=== PATIENT | male | born 1940 | race Caucasian/White ===

== ENCOUNTER 2023-10-31 11:15 | Outpatient (CLI) | payer MEDICARE, SELFPAY ==
[2023-10-31 11:36] LABS: Basophils Percent Auto 0.3 % (0.2-1.2); Eosinophils Absolute Auto 0.1 K/mm3 (0-0.3); Eosinophils Percent Auto 1.5 % (0-4.4); Hemoglobin 12.3 g/dL (14.0-18.0); Immature Granulocyte Absolute 0.06 K/mm3 (0.00-0.031); Lymphocytes Absolute Auto 0.48 K/mm3 (0.9-3.2); Lymphocytes Percent Auto 8.2 % (18.3-44.2); Mean Corpuscular HGB Conc 33.2 g/dl (32-36); Mean Corpuscular Hemoglobin 33.7 pg (26-34); Mean Corpuscular Volume 101.4 fl (80-100); Mean Platelet Volume 10.3 fl (7.4-10.4); Monocytes Absolute Auto 0.6 K/mm3 (0.1-0.6); Monocytes Percent Auto 9.5 % (2.6-8.5); Neutrophils Absolute Auto 4.7 K/mm3 (1.3-6.7); Neutrophils Percent Auto 79.5 % (45.5-73.1); Platelet Count Result 167 k/mm3 (150-375); Red Blood Count 3.65 M/mm3 (4.6-6.20); Red Cell Distribution Width 13.3 % (11.5-14.5); White Blood Count 5.9 K/mm3 (4.5-10.0)
[2023-10-31 12:14] LABS: Anion Gap 6 mmol/L (8-16); Blood Urea Nitrogen 29 mg/dL (9-20); Carbon Dioxide 31 mmol/L (22-30); Chloride 101 mmol/L (98-107); Potassium 4.2 mmol/L (3.4-5.0); Sodium 138 mmol/L (137-145)
[2023-10-31 12:15] LABS: Alanine Aminotransferase 19 U/L (6-50); Albumin Level 4.2 g/dL (3.5-5.1); Alkaline Phosphatase 83 U/L (38-126); Aspartate Amino Transferase 26 U/L (17-59); Bilirubin,Total 0.9 mg/dL (0.2-1.3); Estimated Glomerular Filt Rate 49
[2023-10-31 12:42] LABS: Prostate Specific Antigen < 0.1 ng/mL (< OR = 4.0)
[2023-10-31 13:06] LABS: Glucose 148 mg/dL (65-110)
== END 2023-10-31 11:16 | disposition home or self-care (01) ==
LOC: ANHLAB 11:18
PROVIDERS: PCP Internal Medicine; Visit Provider Internal Medicine Hematology & Oncology
DX: C61 Malignant neoplasm of prostate (principal)
CPT/HCPCS: 36415; 80053; 84153; 85025

== ENCOUNTER 2024-01-11 13:45 | Outpatient (CLI) | payer MEDICARE, SELFPAY ==
[2024-01-11 14:19] LABS: Albumin Level 4.3 g/dL (3.5-5.1); Anion Gap 11 mmol/L (4-12); Blood Urea Nitrogen 29 mg/dL (9-20); Calcium 9.6 mg/dL (8.4-10.2); Carbon Dioxide 25 mmol/L (22-30); Chloride 101 mmol/L (98-107); Estimated Glomerular Filt Rate 53; Glucose 198 mg/dL (65-110); Phosphorus 3.5 mg/dL (2.5-4.5); Sodium 137 mmol/L (137-145)
[2024-01-11 15:19] LABS: Parathyroid Intact 61.9 pg/mL (7.5-53.5)
[2024-01-11 16:35] LABS: Creatinine Urine 96.9 mg/dL; Total Protein Urine Random 13 mg/dL; Ur Ttl Prot Creatinine Ratio 0.13 mg/mg (0-0.20)
[2024-01-11 18:32] LABS: Vitamin D 25 Hydroxy 48.5 ng/mL
== END 2024-01-11 13:46 | disposition home or self-care (01) ==
PROVIDERS: PCP Internal Medicine; Visit Provider Internal Medicine Nephrology
DX: E55.9 Vitamin D deficiency, unspecified (principal); I12.9 Hypertensive chronic kidney disease with stage 1 through stage 4 chronic kidney disease, or unspecified chronic kidney disease; N18.32 Chronic kidney disease, stage 3b; N25.81 Secondary hyperparathyroidism of renal origin
CPT/HCPCS: 36415; 80069; 82306; 82570; 83970; 84156

== ENCOUNTER 2024-02-21 08:30 | Outpatient (CLI) | payer MEDICARE, SELFPAY ==
[2024-02-21 09:23] LABS: Hemoglobin A1C 6.7 % (<5.7)
[2024-02-21 09:50] LABS: Anion Gap 6 mmol/L (4-12); Blood Urea Nitrogen 48 mg/dL (9-20); Calcium 9.4 mg/dL (8.4-10.2); Carbon Dioxide 34 mmol/L (22-30); Chloride 96 mmol/L (98-107); Cholesterol 165 mg/dL (0-200); Estimated Glomerular Filt Rate 39; Glucose 135 mg/dL (65-110); HDL Direct 63 mg/dL; Potassium 3.8 mmol/L (3.4-5.0); Sodium 136 mmol/L (137-145); Triglycerides 104 mg/dL (<150)
[2024-02-21 10:00] LABS: LDL Cholesterol Direct 82 mg/dL
== END 2024-02-21 08:31 | disposition home or self-care (01) ==
LOC: ANHLAB 08:32
PROVIDERS: PCP Internal Medicine; Visit Provider Clinical Nurse Specialist
DX: R73.9 Hyperglycemia, unspecified (principal); I10 Essential (primary) hypertension; N18.32 Chronic kidney disease, stage 3b; C61 Malignant neoplasm of prostate; I12.9 Hypertensive chronic kidney disease with stage 1 through stage 4 chronic kidney disease, or unspecified chronic kidney disease
CPT/HCPCS: 36415; 80048; 80061; 83036

== ENCOUNTER 2024-04-04 10:41 | Outpatient (CLI) | payer MEDICARE, SELFPAY ==
[2024-04-04 11:16] LABS: Basophils Percent Auto 0.4 % (0.2-1.2); Eosinophils Percent Auto 0.4 % (0-4.4); Hematocrit 34.4 % (42.0-52.0); Immature Granulocyte Absolute 0.07 K/mm3 (0.00-0.031); Lymphocytes Absolute Auto 0.26 K/mm3 (0.9-3.2); Lymphocytes Percent Auto 3.9 % (18.3-44.2); Mean Corpuscular HGB Conc 34.9 g/dl (32-36); Mean Corpuscular Hemoglobin 34.6 pg (26-34); Mean Corpuscular Volume 99.1 fl (80-100); Mean Platelet Volume 10.6 fl (7.4-10.4); Monocytes Absolute Auto 0.4 K/mm3 (0.1-0.6); Monocytes Percent Auto 6.1 % (2.6-8.5); Neutrophils Absolute Auto 5.9 K/mm3 (1.3-6.7); Neutrophils Percent Auto 88.2 % (45.5-73.1); Platelet Count Result 168 k/mm3 (150-375); Red Blood Count 3.47 M/mm3 (4.6-6.20); Red Cell Distribution Width 13.1 % (11.5-14.5); White Blood Count 6.7 K/mm3 (4.5-10.0)
[2024-04-04 11:31] LABS: Alanine Aminotransferase 18 U/L (6-50); Albumin Level 4.1 g/dL (3.5-5.1); Alkaline Phosphatase 88 U/L (38-126); Anion Gap 12 mmol/L (4-12); Aspartate Amino Transferase 26 U/L (17-59); Blood Urea Nitrogen 34 mg/dL (9-20); Calcium 9.6 mg/dL (8.4-10.2); Carbon Dioxide 31 mmol/L (22-30); Chloride 91 mmol/L (98-107); Estimated Glomerular Filt Rate 45; Glucose 160 mg/dL (65-110); Potassium 3.2 mmol/L (3.4-5.0); Sodium 134 mmol/L (137-145)
[2024-04-04 11:59] LABS: Prostate Specific Antigen < 0.1 ng/mL (< OR = 4.0)
== END 2024-04-04 10:42 | disposition home or self-care (01) ==
LOC: ANHLAB 10:47
PROVIDERS: PCP Internal Medicine; Visit Provider Internal Medicine Hematology & Oncology
DX: C61 Malignant neoplasm of prostate (principal)
CPT/HCPCS: 36415; 80053; 84153; 85025

== ENCOUNTER 2024-04-18 13:54 | Outpatient (CLI) | payer MEDICARE, SELFPAY ==
--- NOTE | ~2024-04-18 | DEXA_ITS ---
Bone Density Report Name: DARRON GONZALEZ Age: 84 Sex: Male Ethnicity: White Date of : 1940 Indication: screening for osteoporosis; height loss; inflammatory bowel disease; history of glucocorticoids; cancer; Referring Provider: JOSE PHAM Study: Bone densitometry was performed. Exam Date: April 18, 2024 Accession number: [id number] Bone Density: Region BMD T-score Z-score Classification AP Spine(L1-L4) 1.222 1.2 2.4 Normal Femoral Neck (Left) 1.023 0.7 2.3 Normal Total Hip (Left) 1.223 1.3 2.4 Normal Femoral Neck (Right) 1.087 1.2 2.8 Normal Total Hip (Right) 1.257 1.5 2.7 Normal Total Hip Mean 1.240 1.4 2.6 Normal World Health Organization criteria for BMD impression classify patients as: Normal (T-score at or above -1.0), Osteopenia (T-score between -1.0 and -2.5), or Osteoporosis (T-score at or below -2.5). 10-year Fracture Risk: FRAX not reported because: All T-scores for Spine Total, Hip Total, Femoral Neck at or above -1.0 Clinical Information Provided by Patient: Has taken Glucocorticoids Has 3 or more alcoholic drinks per day Has the following medical conditions: Cancer, Inflammatory bowel diseases Patient maximum height was 67.5 No regular weight bearing exercise Does not regularly consume dairy products Drinks caffeinated beverages Impression: The patient has normal bone mass. The patient has risk factors, including: excessive alcohol use, history of glucocorticoid therapy. Discussion: LOW RISK OF FRACTURE; BONE DENSITY IS WELL ABOVE THE MINIMUM DESIRABLE LEVEL AND ABOVE AVERAGE FOR AGE AND SEX AT ALL SKELETAL SITES TESTED. This person's bone density is above expected limits for age and sex. This is rarely clinically significant, but should be pursued if there are significant musculoskeletal complaints. The patient should follow a healthful lifestyle (good nutrition with adequate calcium and vitamin D, and appropriate weight-bearing exercise). Follow-Up: Consider repeating this study in 5 years or sooner if there is some new clinical indication. Reported by: JOSE on 04/18/2024 2:37:00 PM. Reviewed, dictated and finalized at location [facility]
== END 2024-04-18 13:55 | disposition home or self-care (01) ==
PROVIDERS: PCP Internal Medicine; Visit Provider Internal Medicine Hematology & Oncology
DX: M85.89 Other specified disorders of bone density and structure, multiple sites (principal); C61 Malignant neoplasm of prostate
CPT/HCPCS: 77080

== ENCOUNTER 2024-05-06 11:00 | Outpatient (RCR) | payer MEDICARE, SELFPAY ==
--- NOTE | 2024-03-15 14:39 | OPREHPOC ---
Outpatient Therapy Plan of Care This is a Multidisciplinary Plan of Care that may contain components documented by all disciplines (PT, OT, and ST.) PT Problem 1 PT Problem #1 Knowledge Deficit PT Goal 1 Goal *indep with HEP Target Visit 10 PT Problem 2 PT Problem #2 Impaired Strength PT Goal 1 Goal increase R and L LE strength, to improve transfer and mobility skills: 1* perform 20 reps of mat and standing R and L LE exercises with good control Target Visit 10 PT Problem 3 PT Problem #3 Impaired Functional Mobility PT Goal 1 Goal improve standing balance and mobility skills, to decrease risk for falls and improve functional mobility: 1* 2 minute walking test distance, with assistive device, 300' 2* 5 reps sit/stand without UE use 18 seconds 3* Tinetti balance/gait score of 25/28 4* up/down 12 steps with bilateral hand rails- modified indep-to be able to go into his basement 5* supine to sit transfer indep 6* pt report NO falls Target Visit 10
--- NOTE | 2024-03-15 14:39 | PTOPEVAL1 ---
Assessment and note entered by Cyndee Stuart PT Evaluation Information Assessment Status Evaluation ICD-10 Condition Codes (PT) R26.9,Weakness R53.1 Onset May 2023 Subjective Information gradual increase in weakness with falls; in the past 6 months- have fallen 2x-walking and turning; tends to do things without thinking and have troubles doing them; started using the wheeled walker about 6 months ago; before that- did not use any device; live alone and recently moved to [place] to be closer to family; have upcoming appointments with patcher wood welder and sleep study test; Activity: live alone, have 2 steps to enter home; have basement and 12 steps from deck to yard--not go down there; daughter does laundry-- on main floor; have resident surgeon 2x/month for heavier cleaning; have sitting- chair pedal machine; GOAL: walk without anything; no more falls; Reported Pain Level Pain Score 0: Self Report Assessment PT Clinical Summary Dave has the diagnosis of gait abnormality, weakness with falls. He reports gradual increase in mobility and using a wheeled walker all of the time now. He lives alone with local daughter assist with laundry and resident surgeon. He does not do any regular fitness exercises. And reports a fear of falling again. With the evaluation: 5 reps sit/stand time of 24 seconds without use of UE's; 2 minute walking with wheeled walker, distance of 180' with reports of fatigue; Tinetti balance score of 20/28= risk for falls; 4 steps with single step pattern and both hands on one hand railing; supine to sit, requires assist with transfer/ sit to supine labored with moving legs onto mat; weakness of both legs. Skilled PT services are indicated to increase LE strength, bed mobility, transfer and gait/balance skills, with education for HEP and safety with mobility. Plan of Care Interventions G
--- NOTE | 2024-04-15 11:23 | PCPTNOTE ---
Stoll an cancelled , pulled muscle. MONSERRATS
--- NOTE | 2024-05-01 11:35 | PCPTNOTE ---
Called and canceled, ill. AKS
--- NOTE | 2024-05-06 11:38 | PTOPDC ---
Assessment and note entered by Cyndee Stuart, PT Discharge Report Assessment Status Discharge ICD-10 Condition Codes (PT) R26.9,Weakness R53.1 Onset May 2023 Subjective Information have not had any falls since coming for therapy; in the house, do not always use the walker, but when go out, use the walker; have been working on the exercises at home; wish he could walk better and be further along; have not gone down into his basement- not comfortable doing it-- have done 1x with someone there with him; frustrated he is not better; saw the dr a few weeks ago and nothing was wrong or changes; wants to stop therapy and do the exercises on his own at home. Reported Pain Level Pain Score 0: Self Report Assessment PT Clinical Summary Dave has received 7 PT sessions. He called/ canceled 2 appointments. Compared to the initial evaluation: 5 reps sit/ stand time is the same at 24 seconds, but using 1 UE support/ at eval did not use UE's; 2 minute walking time with wheeled walker from 180' to 150' - had to stop and sit at end of 2 minutes walking; Tinetti balance score decreased from 20 to 17/28 LE strength with mat exercises - less reps today; education completed for safety with mobility and HEP. He has increased safety awareness- has not had any falls since starting therapy. The goals were partially met. Discharge PT services. He is to continue with his HEP and walking as tolerated. Plan of Care PT Services Indicated No
== END 2024-05-07 08:41 | disposition home or self-care (01) ==
LOC: ANHPT 11:00
PROVIDERS: PCP Internal Medicine; Visit Provider Internal Medicine
DX: R26.9 Unspecified abnormalities of gait and mobility (principal)
CPT/HCPCS: 97110; 97116; 97161; 97530

== ENCOUNTER 2024-05-16 09:10 | Outpatient (CLI) | payer MEDICARE, SELFPAY ==
--- NOTE | 2024-06-10 10:52 | WPDSLEEPSTUD ---
Sleep Study Date of Study: 05/16/24 Ordering Provider: Cipriano Lord DO Interpreting Physician: Hanna Leyva MD Sleep Study Type: Split Polysomnogram Height: 1.7 m Weight: 97.749 kg Body Mass Index: 33.7 Neck Circumference (inches): 17.5 [place]: 1 Reason for Sleep Study Chronic heart failure, history of sleep apnea and use of CPAP Sleep History Brent Lewis is an 84-year-old man with a history of sleep apnea, he has used a CPAP previously, but not recently. He now has an enlarged heart, right heat failure, hypertension, mild type 2 diabetes, GERD and edema. He arrived using a walker. which he reported to the engineering technical specialist. He does not awaken from sleep feeling short of breath. He does not awaken at night with heartburn, belching or coughing. He occasionally snores but never loudly enough that others complain about it. He does not have difficulty sleeping when he has a cold. He does not wake up gasping for breath during the night. He does not have breathing problems at night observed by others. He does not sweat excessively at night or notice his heart pounding or beating irregularly at night. He occasionally falls asleep during the day, rarely falls asleep involuntarily, never falls asleep while driving. He does not have loss of muscle tone with strong emotion. He is retired, does not report daytime difficulties due to excessive sleepiness. He does not feel paralyzed on waking or falling asleep. He does not have vivid dreamlike scenes upon awakening or falling asleep. He does not feel afraid to go to sleep. He denies having nightmares. He rarely remembers his dreams. He does not have racing thoughts. He does not feel sad, depressed, or anxious. He occasionally has muscular tension. He does not notice parts of his body jerking. He does not kick at night. He rarely has crawling and aching feelings in his legs. He occasionally has leg pain at night. He denies morning jaw pain, grinding his teeth at night, experiencing pain during the day or awakening with pain during the night. He denies waking up feeling stiff in the morning, does not have sore achy muscles on waking and does not wake up with pain in the neck or spine. He has memory problems. His normal bedtime is 8:30 p.m. falling asleep within 5-10 minutes waking typically 3-4 times at night long enough to use the bathroom and then return to sleep easily. His normal wake time is 7:30 a.m.. He keeps the same schedule on weekends. He estimates getting between 8 and 9 hours of sleep during the night. He does not mention whether or not he takes naps. He feels better in the morning compared to other times of day. Habits: Tobacco: never smoker Caffeine: 2 per day Alcohol: 3-4 per day Recreational substances: none [facility] Past Medical History Medical History Chronic kidney disease, stage 3 CPAP (continuous positive airway pressure) dependence Diverticulitis DM renal manif type II DM w/o complication type II GERD (gastroesophageal reflux disease) Hyperlipidemia LDL goal <100 Hypertension YAMILKA (obstructive sleep apnea) Prostate cancer Family History Family History Father Asthma Mother Leukemia Social History Social History Smoking status: Former smoker Tobacco type: cigarettes Second hand tobacco smoke exposure: No Alcohol intake: current Drinks per week: 7 Alcohol use details: 2 alcohol drinks per night Substance use: never Do You Feel Safe in your Home?: Yes Lack of Transportation: No Lack of Food: Never True Current Housing: I Have Housing Concerned About Future Housing: No Difficulty Paying Gas/Electric Bills: No Difficulty Paying for Meds: No Currently Unemployed: No Education: Master's Degree o
[2024-06-10 10:56] VITALS: BMI 33.7
== END 2024-05-17 07:20 | disposition home or self-care (01) ==
PROVIDERS: PCP Internal Medicine; Visit Provider Internal Medicine
DX: G47.33 Obstructive sleep apnea (adult) (pediatric) (principal); I50.810 Right heart failure, unspecified
CPT/HCPCS: 95811

== ENCOUNTER 2024-05-24 19:32 | Inpatient (IN) | payer MEDICARE, SELFPAY ==
--- NOTE | ~2024-05-24 | XR_ITS ---
EXAMINATION: XR chest 2V DATE: 05/24/2024 20:27 INDICATION: Weakness. TECHNIQUE: Frontal and lateral views of the chest were obtained. COMPARISON: CT abdomen and pelvis 08/21/2014 FINDINGS: There are airspace opacities in left mid and lower lung zones. No pleural effusion or pneum othorax. The heart size is normal. There are prominent pericardial fat pads. IMPRESSION: 1. Airspace opacities in left mid and lower lung zones, consistent with atelectasis versus pneumonia. Reviewed, dictated and finalized at location A. IMPRESSION: 1. Airspace opacities in left mid and lower lung zones, consistent with atelect asis versus pneumonia.
[2024-05-24 19:56] VITALS: BP 166/63; PULSE 96; RESP 16; TEMP 36.3; O2SAT 100
--- NOTE | 2024-05-24 19:58 | ECG_ITS ---
Test Date: 2024-05-24 20:02:47 Measurements Intervals Sunset Rate: 114 P: 251 FL: 116 QRS: -2 QRSD: 81 T: 9 QT: 266 QTc: 366 Interpretive Statements JUNCTIONAL TACHYCARDIA LOW QRS VOLTAGE IN PRECORDIAL LEADS [QRS DEFLECTION < 1.0 mV IN CHEST LEADS] NONSPECIFIC ST & T-WAVE ABNORMALITY Baseline artifact ABNORMAL RHYTHM ECG No previous ECG available for comparison Electronically Signed On 05-25-2024 16:17:28 CDT by Yuki Chapa M.D.
[2024-05-24 20:19] LABS: Basophils Percent Auto 0.5 % (0.2-1.2); Eosinophils Absolute Auto 0.2 K/mm3 (0-0.3); Hematocrit 34.4 % (42.0-52.0); Hemoglobin 11.7 g/dL (14.0-18.0); Immature Granulocyte Absolute 0.07 K/mm3 (0.00-0.031); Immature Granulocyte Percent A 0.9 % (0-0.5); Lymphocytes Percent Auto 6.1 % (18.3-44.2); Mean Corpuscular Hemoglobin 33.9 pg (26-34); Mean Corpuscular Volume 99.7 fl (80-100); Mean Platelet Volume 10.4 fl (7.4-10.4); Monocytes Absolute Auto 0.7 K/mm3 (0.1-0.6); Monocytes Percent Auto 8.8 % (2.6-8.5); Neutrophils Absolute Auto 6.7 K/mm3 (1.3-6.7); Neutrophils Percent Auto 81.7 % (45.5-73.1); Platelet Count Result 181 k/mm3 (150-375); Red Blood Count 3.45 M/mm3 (4.6-6.20); Red Cell Distribution Width 13.4 % (11.5-14.5); White Blood Count 8.2 K/mm3 (4.5-10.0)
[2024-05-24 20:28] LABS: Alanine Aminotransferase 18 U/L (6-50); Alkaline Phosphatase 84 U/L (38-126); Anion Gap 7 mmol/L (4-12); Aspartate Amino Transferase 32 U/L (17-59); Bilirubin,Total 1.1 mg/dL (0.2-1.3); Blood Urea Nitrogen 19 mg/dL (9-20); Calcium 9.3 mg/dL (8.4-10.2); Carbon Dioxide 30 mmol/L (22-30); Chloride 94 mmol/L (98-107); Estimated Glomerular Filt Rate 48; Glucose 173 mg/dL (65-110); Potassium 3.6 mmol/L (3.4-5.0); Sodium 131 mmol/L (137-145)
[2024-05-24 21:50] LABS: NT Pro B Type Natriuretic Pept 422 pg/mL (19.9-100); Troponin I 0.023 ng/mL (0.000-0.034)
--- NOTE | 2024-05-24 22:19 | ED_ITS ---
HPI - General Adult General Chief complaint: Weakness Stated complaint: weakness Time Seen by Provider: 05/24/24 21:06 History of Present Illness HPI narrative: Patient is a 84-year-old gentleman presents emergency department with chief complaint of generalized weakness. The family noticed for the last day he has been having increasing weakness in this evening was unable to get up off the toilet seat the patient denies chest pain denies fever denies vomiting denies diarrhea states that he does get short of breath whenever he is getting up and walking around. Related Data Home Medications Medication Instructions Recorded Confirmed Melatonin 5mg Gummy 1 tab-cap PO HS 09/01/23 05/25/24 leuprolide acetate (6 month) 45 mg 45 mg subcut [id number] 09/01/23 05/25/24 (6 month) subcutaneous syringe ([email or web address]) multivitamin 1 tablet PO DAILY 09/01/23 05/25/24 omega 9-jhb-dnm-fish oil 100 1 cap PO DAILY 09/01/23 05/25/24 mg-160 mg-1,000 mg capsule (Fish Oil) vitamin E (dl, acetate) 450 mg 450 mg PO DAILY 09/01/23 05/25/24 (1,000 unit) capsule aspirin 81 mg tablet,delayed 81 mg PO DAILY 02/26/24 05/25/24 release (Adult Aspirin Regimen) cholecalciferol (vitamin D3) 25 25 mcg PO DAILY 02/26/24 05/25/24 mcg (1,000 unit) capsule metformin 500 mg tablet,extended 500 mg PO HS 05/25/24 05/25/24 release 24 hr mirtazapine 15 mg tablet 15 mg PO HS 05/25/24 05/25/24 simvastatin 40 mg tablet 40 mg PO HS 05/25/24 05/25/24 Allergies Allergy/AdvReac Type Severity Reaction Status Date / Time No Known Allergies Allergy Verified 05/24/24 19:57 Review of Systems Review of Systems: A 10 system review of systems was completed on the patient and is negative except for what is stated in the HPI. Nursing and ancillary documentation was reviewed. [facility] Past Medical History Medical History (Updated 05/25/24 @ 00:11 by Hal Underwood MD) Chronic kidney disease, stage 3 CPAP (continuous positive airway pressure) dependence Diverticulitis DM renal manif type II DM w/o complication type II GERD (gastroesophageal reflux disease) Hyperlipidemia LDL goal <100 Hypertension YAMILKA (obstructive sleep apnea) Prostate cancer Family History Family History Father Asthma Mother Leukemia Social History Social History Smoking status: Former smoker Tobacco type: cigarettes Second hand tobacco smoke exposure: No Alcohol intake: current Drinks per week: 7 Alcohol use details: 2 alcohol drinks per night Substance use: never Do You Feel Safe in your Home?: Yes Lack of Transportation: No Lack of Food: Never True Current Housing: I Have Housing Concerned About Future Housing: No Difficulty Paying Gas/Electric Bills: No Difficulty Paying for Meds: No Currently Unemployed: No Education: Master's Degree or Higher Difficulty w/ Childcare or Family Care: No Living arrangements: alone Occupation/Education: retired Gender identity (if verbalized by the patient): Male Sexual Orientation (if Verbalized by the Patient): Straight or Heterosexual Spiritual care concerns: No Agree to blood products: Yes Exam Narrative: GENERAL: Well-appearing, well-nourished, and in no acute distress. HEAD: Normocephalic, atraumatic. EYES: PERRLA and EOMI. ENT: Nares clear, no rhinorrhea or epistaxis. Mucous membranes moist. NECK: Supple. CHEST: Clear to auscultation. No respiratory distress. HEART: Regular rate and rhythm. No murmur heard. Normal peripheral pulses. ABDOMEN: Soft, nontender, nondistended, normal active bowel sounds. EXTREMITIES: Normal range of motion. No edema. SKIN: Warm, dry, no rash. NEURO: No focal deficits. Alert and oriented x3. PSYCH: Normal mood and affect. Course Vital Signs Vital signs: Vital Signs Temperature 36.3 C L 05/24/24 19:56 Pulse Rate 96 05/24/24 19:56 Respiratory Rate 16 05/24/24 19:56 Blood Pressure 166/63 H 05/24/24 19:56 Pulse Oximetry 100 05/24/24 19:56 Temperature 36.9 C 05/25/24 02:20 Pulse Rate 95 05/25/24 02:20 Respiratory Rate 18 05/25/24 02:20 Blood Pressure 135/53 L 05/25/24 02:20 Pulse Oximetry 96 05/25/24 02:20 Oxygen Delivery Room Air 05/25/24 02:12 Medical Decision Making MDM Narrative Medical decision making narrative: Differential diagnosis includes pneumonia, COVID, electrolyte abnormality, dehydration, UTI Laboratory studies were obtained on the patient showed a white count 8.2 electrolytes showed a BUN of 19 and creatinine 1.4 lactic acid was 1.1 troponin was 0.023 BNP was 422 urinalysis showed 1+ ketones but otherwise no infection Chest x-ray showed possible pneumonia The patient received IV fluids and was started on Rocephin and Zithromax the case was discussed with hospitalist for admission Vital Signs Vital Signs: Vital Signs Temperature 36.3 C L 05/24/24 19:56 Pulse Rate 96 05/24/24 19:56 Respiratory Rate 16 05/24/24 19:56 Blood Pressure 166/63 H 05/24/24 19:56 Pulse Oximetry 100 05/24/24 19:56 Temperature 36.9 C 05/25/24 02:20 Pulse Rate 95 05/25/24 02:20 Respiratory Rate 18 05/25/24 02:20 Blood Pressure 135/53 L 05/25/24 02:20 Pulse Oximetry 96 05/25/24 02:20 Oxygen Delivery Room Air 05/25/24 02:12 Lab Data 05/24/24 20:11 05/24/24 20:11 Labs: Lab Results 05/24/24 05/24/24 05/24/24 Range/Units 20:11 22:20 23:32 WBC 8.2 (4.5-10.0) K/mm3 RBC 3.45 L (4.6-6.20) M/mm3 Hgb 11.7 L (14.0-18.0) g/dL Hct 34.4 L (42.0-52.0) % MCV 99.7 (80-100) fl MCH 33.9 (26-34) pg MCHC 34.0 (32-36) g/dl RDW 13.4 (11.5-14.5) % Plt Count 181 (150-375) k/mm3 MPV 10.4 (7.4-10.4) fl Immature Gran % (Auto) 0.9 H (0-0.5) % Neut % (Auto) 81.7 H (45.5-73.1) % Lymph % (Auto) 6.1 L (18.3-44.2) % Yell % (Auto) 8.8 H (2.6-8.5) % Eos % (Auto) 2.0 (0-4.4) % Baso % (Auto) 0.5 (0.2-1.2) % Lymph # (Auto) 0.50 L (0.9-3.2) K/mm3 Yell # (Auto) 0.7 H (0.1-0.6) K/mm3 Eos # (Auto) 0.2 (0-0.3) K/mm3 Baso # (Auto) 0.0 (0.0-0.1) K/mm3 Abs Immat Gran (auto) 0.07 H (0.00-0.031) K/mm3 Absolute Neuts (auto) 6.7 (1.3-6.7) K/mm3 Absolute Nucleated RBC 0.000 (0.0-0.012) K/mm3 Nucleated RBC % 0.0 (0.0-0.2) % Sodium 131 L (137-145) mmol/L Potassium 3.6 (3.4-5.0) mmol/L Chloride 94 L (98-107) mmol/L Carbon Dioxide 30 (22-30) mmol/L Anion Gap 7 (4-12) mmol/L BUN 19 (9-20) mg/dL Creatinine 1.40 H (0.7-1.3) mg/dL Estim Creat Clear Calc Not Reportable Estimated GFR 48 L (59 - ) Glucose 173 H (65-110) mg/dL Lactic Acid 1.1 (0.7-2.0) mmol/L Calcium 9.3 (8.4-10.2) mg/dL Total Bilirubin 1.1 (0.2-1.3) mg/dL AST 32 (17-59) U/L ALT 18 (6-50) U/L Alkaline Phosphatase 84 (38-126) U/L Troponin I 0.023 (0.000-0.034) ng/mL NT-Pro-B Natriuret Pep 422 H (19.9-100) pg/mL Total Protein 7.0 (6.3-8.2) g/dL Albumin 4.0 (3.5-5.1) g/dL Urine Color Yellow (Yellow) Urine Appearance Clear (Clear) Urine pH 6.5 (5.0-9.0) Ur Specific [place] 1.020 (1.001-1.035) Urine Protein 1+ H (Negative) mg/dL Urine Glucose (UA) Negative (Negative) mg/dL Urine Ketones 1+ H (Negative) mg/dL Ur Blood (Man) Negative (Negative) Urine Nitrate Negative (Negative) Urine Bilirubin Negative (Negative) Urine Urobilinogen 1.0 (<2.0) mg/dL Add Ur Microanalysis Reviewed Leukocyte Esterase Rfl Negative (Negative) SHANIQUA/UL Urine RBC 0-2 (0-2) /hpf Urine WBC 0-5 (0-3) /hpf Ur Squamous Epith Cells None seen (Few) /hpf Urine Bacteria None seen /hpf Urine Casts 11-20 Influenza A (RT-PCR) Negative (Negative) Influenza B (RT-PCR) Negative (Negative) RSV (RT-PCR) Negative (Negative) SARS-CoV-2 RNA (RT-PCR) Negative (Negative) Discharge Plan Discharge Clinical Impression: Pneumonia, Generalized weakness Patient Disposition: Still a Patient Condition: Stable
[2024-05-24 22:38] LABS: Lactic Acid Reflex 1.1 mmol/L (0.7-2.0)
[2024-05-24 23:06] LABS: Influenza A QL RT-PCR Negative (Negative); Influenza B QL RT-PCR Negative (Negative); RSV RNA, RT-PCR Negative (Negative); SARS-CoV-2 RNA PCR Negative (Negative)
[2024-05-24 23:58] LABS: Add Urine Microscopic? YES; Appearance Urine Clear (Clear); Bacteria Urine None Seen /hpf; Bilirubin Urine Negative (Negative); Blood Urine Negative (Negative); Color Urine Yellow (Yellow); Glucose Urine UA Negative (Negative); Ketones Urine 1+ mg/dL (Negative); Leukocyte Esterase Ur Negative LEU/UL (Negative); Need Manual Microscopic Reviewed; Nitrate Urine Negative (Negative); Protein Urine 1+ mg/dL (Negative); RBC Urine 0-2 /hpf (0-2); Squamous Epithelial Cell Urine None Seen /hpf (Few); WBC Urine 0-5 /hpf (0-3); pH Urine 6.5 (5.0-9.0)
[2024-05-25 00:06] VITALS: BP 116/64; PULSE 92; RESP 16; O2SAT 98
--- NOTE | 2024-05-25 00:09 | P.HP_ITS ---
H&P: HPI History of Present Illness Date/Time: 05/25/24 00:09 Chief Complaint: generalized weakness Narrative: This is an 84-year-old male with past medical history significant for COPD/emphysema, prostate CA, type diabetes mellitus, hypertension, chronic kidney disease, dyslipidemia, benign prostatic hyperplasia, obstructive sleep apnea on CPAP at nighttime. patient was brought to the emergency room due to ge neralized weakness x1 day duration has been in his usual state of health up until this point. Patient denies fevers rigors chills night sweats has had poor per orally intake poor appetite denies any nausea vomiting diarrhea denies cough sputum production or shortness of breath denies generalized muscle aches and pains. Preliminary workup was significant for chest x-ray with lung infiltrates. EXAMINATION: XR chest 2V DATE: 05/24/2024 20:27 INDICATION: Weakness. TECHNIQUE: Frontal and lateral views of the chest were obtained. COMPARISON: CT abdomen and pelvis 08/21/2014 FINDINGS: There are airspace opacities in left mid and lower lung zones. No pleural effusion or pneumothorax. The heart size is normal. There are prominent pericardial fat pads. IMPRESSION: 1. Airspace opacities in left mid and lower lung zones, consistent with atelectasis versus pneumonia. Review of Systems Review of Systems: generalized weakness, poor per orally intake, poor appetite Constitutional: Constitutional: Denies chills, Denies fever(s), Reports lethargy, Reports malaise, Denies night sweats, Reports poor appetite and Reports weakness Eyes: Eyes: Denies change in vision ENT: Denies dysphagia and Denies odynophagia Cardiovascular: Cardiovascular: Denies chest pain and Reports leg edema Respiratory: Respiratory: Denies chest congestion, Denies cough and Denies dyspnea Gastrointestinal: Gastrointestinal: Denies abdominal pain, Denies diarrhea, Denies nausea and Denies vomiting Genitourinary: Genitourinary: Denies dysuria Musculoskeletal: Musculoskeletal: Reports muscle weakness Integumentary/Breasts: Skin/Breast: Denies rash Neurologic: Denies focal weakness and Denies Sensory deficit (Neuro) Psychiatric: Psychiatric: Reports no additional psychiatric complaints and Reports as per HPI Endocrine: Endocrine: Denies polyphagia, Denies polydipsia and Denies polyuria Hematologic/Lymphatic: Hematologic/Lymphatic: Reports no additional hematologic/lymphatic complaints and Reports as per HPI Allergic/Immunologic: Allergic/Immunologic: Reports no additional allergic/immunologic complaints and Reports as per [facility] Past Medical History Medical History (Updated 05/25/24 @ 00:11 by Hal Underwood MD) Chronic kidney disease, stage 3 CPAP (continuous positive airway pressure) dependence Diverticulitis DM renal manif type II DM w/o complication type II GERD (gastroesophageal reflux disease) Hyperlipidemia LDL goal <100 Hypertension YAMILKA (obstructive sleep apnea) Prostate cancer Family History Family History Father Asthma Mother Leukemia Social History Social History Smoking status: Former smoker Tobacco type: cigarettes Second hand tobacco smoke exposure: No Alcohol intake: current Alcohol use details: 2 alcohol drinks per night Substance use: never Do You Feel Safe in your Home?: Yes Lack of Transportation: No Lack of Food: Never True Current Housing: I Have Housing Concerned About Future Housing: No Difficulty Paying Gas/Electric Bills: No Difficulty Paying for Meds: No Currently Unemployed: No Education: Master's Degree or Higher Difficulty w/ Childcare or Family Care: No Living arrangements: alone Occupation/Education: retired Gender identity (if verbalized by the patient): Male Sexual Orientation (if Verbalized by the Patient): Straight or Heterosexual Spiritual care concerns: No Agree to blood products: Yes Meds Home Medications and Allergies Home Medications Medication Instructions Recorded Confirmed Type Melatonin 5mg Gummy 1 tab-cap PO HS 09/01/23 04/08/24 History denosumab 60 mg/mL subcutaneous 60 mg subcut [id number] 09/01/23 04/08/24 History syringe (Prolia) fluticasone propionate 115 2 puff inhalation BID 09/01/23 04/08/24 History mcg-salmeterol 21 mcg/actuation HFA inhaler (Advair HFA) leuprolide acetate (6 month) 45 mg 45 mg subcut [id number] 09/01/23 04/08/24 History (6 month) subcutaneous syringe (Eligard) multivitamin 1 tablet PO DAILY 09/01/23 04/08/24 History omega 0-jqs-mzu-fish oil 100 1 cap PO DAILY 09/01/23 04/08/24 History mg-160 mg-1,000 mg capsule (Fish Oil) vitamin E (dl, acetate) 450 mg 450 mg PO DAILY 09/01/23 04/08/24 History (1,000 unit) capsule prednisone 5 mg tablet 5 mg PO BID #60 tabs 01/23/24 04/08/24 Rx abiraterone 500 mg tablet 500 mg PO DAILY #1 tablet 02/26/24 04/08/24 Rx aspirin 81 mg tablet,delayed 81 mg PO DAILY 02/26/24 04/08/24 History release (Adult Aspirin Regimen) cholecalciferol (vitamin D3) 25 25 mcg PO DAILY 02/26/24 04/08/24 History mcg (1,000 unit) capsule furosemide 20 mg tablet 20 mg PO QAM PRN edema #90 tabs 02/26/24 04/08/24 Rx famotidine 20 mg tablet (Pepcid AC) 20 mg PO BID #180 tabs 03/12/24 04/08/24 Rx metformin 500 mg tablet,extended 500 mg PO DAILY #90 tabs 03/12/24 04/08/24 Rx release 24 hr metolazone 2.5 mg tablet 2.5 mg PO .COMPLEX #36 tabs 03/12/24 04/08/24 Rx mirtazapine 15 mg tablet 15 mg PO DAILY #90 tabs 03/12/24 04/08/24 Rx simvastatin 40 mg tablet 40 mg PO DAILY #90 tabs 03/12/24 04/08/24 Rx tamsulosin 0.4 mg capsule 0.4 mg PO BID #180 caps 03/12/24 04/08/24 Rx potassium chloride 10 mEq 10 meq PO BID #180 caps 04/08/24 04/08/24 Rx capsule,extended release donepezil 5 mg tablet 5 mg PO QHS #90 tabs 05/08/24 Rx eszopiclone 2 mg tablet (Lunesta) 2 mg PO ONCE #1 tablet 05/13/24 Rx Allergies Allergy/AdvReac Type Severity Reaction Status Date / Time No Known Allergies Allergy Verified 05/24/24 19:57 Vital Signs Vital Signs - 24 hr 05/24/24 19:56 05/25/24 00:06 Temperature 97.3 F L Pulse Rate 96 92 Respiratory Rate 16 16 Blood Pressure 166/63 H 116/64 Pulse Oximetry 100 98 Exam Narrative: laying in a stretcher Const: General: cooperative, comfortable, no acute distress, well developed, alert, awake and obese Nutritional Appearance: obese Orientation/c onsciousness: patient oriented x3 HENMT: Head: normal to inspection, normocephalic and atraumatic Ears: hea ring grossly normal bilaterally Face/Nose/Sinus: normal facial exam Face and sinus: normal facial exam Eyes: General: appearance normal, both eyes and all related structures Pupils: Equal, round and reactive pupils present EOM: EOMs intact bilaterally Neck: Neck: full ROM, no lymphadenopathy and no JVD Thyroid: thyroid normal Lymphatic: no lymphadenopathy noted Resp: Effort & Inspection: normal respiratory effort and able to speak in complete sentences Auscultation: clear to auscultation bilaterally Cardio: Jugular venous distension: no JVD Rate: regular rate Rhythm: regular rhythm Heart sounds: S1 normal heart sound present and S2 normal heart sound present GI: Inspection: obesity GI Palp: Yes Soft to palpation and Yes No hepatosplenomegaly present : General: Yes deferred Skin: Rashes: no rashes Wounds: no wounds Neuro: General: patient oriented x3 and CN's II-XI intact bilaterally Cranial nerves: Yes CN's II-XII intact bilaterally and Yes Equal, round and reactive pupils present Cognition (Neuro): normal cognition Speech: normal speech Gait exam (Neuro): Unable to assess gait Motor exam (neuro): 5/5 motor strength present throughout Extrem: General: edema bilateral (3+) H&P: Results Labs Labs: Short CBC 05/24/24 Range/Units 20:11 WBC 8.2 (4.5-10.0) K/mm3 Hgb 11.7 L (14.0-18.0) g/dL Hct 34.4 L (42.0-52.0) % Plt Count 181 (150-375) k/mm3 BMP 05/24/24 20:11 Sodium 131 L Potassium 3.6 Chloride 94 L Carbon Dioxide 30 BUN 19 Creatinine 1.40 H Glucose 173 H Calcium 9.3 Cardiac Enzymes 05/24/24 Range/Units 20:11 Troponin I 0.023 (0.000-0.034) ng/mL Liver Function 05/24/24 Range/Units 20:11 Total Bilirubin 1.1 (0.2-1.3) mg/dL AST 32 (17-59) U/L ALT 18 (6-50) U/L Alkaline Phosphatase 84 (38-126) U/L Albumin 4.0 (3.5-5.1) g/dL Urine 05/24/24 Range/Units 23:32 Urine Color Yellow (Yellow) Urine Appearance Clear (Clear) Urine pH 6.5 (5.0-9.0) Ur Specific [place] 1.020 (1.001-1.035) Urine Protein 1+ H (Negative) mg/dL Urine Glucose (UA) Negative (Negative) mg/dL Assessment and Plan Assessment and plan (1) Pneumonia: Code(s): J18.9 - Pneumonia, unspecified organism Status: Acute Assessment and Plan: admit to regular medical floor started on Rocephin and Zithromax blood cultures pending (2) YAMILKA (obstructive sleep apnea): Code(s): G47.33 - Obstructive sleep apnea (adult) (pediatric) Status: Acute Assessment and Plan: CPAP at nighttime (3) GERD (gastroesophageal reflux disease): Code(s): K21.9 - Gastro-esophageal reflux disease without esophagitis Status: Acute Assessment and Plan: PPI (4) Chronic kidney disease, stage 3: Code(s): N18.30 - Chronic kidney disease, stage 3 unspecified Status: Acute Assessment and Plan: continue to monitor BUN and creatinine patient received 1 L of NS in emergency room (5) CPAP (continuous positive airway pressure) dependence: Code(s): Z99.89 - Dependence on other enabling machines and devices Status: Acute Assessment and Plan: continue CPAP Hospitalist MIPS Advance Care Plan I have confirmed that the patient's Advanced Care Plan is present, code status is documented, or surrogate decision maker is listed in patient medical record.: Yes Medication Reconciliation I have utilized all available resources to obtain, update and review the patients current medications (includes all prescriptions, OTC, herbals, cannabis, and nutritional supplements).: Yes
--- NOTE | 2024-05-25 00:14 | ECG_ITS ---
Test Date: 2024-05-25 00:23:15 Measurements Intervals [place] Rate: 99 P: -9 TX: 184 QRS: 6 QRSD: 84 T: -17 QT: 285 QTc: 367 Interpretive Statements SINUS RHYTHM WITH FREQUENT SUPRAVENTRICULAR PREMATURE COMPLEXES LOW QRS VOLTAGE IN PRECORDIAL LEADS [QRS DEFLECTION < 1.0 mV IN CHEST LEADS] MINIMAL ST DEPRESSION [0.025+ mV ST DEPRESSION] ABNORMAL RHYTHM ECG Compared to ECG 05/24/2024 20:02:47 Junctional tachycardia no longer present Electronically Signed On 05-25-2024 16:19:50 CDT by Yuki Chapa M.D.
[2024-05-25] MEDS: SODIUM CHLORIDE 0.9% IV 1,000 ML 999 ML IV CONT (00:18)
[2024-05-25 00:39] LABS: Troponin I 0.022 ng/mL (0.000-0.034)
[2024-05-25] MEDS: AZITHROMYCIN 500 MG/NS 250 ML 500 MG/250 ML BAG 250 MG IVPB ×2 (01:03→23:15)
[2024-05-25 01:25] VITALS: BMI 34.5
[2024-05-25 01:33] VITALS: BMI 34.9
--- NOTE | 2024-05-25 01:39 | ADMGEN ---
This patient, Brent Lewis, was admitted to Medical Room 348-01. Patient/family oriented to hospital policies and general routines including ID bracelet, bed and alarms, visiting hours, pain management, procedures, bathroom and other care routines, personal items, smoking policy, room service/diet, and visiting hours. Information on how to activate the Rapid Response Team has been discussed. Patient/Family are encouraged to report perceived risks to care and to ask questions if they do not understand what they are told or what they should do.
[2024-05-25 02:20] VITALS: BP 135/53; PULSE 95; RESP 18; TEMP 36.9; O2SAT 96
[2024-05-25 06:00] VITALS: BP 138/78; PULSE 77; RESP 18; TEMP 36.7; O2SAT 97
[2024-05-25 09:12] VITALS: O2SAT 93
--- NOTE | 2024-05-25 09:19 | PM.IMPN ---
Progress Note: A&P Assessment and Plan (1) Pneumonia: Code(s): J18.9 - Pneumonia, unspecified organism Status: Acute Assessment and Plan: admit to regular medical floor started on Rocephin and Zithromax-continue blood cultures pending (2) YAMILKA (obstructive sleep apnea): Code(s): G47.33 - Obstructive sleep apnea (adult) (pediatric) Status: Acute Assessment and Plan: CPAP at nighttime (3) GERD (gastroesophageal reflux disease): Code(s): K21.9 - Gastro-esophageal reflux disease without esophagitis Status: Acute Assessment and Plan: PPI (4) Chronic kidney disease, stage 3: Code(s): N18.30 - Chronic kidney disease, stage 3 unspecified Status: Acute Assessment and Plan: continue to monitor BUN and creatinine patient received 1 L of NS in emergency room (5) CPAP (continuous positive airway pressure) dependence: Code(s): Z99.89 - Dependence on other enabling machines and devices Status: Acute Assessment and Plan: continue CPAP (6) DM renal manif type II: Qualifiers: Chronic kidney disease stage: stage 3 (moderate) Chronic kidney disease stage 3 subtype: stage 3b (GFR 30-44) Diabetes mellitus complication detail: with chronic kidney disease Diabetes mellitus superintendent terminal insulin use: without long-term use Qualified Code(s): E11.22 - Type 2 diabetes mellitus with diabetic chronic kidney disease; N18.32 - Chronic kidney disease, stage 3b Code(s): E11.29 - Type 2 diabetes mellitus with other diabetic kidney complication Status: Acute Assessment and Plan: - hold home metfromin - SS, accucheck ac/hs, hypoglycemia protocol Time Spent With Patient Time with patient: Greater than 35 minutes Subjective Date/time seen: 05/25/24 09:19 Interval history: generalized weakness Narrative retrieved from H/P: This is an 84-year-old male with past medical history significant for COPD/emphysema, prostate CA, type diabetes mellitus, hypertension, chronic kidney disease, dyslipidemia, benign prostatic hyperplasia, obstructive sleep apnea on CPAP at nighttime. patient was brought to the emergency room due to generalized weakness x1 day duration has been in his usual state of health up until this point. Patient denies fevers rigors chills night sweats has had poor per orally intake poor appetite denies any nausea vomiting diarrhea denies cough sputum production or shortness of breath denies generalized muscle aches and pains. Preliminary workup was significant for chest x-ray with lung infiltrates. 10/5- pt is seen and examined, on Rocephin and Zithromax. doing well otherwise- reports no acute events overnight. Review of Systems Constitutional: Constitutional: Denies chills, Denies fever(s), Reports lethargy, Denies night sweats and Reports poor appetite Eyes: Eyes: Denies change in vision ENT: Denies dysphagia and Denies odynophagia Cardiovascular: Cardiovascular: Denies chest pain, Reports leg edema and Denies dyspnea Respiratory: Respiratory: Denies chest congestion, Denies cough and Denies dyspnea Gastrointestinal: Gastrointestinal: Denies abdominal pain, Denies dysphagia, Denies diarrhea, Denies nausea, Denies odynophagia and Denies vomiting Genitourinary: Genitourinary: Denies dysuria Integumentary/Breasts: Skin/Breast: Denies rash Neurologic: Denies focal weakness, Denies Sensory deficit (Neuro) and Reports weakness Endocrine: Endocrine: Denies polyphagia, Denies polydipsia and Denies polyuria Exam Narrative: pleasant, alert, in no rest distress Const: General: cooperative, comfortable, no acute distress, well developed, alert, awake and obese Nutritional Appearance: obese Orientation/consciousness: patient oriented x3 HENMT: Head: normal to inspection, normocephalic and atraumatic Ears: hearing grossly normal bilaterally Face/Nose/Sinus: normal facial exam Face and sinus: normal facial exam Eyes: General: appearance normal, both eyes and all related structures Pupils: Equal, round and reactive pupils present EOM: EOMs intact bilaterally Neck: Neck: full ROM, no lymphadenopathy and no JVD Thyroid: thyroid normal Lymphatic: no lymphadenopathy noted Resp: Effort & Inspection: normal respiratory effort and able to speak in complete sentences Auscultation: clear to auscultation bilaterally Cardio: Jugular venous distension: no JVD Rate: regular rate Rhythm: regular rhythm Heart sounds: S1 normal heart sound present and S2 normal heart sound present GI: Inspection: obesity : General: Yes deferred Skin: Rashes: no rashes Wounds: no wounds Neuro: General: patient oriented x3, CN's II-XI intact bilaterally and Unable to assess gait Cranial nerves: Yes CN's II-XII intact bilaterally and Yes Equal, round and reactive pupils present Cognition (Neuro): normal cognition Speech: normal speech Gait exam (Neuro): Unable to assess gait Motor exam (neuro): 5/5 motor strength present throughout Sensory Exam: No Sensory deficit (Neuro) Extrem: General: edema bilateral (3+) Objective Data Vital Signs Vital Signs: Vital Signs - 24 hr 05/24/24 19:56 05/25/24 00:06 05/25/24 02:12 Temperature 97.3 F L Pulse Rate 96 92 Respiratory Rate 16 16 Blood Pressure 166/63 H 116/64 Pulse Oximetry 100 98 Oxygen Delivery Room Air 05/25/24 02:20 05/25/24 06:00 Temperature 98.5 F 98.0 F Pulse Rate 95 77 Respiratory Rate 18 18 Blood Pressure 135/53 L 138/78 Pulse Oximetry 96 97 Oxygen Delivery Intake/Output Intake/Output: Intake & Output 05/22/24 05/23/24 05/24/24 05/25/24 23:59 23:59 23:59 23:59 Intake Total 1600 Output Total 1400 Balance 200 Meds/Results Medications: Active Medications Generic Name Dose Route Start Last Admin Trade Name Freq PRN Reason Stop Dose Admin Acetaminophen 650 mg 05/25/24 00:11 Acetaminophen 325 Mg Tablet PO Q4H PRN Mild Pain (1-3) or Fever Ceftriaxone Sodium 1 gm in 50 mls @ 100 mls/hr 05/25/24 22:00 Rocephin 1 Gm/Ns 50 Ml IVPB Q24H [facility] Azithromycin 500 mg in 250 mls @ 250 mls/hr 05/25/24 22:00 Zithromax IVPB Q24H [facility] Radiology Results: ITS Impressions Chest X-Ray 05/24/24 20:27 IMPRESSION: 1. Airspace opacities in left mid and lower lung zones, consistent with atelectasis versus pneumonia. Labs Labs: Laboratory Results - last 24 hr 05/24/24 05/24/24 05/24/24 20:11 22:20 23:32 WBC 8.2 RBC 3.45 L Hgb 11.7 L Hct 34.4 L MCV 99.7 MCH 33.9 MCHC 34.0 RDW 13.4 Plt Count 181 MPV 10.4 Immature Gran % (Auto) 0.9 H Neut % (Auto) 81.7 H Lymph % (Auto) 6.1 L [place] % (Auto) 8.8 H Eos % (Auto) 2.0 Baso % (Auto) 0.5 Lymph # (Auto) 0.50 L [place] # (Auto) 0.7 H Eos # (Auto) 0.2 Baso # (Auto) 0.0 Abs Immat Gran (auto) 0.07 H Absolute Neuts (auto) 6.7 Absolute Nucleated RBC 0.000 Nucleated RBC % 0.0 Sodium 131 L Potassium 3.6 Chloride 94 L Carbon Dioxide 30 Anion Gap 7 BUN 19 Creatinine 1.40 H Estim Creat Clear Calc Not Reportable Estimated GFR 48 L Glucose 173 H Lactic Acid 1.1 Calcium 9.3 Total Bilirubin 1.1 AST 32 ALT 18 Alkaline Phosphatase 84 Troponin I 0.023 NT-Pro-B Natriuret Pep 422 H Total Protein 7.0 Albumin 4.0 Urine Color Yellow Urine Appearance Clear Urine pH 6.5 Ur Specific [place] 1.020 Urine Protein 1+ H Urine Glucose (UA) Negative Urine Ketones 1+ H Ur Blood (Man) Negative Urine Nitrate Negative Urine Bilirubin Negative Urine Urobilinogen 1.0 Add Ur Microanalysis Reviewed Leukocyte Esterase Rfl Negative Urine RBC 0-2 Urine WBC 0-5 Ur Squamous Epith Cells None seen Urine Bacteria None seen Urine Casts 11-20 Influenza A (RT-PCR) Negative Influenza B (RT-PCR) Negative RSV (RT-PCR) Negative SARS-CoV-2 RNA (RT-PCR) Negative 05/25/24 00:13 WBC RBC Hgb Hct MCV MCH MCHC RDW Plt Count MPV Immature Gran % (Auto) Neut % (Auto) Lymph % (Auto) [place] % (Auto) Eos % (Auto) Baso % (Auto) Lymph # (Auto) [place] # (Auto) Eos # (Auto) Baso # (Auto) Abs Immat Gran (auto) Absolute Neuts (auto) Absolute Nucleated RBC Nucleated RBC % Sodium Potassium Chloride Carbon Dioxide Anion Gap BUN Creatinine Estim Creat Clear Calc Estimated GFR Glucose Lactic Acid Calcium Total Bilirubin AST ALT Alkaline Phosphatase Troponin I 0.022 NT-Pro-B Natriuret Pep Total Protein Albumin Urine Color Urine Appearance Urine pH Ur Specific [place] Urine Protein Urine Glucose (UA) Urine Ketones Ur Blood (Man) Urine Nitrate Urine Bilirubin Urine Urobilinogen Add Ur Microanalysis Leukocyte Esterase Rfl Urine RBC Urine WBC Ur Squamous Epith Cells Urine Bacteria Urine Casts Influenza A (RT-PCR) Influenza B (RT-PCR) RSV (RT-PCR) SARS-CoV-2 RNA (RT-PCR)
[2024-05-25] MEDS: CHOLECALCIFEROL 1,000 UNITS TABLET 1000 UNITS PO (10:55)
--- NOTE | 2024-05-25 12:48 | PHAR ---
HOME MED ABIRATERONE ACETATE 250 MG TAB; TAKE 4 TABLETS (1000MG) BY MOUTH ONCE DAILY ON AN EMPTY STOMACH. DO NOT EAT FOR 2 HOURS BEFORE OR 1 HOUR AFTER. DO NOT CRUSH
[2024-05-25 13:58] VITALS: BP 132/55; PULSE 91; RESP 24; TEMP 36.9; O2SAT 96
[2024-05-25 17:11] LABS: Glucose Point of Care 207 mg/dl (65-105)
[2024-05-25] MEDS: TAMSULOSIN HCL 0.4 MG CAPSULE PO (17:54)
[2024-05-25] MEDS: predniSONE 5 MG TABLET PO (17:54)
[2024-05-25] MEDS: FAMOTIDINE 20 MG TABLET PO (17:54)
[2024-05-25] MEDS: POTASSIUM CHLORIDE 10 MEQ ER TABLET PO (17:55)
[2024-05-25] MEDS: INSULIN ASPART (*BKC) 100 UNITS/ML SUB-Q (17:55)
[2024-05-25] MEDS: VANCOMYCIN 1,250 MG/NS 250 ML 1,250 MG/250 ML BAG 166.67 MG IVPB ×2 (20:35→21:59)
[2024-05-25] MEDS: SIMVASTATIN 20 MG TABLET 40 MG PO (20:39)
[2024-05-25] MEDS: MIRTAZAPINE 15 MG TABLET PO (20:39)
[2024-05-25] MEDS: MELATONIN 5 MG TABLET PO (20:39)
[2024-05-25] MEDS: DONEPEZIL HCL 5 MG TABLET PO (20:39)
[2024-05-25 21:53] VITALS: BP 145/77; PULSE 92; RESP 18; TEMP 36.3; O2SAT 97
[2024-05-26 04:49] LABS: Glucose Point of Care 205 mg/dl (65-105)
[2024-05-26 04:56] LABS: Hematocrit 30.9 % (42.0-52.0); Hemoglobin 10.3 g/dL (14.0-18.0); Mean Corpuscular HGB Conc 33.3 g/dl (32-36); Mean Corpuscular Hemoglobin 33.7 pg (26-34); Mean Platelet Volume 10.3 fl (7.4-10.4); Platelet Count Result 148 k/mm3 (150-375); Red Blood Count 3.06 M/mm3 (4.6-6.20); Red Cell Distribution Width 13.6 % (11.5-14.5); White Blood Count 4.7 K/mm3 (4.5-10.0)
[2024-05-26 05:09] LABS: Anion Gap 4 mmol/L (4-12); Blood Urea Nitrogen 15 mg/dL (9-20); Calcium 8.7 mg/dL (8.4-10.2); Carbon Dioxide 31 mmol/L (22-30); Chloride 100 mmol/L (98-107); Estimated CRCL calculation 51 ml/min; Estimated Glomerular Filt Rate > 60; Glucose 175 mg/dL (65-110); Potassium 3.7 mmol/L (3.4-5.0); Sodium 135 mmol/L (137-145)
[2024-05-26 06:00] VITALS: BP 131/70; PULSE 88; RESP 18; TEMP 37.2; O2SAT 96
[2024-05-26] MEDS: ABIRATERONE 500 MG PO (06:20)
[2024-05-26] MEDS: [UNRECOGNIZED DRUG - OTHER] PO (06:20)
[2024-05-26] MEDS: ACETAMINOPHEN 325 MG TABLET 650 MG PO (06:34)
--- NOTE | 2024-05-26 08:26 | P.PNIM_ITS ---
Progress Note: A&P Assessment and Plan (1) Pneumonia: Code(s): J18.9 - Pneumonia, unspecified organism Status: Acute Assessment and Plan: admit to regular medical floor started on Rocephin and Zithromax-continue blood cultures - one vial is growing gram positive cocci cluster- another one no growth so far - given pt is clinically stable, very likely contaminant - will continue IV antibiotics though and repeat blood cultures (2) YAMILKA (obstructive sleep apnea): Code(s): G47.33 - Obstructive sleep apnea (adult) (pediatric) Status: Acute Assessment and Plan: CPAP at nighttime (3) GERD (gastroesophageal reflux disease): Code(s): K21.9 - Gastro-esophageal reflux disease without esophagitis Status: Acute Assessment and Plan: PPI (4) Chronic kidney disease, stage 3: Code(s): N18.30 - Chronic kidney disease, stage 3 unspecified Status: Acute Assessment and Plan: continue to monitor BUN and creatinine patient received 1 L of NS in emergency room (5) CPAP (continuous positive airway pressure) dependence: Code(s): Z99.89 - Dependence on other enabling machines and devices Status: Acute Assessment and Plan: continue CPAP (6) DM renal manif type II: Qualifiers: Chronic kidney disease stage: stage 3 (moderate) Chronic kidney disease stage 3 subtype: stage 3b (GFR 30-44) Diabetes mellitus complication detail: with chronic kidney disease Diabetes mellitus penitentiary insulin use: without penitentiary use Qualified Code(s): E11.22 - Type 2 diabetes mellitus with diabetic chronic kidney disease; N18.32 - Chronic kidney disease, stage 3b Code(s): E11.29 - Type 2 diabetes mellitus with other diabetic kidney complication Status: Acute Assessment and Plan: - hold home metfromin - SS, accucheck ac/hs, hypoglycemia protocol Time Spent With Patient Time with patient: Greater than 35 minutes Subjective Date/time seen: 05/26/24 08:26 Interval history: generalized weakness Narrative retrieved from H/P: This is an 84-year-old male with past medical history significant for COPD/emphysema, prostate CA, type diabetes mellitus, hypertension, chronic kidney disease, dyslipidemia, benign prostatic hyperplasia, obstructive sleep apnea on CPAP at nighttime. patient was brought to the emergency room due to generalized weakness x1 day duration has been in his usual state of health up until this point. Patient denies fevers rigors chills night sweats has had poor per orally intake poor appetite denies any nausea vomiting diarrhea denies cough sputum production or shortness of breath denies generalized muscle aches and pains. Preliminary workup was significant for chest x-ray with lung infiltrates. 05/25- pt is seen and examined, on Rocephin and Zithromax. doing well otherwise- reports no acute events overnight. 05/26 seen and examined. reports some generalized weakness- will add PT/OT eval. Doing well otherwise-remains on RA, vitals are stable, afebrile. He wants to go home, but aware that once bc are negative that we repeated today- he may go. Review of Systems Review of Systems: generalized weakness Constitutional: Constitutional: Denies chills, Denies fever(s), Reports lethargy, Reports malaise, Denies night sweats, Reports poor appetite and Reports weakness Eyes: Eyes: Denies change in vision ENT: Denies dysphagia and Denies odynophagia Cardiovascular: Cardiovascular: Denies chest pain, Reports leg edema and Denies dyspnea Respiratory: Respiratory: Denies chest congestion, Denies cough and Denies dyspnea Gastrointestinal: Gastrointestinal: Denies abdominal pain, Denies dysphagia, Denies diarrhea, Denies nausea, Denies odynophagia and Denies vomiting Genitourinary: Genitourinary: Denies dysuria Musculoskeletal: Musculoskeletal: Reports muscle weakness Integumentary/Breasts: Skin/Breast: Denies rash Neurologic: Denies focal weakness, Denies Sensory deficit (Neuro) and Reports weakness Psychiatric: Psychiatric: Reports no additional psychiatric complaints and Reports as per HPI Endocrine: Endocrine: Denies polyphagia, Denies polydipsia and Denies polyuria Hematologic/Lymphatic: Hematologic/Lymphatic: Reports no additional hematologic/lymphatic complaints and Reports as per HPI Allergic/Immunologic: Allergic/Immunologic: Reports no additional allergic/immunologic complaints and Reports as per HPI Exam Narrative: pleasant, alert, in no rest distress Const: General: cooperative, comfortable, no acute distress, well developed, alert, awake and obese Nutritional Appearance: obese Orientation/consciousness: patient oriented x3 HENMT: Head: normal to inspection, normocephalic and atraumatic Ears: hearing grossly normal bilaterally Face/Nose/Sinus: normal facial exam Face and sinus: normal facial exam Eyes: General: appearance normal, both eyes and all related structures Pupils: Equal, round and reactive pupils present EOM: EOMs intact bilaterally Neck: Neck: full ROM, no lymphadenopathy and no JVD Thyroid: thyroid normal Lymphatic: no lymphadenopathy noted Resp: Effort & Inspection: normal respiratory effort and able to speak in complete sentences Auscultation: clear to auscultation bilaterally Cardio: Jugular venous distension: no JVD Rate: regular rate Rhythm: regular rhythm Heart sounds: S1 normal heart sound present and S2 normal heart sound present GI: Inspection: obesity : General: Yes deferred Skin: Rashes: no rashes Wounds: no wounds Neuro: General: patient oriented x3, CN's II-XI intact bilaterally and Unable to assess gait Cranial nerves: Yes CN's II-XII intact bilaterally and Yes Equal, round and reactive pupils present Cognition (Neuro): normal cognition Speech: normal speech Gait exam (Neuro): Unable to assess gait Motor exam (neuro): 5/5 motor strength present throughout Sensory Exam: No Sensory deficit (Neuro) Extrem: General: edema bilateral (3+) Objective Data Vital Signs Vital Signs: Vital Signs - 24 hr 05/25/24 09:12 05/25/24 13:58 05/25/24 20:00 Temperature 98.5 F Pulse Rate 91 Respiratory Rate 24 H Blood Pressure 132/55 L Pulse Oximetry 93 96 Oxygen Delivery Room Air Room Air 05/25/24 21:53 05/26/24 06:00 Temperature 97.3 F L 99.0 F Pulse Rate 92 88 Respiratory Rate 18 18 Blood Pressure 145/77 H 131/70 Pulse Oximetry 97 96 Oxygen Delivery Intake/Output Intake/Output: Intake & Output 05/23/24 05/24/24 05/25/24 05/26/24 23:59 23:59 23:59 23:59 Intake Total 2750 650 Output Total 2100 800 Balance 650 -150 Meds/Results Medications: Active Medications Generic Name Dose Route Start Last Admin Trade Name Freq PRN Reason Stop Dose Admin Acetaminophen 650 mg 05/25/24 00:11 05/26/24 06:34 Acetaminophen 325 Mg Tablet PO 650 mg Q4H PRN Administration Mild Pain (1-3) or Fever Aspirin 81 mg 05/26/24 09:00 Aspirin 81 Mg Enteric Tablet PO DAILY SOPHIE Dextrose 12.5 gm 05/25/24 09:24 Dextrose 50% 25 Gm/50 Ml Syringe IV PUSH PRN PRN Hypoglycemia Protocol Donepezil HCl 5 mg 05/25/24 21:00 05/25/24 20:39 Donepezil Hcl 5 Mg Tablet PO 5 mg QHS SOPHIE Administration Famotidine 20 mg 05/25/24 17:00 05/25/24 17:54 Famotidine 20 Mg Tablet PO 20 mg BID SOPHIE Administration Fish Oil 1 gm 05/26/24 09:00 [place] 3 Polyunsat Fatty Acids 1 Gm Cap PO DAILY SOPHIE Glucagon 1 mg 05/25/24 09:24 Glucagon For Inj 1 Mg Vial IM PRN PRN Hypoglycemia Protocol Glucose 15 gm 05/25/24 09:24 Glucose Oral Gel 15 Gm Of Glucse In 37.5 Gm Tube PO PRN PRN Hypoglycemia Protocol Ceftriaxone Sodium 1 gm in 50 mls @ 100 mls/hr 05/25/24 22:00 05/25/24 23:45 Rocephin 1 Gm/Ns 50 Ml IVPB Infused Q24H SOPHIE Infusion Azithromycin 500 mg in 250 mls @ 250 mls/hr 05/25/24 22:00 05/26/24 00:15 Zithromax IVPB Infused Q24H SOPHIE Infusion Dextrose 1,000 mls @ 100 mls/hr 05/25/24 09:24 Dextrose 5% 1,000 Ml IVPB PRN PRN Hypoglycemia Protocol Vancomycin HCl 1,500 mg in 500 mls @ 250 mls/hr 05/26/24 21:00 Vancomycin 1,500 Mg/Ns 500 Ml IVPB Q24H SOPHIE Insulin Aspart 2 - 5 units 05/25/24 12:00 05/25/24 17:55 Insulin Aspart (*Bkc) 100 Units/Ml SUB-Q 2 units TIDWM SOPHIE Administration Protocol Melatonin 5 mg 05/25/24 21:00 05/25/24 20:39 Melatonin 5 Mg Tablet PO 5 mg HS SOPHIE Administration Metolazone 2.5 mg 05/27/24 09:00 Metolazone 2.5 Mg Tablet PO [id number]@[id number] SOPHIE Mirtazapine 15 mg 05/25/24 21:00 05/25/24 20:39 Mirtazapine 15 Mg Tablet PO 15 mg HS SOPHIE Administration Multivitamins Therapeutic 1 tablet 05/26/24 09:00 Multivitamins Therapeutic Tab (*Bkc) PO DAILY SOPHIE Non-Formulary Medication 500 mg 05/26/24 06:09 05/26/24 06:20 Abiraterone PO 06/25/24 06:08 500 mg DAILY@0600 SOPHIE Administration Potassium Chloride 10 meq 05/25/24 17:00 05/25/24 17:55 Potassium Chloride 10 Meq Er Tablet PO 10 meq BID SOPHIE Administration Prednisone 5 mg 05/25/24 17:00 05/25/24 17:54 Prednisone 5 Mg Tablet PO 5 mg BID SOPHIE Administration Simvastatin 40 mg 05/25/24 21:00 05/25/24 20:39 Simvastatin 20 Mg Tablet PO 40 mg HS SOPHIE Administration Tamsulosin HCl 0.4 mg 05/25/24 17:00 05/25/24 17:54 Tamsulosin Hcl 0.4 Mg Capsule PO 0.4 mg BID [facility] Administration Vitamin D 1,000 units 05/25/24 10:00 05/25/24 10:55 Cholecalciferol 1,000 Units Tablet PO 1,000 units DAILY SOPHIE Administration Vitamin E 1,000 unit 05/26/24 09:00 Vitamin E 1,000 Unit Capsule PO DAILY [facility] Radiology Results: ITS Impressions Chest X-Ray 05/24/24 20:27 IMPRESSION: 1. Airspace opacities in left mid and lower lung zones, consistent with atelectasis versus pneumonia. Labs Labs: Laboratory Results - last 24 hr 05/25/24 05/25/24 05/26/24 17:08 20:15 04:49 WBC 4.7 RBC 3.06 L Hgb 10.3 L Hct 30.9 L MCV 101.0 H MCH 33.7 MCHC 33.3 RDW 13.6 Plt Count 148 L MPV 10.3 Sodium 135 L Potassium 3.7 Chloride 100 Carbon Dioxide 31 H Anion Gap 4 BUN 15 Creatinine 1.10 Estim Creat Clear Calc 51 Estimated GFR > 60 Glucose 175 H POC Capillary Glucose 207 H 205 H Calcium 8.7
[2024-05-26 08:40] LABS: Glucose Point of Care 132 mg/dl (65-105)
[2024-05-26] MEDS: predniSONE 5 MG TABLET PO ×2 (08:58→16:32)
[2024-05-26] MEDS: MULTIVITAMINS THERAPEUTIC TAB (*BKC) 1 TABLET PO (08:58)
[2024-05-26] MEDS: ASPIRIN 81 MG ENTERIC TABLET PO (08:58)
[2024-05-26] MEDS: VITAMIN E 1,000 UNIT CAPSULE 1000 UNIT PO (08:58)
[2024-05-26] MEDS: FAMOTIDINE 20 MG TABLET PO ×2 (08:58→16:31)
[2024-05-26] MEDS: OMEGA 3 POLYUNSAT FATTY ACIDS 1 GM CAP PO (08:58)
[2024-05-26] MEDS: POTASSIUM CHLORIDE 10 MEQ ER TABLET PO ×2 (08:58→16:32)
[2024-05-26] MEDS: CHOLECALCIFEROL 1,000 UNITS TABLET 1000 UNITS PO (08:58)
[2024-05-26] MEDS: TAMSULOSIN HCL 0.4 MG CAPSULE PO ×2 (08:58→16:31)
[2024-05-26 12:18] LABS: Glucose Point of Care 232 mg/dl (65-105)
[2024-05-26] MEDS: INSULIN ASPART (*BKC) 100 UNITS/ML SUB-Q (12:45)
[2024-05-26 13:51] VITALS: BP 101/59; PULSE 83; RESP 16; TEMP 37; O2SAT 97
[2024-05-26 17:08] LABS: Glucose Point of Care 197 mg/dl (65-105)
[2024-05-26 19:33] VITALS: BP 148/76; PULSE 85; RESP 18; TEMP 36.6; O2SAT 98
[2024-05-26] MEDS: VANCOMYCIN 1,500 MG/NS 500 ML 1,500 MG/500 ML BAG 250 MG IVPB (20:18)
[2024-05-26] MEDS: SIMVASTATIN 20 MG TABLET 40 MG PO (20:20)
[2024-05-26] MEDS: DONEPEZIL HCL 5 MG TABLET PO (20:20)
[2024-05-26] MEDS: MIRTAZAPINE 15 MG TABLET PO (20:21)
[2024-05-26] MEDS: MELATONIN 5 MG TABLET PO (20:21)
[2024-05-26 21:10] LABS: Glucose Point of Care 244 mg/dl (65-105)
[2024-05-26] MEDS: cefTRIAXone 2 GM/NS 100 ML 2 GM/100 ML BAG IVPB (22:16)
[2024-05-26] MEDS: AZITHROMYCIN 500 MG/NS 250 ML 500 MG/250 ML BAG 250 MG IVPB (22:16)
[2024-05-27 05:41] VITALS: BP 151/81; PULSE 87; RESP 18; TEMP 36.8; O2SAT 99
[2024-05-27] MEDS: ABIRATERONE 500 MG PO (06:00)
[2024-05-27] MEDS: [UNRECOGNIZED DRUG - OTHER] PO (06:00)
[2024-05-27 06:10] LABS: Hematocrit 31.2 % (42.0-52.0); Hemoglobin 10.4 g/dL (14.0-18.0); Mean Corpuscular HGB Conc 33.3 g/dl (32-36); Mean Corpuscular Hemoglobin 34.1 pg (26-34); Mean Corpuscular Volume 102.3 fl (80-100); Mean Platelet Volume 10.7 fl (7.4-10.4); Platelet Count Result 163 k/mm3 (150-375); Red Blood Count 3.05 M/mm3 (4.6-6.20); Red Cell Distribution Width 13.5 % (11.5-14.5); White Blood Count 4.9 K/mm3 (4.5-10.0)
[2024-05-27 06:18] LABS: Anion Gap 5 mmol/L (4-12); Blood Urea Nitrogen 15 mg/dL (9-20); Carbon Dioxide 31 mmol/L (22-30); Chloride 101 mmol/L (98-107); Estimated CRCL calculation 47 ml/min; Estimated Glomerular Filt Rate 58; Glucose 154 mg/dL (65-110); Potassium 3.6 mmol/L (3.4-5.0); Sodium 137 mmol/L (137-145)
[2024-05-27 08:19] LABS: Glucose Point of Care 133 mg/dl (65-105)
[2024-05-27] MEDS: MULTIVITAMINS THERAPEUTIC TAB (*BKC) 1 TABLET PO (09:11)
[2024-05-27] MEDS: FAMOTIDINE 20 MG TABLET PO (09:11)
[2024-05-27] MEDS: predniSONE 5 MG TABLET PO (09:11)
[2024-05-27] MEDS: VITAMIN E 1,000 UNIT CAPSULE 1000 UNIT PO (09:11)
[2024-05-27] MEDS: OMEGA 3 POLYUNSAT FATTY ACIDS 1 GM CAP PO (09:11)
[2024-05-27] MEDS: ASPIRIN 81 MG ENTERIC TABLET PO (09:11)
[2024-05-27] MEDS: TAMSULOSIN HCL 0.4 MG CAPSULE PO (09:11)
[2024-05-27] MEDS: CHOLECALCIFEROL 1,000 UNITS TABLET 1000 UNITS PO (09:11)
[2024-05-27] MEDS: POTASSIUM CHLORIDE 10 MEQ ER TABLET PO (09:11)
[2024-05-27] MEDS: ACETAMINOPHEN 325 MG TABLET 650 MG PO (09:12)
[2024-05-27] MEDS: metOLazone 2.5 MG TABLET PO (09:17)
--- NOTE | 2024-05-27 10:07 | PM.IMPN ---
Subjective Date/time seen: 05/27/24 10:07 Objective Data Vital Signs Vital Signs: Vital Signs - 24 hr 05/26/24 13:51 05/26/24 19:33 05/26/24 20:00 Temperature 98.6 F 97.8 F Pulse Rate 83 85 Respiratory Rate 16 18 Blood Pressure 101/59 L 148/76 H Pulse Oximetry 97 98 Oxygen Delivery Room Air 05/27/24 05:41 05/27/24 09:14 Temperature 98.3 F Pulse Rate 87 Respiratory Rate 18 Blood Pressure 151/81 H Pulse Oximetry 99 Oxygen Delivery Room Air Intake/Output Intake/Output: Intake & Output 05/24/24 05/25/24 05/26/24 05/27/24 23:59 23:59 23:59 23:59 Intake Total 2750 2450 300 Output Total 2100 1400 700 Balance 650 1050 -400 Meds/Results Medications: Active Medications Generic Name Dose Route Start Last Admin Trade Name Freq PRN Reason Stop Dose Admin Acetaminophen 650 mg 05/25/24 00:11 05/27/24 09:12 Acetaminophen 325 Mg Tablet PO 650 mg Q4H PRN Administration Mild Pain (1-3) or Fever Aspirin 81 mg 05/26/24 09:00 05/27/24 09:11 Aspirin 81 Mg Enteric Tablet PO 81 mg DAILY SOPHIE Administration Dextrose 12.5 gm 05/25/24 09:24 Dextrose 50% 25 Gm/50 Ml Syringe IV PUSH PRN PRN Hypoglycemia Protocol Donepezil HCl 5 mg 05/25/24 21:00 05/26/24 20:20 Donepezil Hcl 5 Mg Tablet PO 5 mg QHS SOPHIE Administration Famotidine 20 mg 05/25/24 17:00 05/27/24 09:11 Famotidine 20 Mg Tablet PO 20 mg BID SOPHIE Administration Fish Oil 1 gm 05/26/24 09:00 05/27/24 09:11 [employer] 3 Polyunsat Fatty Acids 1 Gm Cap PO 1 gm DAILY SOPHIE Administration Glucagon 1 mg 05/25/24 09:24 Glucagon For Inj 1 Mg Vial IM PRN PRN Hypoglycemia Protocol Glucose 15 gm 05/25/24 09:24 Glucose Oral Gel 15 Gm Of Glucse In 37.5 Gm Tube PO PRN PRN Hypoglycemia Protocol Azithromycin 500 mg in 250 mls @ 250 mls/hr 05/25/24 22:00 05/26/24 23:16 Zithromax IVPB Infused Q24H SOPHIE Infusion Dextrose 1,000 mls @ 100 mls/hr 05/25/24 09:24 Dextrose 5% 1,000 Ml IVPB PRN PRN Hypoglycemia Protocol Ceftriaxone Sodium 2 gm in 100 mls @ 200 mls/hr 05/26/24 21:00 05/26/24 22:46 Rocephin 2 Gm/Ns 100 Ml IVPB Infused Q24H SOPHIE Infusion Insulin Aspart 2 - 5 units 05/25/24 12:00 05/27/24 09:09 Insulin Aspart (*Bkc) 100 Units/Ml SUB-Q Not Given TIDWM SOPHIE Protocol Insulin Aspart 2 units 05/27/24 12:00 Insulin Aspart (*Bkc) 100 Units/Ml SUB-Q TIDWM [facility] Melatonin 5 mg 05/25/24 21:00 05/26/24 20:21 Melatonin 5 Mg Tablet PO 5 mg HS SOPHIE Administration Metolazone 2.5 mg 05/27/24 09:00 05/27/24 09:17 Metolazone 2.5 Mg Tablet PO 2.5 mg MoWeFr@0900 SOPHIE Administration Mirtazapine 15 mg 05/25/24 21:00 05/26/24 20:21 Mirtazapine 15 Mg Tablet PO 15 mg HS SOPHIE Administration Multivitamins Therapeutic 1 tablet 05/26/24 09:00 05/27/24 09:11 Multivitamins Therapeutic Tab (*Bkc) PO 1 tablet DAILY SOPHIE Administration Non-Formulary Medication 500 mg 05/26/24 06:09 05/27/24 06:00 Abiraterone PO 06/25/24 06:08 500 mg DAILY@0600 SOPHIE Administration Potassium Chloride 10 meq 05/25/24 17:00 05/27/24 09:11 Potassium Chloride 10 Meq Er Tablet PO 10 meq BID SOPHIE Administration Prednisone 5 mg 05/25/24 17:00 05/27/24 09:11 Prednisone 5 Mg Tablet PO 5 mg BID SOPHIE Administration Simvastatin 40 mg 05/25/24 21:00 05/26/24 20:20 Simvastatin 20 Mg Tablet PO 40 mg HS SOPHIE Administration Tamsulosin HCl 0.4 mg 05/25/24 17:00 05/27/24 09:11 Tamsulosin Hcl 0.4 Mg Capsule PO 0.4 mg BID SOPHIE Administration Vitamin D 1,000 units 05/25/24 10:00 05/27/24 09:11 Cholecalciferol 1,000 Units Tablet PO 1,000 units DAILY SOPHIE Administration Vitamin E 1,000 unit 05/26/24 09:00 05/27/24 09:11 Vitamin E 1,000 Unit Capsule PO 1,000 unit DAILY SOPHIE Administration Radiology Results: ITS Impressions Chest X-Ray 05/24/24 20:27 IMPRESSION: 1. Airspace opacities in left mid and lower lung zones, consistent with atelectasis versus pneumonia. Labs Labs: Laboratory Results - last 24 hr 05/26/24 05/26/24 05/26/24 12:14 17:02 19:39 WBC RBC Hgb Hct MCV MCH MCHC RDW Plt Count MPV Sodium Potassium Chloride Carbon Dioxide Anion Gap BUN Creatinine Estim Creat Clear Calc Estimated GFR Glucose POC Capillary Glucose 232 H 197 H 244 H Calcium 05/27/24 05/27/24 05:55 08:15 WBC 4.9 RBC 3.05 L Hgb 10.4 L Hct 31.2 L MCV 102.3 H MCH 34.1 H MCHC 33.3 RDW 13.5 Plt Count 163 MPV 10.7 H Sodium 137 Potassium 3.6 Chloride 101 Carbon Dioxide 31 H Anion Gap 5 BUN 15 Creatinine 1.20 Estim Creat Clear Calc 47 Estimated GFR 58 L Glucose 154 H POC Capillary Glucose 133 H Calcium 9.0
--- NOTE | 2024-05-27 11:10 | PM.DS ---
DS: Admitting Diagnosis Discharge Date 05/27/24 Admitting Diagnosis Weakness, pneumonia, Yamilka, GERD, CKD3, DS: Discharge Diagnosis Discharge Diagnosis Plan Weakness: Improved, PT/OT clears patient states at baseline. Pneumonia: Breathing easily on room air, lungs clear - completed azithromycin course, has been on ceftriaxone, will complete course with amoxicillin-clav. Positive blood cx 1 of 4 (Staph epidermis, hominis): 1 of 4 and likely a contaminant. New cx are day 1 no growth x 2. YAMILKA: Cont. home cpap. GERD: Cont. as per home. CKD3: Stable renal function. DM2: Cont. per home. DS: Summary Hospital Course Reason for hospitalization: Acute weakness, Pneumonia Hospital Course: Brent Lewis is an 84 year old male presenting for evaluation secondary to acute generalized weakness and found to have pneumonia of the left lower/mid zones. He was treated with rocephin and azithromycin, having completed the azithromycin course will finish out with augmentin to a total of 7 days. He is breathing easily on day of discharge. He is ambulatory. There was 1 of 4 blood cultures positive on presentation, now an additional set drawn yesterday is no growth day 1. This likely represents a contaminant. I have discussed with Brent at length at the bedside today that the safest course of action would be to ensure no growth day 2 prior to discharge. He declines this option and verbalizes acceptance of any risks of discharging at this time. He states he has family, a daughter who comes over daily, and lives less than one mile from his home. He states he has a thermometer and will check his temperature to ensure no fevers. He additionally offers that he will present for care and be reachable by phone in the event of further cultures coming back positive. In light of his desire to return to home today, and no growth at day one on recent cultures and no fever, this is not an unreasonable plan. The patient appears reliable, has a local PCP, and we will proceed with this plan as created through shared decision making. Status at Discharge Functional status at discharge: independent ambulation Overall status at discharge: patient is back to baseline Time Spent with Patient Time attestation: Total time spent providing and/or coordinating discharge services: Time spent: Greater than 30 minutes Specific discharge activities: Counseling and discussing f/u. Exam Narrative: GENERAL APPEARANCE: Appears to be in no acute distress. HEAD: normocephalic atraumatic EYES: PERRL, EOMI. Vision grossly intact. ENT: Hearing grossly intact, no nasal discharge NECK: Neck supple, trachea midline. CARDIAC: Normal S1/S2. Rhythm is regular. No murmurs, rubs, or gallops. No cyanosis or pallor. Extremities are warm and well perfused. LUNGS: Clear to auscultation without rales, rhonchi, wheezing or diminished breath sounds. Respirations even and unlabored. ABDOMEN: BS positive x 4 quadrants. Soft, nondistended, nontender. No guarding or rebound. MSK: No joint tenderness/swelling, fair strength in all extremities. PERIPHERAL VASCULAR: Peripheral pulses palpable. Normal perfusion, cap refill <2 seconds. blle with brawny edema. NEURO: Follows commands. No focal deficits. SKIN: [place] without lesions or eruptions. PSYCH: Stable, no paranoia or delusional thinking. DS: Data Data Completed and Pending Labs on day of discharge: Labs from last 24 hours 05/27/24 05/27/24 05/26/24 08:15 05:55 19:39 WBC 4.9 RBC 3.05 L Hgb 10.4 L Hct 31.2 L MCV 102.3 H MCH 34.1 H MCHC 33.3 RDW 13.5 Plt Count 163 MPV 10.7 H Sodium 137 Potassium 3.6 Chloride 101 Carbon Dioxide 31 H Anion Gap 5 BUN 15 Creatinine 1.20 Estim Creat Clear Calc 47 Estimated GFR 58 L Glucose 154 H POC Capillary Glucose 133 H 244 H Calcium 9.0 05/26/24 05/26/24 17:02 12:14 WBC RBC Hgb Hct MCV MCH MCHC RDW Plt Count MPV Sodium Potassium Chloride Carbon Dioxide Anion Gap BUN Creatinine Estim Creat Clear Calc Estimated GFR Glucose POC Capillary Glucose 197 H 232 H Calcium Preliminary micro results at discharge 05/24/24 22:20 Blood Culture - Preliminary Blood Staphylococcus epidermidis Staphylococcus hominis 05/26/24 08:47 Blood Culture - Preliminary Blood 05/26/24 08:44 Blood Culture - Preliminary Blood 05/24/24 22:20 Blood Culture - Preliminary Blood Imaging Radiologist's impression: EXAMINATION: XR chest 2V DATE: 05/24/2024 20:27 INDICATION: Weakness. TECHNIQUE: Frontal and lateral views of the chest were obtained. COMPARISON: CT abdomen and pelvis 08/21/2014 FINDINGS: There are airspace opacities in left mid and lower lung zones. No pleural effusion or pneumothorax. The heart size is normal. There are prominent pericardial fat pads. IMPRESSION: 1. Airspace opacities in left mid and lower lung zones, consistent with atelectasis versus pneumonia. Discharge Plan Discharge Attending physician on discharge: Clemente Huston Discharging Clinician: Yasir Tesfaye Anticipated Discharge Date/Time: 05/27/24 00:50 Patient Disposition: Home, Self-Care Activity: as tolerated Diet: as tolerated Discharge Instructions: Take medications as prescribed. Return to the emergency department if any new/concerning symptoms such as shortness of breath. Return to the emergency department if you develop fever greater than 101.5 Follow-up with the primary care physician within 1-2 weeks Thank you for [facility] for your healthcare needs Patient Instructions: Antibiotic Form, Aspirin (By mouth) Patient Language: Ghanaian Stand Alone Forms: General Discharge Information Follow-up/Referrals: Cipriano Lord, [Primary Care Provider] - 2 Weeks Discharge Medications: New amoxicillin-pot clavulanate 875-125 mg tablet 1 tablet PO Q12H Qty: 8 0RF Rx Instructions: Take one tablet twice daily preferably with food. Continued cholecalciferol (vitamin D3) 25 mcg (1,000 unit) capsule 25 mcg PO DAILY aspirin [Adult Aspirin Regimen] 81 mg tablet,delayed release (DR/EC) 81 mg PO DAILY abiraterone 500 mg tablet 500 mg PO DAILY Qty: 1 0RF Rx Instructions: must be taken on empty stomach, at least 1 hr before or 2 hrs after a meal/food multivitamin Tablet 1 tablet PO DAILY Fish Oil 100-160-1,000 mg capsule 1 cap PO DAILY vitamin E (dl, acetate) 450 mg (1,000 unit) capsule 450 mg PO DAILY Melatonin 5mg Gummy 10 mg 1 tab-cap PO HS Patient Comments: Take 2 gummies before bed QHS Eligard (6 month) 45 mg syringe 45 mg subcut [id number] potassium chloride 10 mEq capsule, extended release 10 meq PO BID Qty: 180 1RF mirtazapine 15 mg tablet 15 mg PO HS metformin 500 mg tablet extended release 24 hr 500 mg PO HS prednisone 5 mg tablet 5 mg PO BID Qty: 60 0RF metolazone 2.5 mg tablet 2.5 mg PO .COMPLEX Qty: 36 0RF Rx Instructions: 2.5 mg orally On Monday, Monday and Monday; famotidine [Pepcid AC] 20 mg tablet 20 mg PO BID Qty: 180 1RF tamsulosin 0.4 mg capsule 0.4 mg PO BID Qty: 180 1RF donepezil 5 mg tablet 5 mg PO QHS Qty: 90 1RF No Action simvastatin 40 mg tablet 40 mg PO HS Date of admission: 05/26/24 12:14 Primary Care Provider: Cipriano Lord Admitting Provider: Hal Underwood V. Attending physician on admission: Hal Underwood V. Condition: Stable
[2024-05-27 12:00] LABS: Glucose Point of Care 170 mg/dl (65-105)
[2024-05-27] MEDS: INFLUENZA TRIVALENT VACCINE 45 MCG/0.5 ML SYRINGE IM (13:16)
--- NOTE | 2024-05-27 13:35 | PC.NURSE ---
flu shot administered, IV removed, and discharge instructions given and printed for patient. Patient leaving floor 1331
== END 2024-05-27 13:35 | disposition home or self-care (01) | DRG 194 ==
LOC: ANHED 21:41 → ANH3MED 05-25 00:30
PROVIDERS: Emergency Medicine; Nurse Practitioner; Admitting Provider Internal Medicine; Emergency Provider Emergency Medicine; PCP Internal Medicine; Visit Provider Nurse Practitioner Family
DX: J18.9 Pneumonia, unspecified organism (principal); J44.0 Chronic obstructive pulmonary disease with (acute) lower respiratory infection; I12.9 Hypertensive chronic kidney disease with stage 1 through stage 4 chronic kidney disease, or unspecified chronic kidney disease; N18.32 Chronic kidney disease, stage 3b; C61 Malignant neoplasm of prostate; E11.21 Type 2 diabetes mellitus with diabetic nephropathy; E78.5 Hyperlipidemia, unspecified; E11.22 Type 2 diabetes mellitus with diabetic chronic kidney disease; K21.9 Gastro-esophageal reflux disease without esophagitis; K57.30 Diverticulosis of large intestine without perforation or abscess without bleeding; N40.0 Benign prostatic hyperplasia without lower urinary tract symptoms; Z20.822 Contact with and (suspected) exposure to COVID-19; G47.33 Obstructive sleep apnea (adult) (pediatric); Z87.891 Personal history of nicotine dependence; Z79.82 Long term (current) use of aspirin; Z23 Encounter for immunization
CPT/HCPCS: 36415; 71046; 80048; 80053; 81001; 82948; 83605; 83880; 84484; 85025; 85027; 87040; 87181; 87637; 90471; 90656; 93005; 96361; 96365; 96366; 96367; 97161; 97165; 99285; A9270; G0008; G0378; J0456; J0696; J1815; J3370; J7030; J7512

== ENCOUNTER 2024-06-10 19:22 | Inpatient (IN) | payer MEDICARE, SELFPAY ==
--- NOTE | ~2024-06-10 | CT_ITS ---
EXAMINATION: CT chest abdomen pelvis wo con DATE: 06/20/2024 11:53 INDICATION: Fever. TECHNIQUE: Computed tomography (CT) of the chest, abdomen, and pelvis was performed without intraveno us contrast. Automated exposure control and iterative reconstruction technique were employed. The dos e-length product was 1819.03 mGy-cm. COMPARISON: CT chest, abdomen, and pelvis 06/17/2024 FINDINGS: CHEST CT: There is mild atelectasis in the lungs. There is peripheral septal thickening in the lungs. There are airspace opacities in left lower lobe with volume loss. Calcified pulmonary nodules and calcified ri ght hilar lymph nodes are consistent with old granulomatous disease. No pleural effusion. The heart s ize is normal. There are coronary artery calcifications. No pericardial effusion. A left upper extrem ity peripherally inserted central venous catheter (PICC) is seen with tip in the superior vena cava. There is bilateral gynecomastia. There are bridging endplate osteophytes at multiple levels in the sp ine, consistent with diffuse idiopathic skeletal hyperostosis (DISH). ABDOMEN/PELVIS CT: There is a 1.2 m cyst in the liver. The gallbladder is normal in size contains contrast. The spleen i s normal. There are approximately 6 cystic lesions in the pancreas measuring up to 3.1 cm. The adrena l glands and kidneys are normal. There is no urolithiasis. There are scattered diverticula in the col on. There is liquid stool in the colon suggesting diarrhea. The appendix is normal. There are no dila shahnaz loops of bowel. There is calcified atherosclerosis of the aorta and many of the other arteries. T he bladder is distended. There is punctate gas in the bladder, likely from recent instrumentation. Th ere are subcutaneous injection sites in anterior abdominal wall. Body wall edema is noted. There is e ayaka of the extraperitoneal pelvic fat. There are no pathologically enlarged lymph nodes. There is no free intraperitoneal fluid. There are sclerotic lesions in the iliac bones. There is mild lumbar spo ndylosis. IMPRESSION: 1. Worsened airspace opacities in left lung lower lobe, consistent with atelectasis versus pneumonia. 2. Septal thickening again seen in the lungs, consistent with mild pulmonary edema versus chronic sandro g disease. 3. Cystic lesions of the pancreas with worsening from 08/21/2014. The differential diagnosis includes p seudocyst, intraductal papillary mucinous neoplasm (IPMN), mucinous cystic neoplasm (MCN), serous cys tadenoma, and neuroendocrine tumor. Consider abdomen MRI without and with contrast. 4. Sclerotic lesions in the iliac bones, new from 08/21/2014. The differential diagnosis includes metas tatic disease and Paget's disease. Reviewed, dictated and finalized at location B. IMPRESSION: 1. Worsened airspace opacities in left lung lower lobe, consistent with atelect asis versus pneumonia. 2. Septal thickening again seen in the lungs, consistent with mild pulmonary ed dian versus chronic lung disease. 3. Cystic lesions of the pancreas with worsening from 08/21/2014. The differentia l diagnosis includes pseudocyst, intraductal papillary mucinous neoplasm (IPMN) , mucinous cystic neoplasm (MCN), serous cystadenoma, and neuroendocrine tumor. Consider abdomen MRI without and with contrast. 4. Sclerotic lesions in the iliac bones, new from 08/21/2014. The differential di agnosis includes metastatic disease and Paget's disease.
--- NOTE | ~2024-06-10 | XR_ITS ---
EXAMINATION: XR lumbar puncture diagnostic DATE: 06/20/2024 16:22 INDICATION: Febrile. Altered mental status. TECHNIQUE: The procedure including the risks and benefits was discussed with the patient. Risks discu ssed included spinal headache, cerebrospinal fluid leak, bleeding, and infection. The patient underst ood the risks and agreed to proceed. A timeout was performed to verify the patient's name, date of , and procedure to be performed. The skin overlying the L3-L4 level was prepped and draped in usual sterile fashion. Subcutaneous 1% lidocaine was used for local anesthesia. A 22 gauge spinal n eedle was advanced under fluoroscopic guidance. The needle was removed and the entry site was cleaned and dressed. There were no immediate complications. A total of 2 fluoroscopic image(s) and 2 ( were obtained. The amount of fluoroscopy time used during this procedure was 0.2 minutes. The patient was taken to the nursing area for observation. FINDINGS: Real-time fluoroscopy demonstrates the needle at the L3-L4 level. Opening pressure was 22 c m water. (Normal range is variably defined as 6-20 cm water and up to 25 cm water in obese patients. Pressure >25 cm water is one of the modified Dandy criteria for idiopathic intracranial hypertension) . 13 mL of clear, colorless fluid was collected in 4 tubes. IMPRESSION: 1. Successful fluoro-guided lumbar puncture with opening pressure of 22 cm water. Reviewed, dictated and finalized at location A. IMPRESSION: 1. Successful fluoro-guided lumbar puncture with opening pressure of 22 cm juan davide todd
--- NOTE | ~2024-06-10 | XR_ITS ---
EXAMINATION: XR chest ET placement DATE: 06/20/2024 13:39 INDICATION: Intubation. TECHNIQUE: A single frontal view of the chest was obtained. COMPARISON: Chest single view 06/19/2024, chest CT 06/20/2024 FINDINGS: There are airspace opacities at left lung base. A calcified right lung nodule is consistent with old granulomatous disease. There is a diffuse interstitial pattern in the lungs. No pleural eff usion or pneumothorax. The heart size is normal. There is a prominent fat pad in left costophrenic an gle. The endotracheal tube tip is 5.4 cm is above the yina. A left upper extremity peripherally ins erted central venous catheter (PICC) is seen with tip in the superior vena cava. The nasogastric tube tip is beyond the inferior margin of the radiograph, but at least to the stomach. IMPRESSION: 1. Stable airspace opacities at left lung base, consistent with atelectasis versus pneumonia. 2. Interstitial pattern in the lungs, consistent with mild pulmonary edema versus chronic interstitia l lung disease. Reviewed, dictated and finalized at location B. IMPRESSION: 1. Stable airspace opacities at left lung base, consistent with atelectasis caesar waldo pneumonia. 2. Interstitial pattern in the lungs, consistent with mild pulmonary edema vers us chronic interstitial lung disease.
--- NOTE | ~2024-06-10 | XR_ITS ---
EXAMINATION: XR chest PICC line DATE: 06/19/2024 09:42 INDICATION: Central line placement. TECHNIQUE: A single frontal view of the chest was obtained. COMPARISON: Chest single view 06/16/2024, chest CT 06/17/2024 FINDINGS: There are airspace opacities at left lung base. A calcified right lung nodule is consistent with old oedematous disease. There is a prominent fat pad in left costophrenic angle. No pleural eff usion or pneumothorax. The heart size is normal. A left upper extremity peripherally inserted central venous catheter (PICC) is seen with tip in the superior vena cava. IMPRESSION: 1. PICC tip in the superior vena cava. 2. Stable airspace opacities at left lung base, consistent with atelectasis versus pneumonia. Reviewed, dictated and finalized at location B. IMPRESSION: 1. PICC tip in the superior vena cava. 2. Stable airspace opacities at left lung base, consistent with atelectasis caesar waldo pneumonia.
--- NOTE | ~2024-06-10 | XR_ITS ---
EXAMINATION: XR chest 1V portable DATE: 06/10/2024 19:44 INDICATION: Weakness TECHNIQUE: frontal view of the chest was obtained. COMPARISON: Chest radiograph dated 05/24/2024 FINDINGS: Decreasing opacities in the left lower lung zone with improvement when compared with the prior study which could represent improving atelectasis or pneumonia. Obscuration of portions of the left heart b order and left hemidiaphragm likely related to a prominent left paracardial fat pad. Calcified nodule s in the right lower lung zone consistent with old granulomatous disease. No pulmonary edema, pleural effusion or pneumothorax. Heart size within normal limits for AP technique. Mild thoracic dextrocurv ature with mild spondylosis. IMPRESSION: 1. Decreased opacities in the left lower lung zone with residual mild opacities likely related to a p rominent paracardial fat pad potentially with small amount of residual improving atelectasis or pneum onia. Reviewed, dictated and finalized at location A. IMPRESSION: 1. Decreased opacities in the left lower lung zone with residual mild opacities likely related to a prominent paracardial fat pad potentially with small amoun t of residual improving atelectasis or pneumonia.
--- NOTE | ~2024-06-10 | US_ITS ---
EXAMINATION: US abdomen complete DATE: 06/14/2024 09:40 INDICATION: Pancytopenia. TECHNIQUE: Multiple grayscale and Doppler ultrasound images of the abdomen were obtained. COMPARISON: CT abdomen and pelvis 08/21/2014 FINDINGS: The visualized portions of the head, body, and tail of the pancreas are normal. There is a 2.2 cm cyst in left hepatic lobe. There is normal flow in main portal vein. The gallbladder is normal in size. No gallstones or gallbladder wall thickening. The common duct is normal and measures 7 mm. The kidneys are normal in size. The spleen is normal in size. Abdominal aorta is normal in caliber. I nferior vena cava is normal. IMPRESSION: 1. Normal sizes of the liver and spleen. Reviewed, dictated and finalized at location A.
--- NOTE | ~2024-06-10 | CT_ITS ---
EXAMINATION: CT brain wo con DATE: 06/20/2024 11:53 INDICATION: Altered mental status TECHNIQUE: Computed tomography (CT) of the head was performed without intravenous contrast. Sagittal and coronal reconstructions were performed. The mA was adjusted according to patient size. Iterative reconstruction technique was employed. The dose-length product was 681.00 mGy-cm. COMPARISON: head CT dated 06/17/2024 FINDINGS: No acute intracranial hemorrhage, acute infarction or abnormal extra axial fluid collection. There is moderate scattered white matter hypoattenuation consistent with chronic small vessel ischemic diseas e. Symmetric prominence of the sulci and ventricles consistent with moderate age-appropriate diffuse cerebral volume loss. No mass/mass effect. Mild mucosal thickening at the floor of the right maxillar y sinus. The orbits and mastoid air cells are normal. IMPRESSION: 1. Stable age-related changes including moderate diffuse volume loss and moderate scattered white mat ter hypoattenuation consistent with chronic small vessel ischemic disease. No acute intracranial proc ess. Reviewed, dictated and finalized at location A. IMPRESSION: 1. Stable age-related changes including moderate diffuse volume loss and modera te scattered white matter hypoattenuation consistent with chronic small vessel ischemic disease. No acute intracranial process.
--- NOTE | ~2024-06-10 | CT_ITS ---
EXAMINATION: CT brain wo con DATE: 06/17/2024 09:20 INDICATION: Altered mental status TECHNIQUE: Computed tomography (CT) of the head was performed without intravenous contrast. Sagittal and coronal reconstructions were performed. The mA was adjusted according to patient size. Iterative reconstruction technique was employed. The dose-length product was 605.33 mGy-cm. COMPARISON: head CT dated 06/14/2024 FINDINGS: No acute intracranial hemorrhage, acute infarction or abnormal extra axial fluid collection. There is moderate scattered white matter hypoattenuation consistent with chronic small vessel ischemic diseas e. Symmetric prominence of the sulci and ventricles consistent with moderate age-appropriate diffuse cerebral volume loss. No mass/mass effect. Increasing mucosal thickening in the paranasal sinuses. Th e orbits and mastoid air cells are normal. IMPRESSION: 1. Stable age-related changes including moderate diffuse volume loss and moderate scattered nonspecif ic white matter T2 hyperintensity consistent with chronic small vessel ischemic disease. 2. Increasing mucosal thickening in the paranasal sinuses. Reviewed, dictated and finalized at location A. IMPRESSION: 1. Stable age-related changes including moderate diffuse volume loss and modera te scattered nonspecific white matter T2 hyperintensity consistent with chronic small vessel ischemic disease. 2. Increasing mucosal thickening in the paranasal sinuses.
--- NOTE | ~2024-06-10 | US_ITS ---
EXAMINATION: US venous doppler [facility] DATE: 06/11/2024 15:41 INDICATION: Bilateral lower limb swelling TECHNIQUE: Grayscale ultrasound images without and with compression and Doppler ultrasound images of the bilateral lower extremity veins were obtained. COMPARISON: None. FINDINGS: The visualized portions of right common femoral vein, profunda (deep) femoral vein, femoral vein, pop liteal vein, posterior tibial veins, peroneal veins, gastrocnemius vein and greater saphenous vein ou tflow are patent. The visualized portions of left common femoral vein, profunda femoral vein, femoral vein, popliteal v ein, posterior tibial veins, peroneal veins, gastrocnemius vein and greater saphenous vein outflow ar e patent. IMPRESSION: 1. No deep venous thrombosis in either lower limb. Reviewed, dictated and finalized at location A.
--- NOTE | ~2024-06-10 | CT_ITS ---
EXAMINATION: CT brain wo con DATE: 06/14/2024 06:27 INDICATION: Confusion. TECHNIQUE: Computed tomography (CT) of the head was performed without intravenous contrast. The mA wa s adjusted according to patient size. Iterative reconstruction technique was employed. The dose-lengt h product was 681.00 mGy-cm. COMPARISON: Head CT 06/13/2024 FINDINGS: There are scattered areas of low attenuation in the cerebral white matter. There is no intr acranial hemorrhage, acute infarction, or abnormal intracranial mass lesion. The ventricles are karson l in size. The orbits are normal. There is mild mucosal thickening in the paranasal sinuses. There is a small right mastoid effusion. IMPRESSION: 1. Stable moderate nonspecific cerebral white matter disease, which likely represents chronic small v essel ischemic disease. Reviewed, dictated and finalized at location A. IMPRESSION: 1. Stable moderate nonspecific cerebral white matter disease, which likely repr esents chronic small vessel ischemic disease.
--- NOTE | ~2024-06-10 | XR_ITS ---
Portable chest x-ray Comparison: 06/20/2024 Clinical History: Pneumonia Findings: Endotracheal tube, NG tube, and left PICC line are in place. There is small left pleural e ffusion with left basilar consolidation. Right lung clear. Cardiomediastinal silhouette is stable. B ones and soft tissues are unremarkable. Impression: Small left pleural effusion with left basilar atelectasis versus pneumonia. Support tubes, as above. Reviewed, dictated and finalized at location M. Impression: Small left pleural effusion with left basilar atelectasis versus pneumonia. Support tubes, as above.
--- NOTE | ~2024-06-10 | US_ITS ---
EXAMINATION: US venous doppler UE RT DATE: 06/17/2024 13:13 INDICATION: Right upper limb swelling and erythema. TECHNIQUE: Grayscale ultrasound images without and with compression and Doppler ultrasound images of the right upper extremity veins were obtained. COMPARISON: None. FINDINGS: The visualized portions of the right internal jugular vein, subclavian vein, axillary vein, brachial veins, basilic vein, cephalic vein, radial vein, and ulnar vein are patent. IMPRESSION: 1. No deep venous thrombosis. Reviewed, dictated and finalized at location B.
--- NOTE | ~2024-06-10 | CT_ITS ---
EXAMINATION: CTA chest abdomen pelvis DATE: 06/17/2024 09:20 INDICATION: Altered mental status with tachypnea TECHNIQUE: Computed tomography (CT) angiogram of the chest, abdomen and pelvis was performed with 100 mL Omnipaque-350 intravenous contrast. Additional 3D reconstructions utilizing coronal maximum inten sity projection (MIP) were performed. Automated exposure control and iterative reconstruction [place] ue were employed. The dose-length product was 1713.50 mGy-cm. COMPARISON: CT abdomen pelvis dated 08/21/2014 FINDINGS: Chest: No pulmonary embolism in the central through the first order segmental pulmonary arteries with more p eripheral assessment along with assessment of fine pulmonary parenchymal detail limited by moderate a mount of respiratory motion. Tiny right pleural effusion. There is some septal line thickening and gr oundglass opacities in the left lower lobe but also with significant associated volume loss suggestin g atelectasis although superimposed mild pulmonary edema or pneumonia not excludable. This mild depen dent atelectasis in the right lower lobe. There are few small calcified pulmonary nodules in the bila teral lower lobes consistent with old granulomatous disease. Heart size is normal with prominent bila teral pericardial fat pads. Thoracic aorta is normal in caliber with no dissection. No pathologically enlarged thoracic lymphadenopathy. Mild thoracic dextrocurvature with moderate spondylosis and bridg ing osteophytes at multiple levels consistent with diffuse idiopathic skeletal hyperostosis (DISH). Abdomen/pelvis: 1.8 cm cyst in the left hepatic lobe. Gallbladder, spleen, bilateral adrenal glands and kidneys are n ormal. Prominent sigmoid and descending colon predominant diverticulosis. There is some inflammatory stranding along the distal descending colon suspicious for diverticulitis. Small bowel and appendix a re normal bladder is normal. No abscess or free intraperitoneal gas or fluid. There is mild scattered calcified atherosclerosis of the normal caliber aorta and many of the other arteries. Incidentally n oted accessory left hepatic artery which arises directly from the aorta. No pathologically enlarged a bdominal or pelvic lymphadenopathy. There are new small sclerotic lesions at the bilateral iliac wing s. 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 IMPRESSION: 1. Mild interstitial and groundglass opacities in the left lower lobe with associated volume loss to at least in part to atelectasis although could not exclude superimposed mild pulmonary edema or pneum onia. 2. Diverticulosis with mild stranding along the distal descending colon suspicious for radiographical ly uncomplicated diverticulitis. 3. A couple new region of sclerosis along the iliac wings which raises concern for metastatic disease with appearance on the right suggesting possible early localized Paget's disease. Correlate with cli nical history and could consider bone scan to assess for any additional lesions which would elevate c oncern for metastatic disease. Reviewed, dictated and finalized at location A. IMPRESSION: 1. Mild interstitial and groundglass opacities in the left lower lobe with asso ciated volume loss to at least in part to atelectasis although could not exclud e superimposed mild pulmonary edema or pneumonia. 2. Diverticulosis with mild stranding along the distal descending colon suspici ous for radiographically uncomplicated diverticulitis. 3. A couple new region of sclerosis along the iliac wings which raises concern for metastatic disease with appearance on the right suggesting possible early l ocalized Paget's disease. Correlate with clinical history and could consider prosper ne scan to assess for any additional lesions which would elevate concern for me tastatic disease.
--- NOTE | ~2024-06-10 | XR_ITS ---
EXAMINATION: XR chest 1V portable DATE: 06/16/2024 09:47 INDICATION: Shortness of breath. TECHNIQUE: A single frontal view of the chest was obtained. COMPARISON: Chest single view 06/14/2024 FINDINGS: The patient is rotated to his left. There are airspace opacities at left lung base. There i s a small pleural effusion. No pneumothorax. The heart size is normal. IMPRESSION: 1. Airspace opacities at left lung base, consistent with atelectasis versus pneumonia. 2. Small left pleural effusion. Reviewed, dictated and finalized at location A. IMPRESSION: 1. Airspace opacities at left lung base, consistent with atelectasis versus pne umonia. 2. Small left pleural effusion.
--- NOTE | ~2024-06-10 | XR_ITS ---
EXAMINATION: XR abdomen gastric tube insert DATE: 06/20/2024 13:39 INDICATION: Orogastric tube placement. TECHNIQUE: A supine view of the abdomen was obtained. COMPARISON: CT abdomen and pelvis 06/20/2024 FINDINGS: The lower abdomen and right lateral aspect of the abdomen are excluded. The orogastric tube tip is in the stomach. There are airspace opacities at left lung base. There is a prominent left per icardial fat pad. A left upper extremity peripherally inserted central venous catheter (PICC) is seen with tip in the superior vena cava. IMPRESSION: 1. Orogastric tube tip in the stomach. 2. Airspace opacities at left lung base, consistent with atelectasis versus pneumonia. Reviewed, dictated and finalized at location B. IMPRESSION: 1. Orogastric tube tip in the stomach. 2. Airspace opacities at left lung base, consistent with atelectasis versus pne umonia.
--- NOTE | ~2024-06-10 | XR_ITS ---
EXAMINATION: XR chest 1V portable DATE: 06/14/2024 06:31 INDICATION: Confusion. TECHNIQUE: A single frontal view of the chest was obtained. COMPARISON: Chest single view 06/10/2024, CT abdomen and pelvis 08/21/2014 FINDINGS: There is a small left pleural effusion. There are interstitial opacities in the lungs bilat erally. There are airspace opacities at left lung base. No pneumothorax. The heart size is normal. Th ere are prominent pericardial fat pads. IMPRESSION: 1. Diffuse lung disease, likely mild pulmonary edema and left basilar atelectasis versus pneumonia. 2. Stable small left pleural effusion. Reviewed, dictated and finalized at location A. IMPRESSION: 1. Diffuse lung disease, likely mild pulmonary edema and left basilar atelectas is versus pneumonia. 2. Stable small left pleural effusion.
--- NOTE | ~2024-06-10 | US_ITS ---
EXAMINATION: US renal BI DATE: 06/19/2024 11:21 INDICATION: Acute renal failure. TECHNIQUE: Multiple ultrasound grayscale images of the kidneys were obtained. COMPARISON: CT abdomen and pelvis 06/17/2024 FINDINGS: The right kidney measures 10.4 x 4.2 x 4.6 cm. The left kidney measures 9.7 x 4.2 x 3.9 cm. The kidne ys demonstrate normal parenchymal echogenicity. There is no hydronephrosis. The bladder is normal. IMPRESSION: 1. Normal kidneys. No hydronephrosis. Reviewed, dictated and finalized at location B.
--- NOTE | ~2024-06-10 | CT_ITS ---
CT brain wo con Ordering provider: CAT Rangel History: 84 years Male with . Persistent headache . Comparison: None. Technique: CT of the head without contrast. Radiation reduction technique utilized.The dose-length product was 681 mGy-cm. FINDINGS: BRAIN PARENCHYMA AND CSF SPACES: Mild leukoaraiosis and diffuse cortical atrophy. Mild atheromatous d isease. No midline shift, mass effect or hemorrhage. The brain parenchyma and CSF spaces are otherwi se normal. VISUALIZED PARANASAL SINUSES: Well aerated. MASTOIDS: Well aerated. BONES: The bones appear intact. SOFT TISSUES: Visualized nasopharynx is normal. Superficial soft tissues are normal. IMPRESSION: No acute intracranial findings. Reviewed, dictated and finalized at location A.
[2024-06-10 19:21] VITALS: BP 117/61; PULSE 102; RESP 18; TEMP 36.8; O2SAT 99
[2024-06-10 19:32] VITALS: PULSE 108
--- NOTE | 2024-06-10 19:36 | ED.GENADULT ---
HPI - General Adult General Chief complaint: Weakness Stated complaint: generalized weakness Time Seen by Provider: 06/10/24 19:28 History of Present Illness HPI narrative: Patient is an 84-year-old male who presents to the emergency department this evening complaining of generalized weakness. Patient was seen earlier this month in our facility for the same symptoms and diagnosed with a pneumonia and admitted for a few days and discharged back home. Daughter states that patient yesterday was too tired and weak to visit her and today the generalized weakness persists so he decided to come to the emergency department for further evaluation. Patient denies any specific symptoms including any chest pain, shortness of breath, nausea, vomiting, abdominal pain, dysuria or hematuria, constipation, diarrhea, melena, hematochezia, fevers or chills. He also denies any headaches, dizziness, blurry vision, focal weakness, numbness and tingling. There are no other modifying, alleviating, or precipitating factors at this time. Related Data Home Medications Medication Instructions Recorded Confirmed Melatonin 5mg Gummy 1 tab-cap PO HS 09/01/23 06/07/24 leuprolide acetate (6 month) 45 mg 45 mg subcut [id number] 09/01/23 06/07/24 (6 month) subcutaneous syringe (appening) multivitamin 1 tablet PO DAILY 09/01/23 06/07/24 omega 8-vns-ypi-fish oil 100 1 cap PO DAILY 09/01/23 06/07/24 mg-160 mg-1,000 mg capsule (Fish Oil) vitamin E (dl, acetate) 450 mg 450 mg PO DAILY 09/01/23 06/07/24 (1,000 unit) capsule aspirin 81 mg tablet,delayed 81 mg PO DAILY 02/26/24 06/07/24 release (Adult Aspirin Regimen) cholecalciferol (vitamin D3) 25 25 mcg PO DAILY 02/26/24 06/07/24 mcg (1,000 unit) capsule mirtazapine 15 mg tablet 15 mg PO HS 05/25/24 06/07/24 simvastatin 40 mg tablet 40 mg PO HS 05/25/24 06/07/24 metformin 500 mg tablet,extended 500 mg PO TID 06/03/24 06/07/24 release 24 hr Allergies Allergy/AdvReac Type Severity Reaction Status Date / Time No Known Allergies Allergy Verified 06/10/24 19:34 Review of Systems Review of Systems: All systems are reviewed and are negative unless stated otherwise in the HPI. [facility] Past Medical History Medical History Chronic kidney disease, stage 3 CPAP (continuous positive airway pressure) dependence Diverticulitis DM renal manif type II DM w/o complication type II GERD (gastroesophageal reflux disease) Hyperlipidemia LDL goal <100 Hypertension YAMILKA (obstructive sleep apnea) Prostate cancer Family History Family History Father Asthma Mother Leukemia Social History Social History Smoking status: Former smoker Tobacco type: cigarettes Second hand tobacco smoke exposure: No Alcohol intake: current Drinks per week: 7 Alcohol use details: 2 alcohol drinks per night Substance use: never Do You Feel Safe in your Home?: Yes Lack of Transportation: No Lack of Food: Never True Current Housing: I Have Housing Concerned About Future Housing: No Difficulty Paying Gas/Electric Bills: No Difficulty Paying for Meds: No Currently Unemployed: No Education: Master's Degree or Higher Difficulty w/ Childcare or Family Care: No Living arrangements: alone Occupation/Education: retired Gender identity (if verbalized by the patient): Male Sexual Orientation (if Verbalized by the Patient): Straight or Heterosexual Spiritual care concerns: No Agree to blood products: Yes Exam Narrative: General: Alert, awake, afebrile, in no acute distress, obese. HEENT: PERRL, no rhinorrhea, no post nasal drip, oropharynx clear. Neck: Trachea midline, no JVD, no lymphadenopathy. Cardiovascular: Regular rate and rhythm, no murmurs, rubs or gallops, bilateral 3+ lower extremity pitting edema. Respiratory: Clear to auscultation bilaterally, no tachypnea, no wheezing, no rhonchi, no rubs, no respiratory distress. Abdomen: Soft, nontender, nondistended, no rebound, no guarding, no peritoneal signs. Musculoskeletal: No joint swelling or deformity, normal muscle tone. Skin: No rashes or petechia, no signs of infection. Neurological: Alert and oriented to person, place, and time. Follows all commands. No focal deficits, speech is clear and fluent. Course Vital Signs Vital signs: Vital Signs Temperature 98.3 F 06/10/24 19:21 Pulse Rate 102 H 06/10/24 19:21 Respiratory Rate 18 06/10/24 19:21 Blood Pressure 117/61 06/10/24 19:21 Pulse Oximetry 99 06/10/24 19:21 Oxygen Delivery Room Air 06/10/24 19:21 Temperature 98.3 F 06/10/24 19:21 Pulse Rate 103 H 06/10/24 21:59 Respiratory Rate 18 06/10/24 21:59 Blood Pressure 119/58 L 06/10/24 21:59 Pulse Oximetry 94 06/10/24 21:59 Oxygen Delivery Room Air 06/10/24 19:21 Medical Decision Making MDM Narrative Medical decision making narrative: The patient was evaluated by myself in the emergency department. History is obtained from patient who is an independent historian and physical exam was performed. External medical records were reviewed at this time. IV was established and pertinent tests were ordered. EKG was obtained which revealed sinus rhythm rate of 99 beats per minute, no evidence of acute ischemia. EKG was independently interpreted by me and is currently pending official cardiology read. Laboratory results obtained revealing no acute process. Urinalysis revealed no evidence of urinary tract infection. Imaging studies obtained included CXR which was independently interpreted by me revealing no acute cardiopulmonary process, which is pending final radiology interpretation. Differential diagnosis considerations include acute viral syndrome, infectious process such as pneumonia/ UTI, dehydration, electrolyte derangements. Comorbidities impacting this visit include history of recent pneumonia, hypertension and CHF. I have evaluated and discussed social determinants of health with the patient that could potentially impact subsequent diagnosis and treatment plans. At this time I did have an extended discussion with the patient and his daughter regarding their expectations and if they have thought about possible assisted living facility/senior care placement. Daughter were informed me that they have not discuss this topic yet. Daughter did inform me at this time that patient's primary care physician set him up with outpatient physical therapy but patient only attended half of the sessions as patient does not want to leave the house and wants his physical therapy to be performed at home but the primary care physician thought it would be a better idea for him to get out of the house and move around. We did attempt to ambulate the patient using a walker and this attempt was unsuccessful, patient was not able to even sit up. I did inform patient and daughter that patient will be admitted for physical therapy/rehab and possible assisted living facility placement as he is no longer able to care for himself at home. On repeat assessment of the patient, reevaluation revealed that the patient is doing well and is in no acute distress. Patient symptoms have improved since he arrived to our emergency department. Repeat vital signs were all reviewed and noted to be stable. Differential diagnosis and treatment plan were discussed with the patient at bedside. Patient agrees with discussion and after shared medical decision making agrees with discharge. All questions were answered to the patient's satisfaction. Vital Signs Vital Signs: Vital Signs Temperature 98.3 F 06/10/24 19:21 Pulse Rate 102 H 06/10/24 19:21 Respiratory Rate 18 06/10/24 19:21 Blood Pressure 117/61 06/10/24 19:21 Pulse Oximetry 99 06/10/24 19:21 Oxygen Delivery Room Air 06/10/24 19:21 Temperature 98.3 F 06/10/24 19:21 Pulse Rate 103 H 06/10/24 21:59 Respiratory Rate 18 06/10/24 21:59 Blood Pressure 119/58 L 06/10/24 21:59 Pulse Oximetry 94 06/10/24 21:59 Oxygen Delivery Room Air 06/10/24 19:21 Lab Data 06/10/24 19:55 06/10/24 19:55 Labs: Lab Results 06/10/24 06/10/24 Range/Units 19:55 21:58 WBC 5.1 (4.5-10.0) K/mm3 RBC 3.51 L (4.6-6.20) M/mm3 Hgb 11.8 L (14.0-18.0) g/dL Hct 35.2 L (42.0-52.0) % MCV 100.3 H (80-100) fl MCH 33.6 (26-34) pg MCHC 33.5 (32-36) g/dl RDW 14.3 (11.5-14.5) % Plt Count 181 (150-375) k/mm3 MPV 10.2 (7.4-10.4) fl Immature Gran % (Auto) 0.8 H (0-0.5) % Neut % (Auto) 77.6 H (45.5-73.1) % Lymph % (Auto) 7.0 L (18.3-44.2) % [place] % (Auto) 10.9 H (2.6-8.5) % Eos % (Auto) 2.9 (0-4.4) % Baso % (Auto) 0.8 (0.2-1.2) % Lymph # (Auto) 0.36 L (0.9-3.2) K/mm3 [place] # (Auto) 0.6 (0.1-0.6) K/mm3 Eos # (Auto) 0.2 (0-0.3) K/mm3 Baso # (Auto) 0.0 (0.0-0.1) K/mm3 Abs Immat Gran (auto) 0.04 H (0.00-0.031) K/mm3 Absolute Neuts (auto) 4.0 (1.3-6.7) K/mm3 Absolute Nucleated RBC 0.000 (0.0-0.012) K/mm3 Nucleated RBC % 0.0 (0.0-0.2) % Sodium 134 L (137-145) mmol/L Potassium 3.5 (3.4-5.0) mmol/L Chloride 93 L (98-107) mmol/L Carbon Dioxide 31 H (22-30) mmol/L Anion Gap 10 (4-12) mmol/L BUN 27 H D (9-20) mg/dL Creatinine 1.60 H (0.7-1.3) mg/dL Estim Creat Clear Calc 36 ml/min Estimated GFR 41 L (59 - ) Glucose 148 H (65-110) mg/dL Calcium 9.8 (8.4-10.2) mg/dL Magnesium 1.4 L (1.6-2.3) mg/dL Total Bilirubin 0.9 (0.2-1.3) mg/dL AST 24 (17-59) U/L ALT 15 (6-50) U/L Alkaline Phosphatase 69 (38-126) U/L NT-Pro-B Natriuret Pep 374 H (19.9-100) pg/mL Total Protein 8.0 (6.3-8.2) g/dL Albumin 4.1 (3.5-5.1) g/dL Urine Color Yellow (Yellow) Urine Appearance Clear (Clear) Urine pH 6.5 (5.0-9.0) Ur Specific [place] 1.019 (1.001-1.035) Urine Protein Trace (Negative) mg/dL Urine Glucose (UA) Negative (Negative) mg/dL Urine Ketones Trace H (Negative) mg/dL Ur Blood (Man) Negative (Negative) Urine Nitrate Negative (Negative) Urine Bilirubin Negative (Negative) Urine Urobilinogen 1.0 (<2.0) mg/dL Leukocyte Esterase Rfl Negative (Negative) SHANIQUA/UL Urine RBC 0-2 (0-2) /hpf Urine WBC 0-5 (0-3) /hpf Ur Squamous Epith Cells None seen (Few) /hpf Urine Bacteria None seen /hpf Urine Casts 3-5 Influenza A (RT-PCR) Negative (Negative) Influenza B (RT-PCR) Negative (Negative) SARS-CoV-2 RNA (RT-PCR) Negative (Negative) Discharge Plan Discharge Clinical Impression: Generalized weakness, Adult failure to thrive Patient Disposition: Still a Patient Condition: Stable Prescriptions: No Action cholecalciferol (vitamin D3) 25 mcg (1,000 unit) capsule 25 mcg PO DAILY aspirin [Adult Aspirin Regimen] 81 mg tablet,delayed release (DR/EC) 81 mg PO DAILY abiraterone 500 mg tablet 500 mg PO DAILY Qty: 1 0RF Rx Instructions: must be taken on empty stomach, at least 1 hr before or 2 hrs after a meal/food multivitamin Tablet 1 tablet PO DAILY Fish Oil 100-160-1,000 mg capsule 1 cap PO DAILY vitamin E (dl, acetate) 450 mg (1,000 unit) capsule 450 mg PO DAILY Melatonin 5mg Gummy 10 mg 1 tab-cap PO HS Patient Comments: Take 2 gummies before bed QHS Eligard (6 month) 45 mg syringe 45 mg subcut [id number] potassium chloride 10 mEq capsule, extended release 10 meq PO BID Qty: 180 1RF simvastatin 40 mg tablet 40 mg PO HS mirtazapine 15 mg tablet 15 mg PO HS metformin 500 mg tablet extended release 24 hr 500 mg PO TID famotidine [Pepcid AC] 20 mg tablet 20 mg PO BID Qty: 180 1RF tamsulosin 0.4 mg capsule 0.4 mg PO BID Qty: 180 1RF donepezil 5 mg tablet 5 mg PO QHS Qty: 90 1RF prednisone 5 mg tablet 5 mg PO BID Qty: 60 0RF metolazone 2.5 mg tablet 2.5 mg PO .COMPLEX Qty: 38 0RF Rx Instructions: 2.5 mg orally On Monday, Monday and Monday; Follow-up/Referrals: Cipriano Lord DO [Primary Care Provider] - 3 Days Time of Disposition: 22:48
--- NOTE | 2024-06-10 19:40 | ECG_ITS ---
Test Date: 2024-06-10 19:57:01 Measurements Intervals [place] Rate: 99 P: 33 CT: 180 QRS: 1 QRSD: 87 T: 11 QT: 331 QTc: 425 Interpretive Statements SINUS RHYTHM LOW QRS VOLTAGE IN PRECORDIAL LEADS [QRS DEFLECTION < 1.0 mV IN CHEST LEADS] Compared to ECG 05/25/2024 00:23:15 NO SIGNIFICANT CHANGES Electronically Signed On 06-11-2024 09:40:32 CDT by Kristen Montalvo M.D.
[2024-06-10 20:02] LABS: Basophils Percent Auto 0.8 % (0.2-1.2); Eosinophils Absolute Auto 0.2 K/mm3 (0-0.3); Eosinophils Percent Auto 2.9 % (0-4.4); Hematocrit 35.2 % (42.0-52.0); Hemoglobin 11.8 g/dL (14.0-18.0); Immature Granulocyte Absolute 0.04 K/mm3 (0.00-0.031); Immature Granulocyte Percent A 0.8 % (0-0.5); Lymphocytes Absolute Auto 0.36 K/mm3 (0.9-3.2); Mean Corpuscular HGB Conc 33.5 g/dl (32-36); Mean Corpuscular Hemoglobin 33.6 pg (26-34); Mean Corpuscular Volume 100.3 fl (80-100); Mean Platelet Volume 10.2 fl (7.4-10.4); Monocytes Absolute Auto 0.6 K/mm3 (0.1-0.6); Monocytes Percent Auto 10.9 % (2.6-8.5); Neutrophils Percent Auto 77.6 % (45.5-73.1); Platelet Count Result 181 k/mm3 (150-375); Red Blood Count 3.51 M/mm3 (4.6-6.20); Red Cell Distribution Width 14.3 % (11.5-14.5); White Blood Count 5.1 K/mm3 (4.5-10.0)
--- NOTE | 2024-06-10 20:10 | PC.NURSE ---
Yifan and RN attempted to get pee from pt at this time. Pt states he is not able to make urine well due to kidney disease. RN and yifan mentioned a cath and pt is refusing a cath at this time.
[2024-06-10 20:38] LABS: Influenza A QL RT-PCR Negative (Negative); Influenza B QL RT-PCR Negative (Negative); SARS-CoV-2 RNA PCR Negative (Negative)
[2024-06-10 20:48] LABS: Alanine Aminotransferase 15 U/L (6-50); Albumin Level 4.1 g/dL (3.5-5.1); Alkaline Phosphatase 69 U/L (38-126); Anion Gap 10 mmol/L (4-12); Aspartate Amino Transferase 24 U/L (17-59); Bilirubin,Total 0.9 mg/dL (0.2-1.3); Blood Urea Nitrogen 27 mg/dL (9-20); Calcium 9.8 mg/dL (8.4-10.2); Carbon Dioxide 31 mmol/L (22-30); Chloride 93 mmol/L (98-107); Estimated CRCL calculation 36 ml/min; Estimated Glomerular Filt Rate 41; Glucose 148 mg/dL (65-110); Magnesium 1.4 mg/dL (1.6-2.3); Potassium 3.5 mmol/L (3.4-5.0); Sodium 134 mmol/L (137-145)
[2024-06-10 21:29] LABS: NT Pro B Type Natriuretic Pept 374 pg/mL (19.9-100)
[2024-06-10 21:59] VITALS: BP 119/58; PULSE 103; RESP 18; O2SAT 94
[2024-06-10] MEDS: SODIUM CHLORIDE 0.9% IV 1,000 ML 999 ML IV CONT (22:03)
[2024-06-10 22:11] LABS: Add Urine Microscopic? YES; Appearance Urine Clear (Clear); Bacteria Urine None Seen /hpf; Bilirubin Urine Negative (Negative); Blood Urine Negative (Negative); Color Urine Yellow (Yellow); Glucose Urine UA Negative (Negative); Ketones Urine Trace mg/dL (Negative); Leukocyte Esterase Ur Negative LEU/UL (Negative); Nitrate Urine Negative (Negative); Protein Urine Trace mg/dL (Negative); RBC Urine 0-2 /hpf (0-2); Specific Grav Ur 1.019 (1.001-1.035); Squamous Epithelial Cell Urine None Seen /hpf (Few); WBC Urine 0-5 /hpf (0-3); pH Urine 6.5 (5.0-9.0)
--- NOTE | 2024-06-10 22:54 | PM.IMHP ---
H&P: HPI History of Present Illness Date/Time: 06/10/24 22:54 Chief Complaint: Generalized weakness. Narrative: This is an 84-year-old male with past medical history significant for prostate CA, type diabetes mellitus obstructive sleep apnea on CPAP at nighttime chronic kidney disease GERD, obesity. Patient recently discharged from [facility] after he was treated for pneumonia. Patient was brought to the emergency room due to generalized weakness, has been sitting most of the day not ambulating much feeling weak and tired. Denies any fevers, rigors, chills, night sweats, no cough, no sputum production has had good appetite has bilateral lower extremity leg swelling. Preliminary workup was significant for creatinine of 1.6, BUN 27, sodium 134, bicarb 31. Patient has been admitted for further evaluation management and treatment. EXAMINATION: XR chest 1V portable DATE: 06/10/2024 19:44 INDICATION: Weakness TECHNIQUE: frontal view of the chest was obtained. COMPARISON: Chest radiograph dated 05/24/2024 FINDINGS: Decreasing opacities in the left lower lung zone with improvement when compared with the prior study which could represent improving atelectasis or pneumonia. Obscuration of portions of the left heart border and left hemidiaphragm likely related to a prominent left paracardial fat pad. Calcified nodules in the right lower lung zone consistent with old granulomatous disease. No pulmonary edema, pleural effusion or pneumothorax. Heart size within normal limits for AP technique. Mild thoracic dextrocurvature with mild spondylosis. IMPRESSION: 1. Decreased opacities in the left lower lung zone with residual mild opacities likely related to a prominent paracardial fat pad potentially with small amount of residual improving atelectasis or pneumonia. Review of Systems Review of Systems: Generalized weakness, bilateral lower extremity worsening edema. [facility] Past Medical History Medical History Chronic kidney disease, stage 3 CPAP (continuous positive airway pressure) dependence Diverticulitis DM renal manif type II DM w/o complication type II GERD (gastroesophageal reflux disease) Hyperlipidemia LDL goal <100 Hypertension YAMILKA (obstructive sleep apnea) Prostate cancer Family History Family History Father Asthma Mother Leukemia Social History Social History Smoking status: Former smoker Tobacco type: cigarettes Second hand tobacco smoke exposure: No Alcohol intake: current Drinks per week: 14 Alcohol use details: 2 alcohol drinks per night Substance use: never Do You Feel Safe in your Home?: Yes Lack of Transportation: No Lack of Food: Never True Current Housing: I Have Housing Concerned About Future Housing: No Difficulty Paying Gas/Electric Bills: No Difficulty Paying for Meds: No Currently Unemployed: No Education: Master's Degree or Higher Difficulty w/ Childcare or Family Care: No Living arrangements: alone Occupation/Education: retired Gender identity (if verbalized by the patient): Male Sexual Orientation (if Verbalized by the Patient): Straight or Heterosexual Spiritual care concerns: No Agree to blood products: Yes Meds Home Medications and Allergies Home Medications Medication Instructions Recorded Confirmed Type Melatonin 5mg Gummy 1 tab-cap PO HS 09/01/23 06/11/24 History leuprolide acetate (6 month) 45 mg 45 mg subcut [id number] 09/01/23 06/11/24 History (6 month) subcutaneous syringe ([employer]) multivitamin 1 tablet PO DAILY 09/01/23 06/11/24 History omega 9-[id number]-zez-fish oil 100 1 cap PO DAILY 09/01/23 06/11/24 History mg-160 mg-1,000 mg capsule (Fish Oil) abiraterone 500 mg tablet 500 mg PO DAILY #1 tablet 02/26/24 06/11/24 Rx aspirin 81 mg tablet,delayed 81 mg PO DAILY 02/26/24 06/11/24 History release (Adult Aspirin Regimen) cholecalciferol (vitamin D3) 25 25 mcg PO DAILY 02/26/24 06/11/24 History mcg (1,000 unit) capsule famotidine 20 mg tablet (Pepcid AC) 20 mg PO BID #180 tabs 03/12/24 06/11/24 Rx tamsulosin 0.4 mg capsule 0.4 mg PO BID #180 caps 03/12/24 06/11/24 Rx potassium chloride 10 mEq 10 meq PO BID #180 caps 04/08/24 06/11/24 Rx capsule,extended release donepezil 5 mg tablet 5 mg PO QHS #90 tabs 05/08/24 06/11/24 Rx mirtazapine 15 mg tablet 15 mg PO HS 05/25/24 06/11/24 History simvastatin 40 mg tablet 40 mg PO HS 05/25/24 06/11/24 History metformin 500 mg tablet,extended 500 mg PO TID 06/03/24 06/11/24 History release 24 hr metolazone 2.5 mg tablet 2.5 mg PO .COMPLEX #38 tabs 06/04/24 06/11/24 Rx furosemide 20 mg tablet 20 mg PO DAILY PRN Edema 06/11/24 06/11/24 History tamsulosin 0.4 mg capsule 0.4 mg PO HS 06/11/24 06/11/24 History Allergies Allergy/AdvReac Type Severity Reaction Status Date / Time No Known Allergies Allergy Verified 06/10/24 19:34 Vital Signs Vital Signs - 24 hr 06/10/24 19:21 06/10/24 19:32 06/10/24 21:59 Temperature 98.3 F Pulse Rate 102 H 108 H 103 H Respiratory Rate 18 18 Blood Pressure 117/61 119/58 L Pulse Oximetry 99 94 Oxygen Delivery Room Air Exam Const: General: comfortable, no acute distress, well developed, alert, awake and average body habitus Nutritional Appearance: obese Orientation/consciousness: patient oriented x3 HENMT: Head: normal to inspection, normocephalic and atraumatic Ears: hearing grossly normal bilaterally Face/Nose/Sinus: normal facial exam Face and sinus: normal facial exam Eyes: General: appearance normal, both eyes and all related structures Pupils: Equal, round and reactive pupils present EOM: EOMs intact bilaterally Neck: Neck: full ROM, no lymphadenopathy and no JVD Thyroid: thyroid normal Lymphatic: no lymphadenopathy noted Resp: Effort & Inspection: normal respiratory effort and able to speak in complete sentences Auscultation: clear to auscultation bilaterally Cardio: Jugular venous distension: no JVD Rate: regular rate Rhythm: regular rhythm Heart sounds: S1 normal heart sound present and S2 normal heart sound present GI: GI Palp: Yes Soft to palpation and Yes No hepatosplenomegaly present : General: Yes deferred Skin: Rashes: no rashes Wounds: no wounds Neuro: General: patient oriented x3 and CN's II-XI intact bilaterally Cranial nerves: Yes CN's II-XII intact bilaterally and Yes Equal, round and reactive pupils present Cognition (Neuro): normal cognition Speech: normal speech Gait exam (Neuro): Unable to assess gait Motor exam (neuro): 5/5 motor strength present throughout Extrem: General: edema bilateral (3+) H&P: Results Labs Labs: Short CBC 06/10/24 Range/Units 19:55 WBC 5.1 (4.5-10.0) K/mm3 Hgb 11.8 L (14.0-18.0) g/dL Hct 35.2 L (42.0-52.0) % Plt Count 181 (150-375) k/mm3 BMP 06/10/24 19:55 Sodium 134 L Potassium 3.5 Chloride 93 L Carbon Dioxide 31 H BUN 27 H D Creatinine 1.60 H Glucose 148 H Calcium 9.8 Liver Function 06/10/24 Range/Units 19:55 Total Bilirubin 0.9 (0.2-1.3) mg/dL AST 24 (17-59) U/L ALT 15 (6-50) U/L Alkaline Phosphatase 69 (38-126) U/L Albumin 4.1 (3.5-5.1) g/dL Urine 06/10/24 Range/Units 21:58 Urine Color Yellow (Yellow) Urine Appearance Clear (Clear) Urine pH 6.5 (5.0-9.0) Ur Specific [place] 1.019 (1.001-1.035) Urine Protein Trace (Negative) mg/dL Urine Glucose (UA) Negative (Negative) mg/dL Assessment and Plan Assessment and plan (1) Generalized weakness: Code(s): R53.1 - Weakness Status: Acute Assessment and Plan: Admit to regular medical floor physical therapy occupational therapy consult supportive care (2) Adult failure to thrive: Code(s): R62.7 - Adult failure to thrive Status: Acute Assessment and Plan: will likely need rehabilitation or penitentiary (3) Prostate cancer: Code(s): C61 - Malignant neoplasm of prostate Status: Acute Assessment and Plan: continue present management on hormonal treatment (4) GERD (gastroesophageal reflux disease): Code(s): K21.9 - Gastro-esophageal reflux disease without esophagitis Status: Acute Assessment and Plan: on Pepcid (5) Hypertension: Qualifiers: Hypertension type: primary hypertension Qualified Code(s): I10 - Essential (primary) hypertension Code(s): I10 - Essential (primary) hypertension Status: Acute Assessment and Plan: holding metolazone holding Lasix continue to monitor (6) Chronic kidney disease, stage 3: Code(s): N18.30 - Chronic kidney disease, stage 3 unspecified Status: Acute Assessment and Plan: continue to monitor BUN and creatinine creatinine today is 1.6 BUN 26 (7) YAMILKA (obstructive sleep apnea): Code(s): G47.33 - Obstructive sleep apnea (adult) (pediatric) Status: Acute Assessment and Plan: CPAP at nighttime (8) CPAP (continuous positive airway pressure) dependence: Code(s): Z99.89 - Dependence on other enabling machines and devices Status: Acute Assessment and Plan: continue CPAP Hospitalist [facility] Advance Care Plan I have confirmed that the patient's Advanced Care Plan is present, code status is documented, or surrogate decision maker is listed in patient medical record.: Yes Medication Reconciliation I have utilized all available resources to obtain, update and review the patients current medications (includes all prescriptions, OTC, herbals, cannabis, and nutritional supplements).: Yes
--- NOTE | 2024-06-10 23:50 | ADMGEN ---
This patient, Brent Lewis, was admitted to Medical Room 246-01. Patient/family oriented to hospital policies and general routines including ID bracelet, bed and alarms, visiting hours, pain management, procedures, bathroom and other care routines, personal items, smoking policy, room service/diet, and visiting hours. Information on how to activate the Rapid Response Team has been discussed. Patient/Family are encouraged to report perceived risks to care and to ask questions if they do not understand what they are told or what they should do.
[2024-06-10 23:58] VITALS: BP 139/55; PULSE 100; RESP 18; TEMP 36.6; O2SAT 96
[2024-06-11] VITALS (7 sets, daily range): BP systolic 119–138; BP diastolic 60–98; PULSE 86–110; RESP 16–20; TEMP 36.1–37.3; O2SAT 93–96; BMI 33.7
[2024-06-11] MEDS: IPRATROPIUM 0.5 MG/ALBUTEROL SULFATE 2.5 MG AMPUL.NEB 3 ML INHALATION (02:37)
--- NOTE | 2024-06-11 08:02 | P.PNIM_ITS ---
Progress Note: A&P Assessment and Plan (1) Generalized weakness: Code(s): R53.1 - Weakness Status: Acute Assessment and Plan: Patient reports to the hospital with complaints of generalized weakness. He was recently admitted for similar complaints earlier this month and was treated for pneumonia. PT/OT evaluated him at that time and recommended home health therapy. His PCP had previously ordered outpatient PT/OT. * No focal neuro deficit * WBC normal, afebrile, no oxygen requirements * Chest x-ray shows atelectasis and a resolving pneumonia * He does have lower extremity swelling +2 with erythema and tenderness. He is not on anticoagulation and he has been relatively immobile as of late. Wells score of 6 given physical findings, presence of malignancy, and immobility. Will obtain venous duplex today. * PT/OT consulted, recs appreciated * Fall precautions (2) Chronic kidney disease, stage 3: Code(s): N18.30 - Chronic kidney disease, stage 3 unspecified Status: Acute Assessment and Plan: Creatinine values fluctuating anywhere from 1.4 to 2.1 mg per dL. Established with Dr Tipton. * Cr 1.6, BUN 27 on admission. Received 1 L NS in the ED * BMP daily * Replete lytes to maintain K+ >3.5, Mg > 1.6 (3) Lower extremity edema: Code(s): R60.0 - Localized edema Status: Acute Assessment and Plan: Chronic lower extremity edema likely from CKD, CHF, and venous insufficiency. Takes prn Lasix as needed for swelling. Metolazone 2.5 mg Monday, Monday, Monday. * BRIGIDA hose, elevate lower extremities * Venous duplex ordered * BNP 374, no pulmonary edema on imaging, lungs are clear (4) Anemia: Qualifiers: Anemia type: unspecified type Qualified Code(s): D64.9 - Anemia, unspecified Code(s): D64.9 - Anemia, unspecified Status: Acute Assessment and Plan: Chronic anemia per chart review. Likely multifactorial given underlying ma lignancy and CKD. * Hgb stable at 10.9 g/dL * Iron panel shows anemia. Will treat with ferrous sulfate. * B12 and folate normal * No obvious signs of blood per patient reports (5) Prostate cancer: Code(s): C61 - Malignant neoplasm of prostate Status: Acute Assessment and Plan: History of prostate cancer diagnosed in 2018 s/p radiation. Now follows with Dr Pak and is on Lupron every 3 months with Zytiga and prednisone. * Patient will need to bring in home Abiraterone as this is non-formulary Subjective Date/time seen: 06/11/24 08:02 Interval history: Patient is seen resting in bed with no acute distress. He reports he is here for generalized weakness and lower extremity swelling. He denies headache, dizziness, chest pain, shortness of breath, fever, chills, sore throat, abdominal pain, nausea, vomiting, constipation, diarrhea, and no new or chronic wounds. He does have some tenderness with erythema, and warmth to bilateral lower extremities. The patient says he came to the hospital to further evaluate his weakness to make sure he does not have an infection and otherwise is planning to return home at discharge. Review of Systems Review of Systems: Generalized weakness, bilateral lower extremity worsening edema. Exam Narrative: General: appears comfortable, in no acute distress Respiratory: breathing is unlabored with even chest rise/fall, lungs are clear without wheezing, rhonchi, and crackles Cardiovascular: Rate and rhythm regular, normal s1s2, no murmur Abdomen: Soft, round, non-tender, active bowel sounds Extremities: No cyanosis. + 2 pitting edema to bilateral lower extremities with erythema, warmth. Neuro: A&O x 3 Skin: Warm, dry, intact Objective Data Vital Signs Vital Signs: Vital Signs - 24 hr 06/10/24 19:21 06/10/24 19:32 06/10/24 21:59 Temperature 98.3 F Pulse Rate 102 H 108 H 103 H Respiratory Rate 18 18 Blood Pressure 117/61 119/58 L Pulse Oximetry 99 94 Oxygen Delivery Room Air Fraction of Inspired Oxygen 06/11/24 00:02 06/10/24 23:58 06/11/24 02:37 Temperature 97.9 F Pulse Rate 100 95 Respiratory Rate 18 18 Blood Pressure 139/55 L Pulse Oximetry 96 Oxygen Delivery Room Air Fraction of Inspired Oxygen 06/11/24 02:43 06/11/24 06:23 06/11/24 07:30 Temperature 97.9 F Pulse Rate 100 86 Respiratory Rate 18 16 Blood Pressure 120/60 Pulse Oximetry 95 95 Oxygen Delivery Room Air Fraction of Inspired Oxygen 21 Intake/Output Intake/Output: Intake & Output 10/1906/09/24 06/10/24 06/11/24 23:59 23:59 23:59 23:59 Intake Total 1000 200 Output Total 300 Balance 1000 -100 Meds/Results Medications: Active Medications Generic Name Dose Route Start Last Admin Trade Name Freq PRN Reason Stop Dose Admin Al Hydrox/Mg Hydrox/Simethicone 30 ml 06/11/24 01:09 Mag Hydrox/Al Hydrox/Simeth 30 Ml Udc PO Q6H PRN Indigestion Albuterol/Ipratropium 3 ml 06/11/24 02:00 06/11/24 07:30 Ipratropium 0.5 Mg/Albuterol Sulfate 2.5 Mg Ampul.Neb 3 Ml INHALATION Not Given Q6HRT [facility] Aspirin 81 mg 06/11/24 09:00 Aspirin 81 Mg Enteric Tablet PO DAILY SOPHIE Donepezil HCl 5 mg 06/11/24 21:00 Donepezil Hcl 5 [address] Table[address]HS [facility] Famotidine 20 mg 06/11/24 09:00 Famotidine 20 Mg Tablet PO Q12HR [facility] Melatonin 10 mg 06/11/24 21:00 Melatonin 5 Mg Tablet PO 07/11/24 20:[address] [facility] Metolazone 2.5 mg 06/12/24 09:00 Metolazone 2.5 Mg Tablet PO MoWeFr [facility] Mirtazapine 15 mg 06/11/24 21:00 Mirtazapine 15 Mg Tablet PO HS [facility] Miscellaneous Information 0 each 06/11/24 00:01 Abiraterone 500mg Nonform Can Pt Bring From Home? XX 07/11/24 00:[address] [facility] Non-Formulary Medication 500 mg 06/11/24 09:00 Abiraterone PO 07/11/24 08:[address] [facility] Ondansetron HCl 4 mg 06/11/24 01:09 Ondansetron Inj 4 Mg/2 Ml Vial IV PUSH Q6H PRN Nausea And Vomiting Polyethylene Glycol 17 gm 06/11/24 01:09 Polyethylene Glycol 3350 17 Gm Powd.Pack PO QAM PRN Constipation Tamsulosin HCl 0.4 mg 06/11/24 09:00 Tamsulosin Hcl 0.4 Mg Capsule PO Q12HR [facility] Radiology Results: ITS Impressions Chest X-Ray 06/10/24 20:28 IMPRESSION: 1. Decreased opacities in the left lower lung zone with residual mild opacities likely related to a prominent paracardial fat pad potentially with small amount of residual improving atelectasis or pneumonia. Labs Labs: Laboratory Results - last 24 hr 06/10/24 06/10/24 19:55 21:58 WBC 5.1 RBC 3.51 L Hgb 11.8 L Hct 35.2 L MCV 100.3 H MCH 33.6 MCHC 33.5 RDW 14.3 Plt Count 181 MPV 10.2 Immature Gran % (Auto) 0.8 H Neut % (Auto) 77.6 H Lymph % (Auto) 7.0 L Pepin % (Auto) 10.9 H Eos % (Auto) 2.9 Baso % (Auto) 0.8 Lymph # (Auto) 0.36 L Pepin # (Auto) 0.6 Eos # (Auto) 0.2 Baso # (Auto) 0.0 Abs Immat Gran (auto) 0.04 H Absolute Neuts (auto) 4.0 Absolute Nucleated RBC 0.000 Nucleated RBC % 0.0 Sodium 134 L Potassium 3.5 Chloride 93 L Carbon Dioxide 31 H Anion Gap 10 BUN 27 H D Creatinine 1.60 H Estim Creat Clear Calc 36 Estimated GFR 41 L Glucose 148 H Calcium 9.8 Magnesium 1.4 L Total Bilirubin 0.9 AST 24 ALT 15 Alkaline Phosphatase 69 NT-Pro-B Natriuret Pep 374 H Total Protein 8.0 Albumin 4.1 Urine Color Yellow Urine Appearance Clear Urine pH 6.5 Ur Specific Arabi 1.019 Urine Protein Trace Urine Glucose (UA) Negative Urine Ketones Trace H Ur Blood (Man) Negative Urine Nitrate Negative Urine Bilirubin Negative Urine Urobilinogen 1.0 Leukocyte Esterase Rfl Negative Urine RBC 0-2 Urine WBC 0-5 Ur Squamous Epith Cells None seen Urine Bacteria None seen Urine Casts 3-5 Influenza A (RT-PCR) Negative Influenza B (RT-PCR) Negative SARS-CoV-2 RNA (RT-PCR) Negative Quality VTE Prophylaxis VTE prophylaxis: pharmacologic ordered
[2024-06-11] MEDS: FAMOTIDINE 20 MG TABLET PO ×2 (08:33→21:10)
[2024-06-11] MEDS: TAMSULOSIN HCL 0.4 MG CAPSULE PO ×2 (08:33→21:10)
[2024-06-11] MEDS: ASPIRIN 81 MG ENTERIC TABLET PO (08:33)
[2024-06-11 09:07] LABS: Hematocrit 32.5 % (42.0-52.0); Hemoglobin 10.9 g/dL (14.0-18.0); Mean Corpuscular HGB Conc 33.5 g/dl (32-36); Mean Corpuscular Hemoglobin 33.6 pg (26-34); Mean Corpuscular Volume 100.3 fl (80-100); Mean Platelet Volume 10.3 fl (7.4-10.4); Platelet Count Result 164 k/mm3 (150-375); Red Blood Count 3.24 M/mm3 (4.6-6.20); Red Cell Distribution Width 14.3 % (11.5-14.5); White Blood Count 3.6 K/mm3 (4.5-10.0)
[2024-06-11 09:38] LABS: Alanine Aminotransferase 14 U/L (6-50); Albumin Level 3.6 g/dL (3.5-5.1); Alkaline Phosphatase 66 U/L (38-126); Anion Gap 7 mmol/L (4-12); Aspartate Amino Transferase 24 U/L (17-59); Blood Urea Nitrogen 19 mg/dL (9-20); Calcium 9.3 mg/dL (8.4-10.2); Carbon Dioxide 30 mmol/L (22-30); Chloride 98 mmol/L (98-107); Estimated CRCL calculation 46 ml/min; Estimated Glomerular Filt Rate 58; Glucose 122 mg/dL (65-110); Sodium 135 mmol/L (137-145)
[2024-06-11 09:46] LABS: Iron 34 ug/dL (49-181)
[2024-06-11 09:55] LABS: Percent Iron Saturation 13 % (20-50)
[2024-06-11 10:50] LABS: Folic Acid > 20.0 ng/mL (2.76->20)
[2024-06-11 11:39] LABS: Alanine Aminotransferase 13 U/L (6-50); Albumin Level 3.5 g/dL (3.5-5.1); Alkaline Phosphatase 58 U/L (38-126); Anion Gap 7 mmol/L (4-12); Aspartate Amino Transferase 23 U/L (17-59); Bilirubin,Total 0.8 mg/dL (0.2-1.3); Blood Urea Nitrogen 20 mg/dL (9-20); Calcium 9.2 mg/dL (8.4-10.2); Carbon Dioxide 31 mmol/L (22-30); Chloride 96 mmol/L (98-107); Estimated CRCL calculation 43 ml/min; Estimated Glomerular Filt Rate 53; Glucose 165 mg/dL (65-110); Magnesium 1.4 mg/dL (1.6-2.3); Potassium 3.2 mmol/L (3.4-5.0); Sodium 134 mmol/L (137-145)
[2024-06-11] MEDS: ENOXAPARIN 40 MG/0.4 ML SYRINGE SUB-Q (13:07)
[2024-06-11] MEDS: POTASSIUM CHLORIDE 20 MEQ PACKET (FOR LIQUID) 40 MEQ PO (13:08)
[2024-06-11] MEDS: MAGNESIUM SULF 2 GM/WATER 50ML 2 GM/50 ML BAG IVPB (13:09)
--- NOTE | 2024-06-11 16:57 | PHAR ---
HOME MEDICATION: ABIRATERONE ACETATE 250 MG TABLETS, TAKE 4 TABLETS (1000 MG) BY MOUTH ONCE DAILY ON AN EMPTY STOMACH (DO NOT EAT FOR 2 HOURS BEFORE OR 1 HOUR AFTER), VERIFIED IN PHARMACY 06/11/24 @ 1700.
--- NOTE | 2024-06-11 17:07 | PHAR ---
HOME MEDICATION: ABIRATERONE ACETATE 250 MG TABLETS, TAKE 2 TABLETS (500 MG) BY MOUTH ONCE DAILY ON AN EMPTY STOMACH (DO NOT EAT FOR 2 HOURS BEFORE OR 1 HOUR AFTER), VERIFIED IN PHARMACY 06/11/24 @ 6353
[2024-06-11] MEDS: DONEPEZIL HCL 5 MG TABLET PO (21:10)
[2024-06-11] MEDS: MELATONIN 5 MG TABLET 10 MG PO (21:10)
[2024-06-11] MEDS: MIRTAZAPINE 15 MG TABLET PO (21:10)
--- NOTE | 2024-06-12 02:16 | PCRCNOTE ---
pt refused use of hospital cpap/bipap unit and stated that he does not use one at home.
[2024-06-12 05:32] LABS: Basophils Absolute Auto 0.1 K/mm3 (0.0-0.1); Basophils Percent Auto 1.9 % (0.2-1.2); Eosinophils Absolute Auto 0.1 K/mm3 (0-0.3); Eosinophils Percent Auto 4.4 % (0-4.4); Hematocrit 31.3 % (42.0-52.0); Hemoglobin 10.1 g/dL (14.0-18.0); Immature Granulocyte Absolute 0.02 K/mm3 (0.00-0.031); Immature Granulocyte Percent A 0.7 % (0-0.5); Lymphocytes Absolute Auto 0.33 K/mm3 (0.9-3.2); Lymphocytes Percent Auto 12.2 % (18.3-44.2); Mean Corpuscular HGB Conc 32.3 g/dl (32-36); Mean Corpuscular Hemoglobin 33.1 pg (26-34); Mean Corpuscular Volume 102.6 fl (80-100); Mean Platelet Volume 10.9 fl (7.4-10.4); Monocytes Absolute Auto 0.5 K/mm3 (0.1-0.6); Monocytes Percent Auto 17.8 % (2.6-8.5); Neutrophils Absolute Auto 1.7 K/mm3 (1.3-6.7); Platelet Count Result 154 k/mm3 (150-375); Red Blood Count 3.05 M/mm3 (4.6-6.20); Red Cell Distribution Width 14.3 % (11.5-14.5); White Blood Count 2.7 K/mm3 (4.5-10.0)
[2024-06-12 05:44] LABS: Alanine Aminotransferase 13 U/L (6-50); Albumin Level 3.3 g/dL (3.5-5.1); Alkaline Phosphatase 61 U/L (38-126); Anion Gap 6 mmol/L (4-12); Aspartate Amino Transferase 29 U/L (17-59); Bilirubin,Total 0.9 mg/dL (0.2-1.3); Blood Urea Nitrogen 15 mg/dL (9-20); Carbon Dioxide 29 mmol/L (22-30); Chloride 99 mmol/L (98-107); Estimated CRCL calculation 46 ml/min; Estimated Glomerular Filt Rate 58; Glucose 146 mg/dL (65-110); Magnesium 1.8 mg/dL (1.6-2.3); Potassium 2.9 mmol/L (3.4-5.0); Sodium 134 mmol/L (137-145)
[2024-06-12] MEDS: ABIRATERONE 250 MG PO (06:15)
[2024-06-12 06:18] VITALS: BP 100/77; PULSE 96; RESP 18; TEMP 37.1; O2SAT 94
--- NOTE | 2024-06-12 07:58 | P.PNIM_ITS ---
Progress Note: A&P Assessment and Plan (1) Generalized weakness: Code(s): R53.1 - Weakness Status: Acute Assessment and Plan: Patient reports to the hospital with complaints of generalized weakness. He was recently admitted for similar complaints earlier this month and was treated for pneumonia. PT/OT evaluated him at that time and recommended home health therapy. His PCP had previously ordered outpatient PT/OT. * No focal neuro deficit * WBC normal, afebrile, no oxygen requirements * Chest x-ray shows atelectasis and a resolving pneumonia * He does have lower extremity swelling +2 with erythema and tenderness. He is not on anticoagulation and he has been relatively immobile as of late. Wells score of 6 given physical findings, presence of malignancy, and immobility. Will obtain venous duplex today. * PT/OT consulted, recs appreciated * Fall precautions 06/12/24 * Dopplers negative (2) Chronic kidney disease, stage 3: Code(s): N18.30 - Chronic kidney disease, stage 3 unspecified Status: Acute Assessment and Plan: Creatinine values fluctuating anywhere from 1.4 to 2.1 mg per dL. Established with Dr Tipton. * Cr 1.6, BUN 27 on admission. Received 1 L NS in the ED * BMP daily * Replete lytes to maintain K+ >3.5, Mg > 1.6 (3) Lower extremity edema: Code(s): R60.0 - Localized edema Status: Acute Assessment and Plan: Chronic lower extremity edema likely from CKD, CHF, and venous insufficiency. Takes prn Lasix as needed for swelling. Metolazone 2.5 mg Monday, Monday, Monday. * BRIGIDA perez, elevate lower extremities * Venous duplex ordered * BNP 374, no pulmonary edema on imaging, lungs are clear (4) Anemia: Qualifiers: Anemia type: unspecified type Qualified Code(s): D64.9 - Anemia, unspecified Code(s): D64.9 - Anemia, unspecified Status: Acute Assessment and Plan: Chronic anemia per chart review. Likely multifactorial given underlying malignancy and CKD. * Hgb stable at 10.9 g/dL * Iron panel shows anemia. Will treat with ferrous sulfate. * B12 and folate normal * No obvious signs of blood per patient reports (5) Prostate cancer: Code(s): C61 - Malignant neoplasm of prostate Status: Acute Assessment and Plan: History of prostate cancer diagnosed in 2018 s/p radiation. Now follows with Dr Pak and is on Lupron every 3 months with Zytiga and prednisone. * Patient will need to bring in home Abiraterone as this is non-formulary (6) Hypokalemia: Code(s): E87.6 - Hypokalemia Status: Acute Assessment and Plan: * K 3.0 POA * 06/12: 2.9 * Replenished with 80 meq Plan Code status: Full code per patient DVT prophylaxis: Lovenox Stress ulcer prophylaxis: NA PT/OT notes: SNF Disposition: Patient continues admission to the medical unit for further evaluation and treatment generalized weakness PT/OT is recommending assisted facility for continued rehabilitation will discuss with case coordination and patient. he currently lives at alone with his dog Time Spent With Patient Time with patient: 15 - 25 minutes Subjective Date/time seen: 06/12/24 07:58 Interval history: Patient is an 84-year-old male who was admitted for further evaluation of generalized weakness and hypokalemia. 06/12/24: Assumed Care Patient with complaints of headache but improving with acetaminophen, still feeling weak PT recommended for discharge patient agreeable. Review of Systems Review of Systems: Generalized weakness, bilateral lower extremity worsening edema. All systems reviewed & are unremarkable except as noted in HPI and below Exam Narrative: General: appears comfortable, in no acute distress Respiratory: breathing is unlabored with even chest rise/fall, lungs are clear without wheezing, rhonchi, and crackles Cardiovascular: Rate and rhythm regular, normal s1s2, no murmur Abdomen: Soft, round, non-tender, active bowel sounds Extremities: No cyanosis. + 2 pitting edema to bilateral lower extremities with erythema, warmth. Neuro: A&O x 3 Skin: Warm, dry, intact Objective Data Vital Signs Vital Signs: Vital Signs - 24 hr 06/11/24 08:30 06/11/24 13:48 06/11/24 14:46 Temperature 97.0 F L Pulse Rate 94 Respiratory Rate 20 Blood Pressure 119/98 H Pulse Oximetry 96 Oxygen Delivery Room Air Room Air 06/11/24 21:53 06/11/24 21:10 06/11/24 21:15 Temperature 99.1 F Pulse Rate 110 H Respiratory Rate 16 Blood Pressure 138/68 Pulse Oximetry 93 93 Oxygen Delivery Room Air Room Air 06/12/24 06:18 Temperature 98.7 F Pulse Rate 96 Respiratory Rate 18 Blood Pressure 100/77 Pulse Oximetry 94 Oxygen Delivery Intake/Output Intake/Output: Intake & Output 06/09/24 06/10/24 06/11/24 06/12/24 23:59 23:59 23:59 23:59 Intake Total 1000 560 250 Output Total 425 350 Balance 1000 135 -100 Meds/Results Medications: Active Medications Generic Name Dose Route Start Last Admin Trade Name Freq PRN Reason Stop Dose Admin Al Hydrox/Mg Hydrox/Simethicone 30 ml 06/11/24 01:09 Mag Hydrox/Al Hydrox/Simeth 30 Ml Udc PO Q6H PRN Indigestion Albuterol/Ipratropium 3 ml 06/11/24 11:34 Ipratropium 0.5 Mg/Albuterol Sulfate 2.5 Mg Ampul.Neb 3 Ml NEBULIZE Q6HRT PRN Wheezing Aspirin 81 mg 06/11/24 09:00 06/11/24 08:33 Aspirin 81 Mg Enteric Tablet PO 81 mg DAILY SOPHIE Administration Donepezil HCl 5 mg 06/11/24 21:00 06/11/24 21:10 Donepezil Hcl 5 Mg Tablet PO 5 mg QHS SOPHIE Administration Enoxaparin Sodium 40 mg 06/11/24 12:20 06/11/24 13:07 Enoxaparin 40 Mg/0.4 Ml Syringe SUB-Q 40 mg DAILY SOPHIE Administration Famotidine 20 mg 06/11/24 09:00 06/11/24 21:10 Famotidine 20 Mg Tablet PO 20 mg Q12HR SOPHIE Administration Ferrous Sulfate 325 mg 06/12/24 09:00 Ferrous Sulfate [address] PO DAILY SOPHIE Potassium Chloride 40 meq/ 520 mls @ 130 mls/hr 06/12/24 07:56 Sodium Chloride IVPB 06/12/24 11:55 ONCE ONE Melatonin 10 mg 06/11/24 21:00 06/11/24 21:10 Melatonin 5 Mg Tablet PO 07/11/24 20:59 10 mg HS SOPHIE Administration Metolazone 2.5 mg 06/12/24 09:00 Metolazone 2.5 Mg Tablet PO MoWeFr SOPHIE Mirtazapine 15 mg 06/11/24 21:00 06/11/24 21:10 Mirtazapine 15 Mg Tablet PO 15 mg HS SOPHIE Administration Home Med ( 0 mg 06/12/24 06:30 06/12/24 06:15 Abiraterone 250 Mg PO 07/12/24 06:29 500 mg Tablet) DAILY@0630 SOPHIE Administration Ondansetron HCl 4 mg 06/11/24 01:09 Ondansetron Inj 4 Mg/2 Ml Vial IV PUSH Q6H PRN Nausea And Vomiting Polyethylene Glycol 17 gm 06/11/24 01:09 Polyethylene Glycol 3350 17 Gm Powd.Pack PO QAM PRN Constipation Potassium Chloride 40 meq 06/12/24 07:56 Potassium Chloride 20 Meq Er Tablet PO 06/12/24 07:57 ONCE ONE Tamsulosin HCl 0.4 mg 06/11/24 09:00 06/11/24 21:10 Tamsulosin Hcl 0.4 Mg Capsule PO 0.4 mg Q12HR SOPHIE Administration Radiology Results: ITS Impressions Chest X-Ray 06/10/24 20:28 IMPRESSION: 1. Decreased opacities in the left lower lung zone with residual mild opacities likely related to a prominent paracardial fat pad potentially with small amount of residual improving atelectasis or pneumonia. Venous Doppler Study 06/11/24 15:49 IMPRESSION: 1. No deep venous thrombosis in either lower limb. Labs Labs: Laboratory Results - last 24 hr 06/11/24 06/11/24 06/12/24 08:47 11:21 04:47 WBC 3.6 L 2.7 L RBC 3.24 L 3.05 L Hgb 10.9 L 10.1 L Hct 32.5 L 31.3 L MCV 100.3 H 102.6 H MCH 33.6 33.1 MCHC 33.5 32.3 RDW 14.3 14.3 Plt Count 164 154 MPV 10.3 10.9 H Immature Gran % (Auto) 0.7 H Neut % (Auto) 63.0 Lymph % (Auto) 12.2 L Walker % (Auto) 17.8 H Eos % (Auto) 4.4 Baso % (Auto) 1.9 H Lymph # (Auto) 0.33 L Walker # (Auto) 0.5 Eos # (Auto) 0.1 Baso # (Auto) 0.1 Abs Immat Gran (auto) 0.02 Absolute Neuts (auto) 1.7 Absolute Nucleated RBC 0.000 Nucleated RBC % 0.0 Sodium 135 L 134 L 134 L Potassium 3.0 L 3.2 L 2.9 L Chloride 98 96 L 99 Carbon Dioxide 30 31 H 29 Anion Gap 7 7 6 BUN 19 20 15 D Creatinine 1.20 1.30 1.20 Estim Creat Clear Calc 46 43 46 Estimated GFR 58 L 53 L 58 L Glucose 122 H 165 H 146 H Calcium 9.3 9.2 9.0 Magnesium 1.4 L 1.8 Iron 34 L TIBC 262 L % Saturation 13 L Total Bilirubin 1.0 0.8 0.9 AST 24 23 29 ALT 14 13 13 Alkaline Phosphatase 66 58 61 Total Protein 7.0 7.0 7.0 Albumin 3.6 3.5 3.3 L Vitamin B12 572.0 Folate > 20.0 H Quality VTE Prophylaxis VTE prophylaxis: pharmacologic ordered -Patient's previous records reviewed on admission -ER notes reviewed in detail on admission -discussed all findings and current treatment plan with patient/Family/POA -Consultations reviewed for recommendations -Patient's disposition for safe discharge discussed with ed case manager Dictation performed by [email or web address] direct speech recognition software, therefore character actress variants and typographical errors may occur. Hospitalist [facility] Advance Care Plan I have confirmed that the patient's Advanced Care Plan is present, code status is documented, or surrogate decision maker is listed in patient medical record.: Yes Medication Reconciliation I have utilized all available resources to obtain, update and review the patients current medications (includes all prescriptions, OTC, herbals, cannabis, and nutritional supplements).: Yes The patient is not eligible for med reconciliation; the patient is in a emergent medical situation where delaying treatment would jeopardize the patients health.: No
[2024-06-12] MEDS: metOLazone 2.5 MG TABLET PO (08:58)
[2024-06-12] MEDS: POTASSIUM CHLORIDE 20 MEQ ER TABLET 40 MEQ PO (08:59)
[2024-06-12] MEDS: TAMSULOSIN HCL 0.4 MG CAPSULE PO ×2 (08:59→20:41)
[2024-06-12] MEDS: FAMOTIDINE 20 MG TABLET PO ×2 (08:59→20:41)
[2024-06-12] MEDS: FERROUS SULFATE 325 MG TABLET DR PO (08:59)
[2024-06-12] MEDS: ASPIRIN 81 MG ENTERIC TABLET PO (08:59)
[2024-06-12] MEDS: ENOXAPARIN 40 MG/0.4 ML SYRINGE SUB-Q (09:00)
[2024-06-12] MEDS: POTASSIUM CHLORIDE INJ 40 MEQ in SODIUM CHLORIDE 0.9% IV 500 ML 130 MEQ IVPB (09:39)
[2024-06-12] MEDS: ACETAMINOPHEN 325 MG TABLET 650 MG PO ×2 (10:59→17:36)
[2024-06-12 14:00] VITALS: BP 121/60; PULSE 82; RESP 12; TEMP 36.8; O2SAT 96
[2024-06-12 19:43] VITALS: BP 104/51; PULSE 93; RESP 16; TEMP 36.4; O2SAT 97
[2024-06-12] MEDS: DONEPEZIL HCL 5 MG TABLET PO (20:41)
[2024-06-12] MEDS: MIRTAZAPINE 15 MG TABLET PO (20:41)
[2024-06-12] MEDS: MELATONIN 5 MG TABLET 10 MG PO (20:41)
[2024-06-13 05:30] LABS: Basophils Percent Auto 1.7 % (0.2-1.2); Eosinophils Absolute Auto 0.2 K/mm3 (0-0.3); Eosinophils Percent Auto 8.6 % (0-4.4); Hematocrit 31.2 % (42.0-52.0); Hemoglobin 10.5 g/dL (14.0-18.0); Immature Granulocyte Absolute 0.02 K/mm3 (0.00-0.031); Immature Granulocyte Percent A 0.9 % (0-0.5); Lymphocytes Absolute Auto 0.34 K/mm3 (0.9-3.2); Lymphocytes Percent Auto 14.7 % (18.3-44.2); Mean Corpuscular HGB Conc 33.7 g/dl (32-36); Mean Corpuscular Hemoglobin 34.2 pg (26-34); Mean Corpuscular Volume 101.6 fl (80-100); Mean Platelet Volume 10.5 fl (7.4-10.4); Monocytes Absolute Auto 0.4 K/mm3 (0.1-0.6); Monocytes Percent Auto 16.4 % (2.6-8.5); Neutrophils Absolute Auto 1.3 K/mm3 (1.3-6.7); Neutrophils Percent Auto 57.7 % (45.5-73.1); Platelet Count Result 136 k/mm3 (150-375); Red Blood Count 3.07 M/mm3 (4.6-6.20); Red Cell Distribution Width 14.3 % (11.5-14.5); White Blood Count 2.3 K/mm3 (4.5-10.0)
[2024-06-13 05:45] LABS: Alanine Aminotransferase 16 U/L (6-50); Alkaline Phosphatase 56 U/L (38-126); Anion Gap 3 mmol/L (4-12); Aspartate Amino Transferase 31 U/L (17-59); Bilirubin,Total 0.6 mg/dL (0.2-1.3); Blood Urea Nitrogen 13 mg/dL (9-20); Calcium 8.8 mg/dL (8.4-10.2); Carbon Dioxide 29 mmol/L (22-30); Chloride 101 mmol/L (98-107); Estimated CRCL calculation 43 ml/min; Estimated Glomerular Filt Rate 53; Glucose 132 mg/dL (65-110); Magnesium 1.6 mg/dL (1.6-2.3); Potassium 3.1 mmol/L (3.4-5.0); Sodium 133 mmol/L (137-145)
[2024-06-13] MEDS: ABIRATERONE 250 MG PO (06:17)
[2024-06-13 06:32] VITALS: BP 127/62; PULSE 97; RESP 16; TEMP 36.6; O2SAT 94
[2024-06-13] MEDS: TAMSULOSIN HCL 0.4 MG CAPSULE PO ×2 (07:44→21:48)
[2024-06-13] MEDS: ACETAMINOPHEN 325 MG TABLET 650 MG PO (07:45)
[2024-06-13] MEDS: FERROUS SULFATE 325 MG TABLET DR PO (07:45)
[2024-06-13] MEDS: ASPIRIN 81 MG ENTERIC TABLET PO (07:45)
[2024-06-13] MEDS: FAMOTIDINE 20 MG TABLET PO ×2 (07:45→21:47)
[2024-06-13] MEDS: POTASSIUM CHLORIDE 20 MEQ PACKET (FOR LIQUID) 60 MEQ PO (07:46)
[2024-06-13] MEDS: ENOXAPARIN 40 MG/0.4 ML SYRINGE SUB-Q (07:46)
[2024-06-13] MEDS: ONDANSETRON INJ 4 MG/2 ML VIAL IV PUSH (08:16)
--- NOTE | 2024-06-13 10:51 | P.PNIM_ITS ---
Progress Note: A&P Assessment and Plan (1) Generalized weakness: Code(s): R53.1 - Weakness Status: Acute Assessment and Plan: Patient reports to the hospital with complaints of generalized weakness. He was recently admitted for similar complaints earlier this month and was treated for pneumonia. PT/OT evaluated him at that time and recommended home health therapy. His PCP had previously ordered outpatient PT/OT. * No focal neuro deficit * WBC normal, afebrile, no oxygen requirements * Chest x-ray shows atelectasis and a resolving pneumonia * He does have lower extremity swelling +2 with erythema and tenderness. He is not on anticoagulation and he has been relatively immobile as of late. Wells score of 6 given physical findings, presence of malignancy, and immobility. Will obtain venous duplex today. * PT/OT consulted, recs appreciated * Fall precautions 06/12/24 * Dopplers negative 06/13/24: * Pancytopenia noted on today's labs. Consult Oncology. * Pt appears very weak. * Continue fall precautions. (2) Chronic kidney disease, stage 3: Code(s): N18.30 - Chronic kidney disease, stage 3 unspecified Status: Acute Assessment and Plan: Creatinine values fluctuating anywhere from 1.4 to 2.1 mg per dL. Established with Dr Tipton. * Cr 1.6, BUN 27 on admission. Received 1 L NS in the ED * BMP daily * Replete lytes to maintain K+ >3.5, Mg > 1.6 06/13/24: * Renal function is stable today at Cr 1.3 and BUN of 13. His Potassium remains low at 3.1. Another 60 mEq po ordered. (3) Pancytopenia: Code(s): D61.818 - Other pancytopenia Status: Acute Assessment and Plan: * New finding today of persistently declining WBC's. * In setting of Prostate CA, Oncology consulted for any additional recommendations. (4) Lower extremity edema: Code(s): R60.0 - Localized edema Status: Acute Assessment and Plan: Chronic lower extremity edema likely from CKD, CHF, and venous insufficiency. Takes prn Lasix as needed for swelling. Metolazone 2.5 mg Monday, Monday, Monday. * BRIGIDA perez, elevate lower extremities * Venous duplex ordered * BNP 374, no pulmonary edema on imaging, lungs are clear (5) Anemia: Qualifiers: Anemia type: unspecified type Qualified Code(s): D64.9 - Anemia, unspecified Code(s): D64.9 - Anemia, unspecified Status: Acute Assessment and Plan: Chronic anemia per chart review. Likely multifactorial given underlying malignancy and CKD. * Hgb stable at 10.9 g/dL * Iron panel shows anemia. Will treat with ferrous sulfate. * B12 and folate normal * No obvious signs of blood per patient reports 06/13/24: * Now with Pancytopenia. New finding with down trending WBCs for the past three days. * Consult Oncology. * Continue Iron supplementation. L (6) Prostate cancer: Code(s): C61 - Malignant neoplasm of prostate Status: Acute Assessment and Plan: History of prostate cancer diagnosed in 2018 s/p radiation. Now follows with Dr Pak and is on Lupron every 3 months with Zytiga and prednisone. * Patient will need to bring in home Abiraterone as this is non-formulary (7) Hypokalemia: Code(s): E87.6 - Hypokalemia Status: Acute Assessment and Plan: * K 3.0 POA * 06/12: 2.9 * Replenished with 80 meq 06/13/24: * 3.1. 60 mEq po given. (8) Headache: Code(s): R51.9 - Headache, unspecified Status: Acute Assessment and Plan: * Present since yesterday. * [place] added Q6 hrs for worsening pain. * If no relief, or worsening, consider CT head. Plan Code status: Full code per patient DVT prophylaxis: Lovenox Stress ulcer prophylaxis: NA PT/OT notes: SNF Disposition: Patient continues admission to the medical unit for further evaluation and treatment generalized weakness PT/OT is recommending residential facility for continued rehabilitation will discuss with case coordination and patient. he currently lives at alone with his dog Time Spent With Patient Time with patient: 25 - 35 minutes Subjective Date/time seen: 06/13/24 0830 Interval history: This very pleasant elderly male pt was examined at the bedside today in interval assessment. He complains of a headache today that started yesterday and has rem ained. He is currently awaiting SNF placement for his continued weakness. His potassium remains low today at 3.1. he is supplemented with another 60 mEq. His CBC today shows trending downward of WBC's to 2.3, now with lower platelets of 136 and Hgb of 10.5. Oncology will be consulted as precaution for Pancytopenia prior to discharge for any recommendations. He was ordered [place] for his headache in an attempt to get it to lessen. If it does not, would consider CT head. No hx of migraines, and no recent trauma. Review of Systems Review of Systems: All systems reviewed & are unremarkable except as noted in HPI and below Exam Narrative: General: appears that he does not feel well and appears weak. Respiratory: breathing is unlabored with even chest rise/fall, lungs are clear without wheezing, rhonchi, and crackles Cardiovascular: Rate and rhythm regular, normal s1s2, no murmur Abdomen: Soft, round, non-tender, active bowel sounds Extremities: No cyanosis. + 2 pitting edema to bilateral lower extremities with erythema, warmth. Neuro: A&O x 3 Skin: Warm, dry, intact Objective Data Vital Signs Vital Signs: Vital Signs - 24 hr 06/12/24 15:58 06/12/24 14:00 06/12/24 19:43 Temperature 98.3 F 97.6 F Pulse Rate 82 93 Respiratory Rate 12 16 Blood Pressure 121/60 104/51 L Pulse Oximetry 96 97 Oxygen Delivery Room Air 06/13/24 06:32 06/13/24 07:45 Temperature 97.9 F Pulse Rate 97 Respiratory Rate 16 Blood Pressure 127/62 Pulse Oximetry 94 Oxygen Delivery Room Air Intake/Output Intake/Output: Intake & Output 06/10/24 06/11/24 06/12/24 06/13/24 23:59 23:59 23:59 23:59 Intake Total 7536 042 6451 300 Output Total 425 850 500 Balance 1000 135 620 -200 Meds/Results Medications: Active Medications Generic Name Dose Route Start Last Admin Trade Name Freq PRN Reason Stop Dose Admin Acetaminophen 650 mg 06/12/24 10:51 06/13/24 07:45 Acetaminophen 325 Mg Tablet PO 650 mg Q4H PRN Administration Headache Hydrocodone Bitart/Acetaminophen 1 tab 06/13/24 08:42 Hydrocodone/Acetaminophen (*Crx) 5-325 Mg Tablet PO Q4H PRN Pain Rated 4-6 Al Hydrox/Mg Hydrox/Simethicone 30 ml 06/11/24 01:09 Mag Hydrox/Al Hydrox/Simeth 30 Ml Udc PO Q6H PRN Indigestion Albuterol/Ipratropium 3 ml 06/11/24 11:34 Ipratropium 0.5 Mg/Albuterol Sulfate 2.5 Mg Ampul.Neb 3 Ml NEBULIZE Q6HRT PRN Wheezing Aspirin 81 mg 06/11/24 09:00 06/13/24 07:45 Aspirin 81 Mg Enteric Tablet PO 81 mg DAILY SOPHIE Administration Donepezil HCl 5 mg 10/22/24 21:00 06/12/24 20:41 Donepezil Hcl 5 Mg Tablet PO 5 mg QHS SOPHIE Administration Enoxaparin Sodium 40 mg 06/11/24 12:20 06/13/24 07:46 Enoxaparin 40 Mg/0.4 Ml Syringe SUB-Q 40 mg DAILY SOPHIE Administration Famotidine 20 mg 06/11/24 09:00 06/13/24 07:45 Famotidine 20 Mg Tablet PO 20 mg Q12HR SOPHIE Administration Ferrous Sulfate 325 mg 06/12/24 09:00 06/13/24 07:45 Ferrous Sulfate [address] PO 325 mg DAILY SOPHIE Administration Melatonin 10 mg 06/11/24 21:00 06/12/24 20:41 Melatonin 5 Mg Tablet PO 07/11/24 20:59 10 mg HS SOPHIE Administration Metolazone 2.5 mg 06/12/24 09:00 06/12/24 08:58 Metolazone 2.5 Mg Tablet PO 2.5 mg MoWeFr SOPHIE Administration Mirtazapine 15 mg 06/11/24 21:00 06/12/24 20:41 Mirtazapine 15 Mg Tablet PO 15 mg HS SOPHIE Administration Home Med ( 0 mg 06/12/24 06:30 06/13/24 06:17 Abiraterone 250 Mg PO 07/12/24 06:29 500 mg Tablet) DAILY@0630 SOPHIE Administration Ondansetron HCl 4 mg 06/11/24 01:09 06/13/24 08:16 Ondansetron Inj 4 Mg/2 Ml Vial IV PUSH 4 mg Q6H PRN Administration Nausea And Vomiting Polyethylene Glycol 17 gm 06/11/24 01:09 Polyethylene Glycol 3350 17 Gm Powd.Pack PO QAM PRN Constipation Tamsulosin HCl 0.4 mg 06/11/24 09:00 06/13/24 07:44 Tamsulosin Hcl 0.4 Mg Capsule PO 0.4 mg Q12HR SOPHIE Administration Radiology Results: ITS Impressions Chest X-Ray 06/10/24 20:28 IMPRESSION: 1. Decreased opacities in the left lower lung zone with residual mild opacities likely related to a prominent paracardial fat pad potentially with small amount of residual improving atelectasis or pneumonia. Venous Doppler Study 06/11/24 15:49 IMPRESSION: 1. No deep venous thrombosis in either lower limb. Labs Labs: Laboratory Results - last 24 hr 06/13/24 05:08 WBC 2.3 L RBC 3.07 L Hgb 10.5 L Hct 31.2 L MCV 101.6 H MCH 34.2 H MCHC 33.7 RDW 14.3 Plt Count 136 L MPV 10.5 H Immature Gran % (Auto) 0.9 H Neut % (Auto) 57.7 Lymph % (Auto) 14.7 L Logan % (Auto) 16.4 H Eos % (Auto) 8.6 H Baso % (Auto) 1.7 H Lymph # (Auto) 0.34 L Logan # (Auto) 0.4 Eos # (Auto) 0.2 Baso # (Auto) 0.0 Abs Immat Gran (auto) 0.02 Absolute Neuts (auto) 1.3 Absolute Nucleated RBC 0.000 Nucleated RBC % 0.0 Sodium 133 L Potassium 3.1 L Chloride 101 Carbon Dioxide 29 Anion Gap 3 L BUN 13 Creatinine 1.30 Estim Creat Clear Calc 43 Estimated GFR 53 L Glucose 132 H Calcium 8.8 Magnesium 1.6 Total Bilirubin 0.6 AST 31 ALT 16 Alkaline Phosphatase 56 Total Protein 6.0 L Albumin 3.0 L Quality VTE Prophylaxis VTE prophylaxis: pharmacologic ordered
[2024-06-13] MEDS: HYDROcodone/acetaminophen (*CRX) 5-325 MG TABLET 1 TAB PO ×2 (13:36→17:44)
[2024-06-13 14:00] VITALS: BP 131/55; PULSE 94; RESP 14; TEMP 36.6; O2SAT 94
--- NOTE | 2024-06-13 18:44 | P.CONONC_ITS ---
HPI - Date of Consult Date/Time: 06/13/24 18:44 Requesting Physician: CAT Rangel Primary Care Provider: Cipriano Lord, DO - Consult Narrative Reason for consult: Pancytopenia Narrative: Brent Lewis is a 84 year old male E prostate cancer status post radiation therapy and ADT in September seen in the office in April 2024 found to have PSA of less than 0.1. Patient also has history of anemia of chronic kidney disease and type 2 diabetes. He came into the hospital with generalize weakness. He denies any bleeding easier. Denies any fevers and chills. Patient has been complaining of headache. Labs showed and 0.5 and platelet of 136,000. Iron level came back low. He denies any bleeding. Head CT showed no acute intracranial. Review of Systems - Review of Systems All systems reviewed & are unremarkable except as noted in [facility] and [facility] Medical History: Medical History (Last Updated 06/13/24 @ 10:58 by CAT Rangel) Chronic kidney disease, stage 3 CPAP (continuous positive airway pressure) dependence Diverticulitis DM renal manif type II DM w/o complication type II GERD (gastroesophageal reflux disease) Headache Hyperlipidemia LDL goal <100 Hypertension YAMILKA (obstructive sleep apnea) Pancytopenia Prostate cancer Family History: Family History (Last Reviewed 06/10/24 @ 23:12 by Nicolle Rodriguez RN) Father Asthma Mother Leukemia - Social History Social History: Social History (Last Reviewed 06/10/24 @ 19:38 by Romario Livingston MD) Gender Identity: Gender identity (if verbalized by the patient): Male Sexual Orientation: Sexual Orientation (if Verbalized by the Patient): Straight or Heterosexual Alcohol Use: Alcohol intake: current Drinks per week: 14 Alcohol use details: 2 alcohol drinks per night Substance Use: Substance use: never Others: Spiritual care concerns: No Agree to blood products: Yes Living Arrangements: Living arrangements: alone Oppucation/Education: Occupation/Education: retired Smoking Status: Smoking status: Former smoker Tobacco type: cigarettes Second hand tobacco smoke exposure: No Approximate Smoking End Date: 1969 Social Determinants of Health: Do You Feel Safe in your Home?: Yes Has the Lack of Transportation Kept You From Medical Appointments or From Getting Medications?: No Within the Past 12 Months, Were You Worried Whether Your Food Would Run Out Before You Got Money to Buy More?: Never True What is Your Housing Situation Today?: I Have Housing Are You Worried That in the Next 2 Months, You May Not Have Your Own Housing to Live In?: No Do You Have Trouble Paying Your Heating Or Electricity Bill?: No Do You Have Trouble Paying For Medicines?: No Are You Currently Unemployed and Looking for Work?: No Highest Level of Education Completed: Master's Degree or Higher Do You Have Trouble With Childcare or the Care of a Family Member?: No Exam - Vital Signs Vital Signs - 24 hr 06/12/24 19:43 06/13/24 06:32 06/13/24 07:45 Temperature 36.4 C 36.6 C Pulse Rate 93 97 Respiratory Rate 16 16 Blood Pressure 104/51 L 127/62 Pulse Oximetry 97 94 Oxygen Delivery Room Air 06/13/24 14:00 Temperature 36.6 C Pulse Rate 94 Respiratory Rate 14 Blood Pressure 131/55 L Pulse Oximetry 94 Oxygen Delivery - Exam HEENT: EOMI, PERRLA Neck: supple Lungs: clear to auscultation, normal air movement Heart: no murmurs, gallops, or rubs, regular rhythm, regular rate Abdomen: abdomen soft, non-distended, normal bowel sounds Extremities: normal pulses Integumentary: no abnormalities Neurological: normal speech Psychological: mental status NL, mood NL - Lab Results Laboratory Last Values WBC 2.3 K/mm3 (4.5-10.0) L 06/13/24 05:08 RBC 3.07 M/mm3 (4.6-6.20) L 06/13/24 05:08 Hgb 10.5 g/dL (14.0-18.0) L 06/13/24 05:08 Hct 31.2 % (42.0-52.0) L 06/13/24 05:08 MCV 101.6 fl (80-100) H 06/13/24 05:08 MCH 34.2 pg (26-34) H 06/13/24 05:08 MCHC 33.7 g/dl (32-36) 06/13/24 05:08 RDW 14.3 % (11.5-14.5) 06/13/24 05:08 Plt Count 136 k/mm3 (150-375) L 06/13/24 05:08 MPV 10.5 fl (7.4-10.4) H 06/13/24 05:08 Immature Gran % (Auto) 0.9 % (0-0.5) H 06/13/24 05:08 Neut % (Auto) 57.7 % (45.5-73.1) 06/13/24 05:08 Lymph % (Auto) 14.7 % (18.3-44.2) L 06/13/24 05:08 [place] % (Auto) 16.4 % (2.6-8.5) H 06/13/24 05:08 Eos % (Auto) 8.6 % (0-4.4) H 06/13/24 05:08 Baso % (Auto) 1.7 % (0.2-1.2) H 06/13/24 05:08 Lymph # (Auto) 0.34 K/mm3 (0.9-3.2) L 06/13/24 05:08 [place] # (Auto) 0.4 K/mm3 (0.1-0.6) 06/13/24 05:08 Eos # (Auto) 0.2 K/mm3 (0-0.3) 06/13/24 05:08 Baso # (Auto) 0.0 K/mm3 (0.0-0.1) 06/13/24 05:08 Abs Immat Gran (auto) 0.02 K/mm3 (0.00-0.031) 06/13/24 05:08 Absolute Neuts (auto) 1.3 K/mm3 (1.3-6.7) 06/13/24 05:08 Absolute Nucleated RBC 0.000 K/mm3 (0.0-0.012) 06/13/24 05:08 Nucleated RBC % 0.0 % (0.0-0.2) 06/13/24 05:08 Sodium 133 mmol/L (137-145) L 06/13/24 05:08 Potassium 3.1 mmol/L (3.4-5.0) L 06/13/24 05:08 Chloride 101 mmol/L (98-107) 06/13/24 05:08 Carbon Dioxide 29 mmol/L (22-30) 06/13/24 05:08 Anion Gap 3 mmol/L (4-12) L 06/13/24 05:08 BUN 13 mg/dL (9-20) 06/13/24 05:08 Creatinine 1.30 mg/dL (0.7-1.3) 06/13/24 05:08 Estim Creat Clear Calc 43 ml/min 06/13/24 05:08 Estimated GFR 53 (59-) L 06/13/24 05:08 Glucose 132 mg/dL (65-110) H 06/13/24 05:08 Calcium 8.8 mg/dL (8.4-10.2) 06/13/24 05:08 Magnesium 1.6 mg/dL (1.6-2.3) 06/13/24 05:08 Iron 34 ug/dL (49-181) L 06/11/24 08:47 TIBC 262 ug/dL (265-497) L 06/11/24 08:47 % Saturation 13 % (20-50) L 06/11/24 08:47 Total Bilirubin 0.6 mg/dL (0.2-1.3) 06/13/24 05:08 AST 31 U/L (17-59) 06/13/24 05:08 ALT 16 U/L (6-50) 06/13/24 05:08 Alkaline Phosphatase 56 U/L (38-126) 06/13/24 05:08 NT-Pro-B Natriuret Pep 374 pg/mL (19.9-100) H 06/10/24 19:55 Total Protein 6.0 g/dL (6.3-8.2) L 06/13/24 05:08 Albumin 3.0 g/dL (3.5-5.1) L 06/13/24 05:08 Vitamin B12 572.0 pg/mL (239-931) 06/11/24 08:47 Folate > 20.0 ng/mL (2.76->20) H 06/11/24 08:47 Urine Color Yellow (Yellow) 06/10/24 21:58 Urine Appearance Clear (Clear) 06/10/24 21:58 Urine pH 6.5 (5.0-9.0) 06/10/24 21:58 Ur Specific [place] 1.019 (1.001-1.035) 06/10/24 21:58 Urine Protein Trace mg/dL (Negative) 06/10/24 21:58 Urine Glucose (UA) Negative mg/dL (Negative) 06/10/24 21:58 Urine Ketones Trace mg/dL (Negative) H 06/10/24 21:58 Ur Blood (Man) Negative (Negative) 06/10/24 21:58 Urine Nitrate Negative (Negative) 06/10/24 21:58 Urine Bilirubin Negative (Negative) 06/10/24 21:58 Urine Urobilinogen 1.0 mg/dL (<2.0) 06/10/24 21:58 Leukocyte Esterase Rfl Negative SHANIQUA/UL (Negative) 06/10/24 21:58 Urine RBC 0-2 /hpf (0-2) 06/10/24 21:58 Urine WBC 0-5 /hpf (0-3) 06/10/24 21:58 Ur Squamous Epith Cells None seen /hpf (Few) 06/10/24 21:58 Urine Bacteria None seen /hpf 06/10/24 21:58 Urine Casts 3-5 06/10/24 21:58 Influenza A (RT-PCR) Negative (Negative) 06/10/24 19:55 Influenza B (RT-PCR) Negative (Negative) 06/10/24 19:55 SARS-CoV-2 RNA (RT-PCR) Negative (Negative) 06/10/24 19:55 Meds Home Medications Medication Instructions Recorded Confirmed Type Melatonin 5mg Gummy 1 tab-cap PO HS 09/01/23 06/11/24 History leuprolide acetate (6 month) 45 mg 45 mg subcut [id number] 09/01/23 06/11/24 History (6 month) subcutaneous syringe (Tae) multivitamin 1 tablet PO DAILY 09/01/23 06/11/24 History omega 1-voo-xae-fish oil 100 1 cap PO DAILY 09/01/23 06/11/24 History mg-160 mg-1,000 mg capsule (Fish Oil) abiraterone 500 mg tablet 500 mg PO DAILY #1 tablet 02/26/24 06/11/24 Rx aspirin 81 mg tablet,delayed 81 mg PO DAILY 02/26/24 06/11/24 History release (Adult Aspirin Regimen) cholecalciferol (vitamin D3) 25 25 mcg PO DAILY 02/26/24 06/11/24 History mcg (1,000 unit) capsule famotidine 20 mg tablet (Pepcid AC) 20 mg PO BID #180 tabs 03/12/24 06/11/24 Rx tamsulosin 0.4 mg capsule 0.4 mg PO BID #180 caps 03/12/24 06/11/24 Rx potassium chloride 10 mEq 10 meq PO BID #180 caps 04/08/24 06/11/24 Rx capsule,extended release donepezil 5 mg tablet 5 mg PO QHS #90 tabs 05/08/24 06/11/24 Rx mirtazapine 15 mg tablet 15 mg PO HS 05/25/24 06/11/24 History simvastatin 40 mg tablet 40 mg PO HS 05/25/24 06/11/24 History metformin 500 mg tablet,extended 500 mg PO TID 06/03/24 06/11/24 History release 24 hr metolazone 2.5 mg tablet 2.5 mg PO .COMPLEX #38 tabs 06/04/24 06/11/24 Rx furosemide 20 mg tablet 20 mg PO DAILY PRN Edema 06/11/24 06/11/24 History tamsulosin 0.4 mg capsule 0.4 mg PO HS 06/11/24 06/11/24 History Allergies Allergy/AdvReac Type Severity Reaction Status Date / Time No Known Allergies Allergy Verified 06/10/24 19:34 Results - Labs CBC & Chem 7: 06/13/24 05:08 06/13/24 05:08 Labs: Short CBC 06/13/24 Range/Units 05:08 WBC 2.3 L (4.5-10.0) K/mm3 Hgb 10.5 L (14.0-18.0) g/dL Hct 31.2 L (42.0-52.0) % Plt Count 136 L (150-375) k/mm3 BMP 06/13/24 05:08 Sodium 133 L Potassium 3.1 L Chloride 101 Carbon Dioxide 29 BUN 13 Creatinine 1.30 Glucose 132 H Calcium 8.8 Liver Function 06/13/24 Range/Units 05:08 Total Bilirubin 0.6 (0.2-1.3) mg/dL AST 31 (17-59) U/L ALT 16 (6-50) U/L Alkaline Phosphatase 56 (38-126) U/L Albumin 3.0 L (3.5-5.1) g/dL Assessment and Plan - Additional Plan Pancytopenia. Patient is a pleasant 84 male known to me for early stage prostate cancer status post radiation therapy and androgen deprivation t herapy seen in the office in April 2024. His prostate cancer was in remission. Patient also has a history of anemia of chronic kidney disease. He came into the hospital with generalized weakness and headache. CT scan head came back negative for any intracranial process. Labs showed iron deficiency as well as anemia of chronic kidney disease. I will order abdominal ultrasound to check for liver and spleen as well as bone marrow aspiration and biopsy to rule out any bone marrow disorder like MDS. I will start iron infusion. Patient will follow-up in the office.
[2024-06-13] MEDS: IRON SUCROSE COMPLEX 400 MG, IRON SUCROSE COMPLEX 100 MG in SODIUM CHLORIDE 0.9% IV 250 ML 78.57 MG IVPB (19:53)
[2024-06-13 20:00] VITALS: O2SAT 94
[2024-06-13] MEDS: oxyCODONE/ACETAMINOPHEN (*CRX) 5-325 MG TABLET PO (20:16)
[2024-06-13] MEDS: DONEPEZIL HCL 5 MG TABLET PO (21:47)
[2024-06-13] MEDS: MELATONIN 5 MG TABLET 10 MG PO (21:47)
[2024-06-13] MEDS: MIRTAZAPINE 15 MG TABLET PO (21:48)
[2024-06-13 22:00] VITALS: BP 136/62; PULSE 101; RESP 18; TEMP 36.7; O2SAT 94
[2024-06-14 06:00] VITALS: BP 149/86; PULSE 103; RESP 20; TEMP 37.4; O2SAT 96
[2024-06-14 06:02] LABS: Alveolar/Arterial O2 Gradient 72.5 mmHg; Base Excess ABG 3.2 mEq/l (+/-2.0); Fractional Inspired Oxygen 28 %; HCO3 ABG 26.9 mEq/l (22.0-26.0); Oxygen Content ABG 15.4 %vol (16.0-22.0); Oxygen Saturation ABG 96.8 % (95.0-100.0); Oxyhemoglobin 95.6 % THb (90.0-100.0); PCO2 ABG 37.5 mmHg (35.0-45.0); PO2 ABG 82.9 mmHg (80.0-100.0); PO2 FiO2 Ratio Arterial Blood 2.96 %; Total Hemoglobin 11.4 g/dL (12.0-18.0); pH ABG 7.473 (7.350-7.450)
[2024-06-14 06:03] LABS: Device NASAL CANNULA; Modified Allen's Test Pass; Site Drawn LEFT RADIAL
[2024-06-14 06:23] LABS: Basophils Percent Auto 1.2 % (0.2-1.2); Eosinophils Absolute Auto 0.2 K/mm3 (0-0.3); Eosinophils Percent Auto 6.1 % (0-4.4); Hematocrit 33.1 % (42.0-52.0); Hemoglobin 10.7 g/dL (14.0-18.0); Immature Granulocyte Absolute 0.02 K/mm3 (0.00-0.031); Immature Granulocyte Percent A 0.6 % (0-0.5); Lymphocytes Absolute Auto 0.42 K/mm3 (0.9-3.2); Lymphocytes Percent Auto 12.1 % (18.3-44.2); Mean Corpuscular HGB Conc 32.3 g/dl (32-36); Mean Corpuscular Hemoglobin 33.5 pg (26-34); Mean Corpuscular Volume 103.8 fl (80-100); Mean Platelet Volume 10.1 fl (7.4-10.4); Monocytes Absolute Auto 0.4 K/mm3 (0.1-0.6); Monocytes Percent Auto 11.6 % (2.6-8.5); Neutrophils Absolute Auto 2.4 K/mm3 (1.3-6.7); Neutrophils Percent Auto 68.4 % (45.5-73.1); Platelet Count Result 164 k/mm3 (150-375); Red Blood Count 3.19 M/mm3 (4.6-6.20); Red Cell Distribution Width 14.1 % (11.5-14.5); White Blood Count 3.5 K/mm3 (4.5-10.0)
[2024-06-14 06:31] LABS: Acetaminophen < 10 ug/mL (10-30); Ammonia < 9 umol/L (9-30); Salicylate < 1.0 mg/dL (2-20)
[2024-06-14 06:34] LABS: Alanine Aminotransferase 17 U/L (6-50); Albumin Level 3.4 g/dL (3.5-5.1); Alkaline Phosphatase 63 U/L (38-126); Anion Gap 6 mmol/L (4-12); Aspartate Amino Transferase 34 U/L (17-59); Bilirubin,Total 0.6 mg/dL (0.2-1.3); Blood Urea Nitrogen 13 mg/dL (9-20); Carbon Dioxide 29 mmol/L (22-30); Chloride 98 mmol/L (98-107); Estimated CRCL calculation 43 ml/min; Estimated Glomerular Filt Rate 53; Glucose 140 mg/dL (65-110); Magnesium 1.5 mg/dL (1.6-2.3); Sodium 133 mmol/L (137-145)
--- NOTE | 2024-06-14 06:35 | P.PNCROSS_ITS ---
Event Note Event Note Event Note: Notified approximately 6:00 a.m. by RN reporting the patient is altered and not following commands. Last known well time was sometime overnight. Reportedly the patient typically can be sluggish but usually A&O x3. Reported O2 saturation 86% on room air. Placed on 3 L and wean down to 2. No known lung disease. Reportedly patient has YAMILKA and does not wear CPAP. Patient examined: General: A&O x1, incoherent, does not follow commands. Reports no complaints Neuro: Unable to participate with exam. Weak in the bilateral lower extremities equally although does not participate much. Bilateral upper extremities 5/5 strength. No facial droop. No tongue deviation. Cranial nerves 2-12 grossly intact Cardiovascular: Regular rate and rhythm Lungs: Clear to auscultation bilaterally although there is limited participation Abdomen: Nontender nondistended, bowel sounds present Extremities: No edema or cyanosis ABG performed. No hypercapnia. The patient received [place] last evening around 5:00 p.m. and then oxycodone around 8:00 p.m.. His altered mental status could be due to toxic effects of narcotics. Patient placed on bedrest with fall precaution. [place] has already been discontinue. Placed oxycodone on hold. Additional workup is ongoing including urinalysis, chest x-ray, CT head stat, laboratory evaluations.
[2024-06-14 06:44] LABS: Glucose 140 mg/dL (65-110); Phosphorus 3.3 mg/dL (2.5-4.5)
[2024-06-14 06:51] LABS: Alanine Aminotransferase 18 U/L (6-50); Albumin Level 3.4 g/dL (3.5-5.1); Alkaline Phosphatase 59 U/L (38-126); Anion Gap 6 mmol/L (4-12); Aspartate Amino Transferase 34 U/L (17-59); Bilirubin,Total 0.5 mg/dL (0.2-1.3); Blood Urea Nitrogen 13 mg/dL (9-20); Calcium 9.2 mg/dL (8.4-10.2); Carbon Dioxide 29 mmol/L (22-30); Chloride 100 mmol/L (98-107); Estimated CRCL calculation 43 ml/min; Estimated Glomerular Filt Rate 53; Glucose 141 mg/dL (65-110); Sodium 135 mmol/L (137-145)
[2024-06-14] MEDS: ABIRATERONE 250 MG PO (07:02)
[2024-06-14 07:34] LABS: Vitamin B12 > 1000.0 pg/mL (239-931)
[2024-06-14] MEDS: ASPIRIN 81 MG ENTERIC TABLET PO (08:33)
[2024-06-14] MEDS: FERROUS SULFATE 325 MG TABLET DR PO (08:34)
[2024-06-14] MEDS: ENOXAPARIN 40 MG/0.4 ML SYRINGE SUB-Q (08:34)
[2024-06-14] MEDS: TAMSULOSIN HCL 0.4 MG CAPSULE PO ×2 (08:34→22:09)
[2024-06-14] MEDS: FAMOTIDINE 20 MG TABLET PO ×2 (08:34→22:09)
[2024-06-14] MEDS: metOLazone 2.5 MG TABLET PO (08:38)
[2024-06-14 09:27] LABS: Glucose Point of Care 128 mg/dl (65-105)
[2024-06-14 11:10] LABS: Influenza A QL RT-PCR Negative (Negative); Influenza B QL RT-PCR Negative (Negative); RSV RNA, RT-PCR Negative (Negative); SARS-CoV-2 RNA PCR Negative (Negative)
[2024-06-14 11:23] LABS: Add Urine Microscopic? YES; Appearance Urine Cloudy (Clear); Bacteria Urine None Seen /hpf; Bilirubin Urine Negative (Negative); Blood Urine Negative (Negative); Color Urine Dark Yellow (Yellow); Glucose Urine UA Negative (Negative); Ketones Urine Trace mg/dL (Negative); Leukocyte Esterase Ur Trace LEU/UL (Negative); Nitrate Urine Negative (Negative); Protein Urine Trace mg/dL (Negative); Specific Grav Ur 1.028 (1.001-1.035); Squamous Epithelial Cell Urine None Seen /hpf (Few); WBC Urine 0-5 /hpf (0-3)
[2024-06-14 11:44] LABS: Amphetamine Screen Urine Negative (Negative); Barbiturate Screen Urine Negative (Negative); Benzodiazepines Screen Urine Negative (Negative); Cannabinoid Screen Urine Negative (Negative); Cocaine Screen Urine Negative (Negative); Methadone Screen Urine Negative (Negative); Opiate Screen Urine Positive (Negative); Phencyclidine Screen Urine Negative (Negative)
[2024-06-14] MEDS: AZITHROMYCIN 500 MG/NS 250 ML 500 MG/250 ML BAG 250 MG IVPB (13:03)
[2024-06-14 14:00] VITALS: BP 111/55; PULSE 107; RESP 18; TEMP 36.7; O2SAT 95
[2024-06-14] MEDS: polyethylene glycoL 3350 17 GM POWD.PACK PO (18:21)
--- NOTE | 2024-06-14 19:07 | P.PNIM_ITS ---
Progress Note: A&P Assessment and Plan (1) Generalized weakness: Code(s): R53.1 - Weakness Status: Acute Assessment and Plan: Patient reports to the hospital with complaints of generalized weakness. He was recently admitted for similar complaints earlier this month and was treated for pneumonia. PT/OT evaluated him at that time and recommended home health therapy. His PCP had previously ordered outpatient PT/OT. * No focal neuro deficit * WBC normal, afebrile, no oxygen requirements * Chest x-ray shows atelectasis and a resolving pneumonia * He does have lower extremity swelling +1 with erythema and tenderness. He is not on anticoagulation and he has been relatively immobile as of late. Venous duplex negative. * Continue PT/OT treatment. * Fall precautions 06/12/24 * Dopplers negative 06/13/24: * Pancytopenia noted on today's labs. Consult Oncology. * Pt appears very weak. * Continue fall precautions. (2) Chronic kidney disease, stage 3: Code(s): N18.30 - Chronic kidney disease, stage 3 unspecified Status: Acute Assessment and Plan: Creatinine values fluctuating anywhere from 1.4 to 2.1 mg per dL. Established with Dr Tipton. * Cr 1.6, BUN 27 on admission. Received 1 L NS in the ED * BMP daily * Replete lytes to maintain K+ >3.5, Mg > 1.6 06/13/24: * Renal function is stable today at Cr 1.3 and BUN of 13. His Potassium remains low at 3.1. Another 60 mEq po ordered. (3) Pancytopenia: Code(s): D61.818 - Other pancytopenia Status: Acute Assessment and Plan: * Improving with platelet count currently normalized. * Prostate CA in remission per Oncology post radiation therapy and androgen deprivation treatment. * US abdomen showing normal liver and spleen. * Continue to trend labs. * Oncologist continues to follow. (4) Lower extremity edema: Code(s): R60.0 - Localized edema Status: Acute Assessment and Plan: Chronic lower extremity edema likely from CKD, CHF, and venous insufficiency. Takes prn Lasix as needed for swelling. Metolazone 2.5 mg Monday, Monday, Monday. * BRIGIDA hose, elevate lower extremities * Venous duplex negative. * BNP 374, no pulmonary edema on imaging, lungs are clear (5) Anemia: Qualifiers: Anemia type: unspecified type Qualified Code(s): D64.9 - Anemia, u nspecified Code(s): D64.9 - Anemia, unspecified Status: Acute Assessment and Plan: 06/14/24: Chronic anemia per chart review. Likely multifactorial given underlying malignancy and CKD. * Hgb stable at and trending up 10.5>>110.7 today. * Iron panel shows anemia. Will treat with ferrous sulfate. * B12 and folate normal. * No obvious signs of blood per patient reports. * Platelet count currently wnl. 06/13/24: * Now with Pancytopenia. New finding with down trending WBCs for the past three days. * Oncology following. * Continue Iron supplementation. * (6) Prostate cancer: Code(s): C61 - Malignant neoplasm of prostate Status: Acute Assessment and Plan: History of prostate cancer diagnosed in 2018 s/p radiation and Androgen deprivation therapy. Now follows with Dr Pak and is on Lupron every 3 months with Zytiga and prednisone. * Patient will need to bring in home Abiraterone as this is non-formulary. (7) Hypokalemia: Code(s): E87.6 - Hypokalemia Status: Acute Assessment and Plan: * K 3.0 POA * 06/12: 2.9 * Replenished with 80 meq 06/13/24: * 3.1. 60 mEq po given. * Currently wnl. (8) Headache: Code(s): R51.9 - Headache, unspecified Status: Acute Assessment and Plan: * Denies symptoms today. * Pain meds PRN. Plan Code status: Full code per patient DVT prophylaxis: Lovenox Stress ulcer prophylaxis: NA PT/OT notes: SNF Disposition: Patient continues admission to the medical unit for further evaluation and treatment generalized weakness PT/OT is recommending residential facility for continued rehabilitation will discuss with case coordination and patient. he currently lives at home alone with his dog Time Spent With Patient Time with patient: 25 - 35 minutes Subjective Date/time seen: 06/14/24 19:07 Interval history: This very pleasant elderly male pt was examined at the bedside today in interval assessment. He denies headache today or other distressful symptoms. He is currently awaiting SNF placement for his continued weakness. Patient being followed by Oncology for Pancytopenia. Review of Systems Review of Systems: Generalized weakness, bilateral lower extremity worsening edema. All systems reviewed & are unremarkable except as noted in HPI and below Exam Narrative: General: appears that he does not feel well and appears weak. Respiratory: breathing is unlabored with even chest rise/fall, lungs are clear without wheezing, rhonchi, and crackles Cardiovascular: Rate and rhythm regular, normal s1s2, no murmur Abdomen: Soft, round, non-tender, active bowel sounds Extremities: No cyanosis. + 1 pitting edema to bilateral lower extremities. Neuro: A&O x 3 Skin: Warm, dry, intact Const: General: comfortable, no acute distress, well developed, alert, awake, average body habitus and obese Nutritional Appearance: average body habitus and obese Orientation/consciousness: patient oriented x3 HENMT: Head: normal to inspection, normocephalic and atraumatic Ears: hearing grossly normal bilaterally Face/Nose/Sinus: normal facial exam Face and sinus: normal facial exam Eyes: General: appearance normal, both eyes and all related structures Pupils: Equal, round and reactive pupils present EOM: EOMs intact bilaterally Neck: Neck: full ROM, no lymphadenopathy and no JVD Thyroid: thyroid normal Lymphatic: no lymphadenopathy noted Resp: Effort & Inspection: normal respiratory effort and able to speak in complete sentences Auscultation: clear to auscultation bilaterally Cardio: Jugular venous distension: no JVD Rate: regular rate Rhythm: regular rhythm Heart sounds: S1 normal heart sound present and S2 normal heart sound present : General: Yes deferred Skin: Rashes: no rashes Wounds: no wounds Neuro: General: patient oriented x3, CN's II-XI intact bilaterally and Unable to assess gait Cranial nerves: Yes CN's II-XII intact bilaterally and Yes Equal, round and reactive pupils present Cognition (Neuro): normal cognition Speech: normal speech Gait exam (Neuro): Unable to assess gait Other: Generalized muscle weakness. Extrem: General: edema bilateral (1+) and pedal edema Psych: Mental Status: mental status grossly normal Other: Flat affect Objective Data Vital Signs Vital Signs: Vital Signs - 24 hr 06/13/24 20:00 06/13/24 22:00 06/14/24 06:00 Temperature 98.1 F 99.3 F Pulse Rate 101 H 103 H Respiratory Rate 18 20 Blood Pressure 136/62 149/86 H Pulse Oximetry 94 94 96 Oxygen Delivery Room Air 06/14/24 08:35 06/14/24 14:00 Temperature 98.1 F Pulse Rate 107 H Respiratory Rate 18 Blood Pressure 111/55 L Pulse Oximetry 95 Oxygen Delivery Room Air Intake/Output Intake/Output: Intake & Output 06/11/24 06/12/24 06/13/24 06/14/24 23:59 23:59 23:59 23:59 Intake Total 560 1470 1365 680 Output Total 241 487 5913 550 Balance 135 620 265 130 Meds/Results Medications: Active Medications Generic Name Dose Route Start Last Admin Trade Name Freq PRN Reason Stop Dose Admin Acetaminophen 650 mg 06/12/24 10:51 06/13/24 07:45 Acetaminophen 325 Mg Tablet PO 650 mg Q4H PRN Administration Headache Al Hydrox/Mg Hydrox/Simethicone 30 ml 06/11/24 01:09 Mag Hydrox/Al Hydrox/Simeth 30 Ml Udc PO Q6H PRN Indigestion Albuterol/Ipratropium 3 ml 06/11/24 11:34 Ipratropium 0.5 Mg/Albuterol Sulfate 2.5 Mg Ampul.Neb 3 Ml NEBULIZE Q6HRT PRN Wheezing Aspirin 81 mg 06/11/24 09:00 06/14/24 08:33 Aspirin 81 Mg Enteric Tablet PO 81 mg DAILY SOPHIE Administration Donepezil HCl 5 mg 06/11/24 21:00 06/13/24 21:47 Donepezil Hcl 5 Mg Tablet PO 5 mg QHS SOPHIE Administration Enoxaparin Sodium 40 mg 06/11/24 12:20 06/14/24 08:34 Enoxaparin 40 Mg/0.4 Ml Syringe SUB-Q 40 mg DAILY SOPHIE Administration Famotidine 20 mg 06/11/24 09:00 06/14/24 08:34 Famotidine 20 Mg Tablet PO 20 mg Q12HR SOPHIE Administration Ferrous Sulfate 325 mg 06/12/24 09:00 06/14/24 08:34 Ferrous Sulfate [address] PO 325 mg DAILY SOPHIE Administration Ceftriaxone Sodium 1 gm in 50 mls @ 100 mls/hr 06/14/24 11:55 06/14/24 12:26 Rocephin 1 Gm/Ns 50 Ml IVPB 06/18/24 09:29 100 mls/hr DAILY SOPHIE Administration Azithromycin 500 mg in 250 mls @ 250 mls/hr 06/14/24 11:55 06/14/24 13:03 Zithromax IVPB 06/18/24 09:59 250 mls/hr DAILY SOPHIE Administration Sodium Chloride 1,000 mls @ 60 mls/hr 06/14/24 19:10 Normal Saline Iv IV CONT .[id number] SOPHIE Melatonin 10 mg 06/11/24 21:00 06/13/24 21:47 Melatonin 5 Mg Tablet PO 07/11/24 20:59 10 mg HS SOPHIE Administration Metolazone 2.5 mg 06/12/24 09:00 06/14/24 08:38 Metolazone 2.5 Mg Tablet PO 2.5 mg MoWeFr SOPHIE Administration Mirtazapine 15 mg 06/11/24 21:00 06/13/24 21:48 Mirtazapine 15 Mg Tablet PO 15 mg HS SOPHIE Administration Neomycin/Polymyxin/Bacitracin 1 applic 06/13/24 18:50 Neomycin/Polymyxin/Bacitracin Ointment 15 Gm Tube TOPICAL PRN PRN with dressing changes Home Med ( 0 mg 06/12/24 06:30 06/14/24 07:02 Abiraterone 250 Mg PO 07/12/24 06:29 500 mg Tablet) DAILY@0630 SOPHIE Administration Ondansetron HCl 4 mg 06/11/24 01:09 06/13/24 08:16 Ondansetron Inj 4 Mg/2 Ml Vial IV PUSH 4 mg Q6H PRN Administration Nausea And Vomiting Oxycodone/Acetaminophen 1 - 2 tablet 06/13/24 20:10 06/13/24 20:16 Oxycodone/Acetaminophen (*Crx) 5-325 Mg Tablet PO 1 tablet Q4H PRN Administration Pain Rated 7-10 Polyethylene Glycol 17 gm 06/11/24 01:09 06/14/24 18:21 Polyethylene Glycol 3350 17 Gm Powd.Pack PO 17 gm QAM PRN Administration Constipation Tamsulosin HCl 0.4 mg 06/11/24 09:00 06/14/24 08:34 Tamsulosin Hcl 0.4 Mg Capsule PO 0.4 mg Q12HR SOPHIE Administration Radiology Results: ITS Impressions Venous Doppler Study 06/11/24 15:49 IMPRESSION: 1. No deep venous thrombosis in either lower limb. Chest X-Ray 06/14/24 06:33 IMPRESSION: 1. Diffuse lung disease, likely mild pulmonary edema and left basilar atelectasi s versus pneumonia. 2. Stable small left pleural effusion. Head CT 06/14/24 06:35 IMPRESSION: 1. Stable moderate nonspecific cerebral white matter disease, which likely represents chronic small vessel ischemic disease. Abdomen Ultrasound 06/14/24 09:44 IMPRESSION: 1. Normal sizes of the liver and spleen. Labs Labs: Laboratory Results - last 24 hr 06/14/24 06/14/24 06/14/24 05:46 06:12 06:14 WBC RBC Hgb Hct MCV MCH MCHC RDW Plt Count MPV Immature Gran % (Auto) Neut % (Auto) Lymph % (Auto) [place] % (Auto) Eos % (Auto) Baso % (Auto) Lymph # (Auto) [place] # (Auto) Eos # (Auto) Baso # (Auto) Abs Immat Gran (auto) Absolute Neuts (auto) Absolute Nucleated RBC Nucleated RBC % % Immature Plt Fraction Puncture Site Left radial ABG pH 7.473 H ABG pCO2 37.5 ABG pO2 82.9 ABG PO2/FiO2 Ratio 2.96 ABG HCO3 26.9 H ABG O2 Saturation 96.8 ABG O2 Content 15.4 L ABG Base Excess 3.2 A-a Gradient 72.5 Oxyhemoglobin 95.6 Total Hemoglobin 11.4 L O2 Delivery Device Nasal cannula O2 Liters/Min 2.0 FiO2 28 Sodium Potassium Chloride Carbon Dioxide Anion Gap BUN Creatinine Estim Creat Clear Calc Estimated GFR Glucose POC Capillary Glucose Calcium Phosphorus Magnesium Total Bilirubin AST ALT Alkaline Phosphatase Ammonia < 9 L Total Protein Albumin Vitamin B12 TSH (Reflex) 3.820 Urine Color Urine Appearance Urine pH Ur Specific [place] Urine Protein Urine Glucose (UA) Urine Ketones Ur Blood (Man) Urine Nitrate Urine Bilirubin Urine Urobilinogen Ur Leukocyte Esterase Urine RBC Urine WBC Ur Squamous Epith Cells Urine Bacteria Urine Casts Salicylates < 1.0 L Urine Opiates Screen Urine Methadone Screen Acetaminophen < 10 L Ur Barbiturates Screen Ur Phencyclidine Scrn Ur Amphetamine Screen U Benzodiazepines Scrn Urine Cocaine Screen U Cannabinoids Screen Influenza A (RT-PCR) Influenza B (RT-PCR) RSV (RT-PCR) SARS-CoV-2 RNA (RT-PCR) 06/14/24 06/14/24 06/14/24 06:15 06:15 06:15 WBC 3.5 L Cancelled RBC 3.19 L Cancelled Hgb 10.7 L Hct MCV MCH MCHC RDW Plt Count MPV Immature Gran % (Auto) Neut % (Auto) Lymph % (Auto) [place] % (Auto) Eos % (Auto) Baso % (Auto) Lymph # (Auto) [place] # (Auto) Eos # (Auto) Baso # (Auto) Abs Immat Gran (auto) Absolute Neuts (auto) Absolute Nucleated RBC Nucleated RBC % % Immature Plt Fraction Puncture Site ABG pH ABG pCO2 ABG pO2 ABG PO2/FiO2 Ratio ABG HCO3 ABG O2 Saturation ABG O2 Content ABG Base Excess A-a Gradient Oxyhemoglobin Total Hemoglobin O2 Delivery Device O2 Liters/Min FiO2 Sodium Potassium Chloride Carbon Dioxide Anion Gap BUN Creatinine Estim Creat Clear Calc Estimated GFR Glucose POC Capillary Glucose Calcium Phosphorus Magnesium Total Bilirubin AST ALT Alkaline Phosphatase Ammonia Total Protein Albumin Vitamin B12 TSH (Reflex) Urine Color Urine Appearance Urine pH Ur Specific [place] Urine Protein Urine Glucose (UA) Urine Ketones Ur Blood (Man) Urine Nitrate Urine Bilirubin Urine Urobilinogen Ur Leukocyte Esterase Urine RBC Urine WBC Ur Squamous Epith Cells Urine Bacteria Urine Casts Salicylates Urine Opiates Screen Urine Methadone Screen Acetaminophen Ur Barbiturates Screen Ur Phencyclidine Scrn Ur Amphetamine Screen U Benzodiazepines Scrn Urine Cocaine Screen U Cannabinoids Screen Influenza A (RT-PCR) Influenza B (RT-PCR) RSV (RT-PCR) SARS-CoV-2 RNA (RT-PCR) 06/14/24 06/14/24 06/14/24 06:15 06:15 06:15 WBC RBC Hgb Cancelled Hct 33.1 L Cancelled MCV 103.8 H Cancelled MCH 33.5 MCHC RDW Plt Count MPV Immature Gran % (Auto) Neut % (Auto) Lymph % (Auto) [place] % (Auto) Eos % (Auto) Baso % (Auto) Lymph # (Auto) [place] # (Auto) Eos # (Auto) Baso # (Auto) Abs Immat Gran (auto) Absolute Neuts (auto) Absolute Nucleated RBC Nucleated RBC % % Immature Plt Fraction Puncture Site ABG pH ABG pCO2 ABG pO2 ABG PO2/FiO2 Ratio ABG HCO3 ABG O2 Saturation ABG O2 Content ABG Base Excess A-a Gradient Oxyhemoglobin Total Hemoglobin O2 Delivery Device O2 Liters/Min FiO2 Sodium Potassium Chloride Carbon Dioxide Anion Gap BUN Creatinine Estim Creat Clear Calc Estimated GFR Glucose POC Capillary Glucose Calcium Phosphorus Magnesium Total Bilirubin AST ALT Alkaline Phosphatase Ammonia Total Protein Albumin Vitamin B12 TSH (Reflex) Urine Color Urine Appearance Urine pH Ur Specific [place] Urine Protein Urine Glucose (UA) Urine Ketones Ur Blood (Man) Urine Nitrate Urine Bilirubin Urine Urobilinogen Ur Leukocyte Esterase Urine RBC Urine WBC Ur Squamous Epith Cells Urine Bacteria Urine Casts Salicylates Urine Opiates Screen Urine Methadone Screen Acetaminophen Ur Barbiturates Screen Ur Phencyclidine Scrn Ur Amphetamine Screen U Benzodiazepines Scrn Urine Cocaine Screen U Cannabinoids Screen Influenza A (RT-PCR) Influenza B (RT-PCR) RSV (RT-PCR) SARS-CoV-2 RNA (RT-PCR) 06/14/24 06/14/24 06/14/24 06:15 06:15 06:15 WBC RBC Hgb Hct MCV MCH Cancelled MCHC 32.3 Cancelled RDW 14.1 Cancelled Plt Count 164 MPV Immature Gran % (Auto) Neut % (Auto) Lymph % (Auto) [place] % (Auto) Eos % (Auto) Baso % (Auto) Lymph # (Auto) [place] # (Auto) Eos # (Auto) Baso # (Auto) Abs Immat Gran (auto) Absolute Neuts (auto) Absolute Nucleated RBC Nucleated RBC % % Immature Plt Fraction Puncture Site ABG pH ABG pCO2 ABG pO2 ABG PO2/FiO2 Ratio ABG HCO3 ABG O2 Saturation ABG O2 Content ABG Base Excess A-a Gradient Oxyhemoglobin Total Hemoglobin O2 Delivery Device O2 Liters/Min FiO2 Sodium Potassium Chloride Carbon Dioxide Anion Gap BUN Creatinine Estim Creat Clear Calc Estimated GFR Glucose POC Capillary Glucose Calcium Phosphorus Magnesium Total Bilirubin AST ALT Alkaline Phosphatase Ammonia Total Protein Albumin Vitamin B12 TSH (Reflex) Urine Color Urine Appearance Urine pH Ur Specific [place] Urine Protein Urine Glucose (UA) Urine Ketones Ur Blood (Man) Urine Nitrate Urine Bilirubin Urine Urobilinogen Ur Leukocyte Esterase Urine RBC Urine WBC Ur Squamous Epith Cells Urine Bacteria Urine Casts Salicylates Urine Opiates Screen Urine Methadone Screen Acetaminophen Ur Barbiturates Screen Ur Phencyclidine Scrn Ur Amphetamine Screen U Benzodiazepines Scrn Urine Cocaine Screen U Cannabinoids Screen Influenza A (RT-PCR) Influenza B (RT-PCR) RSV (RT-PCR) SARS-CoV-2 RNA (RT-PCR) 06/14/24 06/14/24 06/14/24 06:15 06:15 06:15 WBC RBC Hgb Hct MCV MCH MCHC RDW Plt Count Cancelled MPV 10.1 Cancelled Immature Gran % (Auto) 0.6 H Cancelled Neut % (Auto) 68.4 Lymph % (Auto) [place] % (Auto) Eos % (Auto) Baso % (Auto) Lymph # (Auto) [place] # (Auto) Eos # (Auto) Baso # (Auto) Abs Immat Gran (auto) Absolute Neuts (auto) Absolute Nucleated RBC Nucleated RBC % % Immature Plt Fraction Puncture Site ABG pH ABG pCO2 ABG pO2 ABG PO2/FiO2 Ratio ABG HCO3 ABG O2 Saturation ABG O2 Content ABG Base Excess A-a Gradient Oxyhemoglobin Total Hemoglobin O2 Delivery Device O2 Liters/Min FiO2 Sodium Potassium Chloride Carbon Dioxide Anion Gap BUN Creatinine Estim Creat Clear Calc Estimated GFR Glucose POC Capillary Glucose Calcium Phosphorus Magnesium Total Bilirubin AST ALT Alkaline Phosphatase Ammonia Total Protein Albumin Vitamin B12 TSH (Reflex) Urine Color Urine Appearance Urine pH Ur Specific [place] Urine Protein Urine Glucose (UA) Urine Ketones Ur Blood (Man) Urine Nitrate Urine Bilirubin Urine Urobilinogen Ur Leukocyte Esterase Urine RBC Urine WBC Ur Squamous Epith Cells Urine Bacteria Urine Casts Salicylates Urine Opiates Screen Urine Methadone Screen Acetaminophen Ur Barbiturates Screen Ur Phencyclidine Scrn Ur Amphetamine Screen U Benzodiazepines Scrn Urine Cocaine Screen U Cannabinoids Screen Influenza A (RT-PCR) Influenza B (RT-PCR) RSV (RT-PCR) SARS-CoV-2 RNA (RT-PCR) 06/14/24 06/14/24 06/14/24 06:15 06:15 06:15 WBC RBC Hgb Hct MCV MCH MCHC RDW Plt Count MPV Immature Gran % (Auto) Neut % (Auto) Cancelled Lymph % (Auto) 12.1 L Cancelled [place] % (Auto) 11.6 H Cancelled Eos % (Auto) 6.1 H Baso % (Auto) Lymph # (Auto) [place] # (Auto) Eos # (Auto) Baso # (Auto) Abs Immat Gran (auto) Absolute Neuts (auto) Absolute Nucleated RBC Nucleated RBC % % Immature Plt Fraction Puncture Site ABG pH ABG pCO2 ABG pO2 ABG PO2/FiO2 Ratio ABG HCO3 ABG O2 Saturation ABG O2 Content ABG Base Excess A-a Gradient Oxyhemoglobin Total Hemoglobin O2 Delivery Device O2 Liters/Min FiO2 Sodium Potassium Chloride Carbon Dioxide Anion Gap BUN Creatinine Estim Creat Clear Calc Estimated GFR Glucose POC Capillary Glucose Calcium Phosphorus Magnesium Total Bilirubin AST ALT Alkaline Phosphatase Ammonia Total Protein Albumin Vitamin B12 TSH (Reflex) Urine Color Urine Appearance Urine pH Ur Specific [place] Urine Protein Urine Glucose (UA) Urine Ketones Ur Blood (Man) Urine Nitrate Urine Bilirubin Urine Urobilinogen Ur Leukocyte Esterase Urine RBC Urine WBC Ur Squamous Epith Cells Urine Bacteria Urine Casts Salicylates Urine Opiates Screen Urine Methadone Screen Acetaminophen Ur Barbiturates Screen Ur Phencyclidine Scrn Ur Amphetamine Screen U Benzodiazepines Scrn Urine Cocaine Screen U Cannabinoids Screen Influenza A (RT-PCR) Influenza B (RT-PCR) RSV (RT-PCR) SARS-CoV-2 RNA (RT-PCR) 06/14/24 06/14/24 06/14/24 06:15 06:15 06:15 WBC RBC Hgb Hct MCV MCH MCHC RDW Plt Count MPV Immature Gran % (Auto) Neut % (Auto) Lymph % (Auto) [place] % (Auto) Eos % (Auto) Cancelled Baso % (Auto) 1.2 Cancelled Lymph # (Auto) 0.42 L Cancelled [place] # (Auto) 0.4 Eos # (Auto) Baso # (Auto) Abs Immat Gran (auto) Absolute Neuts (auto) Absolute Nucleated RBC Nucleated RBC % % Immature Plt Fraction Puncture Site ABG pH ABG pCO2 ABG pO2 ABG PO2/FiO2 Ratio ABG HCO3 ABG O2 Saturation ABG O2 Content ABG Base Excess A-a Gradient Oxyhemoglobin Total Hemoglobin O2 Delivery Device O2 Liters/Min FiO2 Sodium Potassium Chloride Carbon Dioxide Anion Gap BUN Creatinine Estim Creat Clear Calc Estimated GFR Glucose POC Capillary Glucose Calcium Phosphorus Magnesium Total Bilirubin AST ALT Alkaline Phosphatase Ammonia Total Protein Albumin Vitamin B12 TSH (Reflex) Urine Color Urine Appearance Urine pH Ur Specific [place] Urine Protein Urine Glucose (UA) Urine Ketones Ur Blood (Man) Urine Nitrate Urine Bilirubin Urine Urobilinogen Ur Leukocyte Esterase Urine RBC Urine WBC Ur Squamous Epith Cells Urine Bacteria Urine Casts Salicylates Urine Opiates Screen Urine Methadone Screen Acetaminophen Ur Barbiturates Screen Ur Phencyclidine Scrn Ur Amphetamine Screen U Benzodiazepines Scrn Urine Cocaine Screen U Cannabinoids Screen Influenza A (RT-PCR) Influenza B (RT-PCR) RSV (RT-PCR) SARS-CoV-2 RNA (RT-PCR) 06/14/24 06/14/24 06/14/24 06:15 06:15 06:15 WBC RBC Hgb Hct MCV MCH MCHC RDW Plt Count MPV Immature Gran % (Auto) Neut % (Auto) Lymph % (Auto) [place] % (Auto) Eos % (Auto) Baso % (Auto) Lymph # (Auto) [place] # (Auto) Cancelled Eos # (Auto) 0.2 Cancelled Baso # (Auto) 0.0 Cancelled Abs Immat Gran (auto) 0.02 Absolute Neuts (auto) Absolute Nucleated RBC Nucleated RBC % % Immature Plt Fraction Puncture Site ABG pH ABG pCO2 ABG pO2 ABG PO2/FiO2 Ratio ABG HCO3 ABG O2 Saturation ABG O2 Content ABG Base Excess A-a Gradient Oxyhemoglobin Total Hemoglobin O2 Delivery Device O2 Liters/Min FiO2 Sodium Potassium Chloride Carbon Dioxide Anion Gap BUN Creatinine Estim Creat Clear Calc Estimated GFR Glucose POC Capillary Glucose Calcium Phosphorus Magnesium Total Bilirubin AST ALT Alkaline Phosphatase Ammonia Total Protein Albumin Vitamin B12 TSH (Reflex) Urine Color Urine Appearance Urine pH Ur Specific [place] Urine Protein Urine Glucose (UA) Urine Ketones Ur Blood (Man) Urine Nitrate Urine Bilirubin Urine Urobilinogen Ur Leukocyte Esterase Urine RBC Urine WBC Ur Squamous Epith Cells Urine Bacteria Urine Casts Salicylates Urine Opiates Screen Urine Methadone Screen Acetaminophen Ur Barbiturates Screen Ur Phencyclidine Scrn Ur Amphetamine Screen U Benzodiazepines Scrn Urine Cocaine Screen U Cannabinoids Screen Influenza A (RT-PCR) Influenza B (RT-PCR) RSV (RT-PCR) SARS-CoV-2 RNA (RT-PCR) 06/14/24 06/14/24 06/14/24 06:15 06:15 06:15 WBC RBC Hgb Hct MCV MCH MCHC RDW Plt Count MPV Immature Gran % (Auto) Neut % (Auto) Lymph % (Auto) [place] % (Auto) Eos % (Auto) Baso % (Auto) Lymph # (Auto) [place] # (Auto) Eos # (Auto) Baso # (Auto) Abs Immat Gran (auto) Cancelled Absolute Neuts (auto) 2.4 Cancelled Absolute Nucleated RBC 0.000 Cancelled Nucleated RBC % 0.0 % Immature Plt Fraction Puncture Site ABG pH ABG pCO2 ABG pO2 ABG PO2/FiO2 Ratio ABG HCO3 ABG O2 Saturation ABG O2 Content ABG Base Excess A-a Gradient Oxyhemoglobin Total Hemoglobin O2 Delivery Device O2 Liters/Min FiO2 Sodium Potassium Chloride Carbon Dioxide Anion Gap BUN Creatinine Estim Creat Clear Calc Estimated GFR Glucose POC Capillary Glucose Calcium Phosphorus Magnesium Total Bilirubin AST ALT Alkaline Phosphatase Ammonia Total Protein Albumin Vitamin B12 TSH (Reflex) Urine Color Urine Appearance Urine pH Ur Specific [place] Urine Protein Urine Glucose (UA) Urine Ketones Ur Blood (Man) Urine Nitrate Urine Bilirubin Urine Urobilinogen Ur Leukocyte Esterase Urine RBC Urine WBC Ur Squamous Epith Cells Urine Bacteria Urine Casts Salicylates Urine Opiates Screen Urine Methadone Screen Acetaminophen Ur Barbiturates Screen Ur Phencyclidine Scrn Ur Amphetamine Screen U Benzodiazepines Scrn Urine Cocaine Screen U Cannabinoids Screen Influenza A (RT-PCR) Influenza B (RT-PCR) RSV (RT-PCR) SARS-CoV-2 RNA (RT-PCR) 06/14/24 06/14/24 06/14/24 06:15 06:15 06:16 WBC RBC Hgb Hct MCV MCH MCHC RDW Plt Count MPV Immature Gran % (Auto) Neut % (Auto) Lymph % (Auto) [place] % (Auto) Eos % (Auto) Baso % (Auto) Lymph # (Auto) [place] # (Auto) Eos # (Auto) Baso # (Auto) Abs Immat Gran (auto) Absolute Neuts (auto) Absolute Nucleated RBC Nucleated RBC % Cancelled % Immature Plt Fraction Cancelled Puncture Site ABG pH ABG pCO2 ABG pO2 ABG PO2/FiO2 Ratio ABG HCO3 ABG O2 Saturation ABG O2 Content ABG Base Excess A-a Gradient Oxyhemoglobin Total Hemoglobin O2 Delivery Device O2 Liters/Min FiO2 Sodium 135 L 133 L Potassium 4.0 4.0 Chloride 100 98 Carbon Dioxide 29 29 Anion Gap 6 6 BUN 13 13 Creatinine 1.30 1.30 Estim Creat Clear Calc 43 43 Estimated GFR 53 L 53 L Glucose 141 H 140 H 140 H POC Capillary Glucose Calcium 9.2 9.0 Phosphorus 3.3 Magnesium 1.5 L Total Bilirubin 0.5 0.6 AST 34 34 ALT 18 17 Alkaline Phosphatase 59 63 Ammonia Total Protein 7.0 7.0 Albumin 3.4 L 3.4 L Vitamin B12 > 1000.0 H TSH (Reflex) Urine Color Urine Appearance Urine pH Ur Specific [place] Urine Protein Urine Glucose (UA) Urine Ketones Ur Blood (Man) Urine Nitrate Urine Bilirubin Urine Urobilinogen Ur Leukocyte Esterase Urine RBC Urine WBC Ur Squamous Epith Cells Urine Bacteria Urine Casts Salicylates Urine Opiates Screen Urine Methadone Screen Acetaminophen Ur Barbiturates Screen Ur Phencyclidine Scrn Ur Amphetamine Screen U Benzodiazepines Scrn Urine Cocaine Screen U Cannabinoids Screen Influenza A (RT-PCR) Influenza B (RT-PCR) RSV (RT-PCR) SARS-CoV-2 RNA (RT-PCR) 06/14/24 06/14/24 06/14/24 09:23 10:29 11:13 WBC RBC Hgb Hct MCV MCH MCHC RDW Plt Count MPV Immature Gran % (Auto) Neut % (Auto) Lymph % (Auto) [place] % (Auto) Eos % (Auto) Baso % (Auto) Lymph # (Auto) [place] # (Auto) Eos # (Auto) Baso # (Auto) Abs Immat Gran (auto) Absolute Neuts (auto) Absolute Nucleated RBC Nucleated RBC % % Immature Plt Fraction Puncture Site ABG pH ABG pCO2 ABG pO2 ABG PO2/FiO2 Ratio ABG HCO3 ABG O2 Saturation ABG O2 Content ABG Base Excess A-a Gradient Oxyhemoglobin Total Hemoglobin O2 Delivery Device O2 Liters/Min FiO2 Sodium Potassium Chloride Carbon Dioxide Anion Gap BUN Creatinine Estim Creat Clear Calc Estimated GFR Glucose POC Capillary Glucose 128 H Calcium Phosphorus Magnesium Total Bilirubin AST ALT Alkaline Phosphatase Ammonia Total Protein Albumin Vitamin B12 TSH (Reflex) Urine Color Dark yellow Urine Appearance Cloudy H Urine pH 5.0 Ur Specific [place] 1.028 Urine Protein Trace Urine Glucose (UA) Negative Urine Ketones Trace H Ur Blood (Man) Negative Urine Nitrate Negative Urine Bilirubin Negative Urine Urobilinogen 1.0 Ur Leukocyte Esterase Trace H Urine RBC 3-5 H Urine WBC 0-5 Ur Squamous Epith Cells None seen Urine Bacteria None seen Urine Casts 3-5 Salicylates Urine Opiates Screen Positive A Urine Methadone Screen Negative Acetaminophen Ur Barbiturates Screen Negative Ur Phencyclidine Scrn Negative Ur Amphetamine Screen Negative U Benzodiazepines Scrn Negative Urine Cocaine Screen Negative U Cannabinoids Screen Negative Influenza A (RT-PCR) Negative Influenza B (RT-PCR) Negative RSV (RT-PCR) Negative SARS-CoV-2 RNA (RT-PCR) Negative Quality VTE Prophylaxis VTE prophylaxis: pharmacologic ordered Hospitalist [facility] Advance Care Plan I have confirmed that the patient's Advanced Care Plan is present, code status is documented, or surrogate decision maker is listed in patient medical record.: Yes Medication Reconciliation I have utilized all available resources to obtain, update and review the patients current medications (includes all prescriptions, OTC, herbals, cannabis, and nutritional supplements).: Yes
[2024-06-14 21:56] VITALS: BP 125/58; PULSE 89; RESP 20; TEMP 37.6; O2SAT 93
[2024-06-14] MEDS: SODIUM CHLORIDE 0.9% IV 1,000 ML 60 ML IV CONT (22:08)
[2024-06-14] MEDS: MELATONIN 5 MG TABLET 10 MG PO (22:09)
[2024-06-14] MEDS: MIRTAZAPINE 15 MG TABLET PO (22:09)
[2024-06-14 22:16] VITALS: TEMP 36.5
[2024-06-15 05:56] VITALS: BP 109/65; PULSE 79; RESP 20; TEMP 36.6; O2SAT 97
[2024-06-15] MEDS: ABIRATERONE 250 MG PO (07:32)
[2024-06-15 08:30] LABS: Hematocrit 29.3 % (42.0-52.0); Hemoglobin 9.8 g/dL (14.0-18.0); Mean Corpuscular HGB Conc 33.4 g/dl (32-36); Mean Corpuscular Hemoglobin 33.9 pg (26-34); Mean Corpuscular Volume 101.4 fl (80-100); Platelet Count Result 133 k/mm3 (150-375); Red Blood Count 2.89 M/mm3 (4.6-6.20); Red Cell Distribution Width 13.8 % (11.5-14.5); White Blood Count 3.7 K/mm3 (4.5-10.0)
[2024-06-15 08:40] LABS: Anion Gap 7 mmol/L (4-12); Blood Urea Nitrogen 14 mg/dL (9-20); Calcium 8.7 mg/dL (8.4-10.2); Carbon Dioxide 27 mmol/L (22-30); Chloride 99 mmol/L (98-107); Estimated CRCL calculation 50 ml/min; Estimated Glomerular Filt Rate > 60; Glucose 116 mg/dL (65-110); Potassium 3.1 mmol/L (3.4-5.0); Sodium 133 mmol/L (137-145)
[2024-06-15] MEDS: ASPIRIN 81 MG ENTERIC TABLET PO (08:45)
[2024-06-15] MEDS: FERROUS SULFATE 325 MG TABLET DR PO (08:45)
[2024-06-15] MEDS: AZITHROMYCIN 500 MG/NS 250 ML 500 MG/250 ML BAG 250 MG IVPB (08:46)
[2024-06-15] MEDS: FAMOTIDINE 20 MG TABLET PO ×2 (08:46→20:37)
[2024-06-15] MEDS: TAMSULOSIN HCL 0.4 MG CAPSULE PO ×2 (08:46→20:37)
[2024-06-15] MEDS: ENOXAPARIN 40 MG/0.4 ML SYRINGE SUB-Q (08:51)
[2024-06-15] MEDS: ACETAMINOPHEN 325 MG TABLET 650 MG PO ×3 (09:03→20:38)
--- NOTE | 2024-06-15 13:16 | P.PNIM_ITS ---
Progress Note: A&P Assessment and Plan (1) Generalized weakness: Code(s): R53.1 - Weakness Status: Acute Assessment and Plan: Patient reports to the hospital with complaints of generalized weakness. He was recently admitted for similar complaints earlier this month and was treated for pneumonia. PT/OT evaluated him at that time and recommended home health therapy. His PCP had previously ordered outpatient PT/OT. 06/15/24 * No focal neuro deficit. * WBC normal, afebrile, no oxygen requirements * Chest x-ray shows atelectasis and a resolving pneumonia. * Venous duplex negative. * Continue PT/OT treatment. * Fall precautions. * Placement to SNF or Rehab when medically stable. * Continue empiric antibiotics currently for possible PNA. * 06/12/24 * Dopplers negative 06/13/24: * Pancytopenia noted on today's labs. Consult Oncology. * Pt appears very weak. * Continue fall precautions. (2) Chronic kidney disease, stage 3: Code(s): N18.30 - Chronic kidney disease, stage 3 unspecified Status: Acute Assessment and Plan: 06/15/24 Creatinine values fluctuating anywhere from 1.4 to 2.1 mg per dL. Established with Dr Tipton. * Cr 1.6 >> now 1.1. * Continue to monitor renal function closely. * Gentle IVF hydration. * Avoid nephrotoxins. * Replete lytes to maintain K+ >3.5, Mg > 1.6 06/13/24: * Renal function is stable today at Cr 1.3 and BUN of 13. His Potassium remains low at 3.1. Another 60 mEq po ordered. (3) Pancytopenia: Code(s): D61.818 - Other pancytopenia Status: Acute Assessment and Plan: * Slowly improving but trended down today. Possibly hemodilution from IVF hydration. * We'll d/c IVF with improved renal function currently. * Continue to trend CBC. * Prostate CA in remission per Oncology post radiation therapy and androgen deprivation treatment. * US abdomen showing normal liver and spleen. * Scheduled for bone-marrow biopsy. * Oncologist continues to follow. (4) Lower extremity edema: Code(s): R60.0 - Localized edema Status: Acute Assessment and Plan: Chronic lower extremity edema likely from CKD, CHF, and venous insufficiency. Takes prn Lasix as needed for swelling. Metolazone 2.5 mg Monday, Monday, Monday. * BRIGIDA hose applied and encouraged to elevate lower extremities * Venous duplex negative. * BNP 374, no pulmonary edema on imaging, lungs are clear (5) Anemia: Qualifiers: Anemia type: unspecified type Qualified Code(s): D64.9 - Anemia, unspecified Code(s): D64.9 - Anemia, unspecified Status: Acute Assessment and Plan: 06/15/24: Chronic anemia per chart review. Likely multifactorial given underlying malignancy and CKD. * Hgb stable, slightly trended down today 10.7>>9.8. * Iron panel shows anemia. Continue ferrous sulfate. * B12 and folate normal. * No obvious signs of blood per patient reports. 06/13/24: * Now with Pancytopenia. New finding with down trending WBCs for the past three days. * Oncology following. * Continue Iron supplementation. * (6) Prostate cancer: Code(s): C61 - Malignant neoplasm of prostate Status: Acute Assessment and Plan: History of prostate cancer diagnosed in 2018 s/p radiation and Androgen deprivation therapy. Now follows with Dr Pak and is on Lupron every 3 months with Zytiga and prednisone. * Patient will need to bring in home Abiraterone as this is non-formulary. (7) Hypokalemia: Code(s): E87.6 - Hypokalemia Status: Acute Assessment and Plan: * K 3.1 today. * Continue to replete as needed. 06/13/24: * 3.1. 60 mEq po given. * Currently wnl. (8) Headache: Code(s): R51.9 - Headache, unspecified Status: Acute Assessment and Plan: * Denies symptoms today. * Pain meds PRN. Plan Code status: Full code per patient DVT prophylaxis: Lovenox Stress ulcer prophylaxis: NA PT/OT notes: SNF Disposition: Patient continues admission to the medical unit for further evaluation and treatment generalized weakness PT/OT is recommending senior living facility for continued rehabilitation will discuss with case coordination and patient. he currently lives at home alone with his dog Time Spent With Patient Time with patient: 25 - 35 minutes Subjective Date/time seen: 06/15/24 10:15 Interval history: This very pleasant elderly male pt was examined at the bedside today in interval assessment. Family bedside and report patient appearing better and is more talkative and eating more today. He is currently awaiting SNF placement for his continued weakness. Patient being followed by Oncology for Pancytopenia and is scheduled for bone-marrow Biopsy in the next few days. Review of Systems Review of Systems: Generalized weakness, bilateral lower extremity worsening edema. All systems reviewed & are unremarkable except as noted in HPI and below Exam Narrative: General: Weak appearing but in no acute distress. HEENT: Atraumatic, HERMELINDA, Moist mucosa, EOM. Respiratory: breathing is unlabored with even chest rise/fall, lungs are clear, Cardiovascular: Rate and rhythm regular, normal s1s2, no murmur Abdomen: Soft, round, non-tender, active bowel sounds Extremities: No cyanosis. + 1 pitting edema to bilateral lower extremities. Neuro: A&O x 3 Skin: Warm, dry, intact Const: General: comfortable, no acute distress, well developed, alert, awake, average body habitus and obese Nutritional Appearance: average body habitus and obese Orientation/consciousness: patient oriented x3 HENMT: Head: normal to inspection, normocephalic and atraumatic Ears: hearing grossly normal bilaterally Face/Nose/Sinus: normal facial exam Face and sinus: normal facial exam Eyes: General: appearance normal, both eyes and all related structures Pupils: Equal, round and reactive pupils present EOM: EOMs intact bilaterally Neck: Neck: full ROM, no lymphadenopathy and no JVD Thyroid: thyroid normal Lymphatic: no lymphadenopathy noted Resp: Effort & Inspection: normal respiratory effort and able to speak in complete sentences Auscultation: clear to auscultation bilaterally Cardio: Jugular venous distension: no JVD Rate: regular rate Rhythm: regular rhythm Heart sounds: S1 normal heart sound present and S2 normal heart sound present : General: Yes deferred Skin: Rashes: no rashes Wounds: no wounds Neuro: General: patient oriented x3, CN's II-XI intact bilaterally and Unable to assess gait Cranial nerves: Yes CN's II-XII intact bilaterally and Yes Equal, round and reactive pupils present Cognition (Neuro): normal cognition Speech: normal speech Gait exam (Neuro): Unable to assess gait Motor exam (neuro): 5/5 motor strength present throughout Other: Generalized muscle weakness. Extrem: General: edema bilateral (1+) and pedal edema Psych: Mental Status: mental status grossly normal Other: Flat affect Objective Data Vital Signs Vital Signs: Vital Signs - 24 hr 06/14/24 14:00 06/14/24 21:56 06/14/24 22:16 Temperature 98.1 F 99.7 F H 97.7 F Pulse Rate 107 H 89 Respiratory Rate 18 20 Blood Pressure 111/55 L 125/58 L Pulse Oximetry 95 93 Oxygen Delivery 06/14/24 20:00 06/15/24 05:56 06/15/24 08:50 Temperature 98 F Pulse Rate 79 Respiratory Rate 20 Blood Pressure 109/65 Pulse Oximetry 97 Oxygen Delivery Room Air Room Air Intake/Output Intake/Output: Intake & Output 06/12/24 06/13/24 06/14/24 06/15/24 23:59 23:59 23:59 23:59 Intake Total 1470 1365 980 320 Output Total 850 1100 550 450 Balance 620 265 430 -130 Meds/Results Medications: Active Medications Generic Name Dose Route Start Last Admin Trade Name Freq PRN Reason Stop Dose Admin Acetaminophen 650 mg 06/12/24 10:51 06/15/24 09:03 Acetaminophen 325 Mg Tablet PO 650 mg Q4H PRN Administration Headache Al Hydrox/Mg Hydrox/Simethicone 30 ml 06/11/24 01:09 Mag Hydrox/Al Hydrox/Simeth 30 Ml Udc PO Q6H PRN Indigestion Albuterol/Ipratropium 3 ml 06/11/24 11:34 Ipratropium 0.5 Mg/Albuterol Sulfate 2.5 Mg Ampul.Neb 3 Ml NEBULIZE Q6HRT PRN Wheezing Aspirin 81 mg 06/11/24 09:00 06/15/24 08:45 Aspirin 81 Mg Enteric Tablet PO 81 mg DAILY SOPHIE Administration Donepezil HCl 5 mg 06/11/24 21:00 06/13/24 21:47 Donepezil Hcl 5 Mg Tablet PO 5 mg QHS SOPHIE Administration Enoxaparin Sodium 40 mg 06/11/24 12:20 06/15/24 08:51 Enoxaparin 40 Mg/0.4 Ml Syringe SUB-Q 40 mg DAILY SOPHIE Administration Famotidine 20 mg 06/11/24 09:00 06/15/24 08:46 Famotidine 20 Mg Tablet PO 20 mg Q12HR SOPHIE Administration Ferrous Sulfate 325 mg 06/12/24 09:00 06/15/24 08:45 Ferrous Sulfate [address] PO 325 mg DAILY SOPHIE Administration Ceftriaxone Sodium 1 gm in 50 mls @ 100 mls/hr 06/14/24 11:55 06/15/24 10:10 Rocephin 1 Gm/Ns 50 Ml IVPB 06/18/24 09:29 100 mls/hr DAILY SOPHIE Administration Azithromycin 500 mg in 250 mls @ 250 mls/hr 06/14/24 11:55 06/15/24 08:46 Zithromax IVPB 06/18/24 09:59 250 mls/hr DAILY SOPHIE Administration Sodium Chloride 1,000 mls @ 60 mls/hr 06/14/24 19:10 06/14/24 22:08 Normal Saline Iv IV CONT 60 mls/hr .[id number] SOPHIE Administration Melatonin 10 mg 06/11/24 21:00 06/14/24 22:09 Melatonin 5 Mg Tablet PO 07/11/24 20:59 10 mg HS SOPHIE Administration Metolazone 2.5 mg 06/12/24 09:00 06/14/24 08:38 Metolazone 2.5 Mg Tablet PO 2.5 mg MoWeFr SOPHIE Administration Mirtazapine 15 mg 06/11/24 21:00 06/14/24 22:09 Mirtazapine 15 Mg Tablet PO 15 mg HS SOPHIE Administration Neomycin/Polymyxin/Bacitracin 1 applic 06/13/24 18:50 Neomycin/Polymyxin/Bacitracin Ointment 15 Gm Tube TOPICAL PRN PRN with dressing changes Home Med ( 0 mg 06/12/24 06:30 06/15/24 07:32 Abiraterone 250 Mg PO 07/12/24 06:29 500 mg Tablet) DAILY@0630 SOPHIE Administration Ondansetron HCl 4 mg 06/11/24 01:09 06/13/24 08:16 Ondansetron Inj 4 Mg/2 Ml Vial IV PUSH 4 mg Q6H PRN Administration Nausea And Vomiting Oxycodone/Acetaminophen 1 - 2 tablet 06/13/24 20:10 06/13/24 20:16 Oxycodone/Acetaminophen (*Crx) 5-325 Mg Tablet PO 1 tablet Q4H PRN Administration Pain Rated 7-10 Polyethylene Glycol 17 gm 06/11/24 01:09 06/14/24 18:21 Polyethylene Glycol 3350 17 Gm Powd.Pack PO 17 gm QAM PRN Administration Constipation Tamsulosin HCl 0.4 mg 06/11/24 09:00 06/15/24 08:46 Tamsulosin Hcl 0.4 Mg Capsule PO 0.4 mg Q12HR SOPHIE Administration Radiology Results: ITS Impressions Venous Doppler Study 06/11/24 15:49 IMPRESSION: 1. No deep venous thrombosis in either lower limb. Chest X-Ray 06/14/24 06:33 IMPRESSION: 1. Diffuse lung disease, likely mild pulmonary edema and left basilar atelectasis versus pneumonia. 2. Stable small left pleural effusion. Head CT 06/14/24 06:35 IMPRESSION: 1. Stable moderate nonspecific cerebral white matter disease, which likely represents chronic small vessel ischemic disease. Abdomen Ultrasound 06/14/24 09:44 IMPRESSION: 1. Normal sizes of the liver and spleen. Labs Labs: Laboratory Results - last 24 hr 06/15/24 08:23 WBC 3.7 L RBC 2.89 L Hgb 9.8 L Hct 29.3 L MCV 101.4 H MCH 33.9 MCHC 33.4 RDW 13.8 Plt Count 133 L MPV 10.0 Sodium 133 L Potassium 3.1 L Chloride 99 Carbon Dioxide 27 Anion Gap 7 BUN 14 Creatinine 1.10 Estim Creat Clear Calc 50 Estimated GFR > 60 Glucose 116 H Calcium 8.7 Quality VTE Prophylaxis VTE prophylaxis: pharmacologic ordered Hospitalist [facility] Advance Care Plan I have confirmed that the patient's Advanced Care Plan is present, code status is documented, or surrogate decision maker is listed in patient medical record.: Yes Medication Reconciliation I have utilized all available resources to obtain, update and review the patients current medications (includes all prescriptions, OTC, herbals, cannabis, and nutritional supplements).: Yes
[2024-06-15 13:38] VITALS: BP 122/57; PULSE 100; RESP 20; TEMP 36.3; O2SAT 91
[2024-06-15] MEDS: SODIUM CHLORIDE 0.9% IV 1,000 ML 60 ML IV CONT (15:15)
[2024-06-15 20:00] VITALS: PULSE 100; RESP 14; O2SAT 91
[2024-06-15] MEDS: MIRTAZAPINE 15 MG TABLET PO (20:37)
[2024-06-15] MEDS: MELATONIN 5 MG TABLET 10 MG PO (20:38)
[2024-06-15 22:00] VITALS: BP 152/65; PULSE 100; RESP 14; TEMP 36.3; O2SAT 91
[2024-06-16] VITALS (13 sets, daily range): BP systolic 125–160; BP diastolic 53–68; PULSE 97–114; RESP 16–22; TEMP 36.7–38.8; O2SAT 92–99
[2024-06-16] MEDS: SODIUM CHLORIDE 0.9% IV 1,000 ML 60 ML IV CONT ×2 (05:46→20:32)
[2024-06-16] MEDS: ABIRATERONE 250 MG PO (05:59)
[2024-06-16 08:26] LABS: Anion Gap 11 mmol/L (4-12); Blood Urea Nitrogen 12 mg/dL (9-20); Carbon Dioxide 24 mmol/L (22-30); Chloride 98 mmol/L (98-107); Estimated CRCL calculation 55 ml/min; Estimated Glomerular Filt Rate > 60; Glucose 124 mg/dL (65-110); Potassium 2.9 mmol/L (3.4-5.0); Sodium 133 mmol/L (137-145)
[2024-06-16 08:34] LABS: Hematocrit 32.1 % (42.0-52.0); Hemoglobin 10.7 g/dL (14.0-18.0); Mean Corpuscular HGB Conc 33.3 g/dl (32-36); Mean Corpuscular Volume 101.9 fl (80-100); Mean Platelet Volume 10.3 fl (7.4-10.4); Platelet Count Result 150 k/mm3 (150-375); Red Blood Count 3.15 M/mm3 (4.6-6.20); Red Cell Distribution Width 13.9 % (11.5-14.5)
[2024-06-16] MEDS: ACETAMINOPHEN 650 MG SUPPOSITORY RECTAL ×2 (08:36→17:21)
[2024-06-16] MEDS: ENOXAPARIN 40 MG/0.4 ML SYRINGE SUB-Q (08:51)
[2024-06-16 09:41] LABS: Alveolar/Arterial O2 Gradient 54.8 mmHg; Base Excess ABG -0.4 mEq/l (+/-2.0); Fractional Inspired Oxygen 21 %; HCO3 ABG 22.7 mEq/l (22.0-26.0); Oxygen Content ABG 14.3 %vol (16.0-22.0); Oxygen Saturation ABG 91.3 % (95.0-100.0); Oxyhemoglobin 88.6 % THb (90.0-100.0); PCO2 ABG 32.2 mmHg (35.0-45.0); PO2 ABG 56.4 mmHg (80.0-100.0); PO2 FiO2 Ratio Arterial Blood 2.69 %; Total Hemoglobin 11.5 g/dL (12.0-18.0); pH ABG 7.466 (7.350-7.450)
[2024-06-16 09:42] LABS: Device ROOM AIR; Modified Allen's Test Pass; Site Drawn RIGHT RADIAL
[2024-06-16 09:49] LABS: Lactic Acid Reflex 0.8 mmol/L (0.7-2.0)
[2024-06-16 09:54] LABS: Ammonia < 9 umol/L (9-30)
[2024-06-16] MEDS: KCL 40 MEQ/WATER 100 ML 100 ML 25 ML IVPB (10:46)
[2024-06-16] MEDS: PIPERACILLIN/TAZ 4.5G/NS 100ML 4.5 GM/100 ML BAG IVPB ×3 (10:51→22:45)
--- NOTE | 2024-06-16 11:03 | P.PNIM_ITS ---
Progress Note: A&P Assessment and Plan (1) Acute hypoxic respiratory failure: Code(s): J96.01 - Acute respiratory failure with hypoxia Status: Acute Assessment and Plan: - Pt very lethargic today with some labored breathing. - CXR consistent with atelectasis versus pneumonia. - ABG's consistent with hypoxemia. - Patient started on broad-spectrum IV abx for possible hospital acquired PNA. - Started on supplemental O2. - Lactate wnl. - We'll continue to monitor symptoms progression closely. (2) Generalized weakness: Code(s): R53.1 - Weakness Status: Acute Assessment and Plan: Patient reports to the hospital with complaints of generalized weakness. He was recently admitted for similar complaints earlier this month and was treated for pneumonia. PT/OT evaluated him at that time and recommended home health therapy. His PCP had previously ordered outpatient PT/OT. 06/16/24: - Worsened today. - Possibly worsened by possible PNA. - Started on abx for possible PNA. - PT/OT treatment when patient more alert. - Encourage with meals when more alert. - We'll continue to monitor symptoms progression. - SNF/Rehab placement when medically stable. 06/15/24 * No focal neuro deficit. * WBC normal, afebrile, no oxygen requirements * Chest x-ray shows atelectasis and a resolving pneumonia. * Venous duplex negative. * Continue PT/OT treatment. * Fall precautions. * Placement to SNF or Rehab when medically stable. * Continue empiric antibiotics currently for possible PNA. * 06/12/24 * Dopplers negative 06/13/24: * Pancytopenia noted on today's labs. Consult Oncology. * Pt appears very weak. * Continue fall precautions. (3) Chronic kidney disease, stage 3: Code(s): N18.30 - Chronic kidney disease, stage 3 unspecified Status: Acute Assessment and Plan: 06/16/24: - Creatinine appears baseline currently at 1.0 from 1.4 and 2.1previously. - Continue to monitor renal function closely with gentle IVF hydration. - Avoid nephrotoxins. 06/15/24 - Established with Dr Tipton. * Cr 1.6 >> now 1.1. * Continue to monitor renal function closely. * Gentle IVF hydration. * Avoid nephrotoxins. * Replete lytes to maintain K+ >3.5, Mg > 1.6 06/13/24: * Renal function is stable today at Cr 1.3 and BUN of 13. His Potassium remains low at 3.1. Another 60 mEq po ordered. (4) Pancytopenia: Code(s): D61.818 - Other pancytopenia Status: Acute Assessment and Plan: * Continues to slowly improve. * WBC, Hgb andplatelet all trended up today. * Continue to trend CBC. * Prostate CA in remission per Oncology post radiation therapy and androgen deprivation treatment. * US abdomen showing normal liver and spleen. * Scheduled for bone-marrow biopsy. * Oncologist continues to follow. (5) Lower extremity edema: Code(s): R60.0 - Localized edema Status: Acute Assessment and Plan: Chronic lower extremity edema likely from CKD, CHF, and venous insufficiency. Takes prn Lasix as needed for swelling. Metolazone 2.5 mg Monday, Monday, Monday. * BRIGIDA hose applied and encouraged to elevate lower extremities * Venous duplex negative. * BNP 374, no pulmonary edema on imaging, lungs are clear (6) Anemia: Qualifiers: Anemia type: unspecified type Qualified Code(s): D64.9 - Anemia, unspecified Code(s): D64.9 - Anemia, unspecified Status: Acute Assessment and Plan: 06/15/24: - Slowly improving and likely chronic per previous labs. - No obvious bleeding signs noted. - Continue to monitor closely. - Continue iron supplementation. 06/15/24: Chronic anemia per chart review. Likely multifactorial given underlying malignancy and CKD. * Hgb stable, slightly trended down today 10.7>>9.8. * Iron panel shows anemia. Continue ferrous sulfate. * B12 and folate normal. * No obvious signs of blood per patient reports. 06/13/24: * Now with Pancytopenia. New finding with down trending WBCs for the past three days. * Oncology following. * Continue Iron supplementation. * (7) Prostate cancer: Code(s): C61 - Malignant neoplasm of prostate Status: Acute Assessment and Plan: History of prostate cancer diagnosed in 2018 s/p radiation and Androgen deprivation therapy. Now follows with Dr Pak and is on Lupron every 3 months with Zytiga and prednisone. * Patient family to bring home Abiraterone as this is non-formulary at this facility. (8) Hypokalemia: Code(s): E87.6 - Hypokalemia Status: Acute Assessment and Plan: 06/16/24: * Continue to replete as needed. * 2.9 this AM and we'll replete. * Continue to monitor levels closely. 06/13/24: * 3.1. 60 mEq po given. * Currently wnl. (9) Headache: Code(s): R51.9 - Headache, unspecified Status: Acute Assessment and Plan: * Appears resolved. * Pain meds PRN. Plan Code status: Full code per patient DVT prophylaxis: Lovenox Stress ulcer prophylaxis: NA PT/OT notes: SNF Disposition: Patient continues admission to the medical unit for further evaluation and treatment generalized weakness PT/OT is recommending [facility] facility for continued rehabilitation will discuss with case coordination and patient. he currently lives at home alone with his dog Time Spent With Patient Time with patient: 25 - 35 minutes Subjective Date/time seen: 06/16/24 11:03 Interval history: This very pleasant elderly male pt was examined at the bedside today in interval assessment. Family bedside and patient more lethargic and non-verbal this AM. He is currently awaiting SNF placement for his continued weakness as well as bone- marrow Biopsy for Pancytopenia. Patient being followed by Oncology. CXR and ABG's ordered, including lactate levels. Review of Systems Review of Systems: Generalized weakness, lethargyic and non-verbal. ROS unobtainable: Yes unobtainable due to mental status Exam Narrative: General: Lethargic and non-verbal with some slight labored breathing. HEENT: Atraumatic, HERMELINDA, Moist mucosa, EOM. Respiratory: Slight labored breathing. Cardiovascular: Rate and rhythm regular, normal s1s2, no murmur Abdomen: Soft, round, non-tender, active bowel sounds Extremities: No cyanosis. + 1 pitting edema to bilateral lower extremities. Neuro: A&O x 3 Skin: Warm, dry, intact Const: Nutritional Appearance: average body habitus and obese Orientation/consciousness: patient oriented x3 HENMT: Head: normal to inspection, normocephalic and atraumatic Ears: hearing grossly normal bilaterally Face/Nose/Sinus: normal facial exam Face and sinus: normal facial exam Eyes: General: appearance normal, both eyes and all related structures Pupils: Equal, round and reactive pupils present EOM: EOMs intact bilaterally Neck: Neck: full ROM, no lymphadenopathy and no JVD Thyroid: thyroid normal Lymphatic: no lymphadenopathy noted Resp: Auscultation: clear to auscultation bilaterally Cardio: Jugular venous distension: no JVD Rate: regular rate Rhythm: regular rhythm Heart sounds: S1 normal heart sound present and S2 normal heart sound present : General: Yes deferred Skin: Rashes: no rashes Wounds: no wounds Neuro: Cranial nerves: Yes CN's II-XII intact bilaterally and Yes Equal, round and reactive pupils present Gait exam (Neuro): Unable to assess gait Other: Increased generalized muscle weakness, lethargic today. Extrem: General: edema bilateral (1+) and pedal edema Psych: Other: Lethargy. Objective Data Vital Signs Vital Signs: Vital Signs - 24 hr 06/15/24 13:38 06/15/24 22:00 06/15/24 20:00 Temperature 97.4 F L 97.3 F L Pulse Rate 100 100 100 Respiratory Rate 20 14 14 Blood Pressure 122/57 L 152/65 H Pulse Oximetry 91 91 91 Oxygen Delivery Room Air Fraction of Inspired Oxygen 21 06/16/24 06:00 06/16/24 08:12 06/16/24 08:36 Temperature 98.8 F 101.5 F H 101.5 F H Pulse Rate 111 H 114 H Respiratory Rate 16 22 H Blood Pressure 150/63 H 160/68 H Pulse Oximetry 92 93 Oxygen Delivery Fraction of Inspired Oxygen 06/16/24 10:25 Temperature 101.8 F H Pulse Rate Respiratory Rate Blood Pressure Pulse Oximetry Oxygen Delivery Fraction of Inspired Oxygen Intake/Output Intake/Output: Intake & Output 06/13/24 06/14/24 06/15/24 06/16/24 23:59 23:59 23:59 23:59 Intake Total 9731 796 3299 921 Output Total 1100 550 900 50 Balance 265 430 770 871 Meds/Results Medications: Active Medications Generic Name Dose Route Start Last Admin Trade Name Freq PRN Reason Stop Dose Admin Acetaminophen 650 mg 06/12/24 10:51 06/15/24 20:38 Acetaminophen 325 Mg Tablet PO 650 mg Q4H PRN Administration Headache Acetaminophen 650 mg 06/16/24 08:14 06/16/24 08:36 Acetaminophen 650 Mg Suppository RECTAL 650 mg Q6H PRN Administration Mild Pain (1-3) or Fever Al Hydrox/Mg Hydrox/Simethicone 30 ml 06/11/24 01:09 Mag Hydrox/Al Hydrox/Simeth 30 Ml Udc PO Q6H PRN Indigestion Albuterol/Ipratropium 3 ml 06/11/24 11:34 Ipratropium 0.5 Mg/Albuterol Sulfate 2.5 Mg Ampul.Neb 3 Ml NEBULIZE Q6HRT PRN Wheezing Aspirin 81 mg 06/11/24 09:00 06/16/24 08:49 Aspirin 81 Mg Enteric Tablet PO Not Given DAILY SOPHIE Donepezil HCl 5 mg 06/11/24 21:00 06/13/24 21:47 Donepezil Hcl 5 Mg Tablet PO 5 mg QHS SOPHIE Administration Enoxaparin Sodium 40 mg 06/11/24 12:20 06/16/24 08:51 Enoxaparin 40 Mg/0.4 Ml Syringe SUB-Q 40 mg DAILY SOPHIE Administration Famotidine 20 mg 06/11/24 09:00 06/16/24 08:49 Famotidine 20 Mg Tablet PO Not Given Q12HR SOPHIE Ferrous Sulfate 325 mg 06/12/24 09:00 06/16/24 08:49 Ferrous Sulfate [address] PO Not Given DAILY SOPHIE Sodium Chloride 1,000 mls @ 60 mls/hr 06/14/24 19:10 06/16/24 05:46 Normal Saline Iv IV CONT 60 mls/hr .[id number] SOPHIE Administration Potassium Chloride 100 mls @ 25 mls/hr 06/16/24 09:28 06/16/24 10:46 Kcl 40 Meq/Water 100 Ml IVPB 06/16/24 13:27 25 mls/hr ONCE ONE Administration Piperacillin Sod/Tazobactam Sod 4.5 gm in 100 mls @ 200 mls/hr 06/16/24 11:00 06/16/24 10:51 Zosyn 4.5 Gm/Ns 100 Ml IVPB 200 mls/hr Q6H SOPHIE Administration Vancomycin HCl 1,250 mg in 250 mls @ 166.667 mls/hr 06/16/24 13:30 Vancomycin 1,250 Mg/Ns 250 Ml IVPB 06/16/24 14:59 ONCE ONE Vancomycin HCl 1,250 mg in 250 mls @ 166.667 mls/hr 06/16/24 12:00 Vancomycin 1,250 Mg/Ns 250 Ml IVPB 06/16/24 13:29 ONCE ONE Vancomycin HCl 1,500 mg in 500 mls @ 250 mls/hr 06/17/24 12:00 Vancomycin 1,500 Mg/Ns 500 Ml IVPB Q24H SOPHIE Melatonin 10 mg 06/11/24 21:00 06/15/24 20:38 Melatonin 5 Mg Tablet PO 07/11/24 20:59 10 mg HS SOPHIE Administration Metolazone 2.5 mg 06/12/24 09:00 06/14/24 08:38 Metolazone 2.5 Mg Tablet PO 2.5 mg MoWeFr SOPHIE Administration Mirtazapine 15 mg 06/11/24 21:00 06/15/24 20:37 Mirtazapine 15 Mg Tablet PO 15 mg HS SOPHIE Administration Neomycin/Polymyxin/Bacitracin 1 applic 06/13/24 18:50 Neomycin/Polymyxin/Bacitracin Ointment 15 Gm Tube TOPICAL PRN PRN with dressing changes Home Med ( 0 mg 06/12/24 06:30 06/16/24 05:59 Abiraterone 250 Mg PO 07/12/24 06:29 500 mg Tablet) DAILY@0630 SOPHIE Administration Ondansetron HCl 4 mg 06/11/24 01:09 06/13/24 08:16 Ondansetron Inj 4 Mg/2 Ml Vial IV PUSH 4 mg Q6H PRN Administration Nausea And Vomiting Oxycodone/Acetaminophen 1 - 2 tablet 06/13/24 20:10 06/13/24 20:16 Oxycodone/Acetaminophen (*Crx) 5-325 Mg Tablet PO 1 tablet Q4H PRN Administration Pain Rated 7-10 Polyethylene Glycol 17 gm 06/11/24 01:09 06/14/24 18:21 Polyethylene Glycol 3350 17 Gm Powd.Pack PO 17 gm QAM PRN Administration Constipation Tamsulosin HCl 0.4 mg 06/11/24 09:00 06/16/24 08:50 Tamsulosin Hcl 0.4 Mg Capsule PO Not Given Q12HR [facility] Radiology Results: ITS Impressions Venous Doppler Study 06/11/24 15:49 IMPRESSION: 1. No deep venous thrombosis in either lower limb. Head CT 06/14/24 06:35 IMPRESSION: 1. Stable moderate nonspecific cerebral white matter disease, which likely represents chronic small vessel ischemic disease. Abdomen Ultrasound 06/14/24 09:44 IMPRESSION: 1. Normal sizes of the liver and spleen. Chest X-Ray 06/16/24 09:50 IMPRESSION: 1. Airspace opacities at left lung base, consistent with atelectasis versus pneumonia. 2. Small left pleural effusion. Labs Labs: Laboratory Results - last 24 hr 06/16/24 06/16/24 06/16/24 07:59 09:33 09:35 WBC 5.0 RBC 3.15 L Hgb 10.7 L Hct 32.1 L MCV 101.9 H MCH 34.0 MCHC 33.3 RDW 13.9 Plt Count 150 MPV 10.3 Puncture Site Right radial ABG pH 7.466 H ABG pCO2 32.2 L ABG pO2 56.4 L ABG PO2/FiO2 Ratio 2.69 ABG HCO3 22.7 ABG O2 Saturation 91.3 L ABG O2 Content 14.3 L ABG Base Excess -0.4 A-a Gradient 54.8 Oxyhemoglobin 88.6 L Total Hemoglobin 11.5 L O2 Delivery Device Room air O2 Liters/Min Not Reportable FiO2 21 Sodium 133 L Potassium 2.9 L Chloride 98 Carbon Dioxide 24 Anion Gap 11 BUN 12 Creatinine 1.00 Estim Creat Clear Calc 55 Estimated GFR > 60 Glucose 124 H Lactic Acid 0.8 Calcium 9.0 Ammonia < 9 L Quality VTE Prophylaxis VTE prophylaxis: pharmacologic ordered Hospitalist MIPS Advance Care Plan I have confirmed that the patient's Advanced Care Plan is present, code status is documented, or surrogate decision maker is listed in patient medical record.: Yes Medication Reconciliation I have utilized all available resources to obtain, update and review the patients current medications (includes all prescriptions, OTC, herbals, cannabis, and nutritional supplements).: Yes
[2024-06-16] MEDS: VANCOMYCIN 1,250 MG/NS 250 ML 1,250 MG/250 ML BAG 166.67 MG IVPB ×2 (12:07→13:48)
[2024-06-16 15:43] LABS: Add Urine Microscopic? YES; Appearance Urine Cloudy (Clear); Bacteria Urine None Seen /hpf; Bilirubin Urine Negative (Negative); Blood Urine Negative (Negative); Color Urine Yellow (Yellow); Glucose Urine UA Negative (Negative); Ketones Urine 3+ mg/dL (Negative); Leukocyte Esterase Ur Negative LEU/UL (Negative); Nitrate Urine Negative (Negative); Protein Urine Trace mg/dL (Negative); RBC Urine 0-2 /hpf (0-2); Specific Grav Ur 1.024 (1.001-1.035); Squamous Epithelial Cell Urine None Seen /hpf (Few); Urobilinogen Urine 0.2 mg/dL (<2.0); WBC Urine 0-5 /hpf (0-3); pH Urine 5.5 (5.0-9.0)
[2024-06-16 16:03] LABS: Alveolar/Arterial O2 Gradient 76.7 mmHg; Base Excess ABG -0.2 mEq/l (+/-2.0); Fractional Inspired Oxygen 28 %; HCO3 ABG 23.8 mEq/l (22.0-26.0); Oxygen Content ABG 14.2 %vol (16.0-22.0); Oxygen Saturation ABG 96.2 % (95.0-100.0); PCO2 ABG 36.6 mmHg (35.0-45.0); PO2 ABG 79.8 mmHg (80.0-100.0); PO2 FiO2 Ratio Arterial Blood 2.85 %; Total Hemoglobin 10.6 g/dL (12.0-18.0); pH ABG 7.431 (7.350-7.450)
[2024-06-16 16:04] LABS: Device NASAL CANNULA; Modified Allen's Test Pass; Site Drawn RIGHT RADIAL
[2024-06-16 16:20] LABS: Lactic Acid Reflex 0.7 mmol/L (0.7-2.0)
[2024-06-16 18:00] LABS: MRSA (PCR) NOT DETECTED (NOT DETECTE)
[2024-06-16] MEDS: SODIUM CHLORIDE 0.9% IVPB (19:47)
[2024-06-16] MEDS: IBUPROFEN IVPB (19:47)
[2024-06-16] MEDS: FAMOTIDINE 20 MG TABLET PO (20:32)
[2024-06-16] MEDS: TAMSULOSIN HCL 0.4 MG CAPSULE PO (20:33)
[2024-06-16] MEDS: MELATONIN 5 MG TABLET 10 MG PO (20:33)
[2024-06-16] MEDS: MIRTAZAPINE 15 MG TABLET PO (20:33)
[2024-06-17] VITALS (16 sets, daily range): BP systolic 123–149; BP diastolic 56–93; PULSE 86–144; RESP 18–28; TEMP 36.5–39.4; O2SAT 94–100
[2024-06-17] MEDS: PIPERACILLIN/TAZ 4.5G/NS 100ML 4.5 GM/100 ML BAG IVPB ×3 (05:10→23:14)
[2024-06-17 06:30] LABS: Estimated CRCL calculation 50 ml/min; Estimated Glomerular Filt Rate > 60
[2024-06-17 07:05] LABS: Alanine Aminotransferase 12 U/L (6-50); Albumin Level 2.8 g/dL (3.5-5.1); Alkaline Phosphatase 60 U/L (38-126); Anion Gap 6 mmol/L (4-12); Aspartate Amino Transferase 27 U/L (17-59); Bilirubin,Total 0.9 mg/dL (0.2-1.3); Blood Urea Nitrogen 11 mg/dL (9-20); Calcium 8.8 mg/dL (8.4-10.2); Carbon Dioxide 27 mmol/L (22-30); Chloride 100 mmol/L (98-107); Estimated CRCL calculation 50 ml/min; Estimated Glomerular Filt Rate > 60; Glucose 121 mg/dL (65-110); Magnesium 1.4 mg/dL (1.6-2.3); Potassium 3.1 mmol/L (3.4-5.0); Sodium 133 mmol/L (137-145)
[2024-06-17 07:07] LABS: Basophils Percent Auto 0.2 % (0.2-1.2); Eosinophils Absolute Auto 0.2 K/mm3 (0-0.3); Eosinophils Percent Auto 3.7 % (0-4.4); Hematocrit 30.8 % (42.0-52.0); Hemoglobin 10.3 g/dL (14.0-18.0); Immature Granulocyte Absolute 0.06 K/mm3 (0.00-0.031); Immature Granulocyte Percent A 1.3 % (0-0.5); Lymphocytes Absolute Auto 0.29 K/mm3 (0.9-3.2); Lymphocytes Percent Auto 6.4 % (18.3-44.2); Mean Corpuscular HGB Conc 33.4 g/dl (32-36); Mean Corpuscular Hemoglobin 33.9 pg (26-34); Mean Corpuscular Volume 101.3 fl (80-100); Mean Platelet Volume 10.5 fl (7.4-10.4); Monocytes Absolute Auto 0.5 K/mm3 (0.1-0.6); Monocytes Percent Auto 11.6 % (2.6-8.5); Neutrophils Absolute Auto 3.5 K/mm3 (1.3-6.7); Neutrophils Percent Auto 76.8 % (45.5-73.1); Platelet Count Result 165 k/mm3 (150-375); Red Blood Count 3.04 M/mm3 (4.6-6.20); Red Cell Distribution Width 14.1 % (11.5-14.5); White Blood Count 4.6 K/mm3 (4.5-10.0)
--- NOTE | 2024-06-17 08:29 | PCPTNOTE ---
Patient unable to participate in bed mobility, sitting edge of bed or transfers due to patient to lethargic to participate. Educated patient's sister on passive range of motion to assist patient.
[2024-06-17] MEDS: IPRATROPIUM 0.5 MG/ALBUTEROL SULFATE 2.5 MG AMPUL.NEB 3 ML INHALATION (08:30)
[2024-06-17] MEDS: FUROSEMIDE INJ 40 MG/4 ML VIAL IV PUSH ×2 (08:51→18:23)
[2024-06-17] MEDS: ENOXAPARIN 40 MG/0.4 ML SYRINGE SUB-Q (09:36)
[2024-06-17] MEDS: MAGNESIUM SULF 1 GM/D5W 100 ML 1 GM/100 ML BAG IVPB (09:36)
--- NOTE | 2024-06-17 09:56 | PCOTNOTE ---
Patient out of the room at this time. Per RN, Patient having a decline in status, down having a CT scan and further testing. Will check back at a later time.
[2024-06-17 10:25] LABS: Alveolar/Arterial O2 Gradient 86.5 mmHg; Base Excess ABG 1.8 mEq/l (+/-2.0); Device NASAL CANNULA; Fractional Inspired Oxygen 28 %; HCO3 ABG 25.6 mEq/l (22.0-26.0); Modified Allen's Test Pass; Oxygen Content ABG 15.3 %vol (16.0-22.0); Oxygen Saturation ABG 94.8 % (95.0-100.0); Oxyhemoglobin 93.3 % THb (90.0-100.0); PCO2 ABG 37.1 mmHg (35.0-45.0); PO2 ABG 69.4 mmHg (80.0-100.0); PO2 FiO2 Ratio Arterial Blood 2.48 %; Site Drawn LEFT RADIAL; Total Hemoglobin 11.6 g/dL (12.0-18.0); pH ABG 7.456 (7.350-7.450)
--- NOTE | 2024-06-17 10:58 | P.PNIM_ITS ---
Progress Note: A&P Assessment and Plan (1) Acute hypoxic respiratory failure: Code(s): J96.01 - Acute respiratory failure with hypoxia Status: Acute Assessment and Plan: - Pt very lethargic today with some labored breathing. - CXR consistent with atelectasis versus pneumonia. - ABG's consistent with hypoxemia. - Patient started on broad-spectrum IV abx for possible hospital acquired PNA. - Started on supplemental O2. - Lactate wnl. - We'll continue to monitor symptoms progression closely. 06/17/2024: * Pt with acute respiratory distress today. * CTA CAP performed with results of very mild pulmonary edema, and most likely LLL PNA. No PE identified * ABG performed demonstrating a compensated mild respiratory alkalosis with Hypoxia. pH 7.456, pCO2 37.1, pO2 69.4, HCO3- 25.6 w/BE of 1.8. * Oxygen sats maintained on 2L NC. * Duoneb given * Lasix 40 mg IVP given w/interval decrease in work of breathing. * Move to IMU * Continue telemetry * Guarded overall condition. (2) Sepsis: Code(s): A41.9 - Sepsis, unspecified organism Status: Acute Assessment and Plan: 06/17/24: * As evidenced by tachycardia, tachypnea, change in mental status and multiple sites of infection including Diverticulitis, PNA and likely RUE Cellulitis. * Continue Broad spectrum abx of Vancomycin and Zosyn previously started prior to today. * Lactic acid ordered, was 0.7 yesterday. * Blood cultures x2 ordered * Supportive care * Continue all orders as mentioned in #1 * Deferring IVF bolus as not meeting shock criteria and pt requiring subsequent Diuresis. * Pt remains full code as directed by daughters who are POA. * Move to IMU. (3) Diverticulitis: Code(s): K57.92 - Diverticulitis of intestine, part unspecified, without perforation or abscess without bleeding Status: Acute Assessment and Plan: 06/17/24: * As evidenced by CTA abdomen and pelvis. No abscess formation or perforation. * Continue Vancomycin and Zosyn. De-escalate when appropriate or as renal function dictates. * Continue supportive care and trend labs and VS. (4) Encephalopathy: Code(s): G93.40 - Encephalopathy, unspecified Status: Acute Assessment and Plan: 06/17/24: * CT head without any acute abnormalities. * Treat concern for underlying sepsis * Supportive care * Guarded condition * Transfer to IMU * Fall precautions * Telemetry * Trend labs and VS. (5) Cellulitis: Code(s): L03.90 - Cellulitis, unspecified Status: Acute Assessment and Plan: 06/17/24: * Cellulitis vs DVT RUE * Pt with recent infiltration of IV on RUE, now red, hot, swollen. * Venous doppler ordered for rule out of DVT. Results currently pending. * Continue abx of Vanc and Zosyn in interim time and de-escalate when appropriate or as renal function dictates. * NO NEEDLE STICKS RUE * If positive venous doppler, switch to therapeutic dosed Lovenox. (6) Bone lesion: Code(s): M89.9 - Disorder of bone, unspecified Status: Acute Assessment and Plan: 06/17/24: * As noted on CT abd and pelvis, concern for metastasis. * Oncology is following and we appreciate their continued suggestions for evaluation and management. (7) Hypomagnesemia: Code(s): E83.42 - Hypomagnesemia Status: Acute Assessment and Plan: 06/17/24: * 1.4 today. * 1G Mag sulfate ordered * Trend labs (8) Generalized weakness: Code(s): R53.1 - Weakness Status: Acute Assessment and Plan: 06/12/24 * Dopplers negative 06/13/24: * Pancytopenia noted on today's labs. Consult Oncology. * Pt appears very weak. * Continue fall precautions. 06/15/24 * No focal neuro deficit. * WBC normal, afebrile, no oxygen requirements * Chest x-ray shows atelectasis and a resolving pneumonia. * Venous duplex negative. * Continue PT/OT treatment. * Fall precautions. * Placement to SNF or Rehab when medically stable. * Continue empiric antibiotics currently for possible PNA. 06/16/24: - Worsened today. - Possibly worsened by possible PNA. - Started on abx for possible PNA. - PT/OT treatment when patient more alert. - Encourage with meals when more alert. - We'll continue to monitor symptoms progression. - SNF/Rehab placement when medically stable. 06/17/24: * Pt is encephalopathic today. * Moved to IMU * Will need PT/OT re-evaluation once more stable. (9) Chronic kidney disease, stage 3: Code(s): N18.30 - Chronic kidney disease, stage 3 unspecified Status: Chronic Assessment and Plan: 06/13/24: * Renal function is stable today at Cr 1.3 and BUN of 13. His Potassium remains low at 3.1. Another 60 mEq po ordered. 06/15/24 - Established with Dr Tipton. * Cr 1.6 >> now 1.1. * Continue to monitor renal function closely. * Gentle IVF hydration. * Avoid nephrotoxins. * Replete lytes to maintain K+ >3.5, Mg > 1.6 06/16/24: - Creatinine appears baseline currently at 1.0 from 1.4 and 2.1previously. - Continue to monitor renal function closely with gentle IVF hydration. - Avoid nephrotoxins. 06/17/24: * Creatinine and BUN today remain stable at 1.10/11 respectively, however, pt requiring lasix for diuresis, so there will be propensity for fluctuation. * Accurate I&O * Trend labs (10) Pancytopenia: Code(s): D61.818 - Other pancytopenia Status: Acute Assessment and Plan: * Continues to slowly improve. * WBC, Hgb andplatelet all trended up today. * Continue to trend CBC. * Prostate CA in remission per Oncology post radiation therapy and androgen deprivation treatment. * US abdomen showing normal liver and spleen. * Scheduled for bone-marrow biopsy. * Oncologist continues to follow. 06/17/24: * Dr. Pak scheduled BMB for this AM, but it had to be held due to change in pt's condition. Will reorder when appropriate and pt is stable. * WBC's this AM are increased over what they have been trending to 4.6, and platelets are normal at 165. * Continue to trend with daily labs. (11) Lower extremity edema: Code(s): R60.0 - Localized edema Status: Acute Assessment and Plan: Chronic lower extremity edema likely from CKD, CHF, and venous insufficiency. Takes prn Lasix as needed for swelling. Metolazone 2.5 mg Monday, Monday, Monday. * BRIGIDA hose applied and encouraged to elevate lower extremities * Venous duplex negative. * BNP 374, no pulmonary edema on imaging, lungs are clear 06/17/24: * CTA Chest today shows mild pulmonary edema. In setting of acute respiratory distress the pt is started on Lasix 40 mg IVP BID. * BLE should be elevated in bed * Hold Zaroxolyn as pt is not able to take po meds at this time. * Monitor renal status and cardiac status with labs and imaging (12) Anemia: Qualifiers: Anemia type: unspecified type Qualified Code(s): D64.9 - Anemia, unspecified Code(s): D64.9 - Anemia, unspecified Status: Chronic Assessment and Plan: 06/13/24: * Now with Pancytopenia. New finding with down trending WBCs for the past three days. * Oncology following. * Continue Iron supplementation. * 06/15/24: - Slowly improving and likely chronic per previous labs. - No obvious bleeding signs noted. - Continue to monitor closely. - Continue iron supplementation. 06/15/24: Chronic anemia per chart review. Likely multifactorial given underlying malignancy and CKD. * Hgb stable, slightly trended down today 10.7>>9.8. * Iron panel shows anemia. Continue ferrous sulfate. * B12 and folate normal. * No obvious signs of blood per patient reports. 06/17/24: * Chronic in nature. * No s/s of acute bleeding identified. * Continue to trend labs. (13) Prostate cancer: Code(s): C61 - Malignant neoplasm of prostate Status: Acute Assessment and Plan: History of prostate cancer diagnosed in 2018 s/p radiation and Androgen deprivation therapy. Now follows with Dr Pak and is on Lupron every 3 months with Zytiga and prednisone. * Patient family to bring home Abiraterone as this is non-formulary at this facility. 06/17/24: * Continue current treatment. * Oncology following pt. * CTA Pelvis today shows that pt has lesions on the iliac wings concerning for possible metastasis or Paget's disease. Appreciate Oncology input for further diagnostics and or treatment recommendations. * Pt currently unable to have BMB for his pancytopenia as he is unstable and likely septic. This will need to be reordered. (14) Hypokalemia: Code(s): E87.6 - Hypokalemia Status: Acute Assessment and Plan: 06/13/24: * 3.1. 60 mEq po given. * Currently wnl. 06/16/24: * Continue to replete as needed. * 2.9 this AM and we'll replete. * Continue to monitor levels closely. 06/16/24: * Pt continues to be low on his Potassium at 3.1 this AM. * Pt received Lasix 40 mg IVP BID for his acute respiratory distress and the appearance of the lungs on CT scan. * Supplemental 40 mEq K+ rider ordered as pt is unable to tolerate oral intake. * Continue to trend labs * Continue telemetry (15) Headache: Code(s): R51.9 - Headache, unspecified Status: Acute Assessment and Plan: * Appears resolved. * Pain meds PRN. Plan Code status: Full code per patient DVT prophylaxis: Lovenox Stress ulcer prophylaxis: NA PT/OT notes: SNF Disposition: Patient continues admission to the medical unit for further evaluation and treatment generalized weakness PT/OT is recommending skilled nu rsing facility for continued rehabilitation will discuss with case coordination and patient. he currently lives at home alone with his dog. Will need SNF on discharge when stable. CONDITION IS CURRENTLY GUARDED. Time Spent With Patient Time with patient: Greater than 35 minutes Subjective Date/time seen: 06/17/24 0800 Interval history: This pt was examined at the bedside today after I was called to the bedside by the nurse for the pt appearing acutely ill and unresponsive now. As noted yesterday, the pt had become more somnolent and imaging and labs were performed that showed no acute s/s of sepsis, and a normal lactic acid, but pt's CXR did show a concern for developing LLL infiltrate. He was started on Vancomycin and Zosyn and monitored overnight. This AM he is tachypneic, tachycardic, appears to have pain by facial expressions, but requires a strong sternal rub to elicit any response, and then it is limited. He is not answering questions or giving meaningful responses. Words that are expressed are short, one word sentences. In addition, this pt is found this AM with redness, warmth and swelling and possible palpable cord to the RUE, ventral surface. I am told that he had an IV infiltrate in this arm, but arm appears to be more cellulitic in nature vs. possible DVT. He is currently on prophylactically dosed Lovenox. Given his appearance with concern for developing sepsis vs. AMS vs. possible Respiratory failure, CT of brain, and CTA CAP were ordered as well as Blood cultures, Lactic acid, and ABG as well as stat doppler of RUE. He remains on Vancomycin and Zosy n at this time. Pts family is at the bedside including his daughters who are joint POAs and his sister. We have discussed code status and pt remains a Full Code at this time. Given his overall change in status, I suggest at minimum a move to IMU, and they are agreeable with this plan of care. There he will be monitored closely, treatment will continue for possible onset of sepsis and if needed, he will be transferred to ICU if any further decline in Respiratory status. Pt's current condition is guarded. His family has been at the bedside the entire time this morning and has participated in shared decision making and have been kept up to date on condition. All questions have been answered to their satisfaction. Review of Systems Review of Systems: ROS unobtainable: Yes unobtainable due to medical condition (encephalopathic and not communicative.) Exam Narrative: General: Elderly, male patient lying supine at this time in bed is with signs of acute respiratory distress and/or pain distress. HEENT: Atraumatic, HERMELINDA, Moist mucosa, EOM. Respiratory: Noted tachypnea with diminished breath sounds. Patient does appear to be using accessory muscles. Cardiovascular: Tachycardic but regular rhythm. No JVD, No M,R,G,H or displacement of PMI. No peripheral edema appreciated. Abdomen: Protuberant, rotund, soft, bowel sounds present in all four quadrants. Extremities: RUE with edema, erythema, and appears to be tender when attempting to manipulate and move the extremity. There is a potential palpable cord on the ventral surface of the extremity with scattered bruising. Cap refill on affected side is <2Sec and radial pulse is 2+. Neuro: Difficult to arouse. Requires sternal rub to open eyes and acknowledge. No obvious focal deficits. Skin: RUE hot to the touch, erythema present with edema. Objective Data Vital Signs Vital Signs: Vital Signs - 24 hr 06/16/24 11:47 06/16/24 12:00 06/16/24 14:00 Temperature 100.2 F H 100.1 F H Pulse Rate 107 H 103 H Respiratory Rate 22 H Blood Pressure 131/60 Pulse Oximetry 98 Oxygen Delivery Oxygen Flow Rate Fraction of Inspired Oxygen 06/16/24 15:38 06/16/24 16:00 06/16/24 18:53 Temperature 99.7 F H 101.3 F H Pulse Rate 97 Respiratory Rate Blood Pressure Pulse Oximetry Oxygen Delivery Oxygen Flow Rate Fraction of Inspired Oxygen 06/16/24 19:47 06/16/24 20:00 06/16/24 20:00 Temperature 101.1 F H Pulse Rate 103 H 103 H Respiratory Rate 22 H Blood Pressure Pulse Oximetry 98 Oxygen Delivery Room Air Oxygen Flow Rate Fraction of Inspired Oxygen 21 06/16/24 20:10 06/17/24 00:01 06/17/24 00:00 Temperature 98.0 F 97.9 F Pulse Rate 103 H 92 87 Respiratory Rate 20 20 Blood Pressure 125/53 L 135/56 L Pulse Oximetry 99 97 Oxygen Delivery Oxygen Flow Rate Fraction of Inspired Oxygen 06/17/24 04:00 06/17/24 04:46 06/17/24 08:30 Temperature 97.7 F Pulse Rate 86 100 115 H Respiratory Rate 18 22 H Blood Pressure 142/58 H Pulse Oximetry 100 94 Oxygen Delivery Nasal Cannula Oxygen Flow Rate 2 Fraction of Inspired Oxygen 06/17/24 08:30 06/17/24 08:40 Temperature Pulse Rate 115 H 113 H Respiratory Rate 22 H 22 H Blood Pressure Pulse Oximetry Oxygen Delivery Oxygen Flow Rate Fraction of Inspired Oxygen Intake/Output Intake/Output: Intake & Output 06/14/24 06/15/24 06/16/24 06/17/24 23:59 23:59 23:59 23:59 Intake Total 980 1670 2507 100 Output Total 550 900 650 400 Balance 978 021 4775 -300 Meds/Results Medications: Active Medications Generic Name Dose Route Start Last Admin Trade Name Freq PRN Reason Stop Dose Admin Acetaminophen 650 mg 06/12/24 10:51 06/15/24 20:38 Acetaminophen 325 Mg Tablet PO 650 mg Q4H PRN Administration Headache Acetaminophen 650 mg 06/16/24 08:14 06/16/24 17:21 Acetaminophen 650 Mg Suppository RECTAL 650 mg Q6H PRN Administration Mild Pain (1-3) or Fever Al Hydrox/Mg Hydrox/Simethicone 30 ml 06/11/24 01:09 Mag Hydrox/Al Hydrox/Simeth 30 Ml Udc PO Q6H PRN Indigestion Albuterol/Ipratropium 3 ml 06/11/24 11:34 Ipratropium 0.5 Mg/Albuterol Sulfate 2.5 Mg Ampul.Neb 3 Ml NEBULIZE Q6HRT PRN Wheezing Aspirin 81 mg 06/11/24 09:00 06/16/24 08:49 Aspirin 81 Mg Enteric Tablet PO Not Given DAILY SOPHIE Donepezil HCl 5 mg 06/11/24 21:00 06/13/24 21:47 Donepezil Hcl 5 Mg Tablet PO 5 mg QHS SOPHIE Administration Enoxaparin Sodium 40 mg 06/11/24 12:20 06/17/24 09:36 Enoxaparin 40 Mg/0.4 Ml Syringe SUB-Q 40 mg DAILY SOPHIE Administration Famotidine 20 mg 06/11/24 09:00 06/16/24 20:32 Famotidine 20 Mg Tablet PO 20 mg Q12HR SOPHIE Administration Ferrous Sulfate 325 mg 06/12/24 09:00 06/16/24 08:49 Ferrous Sulfate [address] PO Not Given DAILY SOPHIE Sodium Chloride 1,000 mls @ 60 mls/hr 06/14/24 19:10 06/16/24 20:32 Normal Saline Iv IV CONT 60 mls/hr .[id number] SOPHIE Administration Piperacillin Sod/Tazobactam Sod 4.5 gm in 100 mls @ 200 mls/hr 06/16/24 11:00 06/17/24 05:10 Zosyn 4.5 Gm/Ns 100 Ml IVPB 200 mls/hr Q6H SOPHIE Administration Vancomycin HCl 1,500 mg in 500 mls @ 250 mls/hr 06/17/24 12:00 Vancomycin 1,500 Mg/Ns 500 Ml IVPB Q24H SOPHIE Potassium Chloride 40 meq/ 520 mls @ 130 mls/hr 06/17/24 10:49 Sodium Chloride IVPB 06/17/24 14:48 ONCE ONE Melatonin 10 mg 06/11/24 21:00 06/16/24 20:33 Melatonin 5 Mg Tablet PO 07/11/24 20:59 10 mg HS SOPHIE Administration Metolazone 2.5 mg 06/12/24 09:00 06/14/24 08:38 Metolazone 2.5 Mg Tablet PO 2.5 mg MoWeFr SOPHIE Administration Mirtazapine 15 mg 06/11/24 21:00 06/16/24 20:33 Mirtazapine 15 Mg Tablet PO 15 mg HS SOPHIE Administration Neomycin/Polymyxin/Bacitracin 1 applic 06/13/24 18:50 Neomycin/Polymyxin/Bacitracin Ointment 15 Gm Tube TOPICAL PRN PRN with dressing changes Home Med ( 0 mg 06/12/24 06:30 06/17/24 06:21 Abiraterone 250 Mg PO 07/12/24 06:29 Not Given Tablet) DAILY@0630 [facility] Ondansetron HCl 4 mg 06/11/24 01:09 06/13/24 08:16 Ondansetron Inj 4 Mg/2 Ml Vial IV PUSH 4 mg Q6H PRN Administration Nausea And Vomiting Oxycodone/Acetaminophen 1 - 2 tablet 06/13/24 20:10 06/13/24 20:16 Oxycodone/Acetaminophen (*Crx) 5-325 Mg Tablet PO 1 tablet Q4H PRN Administration Pain Rated 7-10 Polyethylene Glycol 17 gm 06/11/24 01:09 06/14/24 18:21 Polyethylene Glycol 3350 17 Gm Powd.Pack PO 17 gm QAM PRN Administration Constipation Tamsulosin HCl 0.4 mg 06/11/24 09:00 06/16/24 20:33 Tamsulosin Hcl 0.4 Mg Capsule PO 0.4 mg Q12HR SOPHIE Administration Radiology Results: ITS Impressions Venous Doppler Study 06/11/24 15:49 IMPRESSION: 1. No deep venous thrombosis in either lower limb. Abdomen Ultrasound 06/14/24 09:44 IMPRESSION: 1. Normal sizes of the liver and spleen. Chest X-Ray 06/16/24 09:50 IMPRESSION: 1. Airspace opacities at left lung base, consistent with atelectasis versus pneumonia. 2. Small left pleural effusion. Head CT 06/17/24 09:27 IMPRESSION: 1. Stable age-related changes including moderate diffuse volume loss and moderate scattered nonspecific white matter T2 hyperintensity consistent with chronic small vessel ischemic disease. 2. Increasing mucosal thickening in the paranasal sinuses. Chest/Abdomen/Pelvis CTA 06/17/24 09:31 IMPRESSION: 1. Mild interstitial and groundglass opacities in the left lower lobe with associated volume loss to at least in part to atelectasis although could not exclude superimposed mild pulmonary edema or pneumonia. 2. Diverticulosis with mild stranding along the distal descending colon suspicious for radiographically uncomplicated diverticulitis. 3. A couple new region of sclerosis along the iliac wings which raises concern for metastatic disease with appearance on the right suggesting possible early localized Paget's disease. Correlate with clinical history and could consider bone scan to assess for any additional lesions which would elevate concern for metastatic disease. Labs Labs: Laboratory Results - last 24 hr 06/16/24 06/16/24 06/16/24 13:47 15:31 15:56 WBC RBC Hgb Hct MCV MCH MCHC RDW Plt Count MPV Immature Gran % (Auto) Neut % (Auto) Lymph % (Auto) [place] % (Auto) Eos % (Auto) Baso % (Auto) Lymph # (Auto) [place] # (Auto) Eos # (Auto) Baso # (Auto) Abs Immat Gran (auto) Absolute Neuts (auto) Absolute Nucleated RBC Nucleated RBC % Puncture Site Right radial ABG pH 7.431 ABG pCO2 36.6 ABG pO2 79.8 L ABG PO2/FiO2 Ratio 2.85 ABG HCO3 23.8 ABG O2 Saturation 96.2 ABG O2 Content 14.2 L ABG Base Excess -0.2 A-a Gradient 76.7 Oxyhemoglobin 95.0 Total Hemoglobin 10.6 L O2 Delivery Device Nasal cannula O2 Liters/Min 2.0 FiO2 28 Sodium Potassium Chloride Carbon Dioxide Anion Gap BUN Creatinine Estim Creat Clear Calc Estimated GFR Glucose Lactic Acid Calcium Magnesium Total Bilirubin AST ALT Alkaline Phosphatase Total Protein Albumin Urine Color Yellow Urine Appearance Cloudy H Urine pH 5.5 Ur Specific [place] 1.024 Urine Protein Trace Urine Glucose (UA) Negative Urine Ketones 3+ H Ur Blood (Man) Negative Urine Nitrate Negative Urine Bilirubin Negative Urine Urobilinogen 0.2 Ur Leukocyte Esterase Negative Urine RBC 0-2 Urine WBC 0-5 Ur Squamous Epith Cells None seen Urine Bacteria None seen Urine Casts 3-5 Nasal MRSA (PCR) Not detected 06/16/24 06/17/24 06/17/24 15:57 05:28 05:31 WBC 4.6 RBC 3.04 L Hgb 10.3 L Hct 30.8 L MCV 101.3 H MCH 33.9 MCHC 33.4 RDW 14.1 Plt Count 165 MPV 10.5 H Immature Gran % (Auto) 1.3 H Neut % (Auto) 76.8 H Lymph % (Auto) 6.4 L [place] % (Auto) 11.6 H Eos % (Auto) 3.7 Baso % (Auto) 0.2 Lymph # (Auto) 0.29 L [place] # (Auto) 0.5 Eos # (Auto) 0.2 Baso # (Auto) 0.0 Abs Immat Gran (auto) 0.06 H Absolute Neuts (auto) 3.5 Absolute Nucleated RBC 0.000 Nucleated RBC % 0.0 Puncture Site ABG pH ABG pCO2 ABG pO2 ABG PO2/FiO2 Ratio ABG HCO3 ABG O2 Saturation ABG O2 Content ABG Base Excess A-a Gradient Oxyhemoglobin Total Hemoglobin O2 Delivery Device O2 Liters/Min FiO2 Sodium 133 L Potassium 3.1 L Chloride 100 Carbon Dioxide 27 Anion Gap 6 BUN 11 Creatinine 1.10 Estim Creat Clear Calc 50 Estimated GFR > 60 Glucose 121 H Lactic Acid 0.7 Calcium 8.8 Magnesium 1.4 L Total Bilirubin 0.9 AST 27 ALT 12 Alkaline Phosphatase 60 Total Protein 6.0 L Albumin 2.8 L Urine Color Urine Appearance Urine pH Ur Specific [place] Urine Protein Urine Glucose (UA) Urine Ketones Ur Blood (Man) Urine Nitrate Urine Bilirubin Urine Urobilinogen Ur Leukocyte Esterase Urine RBC Urine WBC Ur Squamous Epith Cells Urine Bacteria Urine Casts Nasal MRSA (PCR) 06/17/24 06/17/24 05:32 10:20 WBC RBC Hgb Hct MCV MCH MCHC RDW Plt Count MPV Immature Gran % (Auto) Neut % (Auto) Lymph % (Auto) [place] % (Auto) Eos % (Auto) Baso % (Auto) Lymph # (Auto) [place] # (Auto) Eos # (Auto) Baso # (Auto) Abs Immat Gran (auto) Absolute Neuts (auto) Absolute Nucleated RBC Nucleated RBC % Puncture Site Left radial ABG pH 7.456 H ABG pCO2 37.1 ABG pO2 69.4 L ABG PO2/FiO2 Ratio 2.48 ABG HCO3 25.6 ABG O2 Saturation 94.8 L ABG O2 Content 15.3 L ABG Base Excess 1.8 A-a Gradient 86.5 Oxyhemoglobin 93.3 Total Hemoglobin 11.6 L O2 Delivery Device Nasal cannula O2 Liters/Min 2.0 FiO2 28 Sodium Potassium Chloride Carbon Dioxide Anion Gap BUN Creatinine 1.10 Estim Creat Clear Calc 50 Estimated GFR > 60 Glucose Lactic Acid Calcium Magnesium Total Bilirubin AST ALT Alkaline Phosphatase Total Protein Albumin Urine Color Urine Appearance Urine pH Ur Specific [place] Urine Protein Urine Glucose (UA) Urine Ketones Ur Blood (Man) Urine Nitrate Urine Bilirubin Urine Urobilinogen Ur Leukocyte Esterase Urine RBC Urine WBC Ur Squamous Epith Cells Urine Bacteria Urine Casts Nasal MRSA (PCR)
[2024-06-17] MEDS: POTASSIUM CHLORIDE INJ 40 MEQ in SODIUM CHLORIDE 0.9% IV 500 ML 130 MEQ IVPB (11:05)
[2024-06-17 12:51] LABS: Basophils Percent Auto 0.3 % (0.2-1.2); Eosinophils Absolute Auto 0.2 K/mm3 (0-0.3); Eosinophils Percent Auto 3.7 % (0-4.4); Hematocrit 30.5 % (42.0-52.0); Hemoglobin 10.4 g/dL (14.0-18.0); Immature Granulocyte Absolute 0.07 K/mm3 (0.00-0.031); Immature Granulocyte Percent A 1.2 % (0-0.5); Lymphocytes Absolute Auto 0.35 K/mm3 (0.9-3.2); Lymphocytes Percent Auto 5.9 % (18.3-44.2); Mean Corpuscular HGB Conc 34.1 g/dl (32-36); Mean Corpuscular Volume 99.7 fl (80-100); Mean Platelet Volume 10.4 fl (7.4-10.4); Monocytes Absolute Auto 0.5 K/mm3 (0.1-0.6); Monocytes Percent Auto 9.2 % (2.6-8.5); Neutrophils Absolute Auto 4.7 K/mm3 (1.3-6.7); Neutrophils Percent Auto 79.7 % (45.5-73.1); Platelet Count Result 194 k/mm3 (150-375); Red Blood Count 3.06 M/mm3 (4.6-6.20); Red Cell Distribution Width 14.1 % (11.5-14.5); White Blood Count 5.9 K/mm3 (4.5-10.0)
--- NOTE | 2024-06-17 12:55 | PCOTNOTE ---
Patient has been moved to IMU. Per RN, Patient is very lethargic, unable to participate and still awaiting tests and test results. Patient not seen this date.
[2024-06-17 13:05] LABS: Lactic Acid Reflex 1.3 mmol/L (0.7-2.0)
--- NOTE | 2024-06-17 13:07 | ECG_ITS ---
Test Date: 2024-06-17 13:28:52 Measurements Intervals [place] Rate: 122 P: 38 DE: 201 QRS: 7 QRSD: 101 T: 4 QT: 389 QTc: 555 Interpretive Statements SINUS TACHYCARDIA LOW QRS VOLTAGE IN PRECORDIAL LEADS [QRS DEFLECTION < 1.0 mV IN CHEST LEADS] MODERATE ST DEPRESSION [0.05+ mV ST DEPRESSION] Compared to ECG 06/10/2024 19:57:01 ST (T wave) deviation now present Sinus rhythm no longer present Electronically Signed On 06-17-2024 13:33:46 CDT by Lewis Argueta M.D.
[2024-06-17 13:11] LABS: Anion Gap 12 mmol/L (4-12); Blood Urea Nitrogen 10 mg/dL (9-20); Calcium 9.1 mg/dL (8.4-10.2); Carbon Dioxide 26 mmol/L (22-30); Chloride 97 mmol/L (98-107); Estimated CRCL calculation 50 ml/min; Estimated Glomerular Filt Rate > 60; Glucose 143 mg/dL (65-110); Potassium 2.7 mmol/L (3.4-5.0); Sodium 135 mmol/L (137-145)
[2024-06-17] MEDS: ACETAMINOPHEN 650 MG SUPPOSITORY RECTAL (13:33)
--- NOTE | 2024-06-17 13:52 | ADMGEN ---
This patient, Brent Lewis, was admitted to IMU Room 205-01. Patient/family oriented to hospital policies and general routines including ID bracelet, bed and alarms, visiting hours, pain management, procedures, bathroom and other care routines, personal items, smoking policy, room service/diet, and visiting hours. Information on how to activate the Rapid Response Team has been discussed. Patient/Family are encouraged to report perceived risks to care and to ask questions if they do not understand what they are told or what they should do. Pt arrived to the unit at 1337.
[2024-06-17] MEDS: VANCOMYCIN 1,500 MG/NS 500 ML 1,500 MG/500 ML BAG 250 MG IVPB (15:53)
[2024-06-17] MEDS: SODIUM CHLORIDE 0.9% IV 1,000 ML 100 ML IV CONT ×2 (15:53→23:14)
[2024-06-17 18:22] LABS: Glucose Point of Care 144 mg/dl (65-105)
[2024-06-17 18:40] LABS: Add Urine Microscopic? NO; Appearance Urine Clear (Clear); Bilirubin Urine Negative (Negative); Blood Urine Negative (Negative); Color Urine Yellow (Yellow); Glucose Urine UA Negative (Negative); Ketones Urine 1+ mg/dL (Negative); Leukocyte Esterase Ur Negative LEU/UL (Negative); Nitrate Urine Negative (Negative); Protein Urine Negative (Negative); Specific Grav Ur 1.021 (1.001-1.035); Urobilinogen Urine 0.2 mg/dL (<2.0)
--- NOTE | 2024-06-17 19:44 | PC.NURSE ---
This patient, Brent Lewis, was transferred to [IMU ] on 06/17/24 at 1145am. Personal belongings sent with patient. Report given to [ [facility]]. Appropriate documentation sent with patient.
--- NOTE | 2024-06-17 19:50 | PC.NURSE ---
06/17/24 08:30 Informed Mirella of decline in patient condition. Patient responsive to sternal rubs with mumbles and moans. Vitals were stable at the time. Mirella was on the floor and went to assess the patient. Mirella stated that she is going to add orders for a CT scan, ultra sound of the right arm, and transfer patient the IMU.
[2024-06-17] MEDS: IPRATROPIUM 0.5 MG/ALBUTEROL SULFATE 2.5 MG AMPUL.NEB 3 ML NEBULIZE (20:16)
[2024-06-18] VITALS (26 sets, daily range): BP systolic 118–149; BP diastolic 53–64; PULSE 93–129; RESP 20–32; TEMP 36.7–38.1; O2SAT 94–99
[2024-06-18 00:13] LABS: Glucose Point of Care 144 mg/dl (65-105)
[2024-06-18 00:42] LABS: Potassium 2.7 mmol/L (3.4-5.0)
[2024-06-18] MEDS: POTASSIUM CHLORIDE INJ 40 MEQ in SODIUM CHLORIDE 0.9% IV 500 ML 130 MEQ IVPB ×2 (01:13→05:22)
[2024-06-18] MEDS: MAGNESIUM SULF 4 GM/WATER100ML 4 GM/100 ML BAG IVPB (01:14)
[2024-06-18] MEDS: IPRATROPIUM 0.5 MG/ALBUTEROL SULFATE 2.5 MG AMPUL.NEB 3 ML NEBULIZE ×4 (02:26→20:14)
[2024-06-18] MEDS: PIPERACILLIN/TAZ 4.5G/NS 100ML 4.5 GM/100 ML BAG IVPB ×4 (05:22→23:43)
[2024-06-18 05:29] LABS: Glucose Point of Care 146 mg/dl (65-105)
[2024-06-18] MEDS: ENOXAPARIN 40 MG/0.4 ML SYRINGE SUB-Q (09:41)
[2024-06-18] MEDS: FUROSEMIDE INJ 40 MG/4 ML VIAL IV PUSH (09:42)
[2024-06-18] MEDS: SODIUM CHLORIDE 0.9% IV 1,000 ML 100 ML IV CONT ×2 (09:42→21:00)
[2024-06-18] MEDS: PANTOPRAZOLE SODIUM IV 40 MG VIAL IV PUSH (09:42)
[2024-06-18 11:44] LABS: Basophils Percent Auto 0.4 % (0.2-1.2); Eosinophils Absolute Auto 0.2 K/mm3 (0-0.3); Eosinophils Percent Auto 3.4 % (0-4.4); Hematocrit 29.6 % (42.0-52.0); Immature Granulocyte Absolute 0.05 K/mm3 (0.00-0.031); Immature Granulocyte Percent A 0.9 % (0-0.5); Lymphocytes Absolute Auto 0.43 K/mm3 (0.9-3.2); Lymphocytes Percent Auto 8.1 % (18.3-44.2); Mean Corpuscular HGB Conc 33.8 g/dl (32-36); Mean Corpuscular Hemoglobin 33.4 pg (26-34); Mean Platelet Volume 9.8 fl (7.4-10.4); Monocytes Absolute Auto 0.5 K/mm3 (0.1-0.6); Neutrophils Absolute Auto 4.2 K/mm3 (1.3-6.7); Neutrophils Percent Auto 78.2 % (45.5-73.1); Platelet Count Result 184 k/mm3 (150-375); Red Blood Count 2.99 M/mm3 (4.6-6.20); Red Cell Distribution Width 14.1 % (11.5-14.5); White Blood Count 5.3 K/mm3 (4.5-10.0)
[2024-06-18 11:44] LABS: Glucose Point of Care 137 mg/dl (65-105)
[2024-06-18 12:44] LABS: Alanine Aminotransferase 13 U/L (6-50); Alkaline Phosphatase 60 U/L (38-126); Anion Gap 9 mmol/L (4-12); Aspartate Amino Transferase 22 U/L (17-59); Bilirubin,Total 0.9 mg/dL (0.2-1.3); Blood Urea Nitrogen 13 mg/dL (9-20); Calcium 8.9 mg/dL (8.4-10.2); Carbon Dioxide 28 mmol/L (22-30); Chloride 103 mmol/L (98-107); Estimated CRCL calculation 38 ml/min; Estimated Glomerular Filt Rate 45; Glucose 132 mg/dL (65-110); Magnesium 1.9 mg/dL (1.6-2.3); Potassium 3.3 mmol/L (3.4-5.0); Sodium 140 mmol/L (137-145)
[2024-06-18] MEDS: DOXYCYCLINE 100 MG/NS 100 ML 100 MG/100 ML BAG IVPB ×2 (12:45→21:00)
[2024-06-18 12:57] LABS: CRP 41.7 mg/dL (<1.0)
--- NOTE | 2024-06-18 14:24 | PCSTNOTE ---
Attempted bedside swallow on this date; pt did not open eyes, follows simole commands or close mouth around spoon. Pt is not a candidate for oral intake at this time. ST will attempt bedside swallow again tomorrow.
--- NOTE | 2024-06-18 15:26 | PCOTNOTE ---
Attempted to see Patient for P.M. treatment session. Patient very sleepy, difficult to arouse and unable to participate in activity. Patient's 2 daughters and RN present and encouraging Patient, unable.
--- NOTE | 2024-06-18 17:06 | P.PNIM_ITS ---
Progress Note: A&P Assessment and Plan (1) Acute hypoxic respiratory failure: Code(s): J96.01 - Acute respiratory failure with hypoxia Status: Acute Assessment and Plan: Pt remains lethargic today but with some improvement in mental status. Tachypnea related to fevers. He has diffuse myalgias. COVID, RSV and influenza negative CTA chest negative for PE and showing mild interstitial and ground glass opaciti es LLL with volume loss - atelectasis vs PNA BCx collected yesterday and are pending. MRSA nasal swab negative. ABG 06/17: 7.46/37/69 on 2L Started on broad-spectrum IV abx for possible hospital acquired PNA. WBC normal but CRP 42. Stable on 2L. Guarded overall condition. (2) Sepsis: Code(s): A41.9 - Sepsis, unspecified organism Status: Acute Assessment and Plan: He remains febrile. . Tachypnea related to fevers. He has diffuse myalgias. COVID, RSV and influenza negative. UA not consistent with UTI. CTA chest negative for PE and showing mild interstitial and ground glass opacities LLL with volume loss - atelectasis vs PNA CT A/P showing possible uncomplicated diverticulitis. CT brain showing stable changes but no acute findings. Does have increased mucosal thickening in the paranasal sinuses. BCx collected yesterday and are pending. MRSA nasal swab negative. BCx on 05/28 grew Staph epidermidis and Staph hominis Etiology could be HAP since was just treated earlier this month, diverticulitis, cellulitis and/or other etiology. - Consider no infectious etiology such as cancer. Started on Rocephin and Azithromycin then changed to Zosyn/Vanco on 06/16. WBC normal but CRP 42. Discussed with PharmD ID who recommended Doxy IV and Zosyn given the increased Cr. values. Abx adjusted. Some improvement today. (3) Encephalopathy: Code(s): G93.40 - Encephalopathy, unspecified Status: Acute Assessment and Plan: CT head without any acute abnormalities. Suspect related to sepsis as described above Some improvement, follow (4) Diverticulitis: Code(s): K57.92 - Diverticulitis of intestine, part unspecified, without perforation or abscess without bleeding Status: Acute Assessment and Plan: CT A/P showing possible uncomplicated diverticulitis. As above (5) Cellulitis: Code(s): L03.90 - Cellulitis, unspecified Status: Acute Assessment and Plan: Cellulitis RUE. Venous doppler RUE negative for DVT. Continue IV abx Warm compresses (6) Bone lesion: Code(s): M89.9 - Disorder of bone, unspecified Status: Acute Assessment and Plan: * As noted on CT abd and pelvis, concern for metastasis. * Oncology is following and we appreciate their continued suggestions for evaluation and management. (7) Hypomagnesemia: Code(s): E83.42 - Hypomagnesemia Status: Acute Assessment and Plan: * 1.9 today. * Trend labs (8) Generalized weakness: Code(s): R53.1 - Weakness Status: Acute Assessment and Plan: Related to above PTOT when able (9) Chronic kidney disease, stage 3: Code(s): N18.30 - Chronic kidney disease, stage 3 unspecified Status: Chronic Assessment and Plan: Cr 1-1.3 most on his hospitalization. Cr 1.5 today. Could be related to abx and/or contrast and/or Lasix Will stop Lasix. Abx adjusted. Follow electrolytes, UOP and renal fxn (10) Pancytopenia: Code(s): D61.818 - Other pancytopenia Status: Acute Assessment and Plan: Better today. WBC and plt count normal Hgb stable in the 10 range. Follow (11) Lower extremity edema: Code(s): R60.0 - Localized edema Status: Acute Assessment and Plan: Chronic lower extremity edema Venous duplex negative. BRIGIDA perez applied Hold lasix (12) Prostate cancer: Code(s): C61 - Malignant neoplasm of prostate Status: Acute Assessment and Plan: History of prostate cancer diagnosed in 2018 s/p radiation and Androgen deprivation therapy. Now follows with Dr Pak and is on Lupron every 3 months with Zytiga and prednisone. CTA Pelvis today shows that pt has lesions on the iliac wings concerning for possible metastasis or Paget's disease. Appreciate Oncology input for further diagnostics and or treatment recommendations. * Patient family to bring home Abiraterone but on hold * Oncology following pt. * Pt currently unable to have BMB for his pancytopenia as he is unstable and likely septic. This will need to be reordered. (13) Hypokalemia: Code(s): E87.6 - Hypokalemia Status: Acute Assessment and Plan: Potassium better at 3.3. Will not replace since new SIMONE and not sure if this will worsen Follow and replace if potassium drops lower Plan Code status: Full code per patient DVT prophylaxis: Lovenox Subjective Date/time seen: 06/18/24 17:06 Interval history: 84yo male with CKD, YAMILKA, DM, HTN, prostate CA and HLD here for generalized weakness. He was recently hospitalized in early May for weakness and found to have a left mid and lower PNA. He was discharged May 27 on Augmentin for 4 more days. Assuming care. Chart reviewed. Patient is somnolent but awakens easily. He is confused so hx not reliable. Review of Systems Review of Systems: ROS unobtainable: Yes unobtainable due to mental status Exam Narrative: Tm 103 100.5 142/59 106 32 97% 2L Gen - NARD sitting up in bed Chest - diffuse expiratory rhonchi CV - RRR S1/S2. Tele showing PVCs Abd - soft, diffusely tender, +BS Ext - RUE forearm erythema with linear tender nodule noted but not fluctuant. Tenderness to moving either leg. No knee edema. Brigida hose in place. 1-2+ pitting pedal edema. Tender throughout all extremities. Neuro - arouses. does answer a questions or two at times. keeps eyes open. No ankle clonus. follows commands at times. Psych - difficult to assess Skin - warm to touch. As above. Objective Data Vital Signs Vital Signs: Vital Signs - 24 hr 06/17/24 18:00 06/17/24 20:16 06/17/24 20:16 Temperature Pulse Rate 114 H 118 H Respiratory Rate 22 H Blood Pressure Pulse Oximetry 98 Oxygen Delivery Nasal Cannula Oxygen Flow Rate 2 Fraction of Inspired Oxygen 06/17/24 20:24 06/17/24 20:00 06/17/24 20:00 Temperature 99.2 F Pulse Rate 126 H 128 H 144 H Respiratory Rate 22 H 24 H Blood Pressure 123/66 Pulse Oximetry 96 Oxygen Delivery Oxygen Flow Rate Fraction of Inspired Oxygen 06/17/24 20:00 06/17/24 22:00 06/17/24 23:38 Temperature Pulse Rate 142 H 109 H 106 H Respiratory Rate 22 H Blood Pressure Pulse Oximetry 98 Oxygen Delivery Nasal Cannula Oxygen Flow Rate 2 Fraction of Inspired Oxygen 06/17/24 23:38 06/18/24 00:39 06/18/24 02:26 Temperature 98.0 F Pulse Rate 106 H 106 H 104 H Respiratory Rate 22 H 20 20 Blood Pressure 124/53 L Pulse Oximetry 98 95 Oxygen Delivery Nasal Cannula Oxygen Flow Rate 2 Fraction of Inspired Oxygen 21 06/18/24 02:33 06/18/24 03:57 06/18/24 02:00 Temperature 99.2 F Pulse Rate 101 H 93 96 Respiratory Rate 20 24 H Blood Pressure 125/55 L Pulse Oximetry 99 Oxygen Delivery Oxygen Flow Rate Fraction of Inspired Oxygen 06/18/24 04:00 06/18/24 04:00 06/18/24 05:38 Temperature Pulse Rate 98 96 98 Respiratory Rate 24 H Blood Pressure Pulse Oximetry 99 Oxygen Delivery Nasal Cannula Oxygen Flow Rate 2 Fraction of Inspired Oxygen 21 06/18/24 07:16 06/18/24 07:16 06/18/24 07:31 Temperature Pulse Rate 95 95 Respiratory Rate 20 20 Blood Pressure Pulse Oximetry 94 Oxygen Delivery Nasal Cannula Oxygen Flow Rate 2 Fraction of Inspired Oxygen 06/18/24 07:39 06/18/24 08:00 06/18/24 11:13 Temperature 98.2 F 100.2 F H Pulse Rate 96 105 H Respiratory Rate 32 H 32 H Blood Pressure 121/57 L 149/64 H Pulse Oximetry 95 95 98 Oxygen Delivery Nasal Cannula Oxygen Flow Rate 2 Fraction of Inspired Oxygen 06/18/24 13:27 06/18/24 13:27 06/18/24 13:39 Temperature Pulse Rate 105 H 103 H Respiratory Rate 20 20 Blood Pressure Pulse Oximetry 94 Oxygen Delivery Nasal Cannula Oxygen Flow Rate 2 Fraction of Inspired Oxygen 06/18/24 15:40 06/18/24 08:00 06/18/24 10:00 Temperature 100.5 F H Pulse Rate 110 H 102 H 100 Respiratory Rate 32 H Blood Pressure 142/59 H Pulse Oximetry 97 Oxygen Delivery Oxygen Flow Rate Fraction of Inspired Oxygen 06/18/24 12:00 06/18/24 14:00 06/18/24 16:00 Temperature Pulse Rate 100 109 H 106 H Respiratory Rate Blood Pressure Pulse Oximetry Oxygen Delivery Oxygen Flow Rate Fraction of Inspired Oxygen 06/18/24 12:00 06/18/24 16:00 Temperature Pulse Rate Respiratory Rate Blood Pressure Pulse Oximetry 97 97 Oxygen Delivery Nasal Cannula Nasal Cannula Oxygen Flow Rate 2 2 Fraction of Inspired Oxygen Intake/Output Intake/Output: Intake & Output 06/15/24 06/16/24 06/17/24 06/18/24 23:59 23:59 23:59 23:59 Intake Total 1670 2507 2663 1720 Output Total 460 064 2609 1850 Balance 770 7025 -065 -472 Meds/Results Medications: Active Medications Generic Name Dose Route Start Last Admin Trade Name Freq PRN Reason Stop Dose Admin Acetaminophen 650 mg 06/12/24 10:51 06/15/24 20:38 Acetaminophen 325 Mg Tablet PO 650 mg Q4H PRN Administration Headache Acetaminophen 650 mg 06/16/24 08:14 06/17/24 13:33 Acetaminophen 650 Mg Suppository RECTAL 650 mg Q6H PRN Administration Mild Pain (1-3) or Fever Al Hydrox/Mg Hydrox/Simethicone 30 ml 06/11/24 01:09 Mag Hydrox/Al Hydrox/Simeth 30 Ml Udc PO Q6H PRN Indigestion Albuterol/Ipratropium 3 ml 06/17/24 20:00 06/18/24 13:27 Ipratropium 0.5 Mg/Albuterol Sulfate 2.5 Mg Ampul.Neb 3 Ml NEBULIZE 3 ml Q6HRT SOPHIE Administration Aspirin 81 mg 06/11/24 09:00 06/17/24 11:12 Aspirin 81 Mg Enteric Tablet PO Not Given DAILY SOPHIE Dextrose 12.5 gm 06/17/24 15:40 Dextrose 50% 25 Gm/50 Ml Syringe IV PUSH PRN PRN Hypoglycemia Protocol Donepezil HCl 5 mg 06/11/24 21:00 06/13/24 21:47 Donepezil Hcl 5 Mg Tablet PO 5 mg QHS SOPHEI Administration Enoxaparin Sodium 40 mg 06/11/24 12:20 06/18/24 09:41 Enoxaparin 40 Mg/0.4 Ml Syringe SUB-Q 40 mg DAILY SOPHIE Administration Famotidine 20 mg 06/11/24 09:00 06/17/24 11:12 Famotidine 20 Mg Tablet PO Not Given Q12HR SOPHIE Ferrous Sulfate 325 mg 06/12/24 09:00 06/17/24 11:12 Ferrous Sulfate [address] PO Not Given DAILY SOPHIE Furosemide 40 mg 06/17/24 17:00 06/18/24 09:42 Furosemide Inj 40 Mg/4 Ml Vial IV PUSH 40 mg BID SOPHIE Administration Glucagon 1 mg 06/17/24 15:40 Glucagon For Inj 1 Mg Vial IM PRN PRN Hypoglycemia Protocol Glucose 15 gm 06/17/24 15:40 Glucose Oral Gel 15 Gm Of Glucse In 37.5 Gm Tube PO PRN PRN Hypoglycemia Protocol Sodium Chloride 1,000 mls @ 100 mls/hr 06/17/24 15:40 06/18/24 09:42 Normal Saline Iv IV CONT 100 mls/hr .Q10H SOPHIE Administration Dextrose 1,000 mls @ 100 mls/hr 06/17/24 15:40 Dextrose 5% 1,000 Ml IVPB PRN PRN Hypoglycemia Protocol Ibuprofen 800 mg in 200 mls @ 400 mls/hr 06/17/24 16:51 Caldolor 800 Mg/200 Ml IVPB Q6H PRN Pain Rated 4-6 Piperacillin Sod/Tazobactam Sod 4.5 gm in 100 mls @ 200 mls/hr 06/18/24 00:00 06/18/24 12:40 Zosyn 4.5 Gm/Ns 100 Ml IVPB 200 mls/hr Q6H SOPHIE Administration Doxycycline Hyclate 100 mg in 100 mls @ 100 mls/hr 06/18/24 12:00 06/18/24 12:45 Vibramycin 100 Mg/Ns 100 Ml IVPB 100 mls/hr Q12HR SOPHIE Administration Insulin Aspart 2 - 5 units 06/17/24 18:00 06/18/24 12:16 Insulin Aspart (*Bkc) 100 Units/Ml SUB-Q Not Given Q6HR SOPHIE Protocol Lorazepam 1 mg 06/17/24 15:40 Lorazepam Inj (*Crx) 2 Mg/Ml Vial IV PUSH Q6H PRN Anxiety Melatonin 10 mg 06/11/24 21:00 06/16/24 20:33 Melatonin 5 Mg Tablet PO 07/11/24 20:59 10 mg HS SOPHIE Administration Metolazone 2.5 mg 06/12/24 09:00 06/17/24 11:12 Metolazone 2.5 Mg Tablet PO Not Given MoWeFr SOPHIE Metoprolol Tartrate 5 mg 06/17/24 15:40 Metoprolol Tartrate Inj 5 Mg/5 Ml Vial IV PUSH Q12HR PRN Tachycardia Mirtazapine 15 mg 06/11/24 21:00 06/16/24 20:33 Mirtazapine 15 Mg Tablet PO 15 mg HS SOPHIE Administration Morphine Sulfate 2 mg 06/17/24 15:40 Morphine Sulfate (*Crx) 2 Mg/Ml Inj IV PUSH Q4H PRN Pain Rated 7-10 Neomycin/Polymyxin/Bacitracin 1 applic 06/13/24 18:50 Neomycin/Polymyxin/Bacitracin Ointment 15 Gm Tube TOPICAL PRN PRN with dressing changes Home Med ( 0 mg 06/12/24 06:30 06/18/24 05:04 Abiraterone 250 Mg PO 07/12/24 06:29 Not Given Tablet) DAILY@0630 [facility] Ondansetron HCl 4 mg 06/11/24 01:09 06/13/24 08:16 Ondansetron Inj 4 Mg/2 Ml Vial IV PUSH 4 mg Q6H PRN Administration Nausea And Vomiting Pantoprazole Sodium 40 mg 06/18/24 09:00 06/18/24 09:42 Pantoprazole Sodium Iv 40 Mg Vial IV PUSH 40 mg QAM SOPHIE Administration Polyethylene Glycol 17 gm 06/11/24 01:09 06/14/24 18:21 Polyethylene Glycol 3350 17 Gm Powd.Pack PO 17 gm QAM PRN Administration Constipation Tamsulosin HCl 0.4 mg 06/11/24 09:00 06/17/24 11:12 Tamsulosin Hcl 0.4 Mg Capsule PO Not Given Q12HR [facility] Radiology Results: ITS Impressions Abdomen Ultrasound 06/14/24 09:44 IMPRESSION: 1. Normal sizes of the liver and spleen. Chest X-Ray 06/16/24 09:50 IMPRESSION: 1. Airspace opacities at left lung base, consistent with atelectasis versus pneumonia. 2. Small left pleural effusion. Head CT 06/17/24 09:27 IMPRESSION: 1. Stable age-related changes including moderate diffuse volume loss and moderate scattered nonspecific white matter T2 hyperintensity consistent with chronic small vessel ischemic disease. 2. Increasing mucosal thickening in the paranasal sinuses. Chest/Abdomen/Pelvis CTA 06/17/24 09:31 IMPRESSION: 1. Mild interstitial and groundglass opacities in the left lower lobe with associated volume loss to at least in part to atelectasis although could not exclude superimposed mild pulmonary edema or pneumonia. 2. Diverticulosis with mild stranding along the distal descending colon suspicious for radiographically uncomplicated diverticulitis. 3. A couple new region of sclerosis along the iliac wings which raises concern for metastatic disease with appearance on the right suggesting possible early localized Paget's disease. Correlate with clinical history and could consider bone scan to assess for any additional lesions which would elevate concern for metastatic disease. Venous Doppler Study 06/17/24 13:22 IMPRESSION: 1. No deep venous thrombosis. Labs Labs: Laboratory Results - last 24 hr 06/17/24 06/17/24 06/18/24 18:18 18:32 00:10 WBC RBC Hgb Hct MCV MCH MCHC RDW Plt Count MPV Immature Gran % (Auto) Neut % (Auto) Lymph % (Auto) [place] % (Auto) Eos % (Auto) Baso % (Auto) Lymph # (Auto) [place] # (Auto) Eos # (Auto) Baso # (Auto) Abs Immat Gran (auto) Absolute Neuts (auto) Absolute Nucleated RBC Nucleated RBC % Sodium Potassium Chloride Carbon Dioxide Anion Gap BUN Creatinine Estim Creat Clear Calc Estimated GFR Glucose POC Capillary Glucose 144 H 144 H Calcium Magnesium Total Bilirubin AST ALT Alkaline Phosphatase C-Reactive Protein Total Protein Albumin Urine Color Yellow Urine Appearance Clear Urine pH 5.0 Ur Specific Saxis 1.021 Urine Protein Negative Urine Glucose (UA) Negative Urine Ketones 1+ H Ur Blood (Man) Negative Urine Nitrate Negative Urine Bilirubin Negative Urine Urobilinogen 0.2 Leukocyte Esterase Rfl Negative 06/18/24 06/18/24 06/18/24 00:22 05:20 11:39 WBC 5.3 RBC 2.99 L Hgb 10.0 L Hct 29.6 L MCV 99.0 MCH 33.4 MCHC 33.8 RDW 14.1 Plt Count 184 MPV 9.8 Immature Gran % (Auto) 0.9 H Neut % (Auto) 78.2 H Lymph % (Auto) 8.1 L [place] % (Auto) 9.0 H Eos % (Auto) 3.4 Baso % (Auto) 0.4 Lymph # (Auto) 0.43 L [place] # (Auto) 0.5 Eos # (Auto) 0.2 Baso # (Auto) 0.0 Abs Immat Gran (auto) 0.05 H Absolute Neuts (auto) 4.2 Absolute Nucleated RBC 0.000 Nucleated RBC % 0.0 Sodium 140 Potassium 2.7 L* 3.3 L Chloride 103 Carbon Dioxide 28 Anion Gap 9 BUN 13 Creatinine 1.50 H Estim Creat Clear Calc 38 Estimated GFR 45 L Glucose 132 H POC Capillary Glucose 146 H Calcium 8.9 Magnesium 1.9 Total Bilirubin 0.9 AST 22 ALT 13 Alkaline Phosphatase 60 C-Reactive Protein 41.7 H Total Protein 6.0 L Albumin 3.0 L Urine Color Urine Appearance Urine pH Ur Specific Saxis Urine Protein Urine Glucose (UA) Urine Ketones Ur Blood (Man) Urine Nitrate Urine Bilirubin Urine Urobilinogen Leukocyte Esterase [facility] 06/18/24 11:40 WBC RBC Hgb Hct MCV MCH MCHC RDW Plt Count MPV Immature Gran % (Auto) Neut % (Auto) Lymph % (Auto) [place] % (Auto) Eos % (Auto) Baso % (Auto) Lymph # (Auto) [place] # (Auto) Eos # (Auto) Baso # (Auto) Abs Immat Gran (auto) Absolute Neuts (auto) Absolute Nucleated RBC Nucleated RBC % Sodium Potassium Chloride Carbon Dioxide Anion Gap BUN Creatinine Estim Creat Clear Calc Estimated GFR Glucose POC Capillary Glucose 137 H Calcium Magnesium Total Bilirubin AST ALT Alkaline Phosphatase C-Reactive Protein Total Protein Albumin Urine Color Urine Appearance Urine pH Ur Specific Saxis Urine Protein Urine Glucose (UA) Urine Ketones Ur Blood (Man) Urine Nitrate Urine Bilirubin Urine Urobilinogen Leukocyte Esterase Rfl
[2024-06-18 18:06] LABS: Glucose Point of Care 146 mg/dl (65-105)
[2024-06-19] VITALS (30 sets, daily range): BP systolic 125–152; BP diastolic 43–61; PULSE 97–110; RESP 20–32; TEMP 36.7–39.1; O2SAT 93–97; BMI 10.0
[2024-06-19 00:34] LABS: Glucose Point of Care 132 mg/dl (65-105)
[2024-06-19] MEDS: IPRATROPIUM 0.5 MG/ALBUTEROL SULFATE 2.5 MG AMPUL.NEB 3 ML NEBULIZE ×4 (02:35→19:47)
[2024-06-19 05:32] LABS: Basophils Percent Auto 0.7 % (0.2-1.2); Eosinophils Absolute Auto 0.2 K/mm3 (0-0.3); Eosinophils Percent Auto 5.6 % (0-4.4); Hematocrit 28.6 % (42.0-52.0); Hemoglobin 9.2 g/dL (14.0-18.0); Immature Granulocyte Absolute 0.03 K/mm3 (0.00-0.031); Lymphocytes Absolute Auto 0.33 K/mm3 (0.9-3.2); Lymphocytes Percent Auto 10.9 % (18.3-44.2); Mean Corpuscular HGB Conc 32.2 g/dl (32-36); Mean Corpuscular Hemoglobin 33.7 pg (26-34); Mean Corpuscular Volume 104.8 fl (80-100); Mean Platelet Volume 11.3 fl (7.4-10.4); Monocytes Absolute Auto 0.4 K/mm3 (0.1-0.6); Monocytes Percent Auto 13.9 % (2.6-8.5); Neutrophils Absolute Auto 2.1 K/mm3 (1.3-6.7); Neutrophils Percent Auto 67.9 % (45.5-73.1); Platelet Count Result 152 k/mm3 (150-375); Red Blood Count 2.73 M/mm3 (4.6-6.20); Red Cell Distribution Width 14.2 % (11.5-14.5)
[2024-06-19] MEDS: PIPERACILLIN/TAZ 4.5G/NS 100ML 4.5 GM/100 ML BAG IVPB ×3 (05:40→18:08)
[2024-06-19 05:58] LABS: Alanine Aminotransferase 11 U/L (6-50); Albumin Level 2.4 g/dL (3.5-5.1); Alkaline Phosphatase 55 U/L (38-126); Anion Gap 12 mmol/L (4-12); Aspartate Amino Transferase 23 U/L (17-59); Bilirubin,Total 0.7 mg/dL (0.2-1.3); Blood Urea Nitrogen 14 mg/dL (9-20); Calcium 8.6 mg/dL (8.4-10.2); Carbon Dioxide 22 mmol/L (22-30); Chloride 107 mmol/L (98-107); Estimated CRCL calculation 38 ml/min; Estimated Glomerular Filt Rate 45; Glucose 117 mg/dL (65-110); Magnesium 1.6 mg/dL (1.6-2.3); Potassium 2.6 mmol/L (3.4-5.0); Sodium 141 mmol/L (137-145)
[2024-06-19 07:33] LABS: CRP 40.6 mg/dL (<1.0)
[2024-06-19] MEDS: POTASSIUM CHLORIDE INJ 40 MEQ in SODIUM CHLORIDE 0.9% IV 500 ML 130 MEQ IVPB (08:01)
[2024-06-19] MEDS: SODIUM CHLORIDE 0.9% IV 1,000 ML 100 ML IV CONT (08:02)
[2024-06-19] MEDS: DOXYCYCLINE 100 MG/NS 100 ML 100 MG/100 ML BAG IVPB ×2 (08:02→20:35)
[2024-06-19] MEDS: PANTOPRAZOLE SODIUM IV 40 MG VIAL IV PUSH (08:03)
[2024-06-19] MEDS: ENOXAPARIN 40 MG/0.4 ML SYRINGE SUB-Q (08:03)
--- NOTE | 2024-06-19 08:36 | P.PNIM_ITS ---
Progress Note: A&P Assessment and Plan (1) Sepsis: Code(s): A41.9 - Sepsis, unspecified organism Status: Acute (2) Acute hypoxic respiratory failure: Code(s): J96.01 - Acute respiratory failure with hypoxia Status: Acute (3) Pneumonia: Qualifiers: Laterality: unspecified laterality Lung location: lower lobe of lung Pneumonia type: due to unspecified organism Qualified Code(s): J18.9 - Pneumonia, unspecified organism Code(s): J18.9 - Pneumonia, unspecified organism Status: Acute (4) Cellulitis: Code(s): L03.90 - Cellulitis, unspecified Status: Acute Plan (1) Acute hypoxic respiratory failure: Code(s): J96.01 - Acute respiratory failure with hypoxia Status: Acute Assessment and Plan: Pt remains lethargic today but with some improvement in mental status. Tachypnea related to fevers. He has diffuse myalgias. COVID, RSV and influenza negative CTA chest negative for PE and showing mild interstitial and ground glass opacities LLL with volume loss - atelectasis vs PNA BCx collected yesterday and are pending. MRSA nasal swab negative. ABG 06/17: 7.46/37/69 on 2L Started on broad-spectrum IV abx for possible hospital acquired PNA. WBC normal but CRP 42. Stable on 2L. Guarded overall condition. (2) Sepsis: Code(s): A41.9 - Sepsis, unspecified organism Status: Acute Assessment and Plan: He remains febrile. . Tachypnea related to fevers. He has diffuse myalgias. COVID, RSV and influenza negative. UA not consistent with UTI. CTA chest negative for PE and showing mild interstitial and ground glass opacities LLL with volume loss - atelectasis vs PNA CT A/P showing possible uncomplicated diverticulitis. CT brain showing stable changes but no acute findings. Does have increased mucosal thickening in the paranasal sinuses. BCx are negative so far. MRSA nasal swab negative. BCx on 05/24 grew Staph epidermidis and Staph hominis Etiology could be HAP since was just treated earlier this month, diverticulitis, cellulitis and/or other etiology. - Consider no infectious etiology such as cancer. Started on Rocephin and Azithromycin then changed to Zosyn/Vanco on 06/16. WBC normal but CRP 42. Discussed with PharmD ID who recommended Doxy IV and Zosyn given the increased Cr. values. Abx adjusted. 06/19 Patient leukopenia 3000, low-grade fever 99.2 over the night, had a fever 100.5 yesterday, X-ray showed airspace opacity and left lung base (3) Encephalopathy: Code(s): G93.40 - Encephalopathy, unspecified Status: Acute Assessment and Plan: CT head without any acute abnormalities. Suspect related to sepsis as described above Some improvement, follow (4) Diverticulitis: Code(s): K57.92 - Diverticulitis of intestine, part unspecified, without perforation or abscess without bleeding Status: Acute Assessment and Plan: CT A/P showing possible uncomplicated diverticulitis. As above (5) Cellulitis: Code(s): L03.90 - Cellulitis, unspecified Status: Acute Assessment and Plan: Cellulitis RUE. Venous doppler RUE negative for DVT. Continue IV abx Warm compresses (6) Bone lesion: Code(s): M89.9 - Disorder of bone, unspecified Status: Acute Assessment and Plan: * As noted on CT abd and pelvis, concern for metastasis. * Oncology is following and we appreciate their continued suggestions for evaluation and management. (7) Hypomagnesemia: Code(s): E83.42 - Hypomagnesemia Status: Acute Assessment and Plan: * 1.9 today. * Trend labs (8) Generalized weakness: Code(s): R53.1 - Weakness Status: Acute Assessment and Plan: Related to above PTOT when able SIMONE on CKD Cr 1-1.3 most on his hospitalization. Cr 1.5 since 06/18. Could be related to abx and/or contrast and/or Lasix stop Lasix. Abx adjusted. NS is ordered but no iv acess, place PICC and increase NS to 150 ml Follow-up BMP, urine output Follow-up renal ultrasound, urinalysis (10) Pancytopenia: Code(s): D61.818 - Other pancytopenia Status: Acute Assessment and Plan: Better today. WBC and plt count normal Hgb stable in the 10 range. Follow (11) Lower extremity edema: Code(s): R60.0 - Localized edema Status: Acute Assessment and Plan: Chronic lower extremity edema Venous duplex negative. BRIGIDA perez applied (12) Prostate cancer: Code(s): C61 - Malignant neoplasm of prostate Status: Acute Assessment and Plan: History of prostate cancer diagnosed in 2018 s/p radiation and Androgen deprivation therapy. Now follows with Dr Pak and is on Lupron every 3 months with Zytiga and prednisone. CTA Pelvis today shows that pt has lesions on the iliac wings concerning for possible metastasis or Paget's disease. Appreciate Oncology input for further diagnostics and or treatment recommendations. * Patient family to bring home Abiraterone but on hold * Oncology following pt. * Pt currently unable to have BMB for his pancytopenia as he is unstable and likely septic. This will need to be reordered. (13) Hypokalemia: Code(s): E87.6 - Hypokalemia Status: Acute Assessment and Plan: Potassium better at 3.3. Will not replace since new SIMONE and not sure if this will worsen Follow and replace if potassium drops lower 06/19 K2.6 replete with potassium chloride 40 mEq IV, magnesium 1.6, replete with magnesium sulfate 2 g IV discontinue IV Protonix which can resulting loss of potassium and magnesium Change the Pepcid to 20 mg b.i.d. iv fu BMP Subjective Date/time seen: 06/19/24 08:36 Interval history: I saw and examined the patient today in presents of patient's family and [facility] nurse. Patient still confused, arousable, cannot provide history. Patient is somnolent, moving all extremities, denies headache, chest pain or shortness of breath. Patient has tachycardia tachypnea, low-grade fever 99.6, patient had fever 100.5 yesterday, lab showed leukopenia 3000, hemoglobin 9.2, potassium 2.6, elevated creatinine 1.5 since yesterday. X-ray showed airspace opacity and left lung base Exam Narrative: GENERAL: Ill-appearing in no acute distress. Well-nourished. - EYES: EOMI. Anicteric. - HENT: Moist mucous membranes. - LUNGS: Clear to auscultation bilateral ly, no wheezing, rhonchi, or rales. - CARDIOVASCULAR: Regular rate and rhyth m. No murmur. No JVD. - ABDOMEN: Soft, non-tender and non-dist ended. No palpable masses. - EXTREMITIES: No edema. Peripheral puls es 2+. Non-tender. - NEUROLOGIC: No focal neurological defi cits. CN II-XII grossly intact. - PSYCHIATRIC: Somnolent and not orient ed x 3. Appropriate mood and affect. - SKIN: Swelling, redness, tender of ri ght arm, - LYMPH: No cervical lymphadenopathy. Objective Data Vital Signs Vital Signs: Vital Signs - 24 hr 06/18/24 11:13 06/18/24 13:27 06/18/24 13:27 Temperature 100.2 F H Pulse Rate 105 H 105 H Respiratory Rate 32 H 20 Blood Pressure 149/64 H Pulse Oximetry 98 94 Oxygen Delivery Nasal Cannula Oxygen Flow Rate 2 06/18/24 13:39 06/18/24 15:40 06/18/24 10:00 Temperature 100.5 F H Pulse Rate 103 H 110 H 100 Respiratory Rate 20 32 H Blood Pressure 142/59 H Pulse Oximetry 97 Oxygen Delivery Oxygen Flow Rate 06/18/24 12:00 06/18/24 14:00 06/18/24 16:00 Temperature Pulse Rate 100 109 H 106 H Respiratory Rate Blood Pressure Pulse Oximetry Oxygen Delivery Oxygen Flow Rate 06/18/24 12:00 06/18/24 16:00 06/18/24 18:00 Temperature Pulse Rate 106 H Respiratory Rate Blood Pressure Pulse Oximetry 97 97 Oxygen Delivery Nasal Cannula Nasal Cannula Oxygen Flow Rate 2 2 06/18/24 19:51 06/18/24 20:14 06/18/24 20:14 Temperature 98.0 F Pulse Rate 104 H 104 H Respiratory Rate 22 H 20 Blood Pressure 131/56 L Pulse Oximetry 97 95 Oxygen Delivery Nasal Cannula Oxygen Flow Rate 2 06/18/24 20:22 06/18/24 20:00 06/18/24 20:00 Temperature Pulse Rate 101 H 104 H Respiratory Rate 20 Blood Pressure Pulse Oximetry 95 Oxygen Delivery Nasal Cannula Oxygen Flow Rate 2 06/18/24 23:42 06/18/24 23:48 06/19/24 00:00 Temperature 98.5 F Pulse Rate 129 H 98 Respiratory Rate 30 H Blood Pressure 118/64 Pulse Oximetry 97 97 Oxygen Delivery Nasal Cannula Oxygen Flow Rate 2 06/19/24 02:35 06/19/24 02:40 06/19/24 03:24 Temperature Pulse Rate 100 97 Respiratory Rate 20 20 Blood Pressure Pulse Oximetry 97 Oxygen Delivery Nasal Cannula Oxygen Flow Rate 2 06/19/24 03:59 06/19/24 04:00 06/19/24 07:17 Temperature 98.0 F 99.2 F Pulse Rate 98 101 H 102 H Respiratory Rate 23 H 32 H Blood Pressure 129/54 L 125/45 L Pulse Oximetry 94 97 Oxygen Delivery Oxygen Flow Rate 06/19/24 07:25 06/19/24 07:26 06/19/24 07:34 Temperature Pulse Rate 100 98 Respiratory Rate 20 20 Blood Pressure Pulse Oximetry 96 Oxygen Delivery Nasal Cannula Oxygen Flow Rate 2 Intake/Output Intake/Output: Intake & Output 06/16/24 06/17/24 06/18/24 06/19/24 23:59 23:59 23:59 23:59 Intake Total 2507 2663 3120 1200 Output Total 650 3050 2150 800 Balance 1857 -387 970 400 Meds/Results Medications: Active Medications Generic Name Dose Route Start Last Admin Trade Name Freq PRN Reason Stop Dose Admin Acetaminophen 650 mg 06/12/24 10:51 06/15/24 20:38 Acetaminophen 325 Mg Tablet PO 650 mg Q4H PRN Administration Headache Acetaminophen 650 mg 06/16/24 08:14 06/17/24 13:33 Acetaminophen 650 Mg Suppository RECTAL 650 mg Q6H PRN Administration Mild Pain (1-3) or Fever Al Hydrox/Mg Hydrox/Simethicone 30 ml 06/11/24 01:09 Mag Hydrox/Al Hydrox/Simeth 30 Ml Udc PO Q6H PRN Indigestion Albuterol/Ipratropium 3 ml 06/17/24 20:00 06/19/24 07:24 Ipratropium 0.5 Mg/Albuterol Sulfate 2.5 Mg Ampul.Neb 3 Ml NEBULIZE 3 ml Q6HRT SOPHIE Administration Aspirin 81 mg 06/11/24 09:00 06/17/24 11:12 Aspirin 81 Mg Enteric Tablet PO Not Given DAILY SOPHIE Dextrose 12.5 gm 06/17/24 15:40 Dextrose 50% 25 Gm/50 Ml Syringe IV PUSH PRN PRN Hypoglycemia Protocol Donepezil HCl 5 mg 06/11/24 21:00 06/13/24 21:47 Donepezil Hcl 5 Mg Tablet PO 5 mg QHS SOPHIE Administration Enoxaparin Sodium 40 mg 06/11/24 12:20 06/19/24 08:03 Enoxaparin 40 Mg/0.4 Ml Syringe SUB-Q 40 mg DAILY SOPHIE Administration Famotidine 20 mg 06/11/24 09:00 06/17/24 11:12 Famotidine 20 Mg Tablet PO Not Given Q12HR SOPHIE Ferrous Sulfate 325 mg 06/12/24 09:00 06/17/24 11:12 Ferrous Sulfate [address] PO Not Given DAILY SOPHIE Glucagon 1 mg 06/17/24 15:40 Glucagon For Inj 1 Mg Vial IM PRN PRN Hypoglycemia Protocol Glucose 15 gm 06/17/24 15:40 Glucose Oral Gel 15 Gm Of Glucse In 37.5 Gm Tube PO PRN PRN Hypoglycemia Protocol Sodium Chloride 1,000 mls @ 100 mls/hr 06/17/24 15:40 06/19/24 08:02 Normal Saline Iv IV CONT 100 mls/hr .Q10H SOPHIE Administration Dextrose 1,000 mls @ 100 mls/hr 06/17/24 15:40 Dextrose 5% 1,000 Ml IVPB PRN PRN Hypoglycemia Protocol Piperacillin Sod/Tazobactam Sod 4.5 gm in 100 mls @ 200 mls/hr 06/18/24 00:00 06/19/24 06:23 Zosyn 4.5 Gm/Ns 100 Ml IVPB Infused Q6H SOPHIE Infusion Doxycycline Hyclate 100 mg in 100 mls @ 100 mls/hr 06/18/24 12:00 06/19/24 08:02 Vibramycin 100 Mg/Ns 100 Ml IVPB 100 mls/hr Q12HR SOPHIE Administration Potassium Chloride 40 meq/ 520 mls @ 130 mls/hr 06/19/24 07:33 06/19/24 08:01 Sodium Chloride IVPB 06/19/24 11:32 130 mls/hr ONCE ONE Administration Insulin Aspart 2 - 5 units 06/17/24 18:00 06/19/24 06:22 Insulin Aspart (*Bkc) 100 Units/Ml SUB-Q Not Given Q6HR SOPHIE Protocol Lorazepam 1 mg 06/17/24 15:40 Lorazepam Inj (*Crx) 2 Mg/Ml Vial IV PUSH Q6H PRN Anxiety Melatonin 10 mg 06/11/24 21:00 06/16/24 20:33 Melatonin 5 Mg Tablet PO 07/11/24 20:59 10 mg HS SOPHIE Administration Metolazone 2.5 mg 10/23/24 09:00 06/17/24 11:12 Metolazone 2.5 Mg Tablet PO Not [facility]op[facility] Tartrate 5 mg 06/17/24 15:40 Metoprolol Tartrate Inj 5 Mg/5 Ml Vial IV PUSH Q12HR PRN Tachycardia Mirtazapine 15 mg 06/11/24 21:00 06/16/24 20:33 Mirtazapine 15 Mg Tablet PO 15 mg HS [facility] Administration Morphine Sulfate 2 mg 06/17/24 15:40 Morphine Sulfate (*Crx) 2 Mg/Ml Inj IV PUSH Q4H PRN Pain Rated 7-10 Neomycin/Polymyxin/Bacitracin 1 applic 06/13/24 18:50 Neomycin/Polymyxin/Bacitracin Ointment 15 Gm Tube TOPICAL PRN PRN with dressing changes Home Med ( 0 mg 06/12/24 06:30 06/19/24 05:41 Abiraterone 250 Mg PO 07/12/24 06:29 Not Given Tablet) DAILY@0630 [facility] Ondansetron HCl 4 mg 06/11/24 01:09 06/13/24 08:16 Ondansetron Inj 4 Mg/2 Ml Vial IV PUSH 4 mg Q6H PRN Administration Nausea And Vomiting Pantoprazole Sodium 40 mg 06/18/24 09:00 06/19/24 08:03 Pantoprazole Sodium Iv 40 Mg Vial IV PUSH 40 mg QAM SOPHIE Administration Polyethylene Glycol 17 gm 06/11/24 01:09 06/14/24 18:21 Polyethylene Glycol 3350 17 Gm Powd.Pack PO 17 gm QAM PRN Administration Constipation Tamsulosin HCl 0.4 mg 06/11/24 09:00 06/17/24 11:12 Tamsulosin Hcl 0.4 Mg Capsule PO Not Given Q12HR [facility] Radiology Results: ITS Impressions Abdomen Ultrasound 06/14/24 09:44 IMPRESSION: 1. Normal sizes of the liver and spleen. Chest X-Ray 06/16/24 09:50 IMPRESSION: 1. Airspace opacities at left lung base, consistent with atelectasis versus pneumonia. 2. Small left pleural effusion. Head CT 06/17/24 09:27 IMPRESSION: 1. Stable age-related changes including moderate diffuse volume loss and moderate scattered nonspecific white matter T2 hyperintensity consistent with chronic small vessel ischemic disease. 2. Increasing mucosal thickening in the paranasal sinuses. Chest/Abdomen/Pelvis CTA 06/17/24 09:31 IMPRESSION: 1. Mild interstitial and groundglass opacities in the left lower lobe with associated volume loss to at least in part to atelectasis although could not exclude superimposed mild pulmonary edema or pneumonia. 2. Diverticulosis with mild stranding along the distal descending colon suspicious for radiographically uncomplicated diverticulitis. 3. A couple new region of sclerosis along the iliac wings which raises concern for metastatic disease with appearance on the right suggesting possible early localized Paget's disease. Correlate with clinical history and could consider bone scan to assess for any additional lesions which would elevate concern for metastatic disease. Venous Doppler Study 06/17/24 13:22 IMPRESSION: 1. No deep venous thrombosis. Labs Labs: Laboratory Results - last 24 hr 06/18/24 06/18/24 06/18/24 11:39 11:40 18:04 WBC 5.3 RBC 2.99 L Hgb 10.0 L Hct 29.6 L MCV 99.0 MCH 33.4 MCHC 33.8 RDW 14.1 Plt Count 184 MPV 9.8 Immature Gran % (Auto) 0.9 H Neut % (Auto) 78.2 H Lymph % (Auto) 8.1 L [place] % (Auto) 9.0 H Eos % (Auto) 3.4 Baso % (Auto) 0.4 Lymph # (Auto) 0.43 L [place] # (Auto) 0.5 Eos # (Auto) 0.2 Baso # (Auto) 0.0 Abs Immat Gran (auto) 0.05 H Absolute Neuts (auto) 4.2 Absolute Nucleated RBC 0.000 Nucleated RBC % 0.0 Sodium 140 Potassium 3.3 L Chloride 103 Carbon Dioxide 28 Anion Gap 9 BUN 13 Creatinine 1.50 H Estim Creat Clear Calc 38 Estimated GFR 45 L Glucose 132 H POC Capillary Glucose 137 H 146 H Calcium 8.9 Magnesium 1.9 Total Bilirubin 0.9 AST 22 ALT 13 Alkaline Phosphatase 60 C-Reactive Protein 41.7 H Total Protein 6.0 L Albumin 3.0 L 06/19/24 06/19/24 00:32 04:52 WBC 3.0 L RBC 2.73 L Hgb 9.2 L Hct 28.6 L MCV 104.8 H D MCH 33.7 MCHC 32.2 RDW 14.2 Plt Count 152 MPV 11.3 H Immature Gran % (Auto) 1.0 H Neut % (Auto) 67.9 Lymph % (Auto) 10.9 L [place] % (Auto) 13.9 H Eos % (Auto) 5.6 H Baso % (Auto) 0.7 Lymph # (Auto) 0.33 L [place] # (Auto) 0.4 Eos # (Auto) 0.2 Baso # (Auto) 0.0 Abs Immat Gran (auto) 0.03 Absolute Neuts (auto) 2.1 Absolute Nucleated RBC 0.000 Nucleated RBC % 0.0 Sodium 141 Potassium 2.6 L* Chloride 107 Carbon Dioxide 22 Anion Gap 12 BUN 14 Creatinine 1.50 H Estim Creat Clear Calc 38 Estimated GFR 45 L Glucose 117 H POC Capillary Glucose 132 H Calcium 8.6 Magnesium 1.6 Total Bilirubin 0.7 AST 23 ALT 11 Alkaline Phosphatase 55 C-Reactive Protein 40.6 H Total Protein 5.0 L Albumin 2.4 L
[2024-06-19] MEDS: LIDOCAINE HCL 1% PF INJ 5 ML VIAL INFILTRATE (09:00)
--- NOTE | 2024-06-19 09:22 | PCSTNOTE ---
Please refer to the Bedside Swallow Evaluation in the EMR. Please note, silent aspiration cannot be ruled out at bedside.
[2024-06-19 11:37] LABS: Glucose Point of Care 123 mg/dl (65-105)
[2024-06-19] MEDS: CENTRAL LINE FLUSH 10 ML IV PUSH ×2 (14:02→20:35)
[2024-06-19 16:02] LABS: Add Urine Microscopic? YES; Appearance Urine Cloudy (Clear); Bacteria Urine None Seen /hpf; Bilirubin Urine Negative (Negative); Blood Urine Negative (Negative); Color Urine Yellow (Yellow); Glucose Urine UA Negative (Negative); Ketones Urine 1+ mg/dL (Negative); Leukocyte Esterase Ur Negative LEU/UL (Negative); Need Manual Microscopic Reviewed; Nitrate Urine Negative (Negative); Protein Urine 1+ mg/dL (Negative); RBC Urine 0-2 /hpf (0-2); Specific Grav Ur 1.022 (1.001-1.035); Squamous Epithelial Cell Urine None Seen /hpf (Few); Uric Acid Crystals Urine Present /hpf; Urobilinogen Urine 0.2 mg/dL (<2.0); WBC Urine 0-5 /hpf (0-3)
[2024-06-19 16:03] LABS: Amorphous Sediment Urine Few
[2024-06-19] MEDS: MAGNESIUM SULF 1 GM/D5W 100 ML 1 GM/100 ML BAG IVPB (16:37)
[2024-06-19] MEDS: ACETAMINOPHEN 650 MG SUPPOSITORY RECTAL (17:41)
--- NOTE | 2024-06-19 17:55 | PC.NURSE ---
Resting in bed with eyes closed. 3+ BUE and BLE edema. Crackles to bases of lungs. Febrile. Dr. Pimentel made aware. New orders noted for 40 mg Lasix x 1 dose and hold NS maintenance fluids.
[2024-06-19] MEDS: FUROSEMIDE INJ 40 MG/4 ML VIAL IV PUSH (18:12)
[2024-06-19 18:15] LABS: Glucose Point of Care 171 mg/dl (65-105)
[2024-06-19] MEDS: FAMOTIDINE 20 MG/2 ML VIAL IV PUSH (20:35)
[2024-06-20] VITALS (73 sets, daily range): BP systolic 63–180; BP diastolic 41–88; PULSE 94–135; RESP 11–35; TEMP 36.9–39.8; O2SAT 94–100
[2024-06-20] MEDS: PIPERACILLIN/TAZ 4.5G/NS 100ML 4.5 GM/100 ML BAG IVPB ×2 (00:40→06:02)
[2024-06-20 00:57] LABS: Glucose Point of Care 152 mg/dl (65-105)
[2024-06-20] MEDS: IPRATROPIUM 0.5 MG/ALBUTEROL SULFATE 2.5 MG AMPUL.NEB 3 ML NEBULIZE ×4 (02:23→21:00)
[2024-06-20 06:34] LABS: Basophils Absolute Auto 0.1 K/mm3 (0.0-0.1); Basophils Percent Auto 1.1 % (0.2-1.2); Eosinophils Absolute Auto 0.4 K/mm3 (0-0.3); Hematocrit 29.6 % (42.0-52.0); Hemoglobin 9.9 g/dL (14.0-18.0); Immature Granulocyte Absolute 0.03 K/mm3 (0.00-0.031); Immature Granulocyte Percent A 0.6 % (0-0.5); Lymphocytes Absolute Auto 0.63 K/mm3 (0.9-3.2); Lymphocytes Percent Auto 13.3 % (18.3-44.2); Mean Corpuscular HGB Conc 33.4 g/dl (32-36); Mean Corpuscular Hemoglobin 33.8 pg (26-34); Mean Platelet Volume 9.9 fl (7.4-10.4); Monocytes Absolute Auto 0.4 K/mm3 (0.1-0.6); Monocytes Percent Auto 9.3 % (2.6-8.5); Neutrophils Absolute Auto 3.2 K/mm3 (1.3-6.7); Neutrophils Percent Auto 67.7 % (45.5-73.1); Platelet Count Result 210 k/mm3 (150-375); Red Blood Count 2.93 M/mm3 (4.6-6.20); Red Cell Distribution Width 14.2 % (11.5-14.5); White Blood Count 4.8 K/mm3 (4.5-10.0)
[2024-06-20] MEDS: CENTRAL LINE FLUSH 10 ML IV PUSH ×3 (07:00→21:13)
[2024-06-20 07:01] LABS: Potassium 2.3 mmol/L (3.4-5.0)
[2024-06-20 07:02] LABS: Alanine Aminotransferase 11 U/L (6-50); Alkaline Phosphatase 57 U/L (38-126); Anion Gap 12 mmol/L (4-12); Aspartate Amino Transferase 24 U/L (17-59); Bilirubin,Total 0.7 mg/dL (0.2-1.3); Blood Urea Nitrogen 15 mg/dL (9-20); Calcium 9.1 mg/dL (8.4-10.2); Carbon Dioxide 25 mmol/L (22-30); Chloride 107 mmol/L (98-107); Estimated CRCL calculation 0 ml/min; Estimated Glomerular Filt Rate 39; Glucose 137 mg/dL (65-110); Magnesium 1.7 mg/dL (1.6-2.3); Sodium 144 mmol/L (137-145)
[2024-06-20 07:28] LABS: CRP 34.1 mg/dL (<1.0)
[2024-06-20] MEDS: DOXYCYCLINE 100 MG/NS 100 ML 100 MG/100 ML BAG IVPB (09:01)
[2024-06-20] MEDS: FAMOTIDINE 20 MG/2 ML VIAL IV PUSH (09:01)
[2024-06-20] MEDS: ENOXAPARIN 40 MG/0.4 ML SYRINGE SUB-Q (09:01)
--- NOTE | 2024-06-20 09:52 | PC.NURSE ---
Dr. Hustno notified of critical potassium of 2.3. New order for stat ABG, tylenol suppository for fever of 101.3, and 40meq K+ IVPB.
[2024-06-20] MEDS: ACETAMINOPHEN 650 MG SUPPOSITORY RECTAL ×2 (10:03→18:44)
[2024-06-20] MEDS: KCL 40 MEQ/WATER 100 ML 100 ML 25 ML IVPB ×3 (10:07→20:43)
[2024-06-20 10:25] LABS: Alveolar/Arterial O2 Gradient 84.8 mmHg; Base Excess ABG 0.9 mEq/l (+/-2.0); Fractional Inspired Oxygen 28 %; HCO3 ABG 24.3 mEq/l (22.0-26.0); Oxygen Content ABG 17.2 %vol (16.0-22.0); Oxygen Saturation ABG 95.6 % (95.0-100.0); PCO2 ABG 35.1 mmHg (35.0-45.0); PO2 ABG 73.4 mmHg (80.0-100.0); PO2 FiO2 Ratio Arterial Blood 2.62 %
[2024-06-20 10:27] LABS: Device NASAL CANNULA; Modified Allen's Test Pass; Site Drawn LEFT RADIAL
[2024-06-20 11:42] LABS: Lactic Acid Reflex 1.3 mmol/L (0.7-2.0)
[2024-06-20 11:44] LABS: Glucose Point of Care 133 mg/dl (65-105)
[2024-06-20] MEDS: MEROPENEM 1 GM/NS 100 ML 1 GM/100 ML BAG IVPB ×2 (12:27→21:47)
[2024-06-20] MEDS: FUROSEMIDE INJ 40 MG/4 ML VIAL IV PUSH (12:27)
[2024-06-20] MEDS: VANCOMYCIN 1,250 MG/NS 250 ML 1,250 MG/250 ML BAG 166.67 MG IVPB ×2 (12:38→12:39)
[2024-06-20 12:53] LABS: MRSA (PCR) NOT DETECTED (NOT DETECTE)
--- NOTE | 2024-06-20 12:53 | P.PNIM_ITS ---
Progress Note: A&P Assessment and Plan (1) Sepsis: Code(s): A41.9 - Sepsis, unspecified organism Status: Acute (2) Acute hypoxic respiratory failure: Code(s): J96.01 - Acute respiratory failure with hypoxia Status: Acute (3) Pneumonia: Qualifiers: Pneumonia type: due to unspecified organism Laterality: unspecified laterality Lung location: lower lobe of lung Qualified Code(s): J18.9 - Pneumonia, unspecified organism Code(s): J18.9 - Pneumonia, unspecified organism Status: Acute (4) Cellulitis: Code(s): L03.90 - Cellulitis, unspecified Status: Acute Plan # Acute hypoxic respiratory failure: Pt Tachypnic and continues to have fever, remains on oxygen supplementation via nasal cannula. COVID, RSV and influenza negative CTA chest negative for PE and showing mild interstitial and ground glass opacities LLL with volume loss - atelectasis vs PNA BCx no growth to date. MRSA nasal swab negative. ABG 06/17: 7.46/37/69 on 2L repeat ABG today reviewed no hypercapnia noted Started on broad-spectrum IV abx for possible hospital acquired PNA. WBC normal but CRP 42. Stable on 2L. Guarded overall condition. Change antibiotic to vancomycin and meropenem Repeat CT chest with worsening pulmonary opacities imPending respiratory failure. ICU consulted # Sepsis: He remains febrile. . Tachypnea related to fevers. He has diffuse myalgias. COVID, RSV and influenza negative. UA not consistent with UTI. CTA chest negative for PE and showing mild interstitial and ground glass opacities LLL with volume loss - atelectasis vs PNA CT A/P showing possible uncomplicated diverticulitis. CT brain showing stable changes but no acute findings. Does have increased mucosal thickening in the paranasal sinuses. BCx are negative so far. MRSA nasal swab negative. BCx on 05/24 grew Staph epidermidis and Staph hominis Etiology could be HAP since was just treated earlier this month, diverticulitis, cellulitis and/or other etiology. - Consider no infectious etiology such as cancer. Started on Rocephin and Azithromycin then changed to Zosyn/Vanco on 06/16. WBC normal but CRP 42. Discussed with PharmD ID who recommended Doxy IV and Zosyn given the increased Cr. values. Abx adjusted. 10/30 Patient leukopenia 3000, low-grade fever 99.2 over the night, had a fever 100.5 yesterday, X-ray showed airspace opacity and left lung base Repeat CT chest with worsening lung opacities. Lactic acid came back normal. # Encephalopathy: CT head without any acute abnormalities. Suspect related to sepsis as described above Some improvement however continues to worsen. Repeat CT head with no acute findings 06/20/2024 # Diverticulitis: CT A/P showing possible uncomplicated diverticulitis. As above Repeat CT abdomen without findings as such. # Cellulitis: Cellulitis RUE. Venous doppler RUE negative for DVT. Continue IV abx Warm compresses # Bone lesion: * As noted on CT abd and pelvis, concern for metastasis. * Oncology is following and we appreciate their continued suggestions for evaluation and management. # Hypomagnesemia: * Trend labs # Generalized weakness: Related to above PTOT when able. Hold PT OT # SIMONE on CKD Cr 1-1.3 most on his hospitalization. Cr 1.5 since 06/18. Could be related to abx and/or contrast and/or Lasix stop Lasix. Abx adjusted. NS is ordered but no iv acess, placed PICC and increase NS to 150 ml Follow-up BMP, urine output Renal ultrasound with no hydronephrosis Will recheck urinalysis and urine culture # Pancytopenia: Continue to monitor # Lower extremity edema: Chronic lower extremity edema Venous duplex negative. SHAHNAZ perez applied # Prostate cancer: History of prostate cancer diagnosed in 2018 s/p radiation and Androgen deprivation therapy. Now follows with Dr Pak and is on Lupron every 3 months with Zytiga and prednisone. CTA Pelvis today shows that pt has lesions on the iliac wings concerning for possible metastasis or Paget's disease. Appreciate Oncology input for further diagnostics and or treatment recommendations. * Patient family to bring home Abiraterone but on hold * Oncology following pt. * Pt currently unable to have BMB for his pancytopenia as he is unstable and likely septic. This will need to be reordered. # Hypokalemia: Replace and monitor # code status: Currently full code. Subjective Date/time seen: 06/20/24 12:53 Interval history: Patient barely responsive this a.m.. Discussed with the family. Currently full code. Family had mentioned used to be DNR. He is tachypneic. Only responds to painful stimuli. Review of Systems Review of Systems: ROS unobtainable: Yes unobtainable due to mental status Exam Narrative: GENERAL: Ill-appearing tachypnea. - EYES: EOMI. Anicteric. - HENT: Moist mucous membranes. - LUNGS: Coarse breath sounds bilateral ly. Tachypneic - CARDIOVASCULAR: Tachycardic sinus on telemetry No murmur. No JVD. - ABDOMEN: Soft, non-tender and non-dist ended. No palpable masses. - EXTREMITIES: Upper extremity edema no shahnaz. Peripheral pulses 2+. Non-tender. - NEUROLOGIC: No focal neurological defi cits. CN II-XII grossly intact. - PSYCHIATRIC: Only when cyst painful s timuli - SKIN: Swelling, redness, tender of ri ght arm, Objective Data Vital Signs Vital Signs: Vital Signs - 24 hr 06/19/24 13:28 06/19/24 13:34 06/19/24 15:08 Temperature 102.4 F H Pulse Rate 107 H 103 H 109 H Respiratory Rate 20 20 32 H Blood Pressure 151/61 H Pulse Oximetry 95 Oxygen Delivery Oxygen Flow Rate Fraction of Inspired Oxygen 06/19/24 17:41 06/19/24 14:00 06/19/24 16:00 Temperature 102.4 F H Pulse Rate 110 H 104 H Respiratory Rate Blood Pressure Pulse Oximetry Oxygen Delivery Oxygen Flow Rate Fraction of Inspired Oxygen 06/19/24 18:00 06/19/24 16:00 06/19/24 18:55 Temperature Pulse Rate 106 H Respiratory Rate Blood Pressure Pulse Oximetry 95 93 Oxygen Delivery Nasal Cannula Nasal Cannula Oxygen Flow Rate 1 2 Fraction of Inspired Oxygen 06/19/24 18:45 06/19/24 18:40 06/19/24 19:45 Temperature 101.6 F H 101.6 F H 99.5 F Pulse Rate 104 H Respiratory Rate 28 H Blood Pressure 146/43 H Pulse Oximetry 95 Oxygen Delivery Oxygen Flow Rate Fraction of Inspired Oxygen 06/19/24 19:49 06/19/24 19:49 06/19/24 19:54 Temperature Pulse Rate 104 H 102 H Respiratory Rate 25 H 25 H Blood Pressure Pulse Oximetry 94 Oxygen Delivery Nasal Cannula Oxygen Flow Rate 2 Fraction of Inspired Oxygen 06/19/24 19:58 06/19/24 19:59 06/19/24 21:48 Temperature Pulse Rate 104 H 104 H 98 Respiratory Rate 28 H Blood Pressure Pulse Oximetry 94 Oxygen Delivery Nasal Cannula Oxygen Flow Rate 2 Fraction of Inspired Oxygen 06/20/24 00:00 06/20/24 00:00 06/20/24 00:00 Temperature 98.5 F Pulse Rate 99 94 94 Respiratory Rate 32 H 28 H Blood Pressure 152/65 H Pulse Oximetry 94 94 Oxygen Delivery Nasal Cannula Oxygen Flow Rate 3 Fraction of Inspired Oxygen 06/20/24 02:00 06/20/24 02:23 06/20/24 02:32 Temperature Pulse Rate 94 99 98 Respiratory Rate 24 H 24 H Blood Pressure Pulse Oximetry Oxygen Delivery Oxygen Flow Rate Fraction of Inspired Oxygen 06/20/24 03:48 06/20/24 03:49 06/20/24 04:00 Temperature 98.8 F Pulse Rate 96 96 100 Respiratory Rate 24 H 26 H Blood Pressure 180/67 H Pulse Oximetry 94 97 Oxygen Delivery Nasal Cannula Oxygen Flow Rate 3 Fraction of Inspired Oxygen 21 06/20/24 06:00 06/20/24 07:17 06/20/24 07:29 Temperature 101.3 F H Pulse Rate 105 H 112 H Respiratory Rate 32 H Blood Pressure 144/78 H Pulse Oximetry 96 95 Oxygen Delivery Nasal Cannula Oxygen Flow Rate 2 Fraction of Inspired Oxygen 06/20/24 07:29 06/20/24 07:36 06/20/24 10:03 Temperature 103.2 F H Pulse Rate 108 H 105 H Respiratory Rate 22 H 24 H Blood Pressure Pulse Oximetry Oxygen Delivery Oxygen Flow Rate Fraction of Inspired Oxygen 06/20/24 11:38 06/20/24 11:03 Temperature 103.6 F H 103.6 F H Pulse Rate 123 H Respiratory Rate 28 H Blood Pressure 171/66 H Pulse Oximetry 98 Oxygen Delivery Oxygen Flow Rate Fraction of Inspired Oxygen Intake/Output Intake/Output: Intake & Output 06/17/24 06/18/24 06/19/24 06/20/24 23:59 23:59 23:59 23:59 Intake Total 2663 3120 1660 250 Output Total 3050 2150 900 900 Balance -387 970 760 -650 Meds/Results Medications: Active Medications Generic Name Dose Route Start Last Admin Trade Name Freq PRN Reason Stop Dose Admin Acetaminophen 650 mg 06/12/24 10:51 06/15/24 20:38 Acetaminophen 325 Mg Tablet PO 650 mg Q4H PRN Administration Headache Acetaminophen 650 mg 06/16/24 08:14 06/20/24 10:03 Acetaminophen 650 Mg Suppository RECTAL 650 mg Q6H PRN Administration Mild Pain (1-3) or Fever Al Hydrox/Mg Hydrox/Simethicone 30 ml 06/11/24 01:09 Mag Hydrox/Al Hydrox/Simeth 30 Ml Udc PO Q6H PRN Indigestion Albuterol/Ipratropium 3 ml 06/17/24 20:00 06/20/24 07:27 Ipratropium 0.5 Mg/Albuterol Sulfate 2.5 Mg Ampul.Neb 3 Ml NEBULIZE 3 ml Q6HRT SOPHIE Administration Aspirin 81 mg 06/11/24 09:00 06/17/24 11:12 Aspirin 81 Mg Enteric Tablet PO Not Given DAILY SOPHIE Dextrose 12.5 gm 06/17/24 15:40 Dextrose 50% 25 Gm/50 Ml Syringe IV PUSH PRN PRN Hypoglycemia Protocol Donepezil HCl 5 mg 06/11/24 21:00 06/13/24 21:47 Donepezil Hcl 5 Mg Tablet PO 5 mg QHS SOPHIE Administration Enoxaparin Sodium 40 mg 06/11/24 12:20 06/20/24 09:01 Enoxaparin 40 Mg/0.4 Ml Syringe SUB-Q 40 mg DAILY SOPHIE Administration Famotidine 20 mg 06/11/24 09:00 06/17/24 11:12 Famotidine 20 Mg Tablet PO Not Given Q12HR SOPHIE Famotidine 20 mg 06/19/24 21:00 06/20/24 09:01 Famotidine 20 Mg/2 Ml Vial IV PUSH 20 mg Q12HR SOPHIE Administration Ferrous Sulfate 325 mg 06/12/24 09:00 06/17/24 11:12 Ferrous Sulfate [address] PO Not Given DAILY SOPHIE Glucagon 1 mg 06/17/24 15:40 Glucagon For Inj 1 Mg Vial IM PRN PRN Hypoglycemia Protocol Glucose 15 gm 06/17/24 15:40 Glucose Oral Gel 15 Gm Of Glucse In 37.5 Gm Tube PO PRN PRN Hypoglycemia Protocol Sodium Chloride 1,000 mls @ 125 mls/hr 06/17/24 15:40 06/19/24 16:43 Normal Saline Iv IV CONT Not Given .Q8H SOPHIE Dextrose 1,000 mls @ 100 mls/hr 06/17/24 15:40 Dextrose 5% 1,000 Ml IVPB PRN PRN Hypoglycemia Protocol Potassium Chloride 100 mls @ 25 mls/hr 06/20/24 09:58 06/20/24 10:07 Kcl 40 Meq/Water 100 Ml IVPB 06/20/24 13:57 25 mls/hr ONCE ONE Administration Meropenem 1 gm in 100 mls @ 200 mls/hr 06/20/24 12:00 06/20/24 12:27 IVPB 200 mls/hr Q12HR SOPHIE Administration Vancomycin HCl 1,250 mg in 250 mls @ 166.667 mls/hr 06/20/24 14:30 06/20/24 12:39 Vancomycin 1,250 Mg/Ns 250 Ml IVPB 06/20/24 15:59 166.67 mls/hr ONCE ONE Administration Vancomycin HCl 1,250 mg in 250 mls @ 166.667 mls/hr 06/20/24 13:00 06/20/24 12:38 Vancomycin 1,250 Mg/Ns 250 Ml IVPB 06/20/24 14:29 166.67 mls/hr ONCE ONE Administration Potassium Chloride 100 mls @ 25 mls/hr 06/20/24 12:09 Kcl 40 Meq/Water 100 Ml IVPB 06/20/24 16:08 ONCE ONE Insulin Aspart 2 - 5 units 06/17/24 18:00 06/20/24 12:16 Insulin Aspart (*Bkc) 100 Units/Ml SUB-Q Not Given Q6HR SOPHIE Protocol Lorazepam 1 mg 06/17/24 15:40 Lorazepam Inj (*Crx) 2 Mg/Ml Vial IV PUSH Q6H PRN Anxiety Melatonin 10 mg 06/11/24 21:00 06/16/24 20:33 Melatonin 5 Mg Tablet PO 07/11/24 20:59 10 mg HS SOPHIE Administration Metolazone 2.5 mg 06/12/24 09:00 06/17/24 11:12 Metolazone 2.5 Mg Tablet PO Not Given MoWeFr SOPHIE Metoprolol Tartrate 5 mg 06/17/24 15:40 Metoprolol Tartrate Inj 5 Mg/5 Ml Vial IV PUSH Q12HR PRN Tachycardia Mirtazapine 15 mg 06/11/24 21:00 06/16/24 20:33 Mirtazapine 15 Mg Tablet PO 15 mg HS SOPHIE Administration Morphine Sulfate 2 mg 06/17/24 15:40 Morphine Sulfate (*Crx) 2 Mg/Ml Inj IV PUSH Q4H PRN Pain Rated 7-10 Neomycin/Polymyxin/Bacitracin 1 applic 06/13/24 18:50 Neomycin/Polymyxin/Bacitracin Ointment 15 Gm Tube TOPICAL PRN PRN with dressing changes Home Med ( 0 mg 06/12/24 06:30 06/20/24 10:10 Abiraterone 250 Mg PO 07/12/24 06:29 Not Given Tablet) DAILY@0630 [facility] Ondansetron HCl 4 mg 06/11/24 01:09 06/13/24 08:16 Ondansetron Inj 4 Mg/2 Ml Vial IV PUSH 4 mg Q6H PRN Administration Nausea And Vomiting Polyethylene Glycol 17 gm 06/11/24 01:09 06/14/24 18:21 Polyethylene Glycol 3350 17 Gm Powd.Pack PO 17 gm QAM PRN Administration Constipation Sodium Chloride 10 ml 06/19/24 14:00 06/20/24 07:00 Central Line Flush IV PUSH 10 ml Q8HR SOPHIE Administration Sodium Chloride 10 ml 06/19/24 09:58 Central Line Flush IV PUSH PRN PRN with TPN bag changes Sodium Chloride 20 ml 06/19/24 09:58 Central Line Flush IV PUSH PRN PRN after blood draws Tamsulosin HCl 0.4 mg 06/11/24 09:00 06/17/24 11:12 Tamsulosin Hcl 0.4 Mg Capsule PO Not Given Q12HR [facility] Vancomycin HCl 1 each 06/20/24 11:25 1st Dose Sent IVPB PER PROTOCOL [facility] Radiology Results: ITS Impressions Abdomen Ultrasound 06/14/24 09:44 IMPRESSION: 1. Normal sizes of the liver and spleen. Chest/Abdomen/Pelvis CTA 06/17/24 09:31 IMPRESSION: 1. Mild interstitial and groundglass opacities in the left lower lobe with associated volume loss to at least in part to atelectasis although could not exclude superimposed mild pulmonary edema or pneumonia. 2. Diverticulosis with mild stranding along the distal descending colon suspicious for radiographically uncomplicated diverticulitis. 3. A couple new region of sclerosis along the iliac wings which raises concern for metastatic disease with appearance on the right suggesting possible early localized Paget's disease. Correlate with clinical history and could consider bone scan to assess for any additional lesions which would elevate concern for metastatic disease. Venous Doppler Study 06/17/24 13:22 IMPRESSION: 1. No deep venous thrombosis. Chest X-Ray 06/19/24 09:48 IMPRESSION: 1. PICC tip in the superior vena cava. 2. Stable airspace opacities at left lung base, consistent with atelectasis versus pneumonia. Renal Ultrasound 06/19/24 11:43 IMPRESSION: 1. Normal kidneys. No hydronephrosis. Head CT 06/20/24 12:00 IMPRESSION: 1. Stable age-related changes including moderate diffuse volume loss and moderate scattered white matter hypoattenuation consistent with chronic small vessel ischemic disease. No acute intracranial process. Chest/Abdomen/Pelvis CT 06/20/24 12:10 IMPRESSION: 1. Worsened airspace opacities in left lung lower lobe, consistent with atelectasis versus pneumonia. 2. Septal thickening again seen in the lungs, consistent with mild pulmonary edema versus chronic lung disease. 3. Cystic lesions of the pancreas with worsening from 08/21/2014. The differential diagnosis includes pseudocyst, intraductal papillary mucinous neoplasm (IPMN), mucinous cystic neoplasm (MCN), serous cystadenoma, and neuroendocrine tumor. Consider abdomen MRI without and with contrast. 4. Sclerotic lesions in the iliac bones, new from 08/21/2014. The differential diagnosis includes metastatic disease and Paget's disease. Labs Labs: Laboratory Results - last 24 hr 06/19/24 06/19/24 06/20/24 15:38 18:12 00:18 WBC RBC Hgb Hct MCV MCH MCHC RDW Plt Count MPV Immature Gran % (Auto) Neut % (Auto) Lymph % (Auto) [place] % (Auto) Eos % (Auto) Baso % (Auto) Lymph # (Auto) [place]win # (Auto) Eos # (Auto) Baso # (Auto) Abs Immat Gran (auto) Absolute Neuts (auto) Absolute Nucleated RBC Nucleated RBC % Puncture Site ABG pH ABG pCO2 ABG pO2 ABG PO2/FiO2 Ratio ABG HCO3 ABG O2 Saturation ABG O2 Content ABG Base Excess A-a Gradient Oxyhemoglobin Total Hemoglobin O2 Delivery Device O2 Liters/Min FiO2 Sodium Potassium Chloride Carbon Dioxide Anion Gap BUN Creatinine Estim Creat Clear Calc Estimated GFR Glucose POC Capillary Glucose 171 H 152 H Lactic Acid Calcium Magnesium Total Bilirubin AST ALT Alkaline Phosphatase C-Reactive Protein Total Protein Albumin Urine Color Yellow Urine Appearance Cloudy H Urine pH 5.0 Ur Specific [place] 1.022 Urine Protein 1+ H Urine Glucose (UA) Negative Urine Ketones 1+ H Ur Blood (Man) Negative Urine Nitrate Negative Urine Bilirubin Negative Urine Urobilinogen 0.2 Ur Leukocyte Esterase Negative Add Ur Microanalysis Reviewed Urine RBC 0-2 Urine WBC 0-5 Ur Squamous Epith Cells None seen Uric Acid Crystals Present H Amorphous Sediment Few H Urine Bacteria None seen Urine Casts 3-5 06/20/24 06/20/24 06/20/24 06:29 10:08 11:28 WBC 4.8 RBC 2.93 L Hgb 9.9 L Hct 29.6 L MCV 101.0 H MCH 33.8 MCHC 33.4 RDW 14.2 Plt Count 210 MPV 9.9 Immature Gran % (Auto) 0.6 H Neut % (Auto) 67.7 Lymph % (Auto) 13.3 L [place]win % (Auto) 9.3 H Eos % (Auto) 8.0 H Baso % (Auto) 1.1 Lymph # (Auto) 0.63 L [place]win # (Auto) 0.4 Eos # (Auto) 0.4 H Baso # (Auto) 0.1 Abs Immat Gran (auto) 0.03 Absolute Neuts (auto) 3.2 Absolute Nucleated RBC 0.000 Nucleated RBC % 0.0 Puncture Site Left radial ABG pH 7.460 H ABG pCO2 35.1 ABG pO2 73.4 L ABG PO2/FiO2 Ratio 2.62 ABG HCO3 24.3 ABG O2 Saturation 95.6 ABG O2 Content 17.2 ABG Base Excess 0.9 A-a Gradient 84.8 Oxyhemoglobin 94.0 Total Hemoglobin 13.0 O2 Delivery Device Nasal cannula O2 Liters/Min 2.0 FiO2 28 Sodium 144 Potassium 2.3 L* Chloride 107 Carbon Dioxide 25 Anion Gap 12 BUN 15 Creatinine 1.70 H Estim Creat Clear Calc 0 Estimated GFR 39 L Glucose 137 H POC Capillary Glucose Lactic Acid 1.3 Calcium 9.1 Magnesium 1.7 Total Bilirubin 0.7 AST 24 ALT 11 Alkaline Phosphatase 57 C-Reactive Protein 34.1 H Total Protein 6.0 L Albumin 3.0 L Urine Color Urine Appearance Urine pH Ur Specific [place] Urine Protein Urine Glucose (UA) Urine Ketones Ur Blood (Man) Urine Nitrate Urine Bilirubin Urine Urobilinogen Ur Leukocyte Esterase Add Ur Microanalysis Urine RBC Urine WBC Ur Squamous Epith Cells Uric Acid Crystals Amorphous Sediment Urine Bacteria Urine Casts 06/20/24 11:38 WBC RBC Hgb Hct MCV MCH MCHC RDW Plt Count MPV Immature Gran % (Auto) Neut % (Auto) Lymph % (Auto) [place] % (Auto) Eos % (Auto) Baso % (Auto) Lymph # (Auto) [place]win # (Auto) Eos # (Auto) Baso # (Auto) Abs Immat Gran (auto) Absolute Neuts (auto) Absolute Nucleated RBC Nucleated RBC % Puncture Site ABG pH ABG pCO2 ABG pO2 ABG PO2/FiO2 Ratio ABG HCO3 ABG O2 Saturation ABG O2 Content ABG Base Excess A-a Gradient Oxyhemoglobin Total Hemoglobin O2 Delivery Device O2 Liters/Min FiO2 Sodium Potassium Chloride Carbon Dioxide Anion Gap BUN Creatinine Estim Creat Clear Calc Estimated GFR Glucose POC Capillary Glucose 133 H Lactic Acid Calcium Magnesium Total Bilirubin AST ALT Alkaline Phosphatase C-Reactive Protein Total Protein Albumin Urine Color Urine Appearance Urine pH Ur Specific [place] Urine Protein Urine Glucose (UA) Urine Ketones Ur Blood (Man) Urine Nitrate Urine Bilirubin Urine Urobilinogen Ur Leukocyte Esterase Add Ur Microanalysis Urine RBC Urine WBC Ur Squamous Epith Cells Uric Acid Crystals Amorphous Sediment Urine Bacteria Urine Casts
[2024-06-20] MEDS: PROPOFOL IV EMULSION 100 ML 6.12 MG IV CONT (13:35)
[2024-06-20] MEDS: ETOMIDATE 20 MG/10 ML AMPUL 24 MG IV PUSH (13:35)
[2024-06-20] MEDS: ROCURONIUM BROMIDE 50 MG/5 ML VIAL IV PUSH (13:36)
--- NOTE | 2024-06-20 13:42 | PC.NURSE ---
Patient transferred from 204 to ICU 10 for intubation and higher level of care.
--- NOTE | 2024-06-20 14:01 | WPDPROCEDUR ---
Procedures Intubation Intubation Date: 06/20/24 Intubation Time: 13:24 Consent: Consent was obtained from patient's POA, daughter A pre-procedural Time-Out was completed immediately before starting the procedure and confirmed: Patient Identification, Site, Procedure, Patient Position and the Availability of Requisite Equipment: Yes Sedative: etomidate Paralytic: rocuronium Laryngoscope: fiber optic video scope Assist device used: fiber optic device ET tube size: 7.5 Tube secured depth (cm): 25 Tube secured location: lips Tube placement confirmation: visualized tube passing through cords, equal breath sounds bilaterally, no breath sounds over epigastrium and confirmation by capnometry Patient tolerated procedure: well Intubation complications: none
--- NOTE | 2024-06-20 14:02 | WPDCNINT ---
Assessment and Plan Assessment and plan (1) Sepsis: Code(s): A41.9 - Sepsis, unspecified organism Status: Acute Assessment and Plan: Patient with sepsis, elevated CRP, acute on chronic kidney disease, normal lactic acid, fevers, tachypnea, tachycardia -given significant fevers with leukopenia, altered mental status/encephalopathy will have Interventional Radiology perform lumbar puncture, labs have been ordered -patient is currently meropenem, vancomycin (06/20) -will add acyclovir (06/20) -will have Neurology evaluate the patient for encephalopathy and possible meningitis -patient has been adequately fluid-resuscitated, was also given Lasix for volume overload 06/20 -given patient's anasarca, if he requires any fluids would volume resuscitate him with albumin -06/20: Blank cultures x2 in been obtained 06/20: Wound cultures have been obtained - (2) Acute hypoxic respiratory failure: Code(s): J96.01 - Acute respiratory failure with hypoxia Status: Acute Assessment and Plan: Patient with significant fevers with T-max of 103.2?, respiratory distress, tachycardia, tachypnea, acute on chronic kidney disease, with impending respiratory failure -06/20: Intubated for AV protection secondary to altered mental status -placed patient on CMV mode of ventilation, peep of 8, 100% FiO2 -post intubation ABGs have been ordered -chest x-ray reviewed -sedated with propofol a infusion, maintain RASS of 0 to -2, daily SBT and SAT 06/20/2024: CT chest abdomen pelvis IMPRESSION: 1. Worsened airspace opacities in left lung lower lobe, consistent with atelectasis versus pneumonia. 2. Septal thickening again seen in the lungs, consistent with mild pulmonary edema versus chronic lung disease. 3. Cystic lesions of the pancreas with worsening from 08/21/2014. The differential diagnosis includes pseudocyst, intraductal papillary mucinous neoplasm (IPMN), mucinous cystic neoplasm (MCN), serous cystadenoma, and neuroendocrine tumor. Consider abdomen MRI without and with contrast. 4. Sclerotic lesions in the iliac bones, new from 08/21/2014. The differential diagnosis includes metastatic disease and Paget's disease. (3) Pneumonia: Qualifiers: Pneumonia type: due to unspecified organism Laterality: unspecified laterality Lung location: lower lobe of lung Qualified Code(s): J18.9 - Pneumonia, unspecified organism Code(s): J18.9 - Pneumonia, unspecified organism Status: Acute Assessment and Plan: As above, will obtain sputum cultures (4) DM renal manif type II: Qualifiers: Diabetes mellitus terminal gauger supervisor insulin use: without terminal gauger supervisor use Diabetes mellitus complication detail: with chronic kidney disease Chronic kidney disease stage: stage 3 (moderate) Chronic kidney disease stage 3 subtype: stage 3b (GFR 30-44) Qualified Code(s): E11.22 - Type 2 diabetes mellitus with diabetic chronic kidney disease; N18.32 - Chronic kidney disease, stage 3b Code(s): E11.29 - Type 2 diabetes mellitus with other diabetic kidney complication Status: Acute Assessment and Plan: Continue Accu-Cheks and sliding scale insulin (5) Encephalopathy: Code(s): G93.40 - Encephalopathy, unspecified Status: Acute Assessment and Plan: Encephalopathy could be multifactorial secondary to infection, sepsis, acute on chronic kidney disease, possible meningitis, -LP to be obtained -continue antibiotics as above and treat underlying causes -ammonia level <9 (6) Hypokalemia: Code(s): E87.6 - Hypokalemia Status: Acute Assessment and Plan: Potassium is being aggressively replace -monitor potassium closely (7) Hypertension: Qualifiers: Hypertension type: primary hypertension Qualified Code(s): I10 - Essential (primary) hypertension Code(s): I10 - Essential (primary) hypertension Status: Acute Assessment and Plan: Blood pressures have been stable, will continue to monitor, hold all antihypertensives since patient is on propofol for sedation (8) Prostate cancer: Code(s): C61 - Malignant neoplasm of prostate Status: Acute Assessment and Plan: Patient is being currently treated for prostate cancer with Abiraterone, will currently hold for now this patient has sepsis, acute respiratory failure, possible pneumonia, question of meningitis Plan DVT prophylaxis: Lovenox Stress ulcer prophylaxis: Protonix Nutrition: NPO Code Status: Full code Critical Care Time Spent: 80 minutes Discussed with patient's daughter, Kristin, who in turn discussed with her sister Marilee and Sivan, both of them agree to keep him full code, intubate him and place him on mechanical ventilation for only a few days to Marilee baltazar come from [place]. Both of them a POAs. Due to a high probability of clinically significant, life threatening deterioration, the patient required my highest level of preparedness to intervene emergently and I personally spent this critical care time directly and personally managing the patient. This critical care time included obtaining a history; examining the patient; pulse oximetry; ordering and review of studies; arranging urgent treatment with development of a management plan; evaluation of patient's response to treatment; frequent reassessment; and discussions with other providers. It was exclusive of separately billable procedures and treating other patients and teaching time. Please see Assessment and Plan section and the rest of the note for further information on patient assessment and treatment This dictation may have been done utilizing a voice recognition system. Attempts have been made to correct errors. However, there may be uncorrected grammatical, spelling, and recognitions errors present. 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 He also had bilateral lower extremity edema swelling. Initial head CT did not show any acute intracranial abnormalities. Patient also had pancytopenia on admission. During the course of the hospital stay, patient developed altered mental status and was transferred to the intermediate unit from the medical floor, CTA chest was negative for PE, showed mild interstitial and ground-glass opacities atelectasis versus pneumonia. COVID, RSV and influenza were negative. CT abdomen and pelvis showed possible uncomplicated diverticulitis blood cultures on 05/28 grew Staph epidermidis and Staph hominis. Patient was on Rocephin, azithromycin which was then changed to Zosyn and vancomycin. Encephalopathy was suspected secondary to sepsis. Bilateral lower extremity duplex were negative for DVT. Patient has been having a lot of hypokalemia which is being repleted 06/20/2024: I was asked to evaluate the patient for altered mental status, acute hypoxic respiratory failure, tachypnea with significant fevers in a T-max of 103.2?. CT chest abdomen pelvis done on 06/20 showed worsening airspace opacities in the left lower lung lobe consistent with atelectasis versus pneumonia. Septal thickening again seen in the lungs consistent with mild pulmonary edema versus chronic lung disease, cystic lesions of the pancreas with worsening from 08/21/2014. Sclerotic lesions in the iliac bones new from 08/21/2014. Patient was unresponsive, only grimace to pain stimulus, does not open open his eyes or follow simple commands. Remains tachypneic, coarse breath sounds bilaterally, decreased at bases. Given his fevers, respiratory status and altered mental status and discussed with the family regarding intubation placing mechanical ventilation to he protect his airway. Family agree and patient was successfully intubated in the ICU without any complications Review of Systems Review of Systems: ROS unobtainable: Yes unobtainable due to endotracheal tube, unobtainable due to medical condition and unobtainable due to mental status PMFSH Past Medical History Medical History (Updated 06/17/24 @ 11:50 by Roxane Rincon APN-C) Chronic kidney disease, stage 3 CPAP (continuous positive airway pressure) dependence Diverticulitis DM renal manif type II DM w/o complication type II GERD (gastroesophageal reflux disease) Headache Hyperlipidemia LDL goal <100 Hypertension YAMILKA (obstructive sleep apnea) Pancytopenia Prostate cancer Family History Family History Father Asthma Mother Leukemia Social History Social History Smoking status: Former smoker Tobacco type: cigarettes Second hand tobacco smoke exposure: No Alcohol intake: current Drinks per week: 14 Alcohol use details: 2 alcohol drinks per night Substance use: never Do You Feel Safe in your Home?: Yes Lack of Transportation: No Lack of Food: Never True Current Housing: I Have Housing Concerned About Future Housing: No Difficulty Paying Gas/Electric Bills: No Difficulty Paying for Meds: No Currently Unemployed: No Education: Master's Degree or Higher Difficulty w/ Childcare or Family Care: No Living arrangements: alone Occupation/Education: retired Gender identity (if verbalized by the patient): Male Sexual Orientation (if Verbalized by the Patient): Straight or Heterosexual Spiritual care concerns: No Agree to blood products: Yes Meds Home Medications and Allergies Home Medications Medication Instructions Recorded Confirmed Type Melatonin 5mg Gummy 1 tab-cap PO HS 09/01/23 06/11/24 History leuprolide acetate (6 month) 45 mg 45 mg subcut [id number] 09/01/23 06/11/24 History (6 month) subcutaneous syringe (Eligard) multivitamin 1 tablet PO DAILY 09/01/23 06/11/24 History omega 9-xil-eul-fish oil 100 1 cap PO DAILY 09/01/23 06/11/24 History mg-160 mg-1,000 mg capsule (Fish Oil) abiraterone 500 mg tablet 500 mg PO DAILY #1 tablet 02/26/24 06/11/24 Rx aspirin 81 mg tablet,delayed 81 mg PO DAILY 02/26/24 06/11/24 History release (Adult Aspirin Regimen) cholecalciferol (vitamin D3) 25 25 mcg PO DAILY 02/26/24 06/11/24 History mcg (1,000 unit) capsule famotidine 20 mg tablet (Pepcid AC) 20 mg PO BID #180 tabs 03/12/24 06/11/24 Rx tamsulosin 0.4 mg capsule 0.4 mg PO BID #180 caps 03/12/24 06/11/24 Rx donepezil 5 mg tablet 5 mg PO QHS #90 tabs 05/08/24 06/11/24 Rx mirtazapine 15 mg tablet 15 mg PO HS 05/25/24 06/11/24 History simvastatin 40 mg tablet 40 mg PO HS 05/25/24 06/11/24 History metformin 500 mg tablet,extended 500 mg PO TID 06/03/24 06/11/24 History release 24 hr metolazone 2.5 mg tablet 2.5 mg PO .COMPLEX #38 tabs 06/04/24 06/11/24 Rx furosemide 20 mg tablet 20 mg PO DAILY PRN Edema 06/11/24 06/11/24 History tamsulosin 0.4 mg capsule 0.4 mg PO HS 06/11/24 06/11/24 History potassium chloride 10 mEq 10 meq PO BID #200 caps 06/17/24 Rx capsule,extended release Allergies Allergy/AdvReac Type Severity Reaction Status Date / Time No Known Allergies Allergy Verified 06/10/24 19:34 Vital Signs Vital Signs - 24 hr 06/19/24 15:08 06/19/24 17:41 06/19/24 16:00 Temperature 102.4 F H 102.4 F H Pulse Rate 109 H 104 H Respiratory Rate 32 H Blood Pressure 151/61 H Pulse Oximetry 95 Oxygen Delivery Oxygen Flow Rate Fraction of Inspired Oxygen 06/19/24 18:00 06/19/24 16:00 06/19/24 18:55 Temperature Pulse Rate 106 H Respiratory Rate Blood Pressure Pulse Oximetry 95 93 Oxygen Delivery Nasal Cannula Nasal Cannula Oxygen Flow Rate 1 2 Fraction of Inspired Oxygen 06/19/24 18:45 06/19/24 18:40 06/19/24 19:45 Temperature 101.6 F H 101.6 F H 99.5 F Pulse Rate 104 H Respiratory Rate 28 H Blood Pressure 146/43 H Pulse Oximetry 95 Oxygen Delivery Oxygen Flow Rate Fraction of Inspired Oxygen 06/19/24 19:49 06/19/24 19:49 06/19/24 19:54 Temperature Pulse Rate 104 H 102 H Respiratory Rate 25 H 25 H Blood Pressure Pulse Oximetry 94 Oxygen Delivery Nasal Cannula Oxygen Flow Rate 2 Fraction of Inspired Oxygen 06/19/24 19:58 06/19/24 19:59 06/19/24 21:48 Temperature Pulse Rate 104 H 104 H 98 Respiratory Rate 28 H Blood Pressure Pulse Oximetry 94 Oxygen Delivery Nasal Cannula Oxygen Flow Rate 2 Fraction of Inspired Oxygen 06/20/24 00:00 06/20/24 00:00 06/20/24 00:00 Temperature 98.5 F Pulse Rate 99 94 94 Respiratory Rate 32 H 28 H Blood Pressure 152/65 H Pulse Oximetry 94 94 Oxygen Delivery Nasal Cannula Oxygen Flow Rate 3 Fraction of Inspired Oxygen 06/20/24 02:00 06/20/24 02:23 06/20/24 02:32 Temperature Pulse Rate 94 99 98 Respiratory Rate 24 H 24 H Blood Pressure Pulse Oximetry Oxygen Delivery Oxygen Flow Rate Fraction of Inspired Oxygen 06/20/24 03:48 06/20/24 03:49 06/20/24 04:00 Temperature 98.8 F Pulse Rate 96 96 100 Respiratory Rate 24 H 26 H Blood Pressure 180/67 H Pulse Oximetry 94 97 Oxygen Delivery Nasal Cannula Oxygen Flow Rate 3 Fraction of Inspired Oxygen 21 06/20/24 06:00 06/20/24 07:17 06/20/24 07:29 Temperature 101.3 F H Pulse Rate 105 H 112 H Respiratory Rate 32 H Blood Pressure 144/78 H Pulse Oximetry 96 95 Oxygen Delivery Nasal Cannula Oxygen Flow Rate 2 Fraction of Inspired Oxygen 06/20/24 07:29 06/20/24 07:36 06/20/24 10:03 Temperature 103.2 F H Pulse Rate 108 H 105 H Respiratory Rate 22 H 24 H Blood Pressure Pulse Oximetry Oxygen Delivery Oxygen Flow Rate Fraction of Inspired Oxygen 06/20/24 11:38 06/20/24 11:03 06/20/24 13:35 Temperature 103.6 F H 103.6 F H Pulse Rate 123 H 117 H Respiratory Rate 28 H 24 H Blood Pressure 171/66 H Pulse Oximetry 98 Oxygen Delivery Oxygen Flow Rate Fraction of Inspired Oxygen 06/20/24 13:30 Temperature Pulse Rate 123 H Respiratory Rate Blood Pressure Pulse Oximetry 100 Oxygen Delivery Mechanical Ventilation Oxygen Flow Rate Fraction of Inspired Oxygen 60 Exam Narrative: General: Elderly gentleman with anasarca, intubated and sedated, in no acute distress HEENT:? Pupils are equal and reactive, sclera is clear Neck:? Supple Respiratory:? Coarse breath sounds bilaterally, decreased at bases, adequate air entry, ETT Cardiac:? Sinus tachycardia Abdomen:? Soft, nontender, nondistended, decreased bowel sounds, positive anasarca Extremities:? Bilateral upper and lower extremity pitting edema Neuro:? Patient is intubated, sedated, does not open his eyes or follow simple commands. Prior to intubation patient was only responding to pain stimulus, not answering questions or following commands Skin:? Bilateral upper extremity bruising noted Psych:? Unable to assess at this time Results Labs 06/20/24 06:29 06/20/24 06:29 Labs: Short CBC 06/20/24 Range/Units 06:29 WBC 4.8 (4.5-10.0) K/mm3 Hgb 9.9 L (14.0-18.0) g/dL Hct 29.6 L (42.0-52.0) % Plt Count 210 (150-375) k/mm3 BMP 06/20/24 06:29 Sodium 144 Potassium 2.3 L* Chloride 107 Carbon Dioxide 25 BUN 15 Creatinine 1.70 H Glucose 137 H Calcium 9.1 Liver Function 06/20/24 Range/Units 06:29 Total Bilirubin 0.7 (0.2-1.3) mg/dL AST 24 (17-59) U/L ALT 11 (6-50) U/L Alkaline Phosphatase 57 (38-126) U/L Albumin 3.0 L (3.5-5.1) g/dL Urine 06/19/24 Range/Units 15:38 Urine Color Yellow (Yellow) Urine Appearance Cloudy H (Clear) Urine pH 5.0 (5.0-9.0) Ur Specific [place] 1.022 (1.001-1.035) Urine Protein 1+ H (Negative) mg/dL Urine Glucose (UA) Negative (Negative) mg/dL
--- NOTE | 2024-06-20 14:14 | PC.NURSE ---
This patient, Brent Lewis, was transferred to [ICU-10 ] on 06/20/24 at 1310. Personal belongings sent with patient. Report given to [GERMAIN Bagley @ bedside ]. Appropriate documentation sent with patient. Family at bedside and aware of transfer.
--- NOTE | 2024-06-20 14:14 | PC.NURSE ---
Shift change report received at bedside. Pt moans when touched and moved, refuses to open eyes or follow commands. Night RN stated That's how he has been all night. Call placed to Dr. Huston, with no answer and voicemail left. RN reassess pt and pt is still only moaning to touch and pain. RN called MD again and was able to speak with MD and update him on change of condition in pt. Pt's family friend at bedside and updated nursing that pt wasn't like this last night. Pt was up to the chair and ate dinner. He was awake and talking. According to the documentation in the chart and report received RN is unable to clarify the level of alertness pt had yesterday. MD to bedside. MD updated family friend and pt's daughter, Kia, of pt's change in condition. Orders placed by MD. Pt to CT with RN. Call placed to ICU doctor to evaluate pt's condition, and need for pt to be transferred to ICU. Family at bedside and in agreement with pt to be transferred for intubation and higher level of care.
[2024-06-20 14:15] LABS: Basophils Absolute Auto 0.1 K/mm3 (0.0-0.1); Basophils Percent Auto 1.1 % (0.2-1.2); Eosinophils Absolute Auto 0.4 K/mm3 (0-0.3); Eosinophils Percent Auto 7.7 % (0-4.4); Hematocrit 29.8 % (42.0-52.0); Hemoglobin 10.1 g/dL (14.0-18.0); Immature Granulocyte Absolute 0.05 K/mm3 (0.00-0.031); Immature Granulocyte Percent A 0.9 % (0-0.5); Lymphocytes Absolute Auto 0.72 K/mm3 (0.9-3.2); Lymphocytes Percent Auto 13.5 % (18.3-44.2); Mean Corpuscular HGB Conc 33.9 g/dl (32-36); Mean Corpuscular Volume 100.3 fl (80-100); Mean Platelet Volume 9.9 fl (7.4-10.4); Monocytes Absolute Auto 0.4 K/mm3 (0.1-0.6); Monocytes Percent Auto 8.1 % (2.6-8.5); Neutrophils Absolute Auto 3.7 K/mm3 (1.3-6.7); Neutrophils Percent Auto 68.7 % (45.5-73.1); Platelet Count Result 217 k/mm3 (150-375); Red Blood Count 2.97 M/mm3 (4.6-6.20); Red Cell Distribution Width 14.2 % (11.5-14.5); White Blood Count 5.3 K/mm3 (4.5-10.0)
[2024-06-20 14:25] LABS: Ammonia < 9 umol/L (9-30); Lactic Acid Reflex 1.4 mmol/L (0.7-2.0)
[2024-06-20 14:27] LABS: Triglycerides 440 mg/dL (<150)
[2024-06-20 14:34] LABS: INR 1.2; Prothrombin Time 15.6 Seconds (11.1-14.7)
[2024-06-20 14:35] LABS: Partial Thromboplastin Time 35.7 Seconds (22.3-36.8)
[2024-06-20 14:38] LABS: Alanine Aminotransferase 12 U/L (6-50); Albumin Level 2.9 g/dL (3.5-5.1); Alkaline Phosphatase 57 U/L (38-126); Anion Gap 12 mmol/L (4-12); Aspartate Amino Transferase 32 U/L (17-59); Bilirubin,Total 0.6 mg/dL (0.2-1.3); Blood Urea Nitrogen 15 mg/dL (9-20); Calcium 9.1 mg/dL (8.4-10.2); Carbon Dioxide 24 mmol/L (22-30); Chloride 108 mmol/L (98-107); Creatine Kinase 71 U/L (55-170); Estimated CRCL calculation 28 ml/min; Estimated Glomerular Filt Rate 30; Glucose 132 mg/dL (65-110); Magnesium 1.5 mg/dL (1.6-2.3); Phosphorus 2.3 mg/dL (2.5-4.5); Potassium 2.4 mmol/L (3.4-5.0); Sodium 144 mmol/L (137-145)
[2024-06-20 14:48] LABS: Platelet Estimate Adequate (Adequate); Schistocytes None Seen
[2024-06-20 14:49] LABS: Atypical Lymphocytes Present
[2024-06-20 14:55] LABS: CRP 34.8 mg/dL (<1.0)
[2024-06-20 15:14] LABS: Alveolar/Arterial O2 Gradient 196.7 mmHg; Base Excess ABG -0.5 mEq/l (+/-2.0); Carboxyhemoglobin 0.3 % THb (0-2.0); Fractional Inspired Oxygen 60 %; HCO3 ABG 21.5 mEq/l (22.0-26.0); Methemoglobin ABG 0.2 %THb (0-1.5); Oxygen Content ABG 15.9 %vol (16.0-22.0); Oxygen Saturation ABG 99.5 % (95.0-100.0); Oxyhemoglobin 98.8 % THb (90.0-100.0); PCO2 ABG 27.3 mmHg (35.0-45.0); PO2 ABG 201.1 mmHg (80.0-100.0); PO2 FiO2 Ratio Arterial Blood 3.35 %; Reduced Hemoglobin 0.7 %THb (0-5.0); Total Hemoglobin 11.1 g/dL (12.0-18.0)
[2024-06-20 15:16] LABS: Device VENTILATOR; Modified Allen's Test Pass; Site Drawn LEFT RADIAL; pH ABG 7.515 (7.350-7.450)
[2024-06-20 15:17] LABS: Arterial Blood Gas PEEP 8 cmH2O; Arterial Blood Gas Vent Mode CMV; Arterial Blood Gas Ventilator rate 24 /MIN
[2024-06-20 15:18] LABS: Arterial Blood Gas Tidal Volume 450 ml
[2024-06-20 17:13] LABS: Glucose CSF 89 mg/dL (40-70); Total Protein CSF 102 mg/dL (12-60)
[2024-06-20 17:28] LABS: Appearance CSF Clear (Clear); CSF source CSF; Color CSF Colorless (Colorless)
[2024-06-20 17:29] LABS: Red Blood Cell CSF 1 (0-2)
[2024-06-20 17:31] LABS: Nucleated Cell CSF 1 /uL (0-5)
[2024-06-20 17:38] LABS: Lymphocytes CSF 64 % (40-80); Monocytes CSF 8 % (15-45)
[2024-06-20 17:40] LABS: Neutrophils CSF 28 % (0-6)
[2024-06-20] MEDS: ACYCLOVIR SODIUM IVPB 1,000 MG in DEXTROSE 5% IN WATER 250 ML 270 MG IVPB (17:45)
[2024-06-20] MEDS: POTASSIUM CHLORIDE 20 MEQ PACKET (FOR LIQUID) 40 MEQ FEED TUBE (17:46)
--- NOTE | 2024-06-20 18:25 | WPDNEURCNPN ---
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 So far the protein was high at 102 however there was only 1 white cell describe so far, the cultures were to followed up her course of viral PCR may take some time to come back. CSF glucose was 89 and 2 hours before that serum glucose of 132. clinical examination of course is limited in view of the the patient is on under sedation with the intubation in place. Consult date: 06/20/24 HPI: . Brent Lewis is a 84 year old male with history of altered mental status was seen for in neurologic evaluation today. However the patient now is intubated and is on sedation with propofol. He is unable to give me any history. History obtained from the records. I noted that he has had a spinal tap the results of which were appraised. No seizures reported. Vital signs are stable according to the nursing staff. No history of stroke However CT scan of brain was performed today which shows significant atrophy.. He also has been diagnosed to have moderate obstructive sleep apnea syndrome, diabetes mellitus and chronic kidney disease. From the critical care note it appears that he developed respiratory failure with hypoxia and was intubated earlier today. He has significant fever with 103.2 with respiratory distress and tachycardia and tachypnea. Review of Systems Review of Systems: ROS unobtainable: Yes unobtainable due to medical condition PMFSH Past Medical History Medical History (Updated 06/17/24 @ 11:50 by Roxane Rincon APN-C) Chronic kidney disease, stage 3 CPAP (continuous positive airway pressure) dependence Diverticulitis DM renal manif type II DM w/o complication type II GERD (gastroesophageal reflux disease) Headache Hyperlipidemia LDL goal <100 Hypertension YAMILKA (obstructive sleep apnea) Pancytopenia Prostate cancer Family History Family History Father Asthma Mother Leukemia Social History Social History Smoking status: Former smoker Tobacco type: cigarettes Second hand tobacco smoke exposure: No Alcohol intake: current Drinks per week: 14 Alcohol use details: 2 alcohol drinks per night Substance use: never Do You Feel Safe in your Home?: Yes Lack of Transportation: No Lack of Food: Never True Current Housing: I Have Housing Concerned About Future Housing: No Difficulty Paying Gas/Electric Bills: No Difficulty Paying for Meds: No Currently Unemployed: No Education: Master's Degree or Higher Difficulty w/ Childcare or Family Care: No Living arrangements: alone Occupation/Education: retired Gender identity (if verbalized by the patient): Male Sexual Orientation (if Verbalized by the Patient): Straight or Heterosexual Spiritual care concerns: No Agree to blood products: Yes Meds Home Medications and Allergies Home Medications Medication Instructions Recorded Confirmed Type Melatonin 5mg Gummy 1 tab-cap PO HS 09/01/23 06/11/24 History leuprolide acetate (6 month) 45 mg 45 mg subcut [id number] 09/01/23 06/11/24 History (6 month) subcutaneous syringe (ElidateIITiansd) multivitamin 1 tablet PO DAILY 09/01/23 06/11/24 History omega 3-tpk-ydm-fish oil 100 1 cap PO DAILY 09/01/23 06/11/24 History mg-160 mg-1,000 mg capsule (Fish Oil) abiraterone 500 mg tablet 500 mg PO DAILY #1 tablet 02/26/24 06/11/24 Rx aspirin 81 mg tablet,delayed 81 mg PO DAILY 02/26/24 06/11/24 History release (Adult Aspirin Regimen) cholecalciferol (vitamin D3) 25 25 mcg PO DAILY 02/26/24 06/11/24 History mcg (1,000 unit) capsule famotidine 20 mg tablet (Pepcid AC) 20 mg PO BID #180 tabs 03/12/24 06/11/24 Rx tamsulosin 0.4 mg capsule 0.4 mg PO BID #180 caps 03/12/24 06/11/24 Rx donepezil 5 mg tablet 5 mg PO QHS #90 tabs 05/08/24 06/11/24 Rx mirtazapine 15 mg tablet 15 mg PO HS 05/25/24 06/11/24 History simvastatin 40 mg tablet 40 mg PO HS 05/25/24 06/11/24 History metformin 500 mg tablet,extended 500 mg PO TID 06/03/24 06/11/24 History release 24 hr metolazone 2.5 mg tablet 2.5 mg PO .COMPLEX #38 tabs 06/04/24 06/11/24 Rx furosemide 20 mg tablet 20 mg PO DAILY PRN Edema 06/11/24 06/11/24 History tamsulosin 0.4 mg capsule 0.4 mg PO HS 06/11/24 06/11/24 History potassium chloride 10 mEq 10 meq PO BID #200 caps 06/17/24 Rx capsule,extended release Allergies Allergy/AdvReac Type Severity Reaction Status Date / Time No Known Allergies Allergy Verified 06/10/24 19:34 Vital Signs Vital Signs - 24 hr 06/19/24 18:55 06/19/24 18:45 06/19/24 18:40 Temperature 101.6 F H 101.6 F H Pulse Rate Respiratory Rate Blood Pressure Pulse Oximetry 93 Oxygen Delivery Nasal Cannula Oxygen Flow Rate 2 Fraction of Inspired Oxygen 06/19/24 19:45 06/19/24 19:49 06/19/24 19:49 Temperature 99.5 F Pulse Rate 104 H 104 H Respiratory Rate 28 H 25 H Blood Pressure 146/43 H Pulse Oximetry 95 94 Oxygen Delivery Nasal Cannula Oxygen Flow Rate 2 Fraction of Inspired Oxygen 06/19/24 19:54 06/19/24 19:58 06/19/24 19:59 Temperature Pulse Rate 102 H 104 H 104 H Respiratory Rate 25 H 28 H Blood Pressure Pulse Oximetry 94 Oxygen Delivery Nasal Cannula Oxygen Flow Rate 2 Fraction of Inspired Oxygen 06/19/24 21:48 06/20/24 00:00 06/20/24 00:00 Temperature 98.5 F Pulse Rate 98 99 94 Respiratory Rate 32 H Blood Pressure 152/65 H Pulse Oximetry 94 Oxygen Delivery Oxygen Flow Rate Fraction of Inspired Oxygen 06/20/24 00:00 06/20/24 02:00 06/20/24 02:23 Temperature Pulse Rate 94 94 99 Respiratory Rate 28 H 24 H Blood Pressure Pulse Oximetry 94 Oxygen Delivery Nasal Cannula Oxygen Flow Rate 3 Fraction of Inspired Oxygen 06/20/24 02:32 06/20/24 03:48 06/20/24 03:49 Temperature Pulse Rate 98 96 96 Respiratory Rate 24 H 24 H Blood Pressure Pulse Oximetry 94 Oxygen Delivery Nasal Cannula Oxygen Flow Rate 3 Fraction of Inspired Oxygen 21 06/20/24 04:00 06/20/24 06:00 06/20/24 07:17 Temperature 98.8 F 101.3 F H Pulse Rate 100 105 H 112 H Respiratory Rate 26 H 32 H Blood Pressure 180/67 H 144/78 H Pulse Oximetry 97 96 Oxygen Delivery Oxygen Flow Rate Fraction of Inspired Oxygen 06/20/24 07:29 06/20/24 07:29 06/20/24 07:36 Temperature Pulse Rate 108 H 105 H Respiratory Rate 22 H 24 H Blood Pressure Pulse Oximetry 95 Oxygen Delivery Nasal Cannula Oxygen Flow Rate 2 Fraction of Inspired Oxygen 06/20/24 10:03 06/20/24 11:38 06/20/24 11:03 Temperature 103.2 F H 103.6 F H 103.6 F H Pulse Rate 123 H Respiratory Rate 28 H Blood Pressure 171/66 H Pulse Oximetry 98 Oxygen Delivery Oxygen Flow Rate Fraction of Inspired Oxygen 06/20/24 13:35 06/20/24 13:30 06/20/24 08:00 Temperature Pulse Rate 117 H 123 H Respiratory Rate 24 H Blood Pressure Pulse Oximetry 100 100 Oxygen Delivery Mechanical Ventilation Nasal Cannula Oxygen Flow Rate 2 Fraction of Inspired Oxygen 60 06/20/24 12:00 06/20/24 14:29 06/20/24 08:00 Temperature Pulse Rate 118 H 113 H Respiratory Rate 24 H Blood Pressure Pulse Oximetry 94 Oxygen Delivery Nasal Cannula Oxygen Flow Rate 2 Fraction of Inspired Oxygen 06/20/24 10:00 06/20/24 12:00 06/20/24 16:30 Temperature Pulse Rate 108 H 126 H 122 H Respiratory Rate Blood Pressure Pulse Oximetry 100 Oxygen Delivery Mechanical Ventilation Oxygen Flow Rate Fraction of Inspired Oxygen 40 06/20/24 14:00 06/20/24 16:00 06/20/24 18:00 Temperature Pulse Rate 120 H 125 H 128 H Respiratory Rate 24 H 24 H 30 H Blood Pressure Pulse Oximetry Oxygen Delivery Oxygen Flow Rate Fraction of Inspired Oxygen Exam Narrative: Patient is currently intubated. Pupils were midsize but reactive to light. Patient respond to deep painful stimuli. No decorticate or decerebrate posturing was noted. However patient is on propofol currently. Neurology assess limited. Results Labs 06/20/24 14:04 06/20/24 14:04 Labs: Short CBC 06/20/24 06/20/24 Range/Units 06:29 14:04 WBC 4.8 5.3 (4.5-10.0) K/mm3 Hgb 9.9 L 10.1 L (14.0-18.0) g/dL Hct 29.6 L 29.8 L (42.0-52.0) % Plt Count 210 217 (150-375) k/mm3 BMP 06/20/24 06/20/24 06:29 14:04 Sodium 144 144 Potassium 2.3 L* 2.4 L* Chloride 107 108 H Carbon Dioxide 25 24 BUN 15 15 Creatinine 1.70 H 2.10 H Glucose 137 H 132 H Calcium 9.1 9.1 Cardiac Enzymes 06/20/24 Range/Units 14:04 Total Creatine Kinase 71 (55-170) U/L Liver Function 06/20/24 06/20/24 Range/Units 06:29 14:04 Total Bilirubin 0.7 0.6 (0.2-1.3) mg/dL AST 24 32 (17-59) U/L ALT 11 12 (6-50) U/L Alkaline Phosphatase 57 57 (38-126) U/L Albumin 3.0 L 2.9 L (3.5-5.1) g/dL
[2024-06-20 18:29] LABS: Glucose Point of Care 153 mg/dl (65-105)
--- NOTE | 2024-06-20 18:49 | P.PNONC_ITS ---
Progress Note: A/P (1) Pancytopenia Code(s): D61.818 - Other pancytopenia Status: Acute Assessment and plan: Mr. Lewis is a patient of Dr. Pak and has hx of localized prostate cancer status post radiation therapy in 09/2017. he then was noted to have PSA rise and was thought to be biochemical rise. Patient was treated outside in [place] and was restarted on androgen deprivation therapy with leuprolide, Abiraterone and prednisone. He transferred care to Dr. Pak in 10/2023 and was last seen in the office in April 2024. He continues leuprolide, abiraterone and prednisone with Dr. Pak. His prostate cancer was in remission with PSA 0.1 on 04/2024. This hospitalization patient presented with generalized weakness and headache. CT scan head came back negative for any intracranial process. Labs showed iron deficiency as well as anemia of chronic kidney disease. Since then patient was noted to have increasing respiratory distress in past 24 hours and has been intubated. A CT scan of chest showed pneumonia. He is on IV antibiotic. A CT scan of abdomen and pelvis on 06/20/2024 showed multiple pancreatic cystic lesions as well as sclerotic lesion in bilateral iliac bones. Pancreatic cyst will be evaluated as an outpatient with pancreatic protocol MRI. As far as sclerotic lesion in the iliac bone I doubt that these are anything related to prostate cancer as his PSA is 0.1 in April 2024. I asked the daughter to perhaps procure any CT scans of abdomen and pelvis or a PSMA PET-CT done with his outside oncologist in last few years when PSA rise was noted. At this time patient does not need any oncologic workup and will get treatment for respiratory failure per primary team. Oncology will peripherally follow. Please call with any questions. - Time Spent With Patient Total time spent is greater than 50% in coordination of care (as documented) at patient's floor/unit and/or counseling patient: 25 - 35 minutes Subjective Interval history: Patient seen at bedside. Overnight he is intubated and is on ventilator support. Patient's daughter and son-in-law was at bedside. Review of Systems - Review of Systems unobtainable due to endotracheal tube, unobtainable due to medical condition Exam Vital signs: Temp Pulse Resp BP Pulse Ox O2 Del Method O2 Flow Rate 38.5 C H 126 H 26 H 171/66 H 100 Mechanical Ventilation 2 06/20/24 18:44 06/20/24 18:43 06/20/24 18:43 06/20/24 11:38 06/20/24 16:30 06/20/24 16:30 06/20/24 12:00 FiO2 40 06/20/24 16:30 - Constitutional Comments: Patient intubated and on ventilator - Routine HEENT Exam Head: Present: facial swelling - Routine Respiratory Exam Comments: Coarse breath sounds bilaterally - Routine Cardiovascular Exam Cardiovascular: Present: RRR, S1, S2 - Routine Abdominal Exam Present: normal bowel sounds, soft - Routine Extremities Exam Present: pulses intact, pedal edema - Routine Neurological Exam Patient intubated PN: Objective Data - Labs CBC & Chem 7: 06/20/24 14:04 06/20/24 14:04 Labs: Laboratory Results - last 24 hr 06/20/24 06/20/24 06/20/24 00:18 06:29 10:08 WBC 4.8 RBC 2.93 L Hgb 9.9 L Hct 29.6 L MCV 101.0 H MCH 33.8 MCHC 33.4 RDW 14.2 Plt Count 210 MPV 9.9 Immature Gran % (Auto) 0.6 H Neut % (Auto) 67.7 Lymph % (Auto) 13.3 L [place] % (Auto) 9.3 H Eos % (Auto) 8.0 H Baso % (Auto) 1.1 Lymph # (Auto) 0.63 L [place] # (Auto) 0.4 Eos # (Auto) 0.4 H Baso # (Auto) 0.1 Abs Immat Gran (auto) 0.03 Absolute Neuts (auto) 3.2 Absolute Nucleated RBC 0.000 Nucleated RBC % 0.0 Atypical Lymphocytes Platelet Estimate Schistocytes PT INR APTT Puncture Site Left radial ABG pH 7.460 H ABG pCO2 35.1 ABG pO2 73.4 L ABG PO2/FiO2 Ratio 2.62 ABG HCO3 24.3 ABG O2 Saturation 95.6 ABG O2 Content 17.2 ABG Base Excess 0.9 A-a Gradient 84.8 Oxyhemoglobin 94.0 Carboxyhemoglobin Methemoglobin Reduced Hemoglobin Total Hemoglobin 13.0 O2 Delivery Device Nasal cannula O2 Liters/Min 2.0 Minute Volume Vent Rate Vent Mode FiO2 28 Tidal Volume PEEP Peak Inspir Pressure Pressure Support Sodium 144 Potassium 2.3 L* Chloride 107 Carbon Dioxide 25 Anion Gap 12 BUN 15 Creatinine 1.70 H Estim Creat Clear Calc 0 Estimated GFR 39 L Glucose 137 H POC Capillary Glucose 152 H Lactic Acid Calcium 9.1 Phosphorus Magnesium 1.7 Total Bilirubin 0.7 AST 24 ALT 11 Alkaline Phosphatase 57 Ammonia Total Creatine Kinase C-Reactive Protein 34.1 H Total Protein 6.0 L Albumin 3.0 L Triglycerides CSF Source CSF Appearance CSF Color CSF RBC CSF Tot Nucleated Cells CSF Neutrophils CSF Lymphocytes CSF Monocytes CSF Glucose CSF Total Protein Nasal MRSA (PCR) 06/20/24 06/20/24 06/20/24 11:28 11:32 11:38 WBC RBC Hgb Hct MCV MCH MCHC RDW Plt Count MPV Immature Gran % (Auto) Neut % (Auto) Lymph % (Auto) [place] % (Auto) Eos % (Auto) Baso % (Auto) Lymph # (Auto) [place] # (Auto) Eos # (Auto) Baso # (Auto) Abs Immat Gran (auto) Absolute Neuts (auto) Absolute Nucleated RBC Nucleated RBC % Atypical Lymphocytes Platelet Estimate Schistocytes PT INR APTT Puncture Site ABG pH ABG pCO2 ABG pO2 ABG PO2/FiO2 Ratio ABG HCO3 ABG O2 Saturation ABG O2 Content ABG Base Excess A-a Gradient Oxyhemoglobin Carboxyhemoglobin Methemoglobin Reduced Hemoglobin Total Hemoglobin O2 Delivery Device O2 Liters/Min Minute Volume Vent Rate Vent Mode FiO2 Tidal Volume PEEP Peak Inspir Pressure Pressure Support Sodium Potassium Chloride Carbon Dioxide Anion Gap BUN Creatinine Estim Creat Clear Calc Estimated GFR Glucose POC Capillary Glucose 133 H Lactic Acid 1.3 Calcium Phosphorus Magnesium Total Bilirubin AST ALT Alkaline Phosphatase Ammonia Total Creatine Kinase C-Reactive Protein Total Protein Albumin Triglycerides CSF Source CSF Appearance CSF Color CSF RBC CSF Tot Nucleated Cells CSF Neutrophils CSF Lymphocytes CSF Monocytes CSF Glucose CSF Total Protein Nasal MRSA (PCR) Not detected 06/20/24 06/20/24 06/20/24 14:04 14:41 16:03 WBC 5.3 RBC 2.97 L Hgb 10.1 L Hct 29.8 L MCV 100.3 H MCH 34.0 MCHC 33.9 RDW 14.2 Plt Count 217 MPV 9.9 Immature Gran % (Auto) 0.9 H Neut % (Auto) 68.7 Lymph % (Auto) 13.5 L [place] % (Auto) 8.1 Eos % (Auto) 7.7 H Baso % (Auto) 1.1 Lymph # (Auto) 0.72 L [place] # (Auto) 0.4 Eos # (Auto) 0.4 H Baso # (Auto) 0.1 Abs Immat Gran (auto) 0.05 H Absolute Neuts (auto) 3.7 Absolute Nucleated RBC 0.000 Nucleated RBC % 0.0 Atypical Lymphocytes Present Platelet Estimate Adequate Schistocytes None seen PT 15.6 H INR 1.2 APTT 35.7 Puncture Site Left radial ABG pH 7.515 H* ABG pCO2 27.3 L ABG pO2 201.1 H ABG PO2/FiO2 Ratio 3.35 ABG HCO3 21.5 L ABG O2 Saturation 99.5 ABG O2 Content 15.9 L ABG Base Excess -0.5 A-a Gradient 196.7 Oxyhemoglobin 98.8 Carboxyhemoglobin 0.3 Methemoglobin 0.2 Reduced Hemoglobin 0.7 Total Hemoglobin 11.1 L O2 Delivery Device Ventilator O2 Liters/Min Not Reportable Minute Volume Not Reportable Vent Rate 24 Vent Mode Cmv FiO2 60 Tidal Volume 450 PEEP 8 Peak Inspir Pressure Not Reportable Pressure Support Not Reportable Sodium 144 Potassium 2.4 L* Chloride 108 H Carbon Dioxide 24 Anion Gap 12 BUN 15 Creatinine 2.10 H Estim Creat Clear Calc 28 Estimated GFR 30 L Glucose 132 H POC Capillary Glucose Lactic Acid 1.4 Calcium 9.1 Phosphorus 2.3 L Magnesium 1.5 L Total Bilirubin 0.6 AST 32 ALT 12 Alkaline Phosphatase 57 Ammonia < 9 L Total Creatine Kinase 71 C-Reactive Protein 34.8 H Total Protein 6.0 L Albumin 2.9 L Triglycerides 440 H CSF Source Csf CSF Appearance Clear CSF Color Colorless CSF RBC 1 CSF Tot Nucleated Cells 1 CSF Neutrophils 28 H CSF Lymphocytes 64 CSF Monocytes 8 L CSF Glucose 89 H CSF Total Protein 102 H Nasal MRSA (PCR) 06/20/24 18:27 WBC RBC Hgb Hct MCV MCH MCHC RDW Plt Count MPV Immature Gran % (Auto) Neut % (Auto) Lymph % (Auto) [place] % (Auto) Eos % (Auto) Baso % (Auto) Lymph # (Auto) [place] # (Auto) Eos # (Auto) Baso # (Auto) Abs Immat Gran (auto) Absolute Neuts (auto) Absolute Nucleated RBC Nucleated RBC % Atypical Lymphocytes Platelet Estimate Schistocytes PT INR APTT Puncture Site ABG pH ABG pCO2 ABG pO2 ABG PO2/FiO2 Ratio ABG HCO3 ABG O2 Saturation ABG O2 Content ABG Base Excess A-a Gradient Oxyhemoglobin Carboxyhemoglobin Methemoglobin Reduced Hemoglobin Total Hemoglobin O2 Delivery Device O2 Liters/Min Minute Volume Vent Rate Vent Mode FiO2 Tidal Volume PEEP Peak Inspir Pressure Pressure Support Sodium Potassium Chloride Carbon Dioxide Anion Gap BUN Creatinine Estim Creat Clear Calc Estimated GFR Glucose POC Capillary Glucose 153 H Lactic Acid Calcium Phosphorus Magnesium Total Bilirubin AST ALT Alkaline Phosphatase Ammonia Total Creatine Kinase C-Reactive Protein Total Protein Albumin Triglycerides CSF Source CSF Appearance CSF Color CSF RBC CSF Tot Nucleated Cells CSF Neutrophils CSF Lymphocytes CSF Monocytes CSF Glucose CSF Total Protein Nasal MRSA (PCR)
[2024-06-20 19:09] LABS: Anion Gap 9 mmol/L (4-12); Blood Urea Nitrogen 15 mg/dL (9-20); Carbon Dioxide 25 mmol/L (22-30); Chloride 108 mmol/L (98-107); Estimated CRCL calculation 24 ml/min; Estimated Glomerular Filt Rate 26; Glucose 197 mg/dL (65-110); Sodium 142 mmol/L (137-145)
[2024-06-20] MEDS: FENTANYL 2,500MCG/NS250ML(*CRX 2,500 MCG/250 ML BAG IV CONT (20:40)
[2024-06-20] MEDS: PANTOPRAZOLE SODIUM IV 40 MG VIAL IV PUSH (21:12)
[2024-06-20] MEDS: MINERAL OIL/WHITE PETROLATUM OINTMENT 1 APPLIC EACH EYE (21:14)
[2024-06-20] MEDS: MIDAZOLAM 100MG/NS 100ML(*CRX) 100 MG/100 ML BAG IV CONT (22:19)
[2024-06-20] MEDS: NOREPINEPHRINE 8 MG/D5W 250 ML 8 MG/250 ML BAG 9.38 MG IV CONT (22:56)
[2024-06-20 23:51] LABS: Glucose Point of Care 162 mg/dl (65-105)
[2024-06-21] VITALS (103 sets, daily range): BP systolic 56–154; BP diastolic 37–91; PULSE 76–161; RESP 8–25; TEMP 35.4–38.5; O2SAT 98–100; BMI 34.8
[2024-06-21] MEDS: IPRATROPIUM 0.5 MG/ALBUTEROL SULFATE 2.5 MG AMPUL.NEB 3 ML NEBULIZE (01:45)
--- NOTE | 2024-06-21 02:46 | ECG_ITS ---
Test Date: 2024-06-21 02:49:32 Measurements Intervals [place] Rate: 153 P: 0 MO: 0 QRS: -2 QRSD: 83 T: 0 QT: 176 QTc: 281 Interpretive Statements ATRIAL FLUTTER/TACHYCARDIA WITH RAPID VENTRICULAR RESPONSE LOW QRS VOLTAGE IN PRECORDIAL LEADS CANNOT R/O SEPTAL INFARCT, AGE INDETERMINATE BORDERLINE ST-T WAVE ABNORMALITY- DIFFUSE LEADS ABNORMAL ECG Compared to ECG 06/17/2024 13:28:52 ATRIAL FLUTTER/TACHYCARDIA NOW PRESENT Electronically Signed On 06-21-2024 06:54:09 CDT by Antonio Skinner D.O.
[2024-06-21] MEDS: ACETAMINOPHEN ELIXIR 325 MG/10.15 ML UDC 650 MG PO (03:02)
--- NOTE | 2024-06-21 03:10 | P.PNCROSS_ITS ---
Event Note Event Note Event Note: 06/21/2024 at 02:30 Patient suddenly went into a tachyarrhythmia. Telemetry appeared to have some ST depression. Stat EKG was performed which demonstrated atrial tachycardia most consistent with a flutter.Patient was still febrile despite being under cooling blanket. Tylenol was administered through the patient's OG. Shortly thereafter the patient's heart rate did slow briefly from the 160s down to the 120s and was cleared patient was in atrial fibrillation. During this transition in the patient cardiac rhythm his blood pressures did acutely dropped down into the 50s. The patient's Levophed was maxed out. I placed an order for vasopressin and an amiodarone drip. He the patient sedation was paused. After amiodarone load the patient's heart rate improved down to 95 in the patient's blood pressures rebounded. Nursing staff was able to down titrate the Levop hed and vasopressin has not yet been hung. A.m. labs were drawn early. Hemoglobin was stable. White count remained within normal limits. Magnesium was borderline low at 1.6 potassium was improved to 3.2 but still low. An order was given for 2 g magnesium sulfate rider and 40 mEq of potassium chloride. 30 minute spent in critical care activities. Due to a high probability of clinically significant, life threatening deterioration, the patient required my highest level of preparedness to intervene emergently and I personally spent this critical care time directly and personally managing the patient. This critical care time included obtaining a history; examining the patient; pulse oximetry; ordering and review of studies; arranging urgent treatment with development of a management plan; evaluation of patient's response to treatment; frequent reassessment; and discussions with other providers. It was exclusive of separately billable procedures and treating other patients and teaching time. Please see Assessment and Plan section and the rest of the note for further information on patient assessment and treatment.
[2024-06-21] MEDS: AMIODARONE 150 MG/D5W 100 ML 150 MG/100 ML BAG 600 MG IV CONT ×2 (03:11→03:24)
[2024-06-21 03:16] LABS: Basophils Absolute Auto 0.1 K/mm3 (0.0-0.1); Basophils Percent Auto 0.9 % (0.2-1.2); Eosinophils Absolute Auto 0.7 K/mm3 (0-0.3); Eosinophils Percent Auto 8.1 % (0-4.4); Hematocrit 29.7 % (42.0-52.0); Hemoglobin 9.7 g/dL (14.0-18.0); Immature Granulocyte Absolute 0.16 K/mm3 (0.00-0.031); Immature Granulocyte Percent A 1.8 % (0-0.5); Lymphocytes Absolute Auto 1.08 K/mm3 (0.9-3.2); Lymphocytes Percent Auto 12.2 % (18.3-44.2); Mean Corpuscular HGB Conc 32.7 g/dl (32-36); Mean Corpuscular Hemoglobin 33.3 pg (26-34); Mean Corpuscular Volume 102.1 fl (80-100); Mean Platelet Volume 10.1 fl (7.4-10.4); Monocytes Absolute Auto 0.7 K/mm3 (0.1-0.6); Monocytes Percent Auto 7.5 % (2.6-8.5); Neutrophils Absolute Auto 6.2 K/mm3 (1.3-6.7); Neutrophils Percent Auto 69.5 % (45.5-73.1); Platelet Count Result 262 k/mm3 (150-375); Red Blood Count 2.91 M/mm3 (4.6-6.20); Red Cell Distribution Width 14.5 % (11.5-14.5); White Blood Count 8.9 K/mm3 (4.5-10.0)
[2024-06-21 03:27] LABS: Lactic Acid Reflex 1.5 mmol/L (0.7-2.0)
[2024-06-21 03:30] LABS: Alanine Aminotransferase 12 U/L (6-50); Albumin Level 2.9 g/dL (3.5-5.1); Alkaline Phosphatase 57 U/L (38-126); Anion Gap 11 mmol/L (4-12); Aspartate Amino Transferase 29 U/L (17-59); Bilirubin,Total 0.5 mg/dL (0.2-1.3); Blood Urea Nitrogen 17 mg/dL (9-20); Calcium 9.4 mg/dL (8.4-10.2); Carbon Dioxide 22 mmol/L (22-30); Chloride 112 mmol/L (98-107); Estimated CRCL calculation 20 ml/min; Estimated Glomerular Filt Rate 20; Glucose 179 mg/dL (65-110); Lipase 35 U/L (23-300); Magnesium 1.6 mg/dL (1.6-2.3); Phosphorus 3.9 mg/dL (2.5-4.5); Potassium 3.2 mmol/L (3.4-5.0); Sodium 145 mmol/L (137-145)
[2024-06-21] MEDS: AMIODARONE 360 MG/D5W 200 ML 360 MG/200 ML BAG 16.67 MG IV CONT (03:34)
[2024-06-21 03:48] LABS: Hypochromasia 1+; Ovalocytes 1+; Platelet Estimate Adequate (Adequate)
[2024-06-21] MEDS: ACYCLOVIR SODIUM IVPB 1,000 MG in DEXTROSE 5% IN WATER 250 ML 270 MG IVPB (03:48)
[2024-06-21 03:49] LABS: Burr Cells 1+; Schistocytes None Seen
[2024-06-21 03:56] LABS: CRP 39.7 mg/dL (<1.0)
[2024-06-21] MEDS: MAGNESIUM SULF 2 GM/WATER 50ML 2 GM/50 ML BAG IVPB ×2 (04:19→10:25)
[2024-06-21 05:08] LABS: Alveolar/Arterial O2 Gradient 106.2 mmHg; Base Excess ABG -3.3 mEq/l (+/-2.0); Carboxyhemoglobin 0.3 % THb (0-2.0); Fractional Inspired Oxygen 40 %; HCO3 ABG 22.4 mEq/l (22.0-26.0); Methemoglobin ABG 0.2 %THb (0-1.5); Oxygen Content ABG 13.9 %vol (16.0-22.0); Oxygen Saturation ABG 98.4 % (95.0-100.0); Oxyhemoglobin 97.8 % THb (90.0-100.0); PCO2 ABG 43.1 mmHg (35.0-45.0); PO2 ABG 129.4 mmHg (80.0-100.0); PO2 FiO2 Ratio Arterial Blood 3.23 %; Reduced Hemoglobin 1.7 %THb (0-5.0); Total Hemoglobin 9.9 g/dL (12.0-18.0); pH ABG 7.334 (7.350-7.450)
[2024-06-21 05:09] LABS: Device VENTILATOR; Modified Allen's Test Pass; Site Drawn RIGHT RADIAL
[2024-06-21 05:10] LABS: Arterial Blood Gas PEEP 8 cmH2O; Arterial Blood Gas Tidal Volume 450 ml; Arterial Blood Gas Vent Mode CMV; Arterial Blood Gas Ventilator rate 20 /MIN
--- NOTE | 2024-06-21 05:52 | ECG_ITS ---
Test Date: 2024-06-21 05:57:11 Measurements Intervals [place] Rate: 95 P: 0 HI: 0 QRS: 3 QRSD: 101 T: 23 QT: 382 QTc: 480 Interpretive Statements SINUS RHYTHM LOW QRS VOLTAGE IN PRECORDIAL LEADS CANNOT R/O SEPTAL INFARCT, AGE INDETERMINATE BORDERLINE T WAVE ABNORMALITY- ANT/INF LEADS BASELINE ARTIFACT- V2 ABNORMAL ECG Compared to ECG 06/21/2024 02:49:32 Atrial flutter no longer present Electronically Signed On 06-21-2024 06:55:32 CDT by Antonio Skinner D.O.
[2024-06-21] MEDS: POTASSIUM CHLORIDE INJ 40 MEQ in SODIUM CHLORIDE 0.9% IV 500 ML 130 MEQ IVPB (05:58)
[2024-06-21 06:32] LABS: Glucose Point of Care 209 mg/dl (65-105)
[2024-06-21] MEDS: INSULIN ASPART (*BKC) 100 UNITS/ML SUB-Q ×2 (06:32→10:57)
[2024-06-21] MEDS: NOREPINEPHRINE 8 MG/D5W 250 ML 8 MG/250 ML BAG 39.38 MG IV CONT (07:20)
[2024-06-21] MEDS: PANTOPRAZOLE SODIUM IV 40 MG VIAL IV PUSH (08:58)
[2024-06-21] MEDS: MEROPENEM 500 MG/NS 100 ML 500 MG/100 ML BAG 200 MG IVPB (08:58)
[2024-06-21] MEDS: ENOXAPARIN 30 MG/0.3 ML SYRINGE SUB-Q (08:58)
[2024-06-21] MEDS: CENTRAL LINE FLUSH 10 ML IV PUSH (08:59)
[2024-06-21] MEDS: VASOPRESSIN INJ 100 UNITS in DEXTROSE 5% 95 ML IV CONT (10:13)
[2024-06-21] MEDS: MINERAL OIL/WHITE PETROLATUM OINTMENT 1 APPLIC EACH EYE (10:25)
[2024-06-21 10:38] LABS: Glucose Point of Care 226 mg/dl (65-105)
--- NOTE | 2024-06-21 11:47 | WPDINTPN ---
Progress Note: A&P Assessment and Plan (1) Sepsis: Code(s): A41.9 - Sepsis, unspecified organism Status: Acute Assessment and Plan: Patient with sepsis, elevated CRP, acute on chronic kidney disease, normal lactic acid, fevers, tachypnea, tachycardia -given significant fevers with leukopenia, altered mental status/encephalopathy will have Interventional Radiology perform lumbar puncture, labs have been ordered -sepsis secondary to pneumonia and possible meningitis/encephalitis -see below -patient is currently meropenem, vancomycin (06/20) -continue acyclovir (06/20) -patient overall volume overloaded and hold further IV fluids -culture sent and pending -continue Levophed, add vasopressin, add stress dose hydrocortisone -06/20: Blank cultures x2 in been obtained 06/20: Wound cultures have been obtained - (2) Acute hypoxic respiratory failure: Code(s): J96.01 - Acute respiratory failure with hypoxia Status: Acute Assessment and Plan: Patient with significant fevers with T-max of 103.2?, respiratory distress, tachycardia, tachypnea, acute on chronic kidney disease, with impending respiratory failure -06/20: Intubated for AV protection secondary to altered mental status -placed patient on CMV mode of ventilation, peep of 8, 40 % FiO2 -ABG and chest x-ray reviewed -sedated with Versed and fentanyl 06/20/2024: CT chest abdomen pelvis IMPRESSION: 1. Worsened airspace opacities in left lung lower lobe, consistent with atelectasis versus pneumonia. 2. Septal thickening again seen in the lungs, consistent with mild pulmonary edema versus chronic lung disease. 3. Cystic lesions of the pancreas with worsening from 08/21/2014. The differential diagnosis includes pseudocyst, intraductal papillary mucinous neoplasm (IPMN), mucinous cystic neoplasm (MCN), serous cystadenoma, and neuroendocrine tumor. Consider abdomen MRI without and with contrast. 4. Sclerotic lesions in the iliac bones, new from 08/21/2014. The differential diagnosis includes metastatic disease and Paget's disease. (3) Pneumonia: Qualifiers: Pneumonia type: due to unspecified organism Laterality: unspecified laterality Lung location: lower lobe of lung Qualified Code(s): J18.9 - Pneumonia, unspecified organism Code(s): J18.9 - Pneumonia, unspecified organism Status: Acute Assessment and Plan: As above, will obtain sputum cultures (4) DM renal manif type II: Qualifiers: Diabetes mellitus terminal worker insulin use: without terminal worker use Diabetes mellitus complication detail: with chronic kidney disease Chronic kidney disease stage: stage 3 (moderate) Chronic kidney disease stage 3 subtype: stage 3b (GFR 30-44) Qualified Code(s): E11.22 - Type 2 diabetes mellitus with diabetic chronic kidney disease; N18.32 - Chronic kidney disease, stage 3b Code(s): E11.29 - Type 2 diabetes mellitus with other diabetic kidney complication Status: Acute Assessment and Plan: Continue Accu-Cheks and sliding scale insulin (5) Encephalopathy: Code(s): G93.40 - Encephalopathy, unspecified Status: Acute Assessment and Plan: Encephalopathy could be multifactorial secondary to infection, sepsis, acute on chronic kidney disease, possible meningitis, -LP LP done and shows low WBC count which was elevated glucose and protein Other studies likely HSV PCR pending Continue vancomycin acyclovir and meropenem -ammonia level <9 Patient was seen by Neurology (6) Hypokalemia: Code(s): E87.6 - Hypokalemia Status: Acute Assessment and Plan: Potassium replacement ordered (7) Prostate cancer: Code(s): C61 - Malignant neoplasm of prostate Status: Acute Assessment and Plan: Patient is being currently treated for prostate cancer with Abiraterone, will currently hold for now this patient has sepsis, acute respiratory failure, possible pneumonia, question of meningitis (8) Septic shock: Code(s): A41.9 - Sepsis, unspecified organism; R65.21 - Severe sepsis with septic shock Status: Acute Assessment and Plan: See above Plan DVT prophylaxis: Lovenox Stress ulcer prophylaxis: Protonix Nutrition: Tube feeds ordered Code Status: DNR I spoke to patient's 2 daughters at bedside presence of nurse manager materials management Francisco who is their family friend. I went over patient's current status including chronic kidney failure, congestive heart failure, volume overload and anasarca, septic shock with pneumonia, encephalopathy, LP results, AFib with RVR requiring infusion. They told me the patient was not doing well even before he got sick and was gradually deteriorating over last few months. After having time to think about goals and his current condition they feel that patient would not want to continue with mechanical ventilation considering poor quality of life to start with and now having significant medical problems with overall poor prognosis. They have decided to made patient DNR at this time and are going to proceed with palliative extubation and comfort care once all other family members have visited him today. I answered all their questions. I have explained to them that I will use opioids, anxiolytics and other agents on as needed basis to promote comfort and discontinue all medical therapy, lab testing and invasive monitoring. They verbalized standing and have agreed to proceed. They are waiting for their husbands to come visit patient before proceeding with palliative extubation. Considering the plan for palliative extubation will hold further testing including echocardiogram and making other drastic changes in management. Patient has been made DNR chart at this time. Critical Care Time Spent: 40 minutes Due to a high probability of clinically significant, life threatening deterioration, the patient required my highest level of preparedness to intervene emergently and I personally spent this critical care time directly and personally managing the patient. This critical care time included obtaining a history; examining the patient; pulse oximetry; ordering and review of studies; arranging urgent treatment with development of a management plan; evaluation of patient's response to treatment; frequent reassessment; and discussions with other providers. It was exclusive of separately billable procedures and treating other patients and teaching time. Please see Assessment and Plan section and the rest of the note for further information on patient assessment and treatment This dictation may have been done utilizing a voice recognition system. Attempts have been made to correct errors. However, there may be uncorrected grammatical, spelling, and recognitions errors present. Subjective Date/time seen: 06/21/24 Overnight events reviewed. Afebrile Continues to be on mechanical ventilation 40% FiO2 Continues to be on Levophed at 17-18 mics Continues to be sedated with Versed and fentanyl Other Vitals acceptable Low urine output Review of Systems Review of Systems: ROS unobtainable: Yes unobtainable due to endotracheal tube, unobtainable due to medical condition and unobtainable due to mental status Exam Narrative: General: Elderly gentleman with anasarca, intubated and sedated, in no acute distress HEENT:? Pupils are equal and reactive, sclera is clear Neck:? Supple Respiratory:? Coarse breath sounds bilaterally, decreased at bases, adequate air entry, ETT Cardiac:? Sinus tachycardia Abdomen:? Soft, nontender, nondistended, decreased bowel sounds, positive anasarca Extremities:? Bilateral upper and lower extremity pitting edema Neuro:? Patient is intubated, sedated, does not open his eyes or follow simple commands. Prior to intubation patient was only responding to pain stimulus, not answering questions or following commands Skin:? Bilateral upper extremity bruising noted Psych:? Unable to assess at this time Objective Data Vital Signs Vital Signs: Vital Signs - 24 hr 06/20/24 13:35 06/20/24 13:30 06/20/24 12:00 Temperature Pulse Rate 117 H 123 H Respiratory Rate 24 H Blood Pressure Pulse Oximetry 100 94 Oxygen Delivery Mechanical Ventilation Nasal Cannula Oxygen Flow Rate 2 Fraction of Inspired Oxygen 60 06/20/24 14:29 06/20/24 12:00 06/20/24 16:30 Temperature Pulse Rate 118 H 126 H 122 H Respiratory Rate 24 H Blood Pressure Pulse Oximetry 100 Oxygen Delivery Mechanical Ventilation Oxygen Flow Rate Fraction of Inspired Oxygen 40 06/20/24 14:00 06/20/24 16:00 06/20/24 18:00 Temperature Pulse Rate 120 H 125 H 128 H Respiratory Rate 24 H 24 H 30 H Blood Pressure Pulse Oximetry Oxygen Delivery Oxygen Flow Rate Fraction of Inspired Oxygen 06/20/24 18:24 06/20/24 18:43 06/20/24 18:44 Temperature 38.5 C H Pulse Rate 130 H 126 H Respiratory Rate 27 H 26 H Blood Pressure Pulse Oximetry Oxygen Delivery Oxygen Flow Rate Fraction of Inspired Oxygen 06/20/24 16:00 06/20/24 16:00 06/20/24 18:00 Temperature 38.7 C H Pulse Rate 125 H 124 H 124 H Respiratory Rate 24 H Blood Pressure 145/88 H Pulse Oximetry 99 Oxygen Delivery Oxygen Flow Rate Fraction of Inspired Oxygen 06/20/24 16:00 06/20/24 19:44 06/20/24 20:40 Temperature 38.4 C H Pulse Rate 125 H 121 H Respiratory Rate 24 H 28 H Blood Pressure Pulse Oximetry 100 Oxygen Delivery Mechanical Ventilation Oxygen Flow Rate Fraction of Inspired Oxygen 80 06/20/24 20:00 06/20/24 20:45 06/20/24 20:59 Temperature Pulse Rate 127 H 120 H 118 H Respiratory Rate 28 H 17 28 H Blood Pressure Pulse Oximetry Oxygen Delivery Oxygen Flow Rate Fraction of Inspired Oxygen 06/20/24 21:00 06/20/24 21:00 06/20/24 21:17 Temperature Pulse Rate 122 H 120 H 125 H Respiratory Rate 32 H 30 H Blood Pressure Pulse Oximetry 100 Oxygen Delivery Mechanical Ventilation Oxygen Flow Rate Fraction of Inspired Oxygen 40 06/20/24 21:49 06/20/24 22:19 06/20/24 20:00 Temperature Pulse Rate 134 H 130 H Respiratory Rate 28 H 26 H Blood Pressure Pulse Oximetry 100 Oxygen Delivery Mechanical Ventilation Oxygen Flow Rate Fraction of Inspired Oxygen 40 06/20/24 20:00 06/20/24 22:56 06/20/24 22:30 Temperature 38.4 C H Pulse Rate 128 H 128 H 126 H Respiratory Rate 27 H 25 H Blood Pressure 94/63 L 97/53 L Pulse Oximetry 100 Oxygen Delivery Oxygen Flow Rate Fraction of Inspired Oxygen 06/20/24 23:00 06/20/24 23:03 06/20/24 23:22 Temperature Pulse Rate 128 H 127 H 124 H Respiratory Rate 33 H 27 H Blood Pressure Pulse Oximetry 100 Oxygen Delivery Mechanical Ventilation Oxygen Flow Rate Fraction of Inspired Oxygen 40 06/20/24 23:36 06/20/24 22:00 06/20/24 23:48 Temperature Pulse Rate 126 H 130 H 126 H Respiratory Rate 27 H 30 H 24 H Blood Pressure Pulse Oximetry Oxygen Delivery Oxygen Flow Rate Fraction of Inspired Oxygen 06/20/24 20:16 06/20/24 20:31 06/20/24 20:46 Temperature 38.4 C H 38.4 C H 38.5 C H Pulse Rate 127 H 129 H 118 H Respiratory Rate 27 H 25 H 16 Blood Pressure 126/60 124/58 L 66/42 L Pulse Oximetry 100 100 100 Oxygen Delivery Oxygen Flow Rate Fraction of Inspired Oxygen 06/20/24 20:47 06/20/24 20:51 06/20/24 20:56 Temperature 38.5 C H 38.5 C H 38.4 C H Pulse Rate 118 H 117 H 117 H Respiratory Rate 11 L 35 H 28 H Blood Pressure 65/41 L 69/46 L 63/44 L Pulse Oximetry 100 100 100 Oxygen Delivery Oxygen Flow Rate Fraction of Inspired Oxygen 06/20/24 20:59 06/20/24 21:01 06/20/24 21:06 Temperature 38.4 C H 38.4 C H 38.4 C H Pulse Rate 118 H 119 H 122 H Respiratory Rate 23 H 28 H 20 Blood Pressure 76/57 L 75/45 L 104/49 L Pulse Oximetry 100 100 100 Oxygen Delivery Oxygen Flow Rate Fraction of Inspired Oxygen 06/20/24 21:11 06/20/24 21:16 06/20/24 21:21 Temperature 38.4 C H 38.4 C H 38.4 C H Pulse Rate 124 H 123 H 125 H Respiratory Rate 23 H 27 H 32 H Blood Pressure 94/50 L 108/57 L 116/61 Pulse Oximetry 100 100 100 Oxygen Delivery Oxygen Flow Rate Fraction of Inspired Oxygen 06/20/24 21:26 06/20/24 21:31 06/20/24 21:41 Temperature 38.4 C H 38.4 C H 38.4 C H Pulse Rate 128 H 133 H 135 H Respiratory Rate 32 H 20 28 H Blood Pressure 97/43 L 110/68 110/56 L Pulse Oximetry 100 100 100 Oxygen Delivery Oxygen Flow Rate Fraction of Inspired Oxygen 06/20/24 21:51 06/20/24 22:01 06/20/24 22:11 Temperature 38.4 C H 38.4 C H 38.4 C H Pulse Rate 134 H 130 H 130 H Respiratory Rate 33 H 31 H 29 H Blood Pressure 102/61 117/51 L 111/49 L Pulse Oximetry 100 100 99 Oxygen Delivery Oxygen Flow Rate Fraction of Inspired Oxygen 06/20/24 22:21 06/20/24 22:31 06/20/24 22:41 Temperature 38.4 C H 38.4 C H 38.4 C H Pulse Rate 130 H 127 H 130 H Respiratory Rate 31 H 28 H 29 H Blood Pressure 114/67 86/41 L 97/44 L Pulse Oximetry 100 99 100 Oxygen Delivery Oxygen Flow Rate Fraction of Inspired Oxygen 06/20/24 22:51 06/20/24 23:01 06/20/24 23:16 Temperature 38.4 C H 38.4 C H 38.4 C H Pulse Rate 126 H 126 H 125 H Respiratory Rate 27 H 25 H 25 H Blood Pressure 97/53 L 81/46 L 114/69 Pulse Oximetry 99 100 100 Oxygen Delivery Oxygen Flow Rate Fraction of Inspired Oxygen 06/20/24 23:31 06/20/24 23:46 06/21/24 00:01 Temperature 38.4 C H 38.5 C H 38.5 C H Pulse Rate 125 H 125 H 123 H Respiratory Rate 25 H 24 H 23 H Blood Pressure 89/68 L 111/58 L 100/53 L Pulse Oximetry 100 100 100 Oxygen Delivery Oxygen Flow Rate Fraction of Inspired Oxygen 06/21/24 00:16 06/21/24 00:31 06/21/24 00:47 Temperature 38.4 C H 38.4 C H 38.3 C H Pulse Rate 121 H 118 H 118 H Respiratory Rate 23 H 25 H 19 Blood Pressure 91/49 L 84/49 L 88/49 L Pulse Oximetry 99 99 100 Oxygen Delivery Oxygen Flow Rate Fraction of Inspired Oxygen 06/20/24 23:00 06/20/24 23:15 06/20/24 23:30 Temperature Pulse Rate 126 H 125 H 125 H Respiratory Rate Blood Pressure 81/46 L 114/69 89/68 L Pulse Oximetry Oxygen Delivery Oxygen Flow Rate Fraction of Inspired Oxygen 06/20/24 23:45 06/21/24 00:00 06/21/24 00:15 Temperature Pulse Rate 125 H 125 H 121 H Respiratory Rate Blood Pressure 111/58 L 100/53 L 91/49 L Pulse Oximetry Oxygen Delivery Oxygen Flow Rate Fraction of Inspired Oxygen 06/21/24 00:30 06/21/24 00:45 06/21/24 00:00 Temperature Pulse Rate 118 H 118 H 123 H Respiratory Rate 23 H Blood Pressure 84/49 L 88/49 L Pulse Oximetry Oxygen Delivery Oxygen Flow Rate Fraction of Inspired Oxygen 06/21/24 00:30 06/21/24 00:00 06/21/24 01:00 Temperature Pulse Rate 118 H 123 H 116 H Respiratory Rate 25 H 23 H Blood Pressure 92/37 L Pulse Oximetry Oxygen Delivery Oxygen Flow Rate Fraction of Inspired Oxygen 06/21/24 01:15 06/21/24 01:16 06/21/24 00:00 Temperature 38.1 C H Pulse Rate 114 H 114 H Respiratory Rate 20 Blood Pressure 92/44 L 92/44 L Pulse Oximetry 100 100 Oxygen Delivery Mechanical Ventilation Oxygen Flow Rate Fraction of Inspired Oxygen 40 06/21/24 00:00 06/20/24 20:00 06/21/24 01:01 Temperature 38.2 C H Pulse Rate 128 H 116 H Respiratory Rate 18 Blood Pressure 92/37 L Pulse Oximetry 100 Oxygen Delivery Oxygen Flow Rate Fraction of Inspired Oxygen 40 06/20/24 22:00 06/21/24 00:00 06/21/24 01:30 Temperature Pulse Rate 130 H 122 H 113 H Respiratory Rate Blood Pressure 98/48 L Pulse Oximetry Oxygen Delivery Oxygen Flow Rate Fraction of Inspired Oxygen 06/21/24 01:31 06/21/24 01:45 06/20/24 21:10 Temperature 38.1 C H Pulse Rate 113 H 112 H 125 H Respiratory Rate 20 20 25 H Blood Pressure 98/48 L Pulse Oximetry 100 Oxygen Delivery Oxygen Flow Rate Fraction of Inspired Oxygen 06/21/24 01:47 06/21/24 01:55 06/21/24 01:45 Temperature 37.9 C H Pulse Rate 114 H 113 H 112 H Respiratory Rate 20 20 Blood Pressure 96/50 L Pulse Oximetry 100 100 Oxygen Delivery Mechanical Ventilation Oxygen Flow Rate Fraction of Inspired Oxygen 40 06/21/24 01:45 06/21/24 02:00 06/21/24 02:15 Temperature Pulse Rate 112 H 112 H 113 H Respiratory Rate Blood Pressure 96/50 L 94/50 L 89/50 L Pulse Oximetry Oxygen Delivery Oxygen Flow Rate Fraction of Inspired Oxygen 06/21/24 02:30 06/21/24 02:00 06/21/24 02:00 Temperature Pulse Rate 114 H 112 H 114 H Respiratory Rate 18 18 Blood Pressure 90/48 L Pulse Oximetry Oxygen Delivery Oxygen Flow Rate Fraction of Inspired Oxygen 06/21/24 01:46 06/21/24 02:01 06/21/24 02:16 Temperature 37.9 C H 37.9 C H 37.8 C H Pulse Rate 112 H 112 H 113 H Respiratory Rate 20 18 20 Blood Pressure 96/50 L 94/50 L 89/50 L Pulse Oximetry 100 100 100 Oxygen Delivery Oxygen Flow Rate Fraction of Inspired Oxygen 06/21/24 02:30 06/21/24 02:31 06/21/24 02:00 Temperature 37.7 C H 37.7 C H Pulse Rate 113 H 114 H 114 H Respiratory Rate 18 21 H Blood Pressure 90/48 L Pulse Oximetry 100 100 Oxygen Delivery Oxygen Flow Rate Fraction of Inspired Oxygen 06/21/24 03:02 06/21/24 03:00 06/21/24 03:11 Temperature 37.6 C Pulse Rate 149 H 148 H Respiratory Rate Blood Pressure 71/44 L 118/70 Pulse Oximetry Oxygen Delivery Oxygen Flow Rate Fraction of Inspired Oxygen 06/21/24 03:03 06/21/24 03:03 06/21/24 03:03 Temperature Pulse Rate 147 H 147 H 148 H Respiratory Rate 21 H 21 H Blood Pressure 56/48 L Pulse Oximetry Oxygen Delivery Oxygen Flow Rate Fraction of Inspired Oxygen 06/21/24 03:24 06/21/24 03:20 06/21/24 03:25 Temperature Pulse Rate 121 H 137 H 129 H Respiratory Rate Blood Pressure 147/71 H 147/71 H 147/74 H Pulse Oximetry Oxygen Delivery Oxygen Flow Rate Fraction of Inspired Oxygen 06/21/24 03:20 06/21/24 03:20 06/21/24 03:22 Temperature Pulse Rate 137 H 137 H 130 H Respiratory Rate 21 H 21 H Blood Pressure 147/71 H Pulse Oximetry Oxygen Delivery Oxygen Flow Rate Fraction of Inspired Oxygen 06/21/24 03:30 06/21/24 03:34 06/21/24 03:35 Temperature Pulse Rate 111 H 103 H 118 H Respiratory Rate Blood Pressure 134/69 134/69 134/69 Pulse Oximetry Oxygen Delivery Oxygen Flow Rate Fraction of Inspired Oxygen 06/21/24 03:44 06/21/24 03:45 06/21/24 04:00 Temperature Pulse Rate 120 H 112 H 96 Respiratory Rate 20 Blood Pressure 136/65 132/56 L Pulse Oximetry Oxygen Delivery Oxygen Flow Rate Fraction of Inspired Oxygen 06/21/24 04:02 06/21/24 04:00 06/21/24 04:00 Temperature 37.1 C Pulse Rate 96 95 Respiratory Rate 20 Blood Pressure 132/56 L Pulse Oximetry Oxygen Delivery Oxygen Flow Rate Fraction of Inspired Oxygen 06/21/24 04:00 06/21/24 04:05 06/21/24 04:09 Temperature Pulse Rate 95 96 95 Respiratory Rate 20 20 Blood Pressure 129/58 L Pulse Oximetry Oxygen Delivery Oxygen Flow Rate Fraction of Inspired Oxygen 06/21/24 04:10 06/21/24 04:20 06/21/24 02:47 Temperature 37.6 C Pulse Rate 95 97 151 H Respiratory Rate 11 L Blood Pressure 125/54 L 122/53 L 97/49 L Pulse Oximetry Oxygen Delivery Oxygen Flow Rate Fraction of Inspired Oxygen 06/21/24 03:01 06/21/24 03:04 06/21/24 03:06 Temperature 37.6 C 37.6 C 37.6 C Pulse Rate 149 H 158 H 134 H Respiratory Rate 21 H 21 H 21 H Blood Pressure 71/44 L 56/48 L 120/68 Pulse Oximetry 100 99 100 Oxygen Delivery Oxygen Flow Rate Fraction of Inspired Oxygen 06/21/24 03:11 06/21/24 03:12 06/21/24 03:15 Temperature 37.5 C 37.5 C 37.5 C Pulse Rate 157 H 161 H 142 H Respiratory Rate 21 H 21 H 21 H Blood Pressure 118/70 127/80 150/81 H Pulse Oximetry 100 100 100 Oxygen Delivery Oxygen Flow Rate Fraction of Inspired Oxygen 06/21/24 03:18 06/21/24 03:20 06/21/24 03:25 Temperature 37.4 C 37.4 C 37.4 C Pulse Rate 140 H 133 H 127 H Respiratory Rate 21 H 21 H 22 H Blood Pressure 152/78 H 147/71 H 146/74 H Pulse Oximetry 100 100 100 Oxygen Delivery Oxygen Flow Rate Fraction of Inspired Oxygen 06/21/24 03:30 06/21/24 03:35 06/21/24 03:40 Temperature 37.3 C 37.3 C 37.2 C Pulse Rate 115 H 115 H 121 H Respiratory Rate 20 20 21 H Blood Pressure 134/69 135/57 L 136/65 Pulse Oximetry 100 100 100 Oxygen Delivery Oxygen Flow Rate Fraction of Inspired Oxygen 06/21/24 03:45 06/21/24 03:50 06/21/24 03:55 Temperature 37.2 C 37.2 C 37.2 C Pulse Rate 111 H 119 H 96 Respiratory Rate 20 20 18 Blood Pressure 123/59 L 127/66 138/57 L Pulse Oximetry 100 99 99 Oxygen Delivery Oxygen Flow Rate Fraction of Inspired Oxygen 06/21/24 04:00 06/21/24 04:05 06/21/24 04:10 Temperature 37.1 C 37.1 C 37.1 C Pulse Rate 95 95 96 Respiratory Rate 23 H 20 20 Blood Pressure 132/56 L 129/58 L 125/54 L Pulse Oximetry 99 100 99 Oxygen Delivery Oxygen Flow Rate Fraction of Inspired Oxygen 06/21/24 04:15 06/21/24 04:20 06/21/24 04:25 Temperature 37.0 C 36.9 C 36.9 C Pulse Rate 98 96 98 Respiratory Rate 23 H 20 15 Blood Pressure 120/55 L 122/53 L 117/49 L Pulse Oximetry 99 99 99 Oxygen Delivery Oxygen Flow Rate Fraction of Inspired Oxygen 06/21/24 04:30 06/21/24 04:00 06/21/24 04:00 Temperature 36.9 C Pulse Rate 97 Respiratory Rate 15 Blood Pressure 123/54 L Pulse Oximetry 99 100 Oxygen Delivery Mechanical Ventilation Oxygen Flow Rate Fraction of Inspired Oxygen 40 40 06/21/24 04:50 06/21/24 04:35 06/21/24 04:40 Temperature 36.8 C 36.8 C Pulse Rate 102 H 97 98 Respiratory Rate 14 9 L Blood Pressure 131/57 L 125/50 L 117/52 L Pulse Oximetry 99 99 Oxygen Delivery Oxygen Flow Rate Fraction of Inspired Oxygen 06/21/24 04:45 06/21/24 04:50 06/21/24 04:55 Temperature 36.7 C 36.7 C 36.6 C Pulse Rate 98 101 H 101 H Respiratory Rate 8 L 20 13 Blood Pressure 118/52 L 131/57 L 113/51 L Pulse Oximetry 98 100 100 Oxygen Delivery Oxygen Flow Rate Fraction of Inspired Oxygen 06/21/24 02:45 06/21/24 03:15 06/21/24 03:45 Temperature Pulse Rate 151 H 142 H 111 H Respiratory Rate Blood Pressure 97/49 L 150/81 H 123/59 L Pulse Oximetry Oxygen Delivery Oxygen Flow Rate Fraction of Inspired Oxygen 06/21/24 04:15 06/21/24 04:30 06/21/24 04:45 Temperature Pulse Rate 98 97 98 Respiratory Rate Blood Pressure 120/55 L 123/54 L 118/52 L Pulse Oximetry Oxygen Delivery Oxygen Flow Rate Fraction of Inspired Oxygen 06/21/24 05:00 06/21/24 05:15 06/21/24 05:11 Temperature Pulse Rate 99 97 98 Respiratory Rate Blood Pressure 113/56 L 125/52 L Pulse Oximetry 99 Oxygen Delivery Mechanical Ventilation Oxygen Flow Rate Fraction of Inspired Oxygen 40 06/21/24 05:00 06/21/24 05:05 06/21/24 05:10 Temperature 36.6 C 36.5 C 36.5 C Pulse Rate 99 99 100 Respiratory Rate 20 20 Blood Pressure 113/56 L 128/91 H 131/58 L Pulse Oximetry 99 100 100 Oxygen Delivery Oxygen Flow Rate Fraction of Inspired Oxygen 06/21/24 05:15 06/21/24 04:00 06/21/24 07:19 Temperature 36.4 C Pulse Rate 97 96 83 Respiratory Rate 20 Blood Pressure 125/52 L 128/50 L Pulse Oximetry 100 Oxygen Delivery Oxygen Flow Rate Fraction of Inspired Oxygen 06/21/24 07:20 06/21/24 05:30 06/21/24 05:45 Temperature Pulse Rate 83 98 96 Respiratory Rate Blood Pressure 128/50 L 110/50 L 111/50 L Pulse Oximetry Oxygen Delivery Oxygen Flow Rate Fraction of Inspired Oxygen 06/21/24 06:00 06/21/24 06:00 06/21/24 06:00 Temperature Pulse Rate 93 93 93 Respiratory Rate 12 Blood Pressure 108/55 L 108/55 L Pulse Oximetry Oxygen Delivery Oxygen Flow Rate Fraction of Inspired Oxygen 06/21/24 06:00 06/21/24 06:00 06/21/24 05:20 Temperature 36.4 C Pulse Rate 93 93 100 Respiratory Rate 12 20 Blood Pressure 116/50 L Pulse Oximetry 100 Oxygen Delivery Oxygen Flow Rate Fraction of Inspired Oxygen 06/21/24 05:25 06/21/24 05:30 06/21/24 05:35 Temperature 36.4 C L 36.3 C L 36.3 C L Pulse Rate 99 98 97 Respiratory Rate 20 20 20 Blood Pressure 111/52 L 110/50 L 107/52 L Pulse Oximetry 100 100 100 Oxygen Delivery Oxygen Flow Rate Fraction of Inspired Oxygen 06/21/24 05:40 06/21/24 05:45 06/21/24 05:50 Temperature 36.3 C L 36.3 C L 36.2 C L Pulse Rate 97 96 97 Respiratory Rate 20 20 20 Blood Pressure 109/52 L 111/50 L 112/50 L Pulse Oximetry 100 100 100 Oxygen Delivery Oxygen Flow Rate Fraction of Inspired Oxygen 06/21/24 05:55 06/21/24 06:00 06/21/24 06:05 Temperature 36.2 C L 36.2 C L 36.2 C L Pulse Rate 95 93 91 Respiratory Rate 14 12 20 Blood Pressure 103/57 L 108/55 L 114/56 L Pulse Oximetry 100 100 100 Oxygen Delivery Oxygen Flow Rate Fraction of Inspired Oxygen 06/21/24 06:10 06/21/24 06:43 06/21/24 08:00 Temperature 36.1 C L 35.8 C L Pulse Rate 88 87 79 Respiratory Rate 18 18 Blood Pressure 108/55 L 126/51 L 126/50 L Pulse Oximetry 100 100 Oxygen Delivery Oxygen Flow Rate Fraction of Inspired Oxygen 06/21/24 08:52 06/21/24 09:08 06/21/24 09:16 Temperature Pulse Rate 91 80 90 Respiratory Rate Blood Pressure 138/55 L 128/51 L 139/47 L Pulse Oximetry Oxygen Delivery Oxygen Flow Rate Fraction of Inspired Oxygen 06/21/24 08:00 06/21/24 09:30 06/21/24 09:45 Temperature 35.4 C L Pulse Rate 78 84 84 Respiratory Rate 13 Blood Pressure 126/50 L 128/47 L 134/57 L Pulse Oximetry 100 Oxygen Delivery Oxygen Flow Rate Fraction of Inspired Oxygen 06/21/24 10:06 06/21/24 10:13 06/21/24 10:27 Temperature Pulse Rate 90 84 92 Respiratory Rate Blood Pressure 124/53 L 124/53 L 131/50 L Pulse Oximetry Oxygen Delivery Oxygen Flow Rate Fraction of Inspired Oxygen 06/21/24 10:42 06/21/24 10:45 06/21/24 10:59 Temperature Pulse Rate 91 82 82 Respiratory Rate Blood Pressure 140/56 L 147/57 H 154/58 H Pulse Oximetry Oxygen Delivery Oxygen Flow Rate Fraction of Inspired Oxygen 06/21/24 11:16 06/21/24 08:00 06/21/24 10:00 Temperature Pulse Rate 90 78 89 Respiratory Rate Blood Pressure 140/63 126/50 L 124/53 L Pulse Oximetry Oxygen Delivery Oxygen Flow Rate Fraction of Inspired Oxygen 06/21/24 08:00 06/21/24 10:00 06/21/24 08:00 Temperature Pulse Rate 78 89 78 Respiratory Rate 13 20 13 Blood Pressure Pulse Oximetry Oxygen Delivery Oxygen Flow Rate Fraction of Inspired Oxygen 06/21/24 10:00 06/21/24 11:32 Temperature Pulse Rate 89 82 Respiratory Rate 20 Blood Pressure 152/61 H Pulse Oximetry Oxygen Delivery Oxygen Flow Rate Fraction of Inspired Oxygen Intake/Output Intake/Output: Intake & Output 06/18/24 06/19/24 06/20/24 06/21/24 23:59 23:59 23:59 23:59 Intake Total 3120 3280 1616.4 1343.1 Output Total 2150 900 1550 125 Balance 970 2380 66.4 1218.1 Meds/Results Medications: Active Medications Generic Name Dose Route Start Last Admin Trade Name Freq PRN Reason Stop Dose Admin Acetaminophen 650 mg 06/12/24 10:51 06/15/24 20:38 Acetaminophen 325 Mg Tablet PO 650 mg Q4H PRN Administration Headache Acetaminophen 650 mg 06/16/24 08:14 06/20/24 18:44 Acetaminophen 650 Mg Suppository RECTAL 650 mg Q6H PRN Administration Mild Pain (1-3) or Fever Acetaminophen 650 mg 06/21/24 02:56 06/21/24 03:02 Acetaminophen Elixir 325 Mg/10.15 Ml Udc PO 650 mg Q4H PRN Administration Mild Pain (1-3) or Fever Al Hydrox/Mg Hydrox/Simethicone 30 ml 06/11/24 01:09 Mag Hydrox/Al Hydrox/Simeth 30 Ml Udc PO Q6H PRN Indigestion Albuterol/Ipratropium 3 ml 06/17/24 20:00 06/21/24 01:45 Ipratropium 0.5 Mg/Albuterol Sulfate 2.5 Mg Ampul.Neb 3 Ml NEBULIZE 3 ml Q6HRT SOPHIE Administration Aspirin 81 mg 06/11/24 09:00 06/17/24 11:12 Aspirin 81 Mg Enteric Tablet PO Not Given DAILY SOPHIE Dextrose 12.5 gm 06/21/24 09:31 Dextrose 50% 25 Gm/50 Ml Syringe IV PUSH PRN PRN Hypoglycemia Protocol Donepezil HCl 5 mg 06/11/24 21:00 06/13/24 21:47 Donepezil Hcl 5 Mg Tablet PO 5 mg QHS SOPHIE Administration Enoxaparin Sodium 30 mg 06/21/24 09:00 06/21/24 08:58 Enoxaparin 30 Mg/0.3 Ml Syringe SUB-Q 30 mg DAILY SOPHIE Administration Glucagon 1 mg 06/21/24 09:31 Glucagon For Inj 1 Mg Vial IM PRN PRN Hypoglycemia Protocol Glucose 15 gm 06/21/24 09:31 Glucose Oral Gel 15 Gm Of Glucse In 37.5 Gm Tube PO PRN PRN Hypoglycemia Protocol Hydrocortisone Sodium Succinate 100 mg 06/21/24 14:00 Hydrocortisone Sodium Succinate 100 Mg/2 Ml Vial IV PUSH Q8HR SOPHIE Fentanyl Citrate 2,500 mcg in 250 mls @ 10 mls/hr 06/20/24 20:25 06/21/24 10:00 Fentanyl 2,500 Mcg/Ns 250 Ml IV CONT 100 mcg/hr .Q25H SOPHIE 10 mls/hr Titration Protocol 100 MCG/HR Midazolam HCl 100 mg in 100 mls @ 2 mls/hr 06/20/24 22:10 06/21/24 10:00 Versed 100 Mg/Ns 100 Ml IV CONT 2 mg/hr .Q50H SOPHIE 2 mls/hr Titration Protocol 2 MG/HR Norepinephrine Bitartrate 8 mg in 250 mls @ 22.5 mls/hr 06/20/24 22:45 06/21/24 11:32 Levophed 8 Mg/D5w 250 Ml IV CONT 12 mcg/min .Q11H7M SOPHIE 22.5 mls/hr Titration Protocol 12 MCG/MIN Amiodarone HCl/Dextrose 360 mg in 200 mls @ 16.667 mls/hr 06/21/24 03:20 06/21/24 10:00 Nexterone 360 Mg/D5w 200 Ml IV CONT 0.5 mg/min .Q12H SOPHIE 16.67 mls/hr Infusion 0.5 MG/MIN Vasopressin 100 units/ 100 mls @ 1.2 mls/hr 06/21/24 03:05 06/21/24 10:13 Dextrose IV CONT 0.04 units/min .Q72H SOPHIE 2.4 mls/hr Administration Protocol 0.02 UNITS/MIN Meropenem 500 mg in 100 mls @ 200 mls/hr 06/21/24 09:00 06/21/24 09:28 IVPB Infused Q12H SOPHIE Infusion Acyclovir Sodium 1,000 mg/ 270 mls @ 270 mls/hr 06/22/24 06:00 Dextrose IVPB Q24H SOPHIE Dextrose 1,000 mls @ 100 mls/hr 06/21/24 09:31 Dextrose 5% 1,000 Ml IVPB PRN PRN Hypoglycemia Protocol Insulin Aspart 3 - 6 units 06/21/24 09:35 06/21/24 10:57 Insulin Aspart (*Bkc) 100 Units/Ml SUB-Q 3 units Q4H SOPHIE Administration Protocol Multi-Ingred Cream/Lotion/Oil/Oint 1 applic 06/21/24 09:00 06/21/24 10:25 Mineral Oil/White Petrolatum Ointment EACH EYE 1 applic Q12HR SOPHIE Administration Neomycin/Polymyxin/Bacitracin 1 applic 06/13/24 18:50 Neomycin/Polymyxin/Bacitracin Ointment 15 Gm Tube TOPICAL PRN PRN with dressing changes Home Med ( 0 mg 06/12/24 06:30 06/20/24 10:10 Abiraterone 250 Mg PO 07/12/24 06:29 Not Given Tablet) DAILY@0630 [facility] Ondansetron HCl 4 mg 06/11/24 01:09 06/13/24 08:16 Ondansetron Inj 4 Mg/2 Ml Vial IV PUSH 4 mg Q6H PRN Administration Nausea And Vomiting Pantoprazole Sodium 40 mg 06/20/24 21:00 06/21/24 08:58 Pantoprazole Sodium Iv 40 Mg Vial IV PUSH 40 mg Q12HR SOPHIE Administration Polyethylene Glycol 17 gm 06/11/24 01:09 06/14/24 18:21 Polyethylene Glycol 3350 17 Gm Powd.Pack PO 17 gm QAM PRN Administration Constipation Potassium Chloride 20 meq 06/22/24 09:00 Potassium Chloride 20 Meq Packet (For Liquid) FEED TUBE DAILY [facility] Sodium Chloride 10 ml 06/19/24 14:00 06/21/24 08:59 Central Line Flush IV PUSH 10 ml Q8HR SOPHIE Administration Sodium Chloride 10 ml 06/19/24 09:58 Central Line Flush IV PUSH PRN PRN with TPN bag changes Sodium Chloride 20 ml 06/19/24 09:58 Central Line Flush IV PUSH PRN PRN after blood draws Tamsulosin HCl 0.4 mg 06/11/24 09:00 06/17/24 11:12 Tamsulosin Hcl 0.4 Mg Capsule PO Not Given Q12HR [facility] Vancomycin HCl 1 each 06/21/24 07:00 Vancomycin For Acute Kidney Injury IVPB PRN PRN Vancomycin Protocol Radiology Results: ITS Impressions Abdomen Ultrasound 06/14/24 09:44 IMPRESSION: 1. Normal sizes of the liver and spleen. Chest/Abdomen/Pelvis CTA 06/17/24 09:31 IMPRESSION: 1. Mild interstitial and groundglass opacities in the left lower lobe with associated volume loss to at least in part to atelectasis although could not exclude superimposed mild pulmonary edema or pneumonia. 2. Diverticulosis with mild stranding along the distal descending colon suspicious for radiographically uncomplicated diverticulitis. 3. A couple new region of sclerosis along the iliac wings which raises concern for metastatic disease with appearance on the right suggesting possible early localized Paget's disease. Correlate with clinical history and could consider bone scan to assess for any additional lesions which would elevate concern for metastatic disease. Venous Doppler Study 06/17/24 13:22 IMPRESSION: 1. No deep venous thrombosis. Renal Ultrasound 06/19/24 11:43 IMPRESSION: 1. Normal kidneys. No hydronephrosis. Head CT 06/20/24 12:00 IMPRESSION: 1. Stable age-related changes including moderate diffuse volume loss and moderate scattered white matter hypoattenuation consistent with chronic small vessel ischemic disease. No acute intracranial process. Chest/Abdomen/Pelvis CT 06/20/24 12:10 IMPRESSION: 1. Worsened airspace opacities in left lung lower lobe, consistent with atelectasis versus pneumonia. 2. Septal thickening again seen in the lungs, consistent with mild pulmonary edema versus chronic lung disease. 3. Cystic lesions of the pancreas with worsening from 08/21/2014. The differential diagnosis includes pseudocyst, intraductal papillary mucinous neoplasm (IPMN), mucinous cystic neoplasm (MCN), serous cystadenoma, and neuroendocrine tumor. Consider abdomen MRI without and with contrast. 4. Sclerotic lesions in the iliac bones, new from 08/21/2014. The differential diagnosis includes metastatic disease and Paget's disease. Abdomen X-Ray 06/20/24 14:02 IMPRESSION: 1. Orogastric tube tip in the stomach. 2. Airspace opacities at left lung base, consistent with atelectasis versus pneumonia. Lumbar Puncture Fluoroscopy 06/20/24 16:35 IMPRESSION: 1. Successful fluoro-guided lumbar puncture with opening pressure of 22 cm water. Chest X-Ray 06/21/24 06:46 Impression: Small left pleural effusion with left basilar atelectasis versus pneumonia. Support tubes, as above. Labs Labs: Laboratory Results - last 24 hr 06/20/24 06/20/24 06/20/24 11:32 14:04 14:41 WBC 5.3 RBC 2.97 L Hgb 10.1 L Hct 29.8 L MCV 100.3 H MCH 34.0 MCHC 33.9 RDW 14.2 Plt Count 217 MPV 9.9 Immature Gran % (Auto) 0.9 H Neut % (Auto) 68.7 Lymph % (Auto) 13.5 L [place] % (Auto) 8.1 Eos % (Auto) 7.7 H Baso % (Auto) 1.1 Lymph # (Auto) 0.72 L [place] # (Auto) 0.4 Eos # (Auto) 0.4 H Baso # (Auto) 0.1 Abs Immat Gran (auto) 0.05 H Absolute Neuts (auto) 3.7 Absolute Nucleated RBC 0.000 Nucleated RBC % 0.0 Atypical Lymphocytes Present Platelet Estimate Adequate Hypochromasia Ovalocytes [place] Cells Schistocytes None seen PT 15.6 H INR 1.2 APTT 35.7 Puncture Site Left radial ABG pH 7.515 H* ABG pCO2 27.3 L ABG pO2 201.1 H ABG PO2/FiO2 Ratio 3.35 ABG HCO3 21.5 L ABG O2 Saturation 99.5 ABG O2 Content 15.9 L ABG Base Excess -0.5 A-a Gradient 196.7 Oxyhemoglobin 98.8 Carboxyhemoglobin 0.3 Methemoglobin 0.2 Reduced Hemoglobin 0.7 Total Hemoglobin 11.1 L O2 Delivery Device Ventilator O2 Liters/Min Not Reportable Minute Volume Not Reportable Vent Rate 24 Vent Mode Cmv FiO2 60 Tidal Volume 450 PEEP 8 Peak Inspir Pressure Not Reportable Pressure Support Not Reportable Sodium 144 Potassium 2.4 L* Chloride 108 H Carbon Dioxide 24 Anion Gap 12 BUN 15 Creatinine 2.10 H Estim Creat Clear Calc 28 Estimated GFR 30 L Glucose 132 H POC Capillary Glucose Lactic Acid 1.4 Calcium 9.1 Phosphorus 2.3 L Magnesium 1.5 L Total Bilirubin 0.6 AST 32 ALT 12 Alkaline Phosphatase 57 Ammonia < 9 L Total Creatine Kinase 71 C-Reactive Protein 34.8 H Total Protein 6.0 L Albumin 2.9 L Triglycerides 440 H Lipase CSF Source CSF Appearance CSF Color CSF RBC CSF Tot Nucleated Cells CSF Neutrophils CSF Lymphocytes CSF Monocytes CSF Glucose CSF Total Protein Nasal MRSA (PCR) Not detected 06/20/24 06/20/24 06/20/24 16:03 18:27 18:49 WBC RBC Hgb Hct MCV MCH MCHC RDW Plt Count MPV Immature Gran % (Auto) Neut % (Auto) Lymph % (Auto) [place] % (Auto) Eos % (Auto) Baso % (Auto) Lymph # (Auto) [place] # (Auto) Eos # (Auto) Baso # (Auto) Abs Immat Gran (auto) Absolute Neuts (auto) Absolute Nucleated RBC Nucleated RBC % Atypical Lymphocytes Platelet Estimate Hypochromasia Ovalocytes [place] Cells Schistocytes PT INR APTT Puncture Site ABG pH ABG pCO2 ABG pO2 ABG PO2/FiO2 Ratio ABG HCO3 ABG O2 Saturation ABG O2 Content ABG Base Excess A-a Gradient Oxyhemoglobin Carboxyhemoglobin Methemoglobin Reduced Hemoglobin Total Hemoglobin O2 Delivery Device O2 Liters/Min Minute Volume Vent Rate Vent Mode FiO2 Tidal Volume PEEP Peak Inspir Pressure Pressure Support Sodium 142 Potassium 3.0 L Chloride 108 H Carbon Dioxide 25 Anion Gap 9 BUN 15 Creatinine 2.40 H Estim Creat Clear Calc 24 Estimated GFR 26 L Glucose 197 H POC Capillary Glucose 153 H Lactic Acid Calcium 9.0 Phosphorus Magnesium Total Bilirubin AST ALT Alkaline Phosphatase Ammonia Total Creatine Kinase C-Reactive Protein Total Protein Albumin Triglycerides Lipase CSF Source Csf CSF Appearance Clear CSF Color Colorless CSF RBC 1 CSF Tot Nucleated Cells 1 CSF Neutrophils 28 H CSF Lymphocytes 64 CSF Monocytes 8 L CSF Glucose 89 H CSF Total Protein 102 H Nasal MRSA (PCR) 06/20/24 06/21/24 06/21/24 23:47 03:11 05:00 WBC 8.9 RBC 2.91 L Hgb 9.7 L Hct 29.7 L MCV 102.1 H MCH 33.3 MCHC 32.7 RDW 14.5 Plt Count 262 MPV 10.1 Immature Gran % (Auto) 1.8 H Neut % (Auto) 69.5 Lymph % (Auto) 12.2 L [place] % (Auto) 7.5 Eos % (Auto) 8.1 H Baso % (Auto) 0.9 Lymph # (Auto) 1.08 [place] # (Auto) 0.7 H Eos # (Auto) 0.7 H Baso # (Auto) 0.1 Abs Immat Gran (auto) 0.16 H Absolute Neuts (auto) 6.2 Absolute Nucleated RBC 0.000 Nucleated RBC % 0.0 Atypical Lymphocytes Platelet Estimate Adequate Hypochromasia 1+ Ovalocytes 1+ [place] Cells 1+ Schistocytes None seen PT INR APTT Puncture Site Right radial ABG pH 7.334 L ABG pCO2 43.1 ABG pO2 129.4 H ABG PO2/FiO2 Ratio 3.23 ABG HCO3 22.4 ABG O2 Saturation 98.4 ABG O2 Content 13.9 L ABG Base Excess -3.3 A-a Gradient 106.2 Oxyhemoglobin 97.8 Carboxyhemoglobin 0.3 Methemoglobin 0.2 Reduced Hemoglobin 1.7 Total Hemoglobin 9.9 L O2 Delivery Device Ventilator O2 Liters/Min Not Reportable Minute Volume Not Reportable Vent Rate 20 Vent Mode Cmv FiO2 40 Tidal Volume 450 PEEP 8 Peak Inspir Pressure Not Reportable Pressure Support Not Reportable Sodium 145 Potassium 3.2 L Chloride 112 H Carbon Dioxide 22 Anion Gap 11 BUN 17 Creatinine 3.00 H Estim Creat Clear Calc 20 Estimated GFR 20 L Glucose 179 H POC Capillary Glucose 162 H Lactic Acid 1.5 Calcium 9.4 Phosphorus 3.9 Magnesium 1.6 Total Bilirubin 0.5 AST 29 ALT 12 Alkaline Phosphatase 57 Ammonia Total Creatine Kinase C-Reactive Protein 39.7 H Total Protein 6.0 L Albumin 2.9 L Triglycerides Lipase 35 CSF Source CSF Appearance CSF Color CSF RBC CSF Tot Nucleated Cells CSF Neutrophils CSF Lymphocytes CSF Monocytes CSF Glucose CSF Total Protein Nasal MRSA (PCR) 06/21/24 06/21/24 06:30 10:29 WBC RBC Hgb Hct MCV MCH MCHC RDW Plt Count MPV Immature Gran % (Auto) Neut % (Auto) Lymph % (Auto) [place] % (Auto) Eos % (Auto) Baso % (Auto) Lymph # (Auto) [place] # (Auto) Eos # (Auto) Baso # (Auto) Abs Immat Gran (auto) Absolute Neuts (auto) Absolute Nucleated RBC Nucleated RBC % Atypical Lymphocytes Platelet Estimate Hypochromasia Ovalocytes [place] Cells Schistocytes PT INR APTT Puncture Site ABG pH ABG pCO2 ABG pO2 ABG PO2/FiO2 Ratio ABG HCO3 ABG O2 Saturation ABG O2 Content ABG Base Excess A-a Gradient Oxyhemoglobin Carboxyhemoglobin Methemoglobin Reduced Hemoglobin Total Hemoglobin O2 Delivery Device O2 Liters/Min Minute Volume Vent Rate Vent Mode FiO2 Tidal Volume PEEP Peak Inspir Pressure Pressure Support Sodium Potassium Chloride Carbon Dioxide Anion Gap BUN Creatinine Estim Creat Clear Calc Estimated GFR Glucose POC Capillary Glucose 209 H 226 H Lactic Acid Calcium Phosphorus Magnesium Total Bilirubin AST ALT Alkaline Phosphatase Ammonia Total Creatine Kinase C-Reactive Protein Total Protein Albumin Triglycerides Lipase CSF Source CSF Appearance CSF Color CSF RBC CSF Tot Nucleated Cells CSF Neutrophils CSF Lymphocytes CSF Monocytes CSF Glucose CSF Total Protein Nasal MRSA (PCR) Quality VTE Prophylaxis VTE prophylaxis: pharmacologic ordered
[2024-06-21] MEDS: MORPHINE SULFATE INJ (*CRX) 10 MG/ML AMP 5 MG IV PUSH (12:56)
[2024-06-21] MEDS: LORazepam INJ (*CRX) 2 MG/ML VIAL IV PUSH (12:56)
--- NOTE | 2024-06-21 16:18 | P.DN_ITS ---
Discharge Summary Date and Time Date of : 06/21/24 Time of : 15:05 Provider Pronounced By: 2 RNs Name of First RN That Pronounced: Elma Paz RN Name of Second RN That Pronounced: Cassidy Jackson RN Probable Cause of Probable Cause of : sepsis Pneumonia acute hypoxic Respiratory failure Summary Hospital Course: this is an 84-year-old male who presents to the hospital with generalized weakness. Patient was diagnosed with sepsis related to pneumonia and/or diverticulitis which was treated with antibiotics. Patient however progressed with respiratory failure needing intubation and mechanical ventilation. Patient also required vasopressors for septic shock. Patient continued decline and family decided to withdraw care. Patient subsequently . Necessary arrangements were made. Additional Data Confirmation of as documented by pronouncing clinician: Pupillary Reflex, Palpable Pulses, Response to Stimuli, Heart Tones and Breath Sounds Name of Provider Notified: dr. pereira and dr. 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
[2024-06-25 00:28] LABS: Varicella IgM Antibody 0.26
[2024-06-25 08:04] LABS: Source CEREBROSPINAL FLUID
[2024-06-27 19:19] LABS: West Nile Virus, IgM <0.90 index
[2024-06-30 16:19] LABS: Cryptococcus Antigen NOT DETECTED; Cryptococcus Specimen Source SERUM
[2024-07-03 22:44] LABS: Herpes Simplex Type 1 DNA PCR Not Detected (Not Detected); Herpes Simplex Type 2 DNA PCR Not Detected (Not Detected)
== END 2024-06-21 15:05 | disposition expired | DRG 871 ==
LOC: ANHED 23:01 → ANH2MED 23:38 → ANHIMU 06-17 14:30 → ANH2MED 06-24 08:41 → ANHICU 06-24 08:41
PROVIDERS: General Practice; Hospitalist; Internal Medicine; Nurse Practitioner Acute Care; Nurse Practitioner Adult Health; Admitting Provider Internal Medicine; Emergency Provider Emergency Medicine; PCP Internal Medicine; Referring Provider Internal Medicine Hematology & Oncology; Visit Provider Internal Medicine
DX: A41.9 Sepsis, unspecified organism (principal); J18.9 Pneumonia, unspecified organism; J96.01 Acute respiratory failure with hypoxia; D61.818 Other pancytopenia; K57.32 Diverticulitis of large intestine without perforation or abscess without bleeding; G93.40 Encephalopathy, unspecified; N17.9 Acute kidney failure, unspecified; L03.113 Cellulitis of right upper limb; T80.89XA Other complications following infusion, transfusion and therapeutic injection, initial encounter; I48.91 Unspecified atrial fibrillation; N18.30 Chronic kidney disease, stage 3 unspecified; I12.9 Hypertensive chronic kidney disease with stage 1 through stage 4 chronic kidney disease, or unspecified chronic kidney disease; E11.22 Type 2 diabetes mellitus with diabetic chronic kidney disease; E87.6 Hypokalemia; E83.42 Hypomagnesemia; E78.5 Hyperlipidemia, unspecified; D64.9 Anemia, unspecified; C61 Malignant neoplasm of prostate; K21.9 Gastro-esophageal reflux disease without esophagitis; K57.30 Diverticulosis of large intestine without perforation or abscess without bleeding; M89.9 Disorder of bone, unspecified; R62.7 Adult failure to thrive; Y95 Nosocomial condition; G47.33 Obstructive sleep apnea (adult) (pediatric); Z20.822 Contact with and (suspected) exposure to COVID-19; Z79.82 Long term (current) use of aspirin; Z87.891 Personal history of nicotine dependence
CPT/HCPCS: 31500; 36415; 36569; 36600; 62328; 70450; 71045; 71250; 71275; 74174; 74176; 76700; 76775; 80048; 80053; 80143; 80179; 80307; 81001; 81003; 82140; 82375; 82550; 82565; 82607; 82746; 82805; 82945; 82947; 82948; 83050; 83540; 83550; 83605; 83690; 83735; 83880; 84100; 84132; 84157; 84443; 84478; 85018; 85025; 85027; 85610; 85730; 86140; 86403; 86787; 86788; 87015; 87040; 87070; 87086; 87102; 87116; 87205; 87206; 87529; 87636; 87637; 87641; 87798; 88108; 89051; 92610; 93005; 93970; 93971; 94002; 94640; 94667; 96361; 96365; 96366; 96375; 97110; 97161; 97166; 97530; 97535; 97550; 99212; 99285; A9270; G0378; G0463; J0133; J0282; J0456; J0696; J1650; J1756; J1815; J1940; J2003; J2060; J2185; J2250; J2270; J2405; J2470; J2543; J2704; J3010; J3370; J3475; J3480; J7030; J7040; J7050; J7060; Q9967